=== PATIENT | female | born 1955 | race Caucasian/White ===

== ENCOUNTER → 2022-05-14 | Outpatient (CLI) | payer MEDICAID, SELFPAY ==
--- NOTE | 2022-05-14 15:46 | PFTCOMP_ITS ---
COMPLETE PULMONARY FUNCTION TEST INTERPRETATION Brief HPI: Patient is a 67-year-old female, currently under the care of Dr. Ware, who presents to [facility] for complete pulmonary function tests secondary to diagnosis of COPD. Respiratory therapist reports good effort and reproducible results. Interpretation: Forced expiration spirometry shows a severe large airways obstructive ventilatory defect with an FEV1 of 43% predicted. There is a significant bronchodilator response in FVC by strict ATS criteria. Spirograms are of good quality and plateau slowly, indicating slowly emptying areas of the lungs. The respiratory flow volume loop shows decreased expiratory flow rates at all lung volumes consistent with airway obstruction. Lung volumes by body plethysmography show an elevated total lung capacity at 7.71 L, 191% predicted. FRC and RV are elevated out of proportion. Lung volume measurements are consistent with hyperinflation and air-trapping. Diffusion capacity by carbon monoxide is at the lower limit of normal at 62% predicted. The airway resistance is elevated. No previous pulmonary function tests were available for review. Impression: Partially reversible severe large airways obstructive ventilatory defect, resulting in air trapping with hyperinflation, and a symmetric reduction in diffusion capacity
== END | disposition home or self-care (01) ==
LOC: PSN 08:47
PROVIDERS: Referring Provider Internal Medicine; Visit Provider Internal Medicine
DX: J44.9 Chronic obstructive pulmonary disease, unspecified (principal)
CPT/HCPCS: 94060; 94726; 94729

== ENCOUNTER → 2022-08-23 | Outpatient (CLI) | payer MEDICAID, SELFPAY ==
--- NOTE | 2022-08-24 05:45 | PFTCOMP ---
COMPLETE PULMONARY FUNCTION TEST INTERPRETATION Brief HPI: Patient is a 67-year-old female, currently under the care of Dr. Ware, who presents to [facility] for complete pulmonary function tests secondary to diagnosis of COPD. Respiratory therapist reports good effort and reproducible results. Interpretation: Forced expiration spirometry shows a moderately severe large airways obstructive ventilatory defect with an FEV1 of 58% predicted. There is no significant bronchodilator response by strict ATS criteria. Spirograms are of good quality and plateau slowly, indicating slowly emptying areas of the lungs. The respiratory flow volume loop shows decreased expiratory flow rates at all lung volumes consistent with airway obstruction. Lung volumes by body plethysmography show an elevated total lung capacity at 5.07 L, 125% predicted. FRC and RV are elevated out of proportion. Lung volume measurements are consistent with hyperinflation and air-trapping. Diffusion capacity by carbon monoxide is normal at 71% predicted. The airway resistance is elevated. No previous pulmonary function tests were available for review. Impression: Irreversible moderately severe large airways obstructive ventilatory defect, resulting in air trapping with hyperinflation, and relatively preserved diffusion capacity
== END | disposition home or self-care (01) ==
LOC: PSN 10:25
PROVIDERS: Referring Provider Internal Medicine; Visit Provider Internal Medicine
DX: J44.9 Chronic obstructive pulmonary disease, unspecified (principal)
CPT/HCPCS: 94060; 94726; 94729

== ENCOUNTER → 2022-09-13 | Outpatient (CLI) | payer MEDICAID, SELFPAY ==
--- NOTE | 2022-09-13 16:50 | CT_ITS ---
STUDY: LOW DOSE CT LUNG CANCER SCREENING REASON FOR EXAM: Female, 67 years old. Smoker. Follow-up right upper lobe nodule. RADIATION DOSAGE (If Supplied By Facility): CTDIvol = ( 2.01 ) mGy, DLP = ( 62.43 ) mGycm TECHNIQUE: No contrast was administered. Low dose technique was utilized (average mAS-38 and kVp 120). 1.25 mm axial source images with a slice interval of 1.25-mm were reconstructed in lung windows. 2.5 mm axial source images with a slice interval of 2.5-mm were reconstructed in lung windows. 5.0 mm axial source images with a slice interval of 5.0-mm were reconstructed in soft tissue windows. COMPARISON: None. NODULES: Nodule #: 1 Density: 2 Lung location: Right upper lobe: 3.25 cm from pleura Location in series: Series Number: 2 Image: 54 Size - D1 x D2 mm: 7 x 6 mm: 7 mm average diameter Margin: Irregular Shape: Ovoid Calcification: No Fat: No Temporal comparison: None Nodule #: 2 Density: Solid Lung location: Left lower lobe: Pleural-based Location in series: Series Number: 2 Image: 86 Size - D1 x D2 mm: 3 x 3 mm: 3 mm average diameter Margin: Smooth Shape: Rounded Calcification: Yes Fat: No Temporal comparison: None Nodule #: 3 Density: Ground glass Lung location: Left upper lobe: 1.6 cm from pleura Location in series: Series Number: 2 Image: 133 Size - D1 x D2 mm: 8 x 4 mm: 6 mm average diameter Margin: Irregular Shape: Ovoid Calcification: No Fat: No Temporal comparison: None Total lung nodules (excluding granulomas): 2 Emphysema: Mild emphysematous changes in the lungs. Endobronchial lesion: None Aorta: Minimal atherosclerotic changes without aneurysm. CORONARY ARTERIES: Coronary artery calcification are seen Heart: Normal Pulmonary artery: Normal Mediastinal nodes: There are calcified bilateral hilar lymphadenopathy. Other chest and abdominal findings: Degenerative changes of the thoracic spine. CT/Low Dose CT Lung Screening IMPRESSION: Lung-RADS category 2 - Continue annual screening with LDCT in 12 months. IMPORTANT NOTES FOR USE: ACR Lung-RADS Version 1.1 Assessment Categories Release Date: 2018 Category: Coded 0-4 bases on nodule(s) with highest degree of suspicion. Negative screen is defined as categories 1 and 2; a positive screen is defined as categories 3 and 4. Category 3 and 4A nodules that are unchanged on interval CT should be coded as category 2, and individuals returned to screening in 12 months. Category 4X: Category 3 or 4 nodules with additional imaging findings that increase the suspicion of lung cancer, such as spiculation, GGN that doubles in size in 1 year, enlarged lymph notes, etc. Category Modifiers: S (significant finding unrelated to lung cancer) Electronically Signed: Selvin Ingram DO at 16:45 EDT Reading Location ID and State: [address] [place] [address] Tel [phone], Service support ,
== END | disposition home or self-care (01) ==
LOC: CT 16:50
PROVIDERS: Referring Provider Internal Medicine; Visit Provider Internal Medicine
DX: R91.8 Other nonspecific abnormal finding of lung field (principal); F17.200 Nicotine dependence, unspecified, uncomplicated
CPT/HCPCS: 71271

== ENCOUNTER 2022-12-05 09:54 | Outpatient (CLI) | payer MEDICARE, MEDICAID, SELFPAY ==
--- NOTE | 2022-12-05 09:59 | BD_ITS ---
STUDY: DUAL ENERGY X-RAY ABSORPTIOMETRY / DXA REASON FOR EXAM: Female, 67 years old. V76.12ScreeningBONE DENSITY REASON FOR EXAM TECHNIQUE: Bone Mineral Density (BMD) measurements of lumbar spine and bilateral hips were obtained. COMPARISON: None. FINDINGS: Lumbar Spine (L1-L4): g/cm2 (0.925) / T-score (-1.1) / Z-score (0.8) Findings are suggestive of osteopenia with a low fracture risk. Left Femur Total: g/cm2 (0.728) / T-score (-1.8) / Z-score (-0.4) Left Femoral Neck: g/cm2 (0.658) / T-score (-1.7) / Z-score (-0.1) Right Femur Total: g/cm2 (0.755) / T-score (-1.5) / Z-score (-0.2) Right Femoral Neck: g/cm2 (0.753) / T-score (-0.9) / Z-score (0.7) BD/Dexa Bone Density Study IMPRESSION: The patient is considered osteopenic as outlined below according to World Steve Organization (WHO) criteria with a moderate fracture risk. Reference Information: The T-score is the number of standard deviations above or below the standard which is normal for young adults at their peak bone mineral density. The World Health Organization (WHO) interprets the T-scores as follows: Above -1 Normal bone density Between -1 and -2.5 Osteopenia Equal to / or below -2.5 Osteoporosis As a practical clinical guideline, osteopenia may be graded as follows: Mild -1 through -1.5 Moderate -1.6 through -2.0 Severe -2.1 through -2.4 The Z-score is the number of standard deviations above or below age-matched controls. A Z-score of less than -1.5 would be considered abnormal. References: 1. NIH Osteoporosis and Related Bone Diseases www osteo.org 2. International Society for Clinical Densitometry www iscd.org 3. National Osteoporosis Foundation www nof.org Electronically Signed: Antonio Das MD at 12:54 EDT ,
== END 2022-12-05 23:59 | disposition home or self-care (01) ==
LOC: OPBD 09:55
PROVIDERS: PCP Family Medicine Geriatric Medicine; Referring Provider Family Medicine Geriatric Medicine; Visit Provider Family Medicine Geriatric Medicine
DX: Z13.89 Encounter for screening for other disorder (principal); E78.5 Hyperlipidemia, unspecified; I10 Essential (primary) hypertension; M85.80 Other specified disorders of bone density and structure, unspecified site; N95.9 Unspecified menopausal and perimenopausal disorder; Z13.29 Encounter for screening for other suspected endocrine disorder; E55.9 Vitamin D deficiency, unspecified
CPT/HCPCS: 36415; 77080; 80053; 82306; 84443; 85025; 86803

== ENCOUNTER → 2022-12-05 | Outpatient (CLI) | payer MEDICARE, MEDICAID, SELFPAY ==
[2022-12-05 10:52] LABS: Absolute Lymphocyte Count 3.09 X10^3/uL (0.83-4.51); Absolute Neutrophil Count 3.6 X10^3/uL (2.0-7.7); Basophil# 0.08 X10^3/uL; Eosinophil# 0.35 X10^3/uL; Eosinophils% 4.5 % (0-5); Hematocrit 38.5 % (37-47); Lymphocyte # 3.09 X10^3/ul (0.83-4.51); Lymphocyte % 39.8 % (19-41); Mean Corp Hgb Conc 31.2 g/dL (32-36); Mean Corpuscular Hgb 31.6 pg (27.0-32.0); Mean Corpuscular Volume 101.3 fL (81-99); Mean Platelet Vol. 9.9 fl (6.2-12.0); Monocyte# 0.65 X10^3/uL; Monocyte% 8.4 % (0-10); NRBC Flagged by Analyzer 0 % (0-5); Neutrophil # 3.56 X10^3/uL (2.7-7.7); Neutrophil % 45.9 % (47-70); Platelet Count 323 K/mm3 (150-450); RBC Distribution Width CV 12.6 % (11.6-14.6); RBC Distribution Width SD 47.5 fl (35.1-43.9); White Blood Count 7.8 K/mm3 (4.4-11.0)
[2022-12-05 11:21] LABS: ALB/GLOB Ratio 1.1 RATIO (0.9-2.4); AST(SGOT) 19 U/L (15-37); Alanine Aminotransfer ALT/SGPT 17 U/L (13-56); Albumin, Serum 3.7 g/dL (3.2-5.0); Alkaline Phosphatase 95 U/L (45-117); Anion Gap 6 (5-15); BUN 22 mg/dL (7-18); BUN/Creat Ratio 20.8 RATIO (10-20); Chloride 110 mmol/L (98-107); Creatinine, Serum 1.06 mg/dL (0.55-1.02); EST Glomerular Filtration Rate 55 mL/min (>60); Est Glom Filt Rate - Afr Amer 67 mL/min (>60); Globulin 3.3 g/dL (2.2-4.2); Glucose 99 mg/dL (74-106); Potassium 4.5 mmol/L (3.5-5.1); Sodium Level 142 mmol/L (136-145)
[2022-12-05 11:52] LABS: Hepatitis C Antibody Non-Reactive (Nonreactive); Vitamin D,25 Hydroxy 51.6 ng/mL
== END | disposition home or self-care (01) ==
LOC: LAB.FUTURE 09:11 → POLAB3 09:12
PROVIDERS: Visit Provider Family Medicine Geriatric Medicine
DX: Z13.29 Encounter for screening for other suspected endocrine disorder (principal); I10 Essential (primary) hypertension; E78.5 Hyperlipidemia, unspecified; E55.9 Vitamin D deficiency, unspecified
CPT/HCPCS: 36415; 80053; 82306; 84443; 85025; 86803

== ENCOUNTER 2023-05-03 10:01 | Emergency (ER) | payer MEDICARE, MEDICAID, SELFPAY ==
[2023-05-03 10:02] VITALS: BP 161/76; PULSE 65; RESP 18; TEMP 36.1; O2SAT 95; BMI 29.9
--- NOTE | 2023-05-03 10:03 | EX.ED.DYSGE1 ---
HPI History of Present Illness Chief Complaint: Dizziness [facility] Medical History Abnormality of lung on CXR Chronic airway obstruction COPD (chronic obstructive pulmonary disease) COPD with exacerbation DM type 2 (diabetes mellitus, type 2) Hypertension Iron deficiency anemia Mixed hyperlipidemia Nicotine addiction Oral thrush Stage 3 severe COPD by GOLD classification Home Medications lisinopril 20 mg tablet 20 mg PO DAILY 05/07/22 [History Last Taken Unknown] Nebulizer machine #1 ea 05/08/22 [Rx Last Taken Unknown] Supplies for nebulizer machine #3 ea 06/03/22 [Rx Last Taken Unknown] fluticasone fur. 200 mcg-umeclid 62.5 mcg-vilant 25 mcg inhalat.powder (Trelegy Ellipta) 1 inh inhalation DAILY COPD, severe #90 ea 09/10/22 [Rx Last Taken Unknown] varenicline 0.5 mg (11)-1 mg (42) tablets in a dose pack (Exuru! Starting Month Box) See Rx Instructions PO PER PKG DIR #53 tabs 09/10/22 [Rx Last Taken Unknown] nystatin 100,000 unit/mL oral suspension 5 ml mucous membrane TID #250 mL 11/20/22 [Rx Last Taken Unknown] albuterol sulfate 90 mcg/actuation aerosol inhaler (ProAir HFA) 2 puff inhalation Q6H PRN shortness of breath or wheezing #8.5 grams 01/30/23 [Rx Last Taken Unknown] albuterol sulfate 2.5 mg/3 mL (0.083 %) solution for nebulization 2.5 mg (3 mL) inhalation Q4H PRN shortness of breath or wheezing #180 mL 04/02/23 [Rx Last Taken Unknown] amoxicillin 875 mg-potassium clavulanate 125 mg tablet 1 tab PO BID #10 tabs 04/08/23 [Rx Last Taken Unknown] prednisone 10 mg tablet 10 mg PO QDAY #30 tabs 04/08/23 [Rx Last Taken Unknown] benzonatate 200 mg capsule 200 mg PO TID PRN cough #90 caps 04/10/23 [Rx Last Taken Unknown] azithromycin 500 mg tablet 500 mg PO DAILY 5 days #5 tabs 05/03/23 [Rx Last Taken Unknown] losartan 100 mg tablet 100 mg PO DAILY 05/03/23 [History Last Taken Unknown] metoclopramide HCl 5 mg tablet (Reglan) 5 mg PO Q8H PRN PRN nausea 5 days #15 tabs 05/03/23 [Rx Last Taken Unknown] prednisone 50 mg tablet 50 mg PO DAILY #5 tabs 05/03/23 [Rx Last Taken Unknown] Allergy/AdvReac Type Severity Reaction Status Date / Time codeine Allergy hives Verified 05/03/23 10:04 ondansetron [From Zofran] AdvReac Mild HEADACHE Verified 05/03/23 12:32 Surgical History H/O cervical discectomy Hx of tonsillectomy Social History (Updated 09/10/22 @ 13:39 by Melinda Mann) Smoking Status: Current every day smoker tobacco type: cigarettes alcohol intake: current alcohol intake frequency: holidays/special occasions only EXAM Physical Exam Const Vital Signs: 05/03/23 10:02 05/03/23 10:06 05/03/23 10:28 Temperature 97 F L Temperature Source Temporal Pulse Rate 65 71 Respiratory Rate 18 16 Respiratory Effort Normal Non-Labored Respiratory Pattern Normal Normal Blood Pressure 161/76 H Blood Pressure Mean 104 Pulse Ox 95 Oxygen Delivery Method Room Air 05/03/23 12:07 05/03/23 12:32 Temperature Temperature Source Pulse Rate 82 71 Respiratory Rate 17 15 Respiratory Effort Respiratory Pattern Blood Pressure 117/99 H 134/65 H Blood Pressure Mean 105 88 Pulse Ox 98 97 Oxygen Delivery Method Room Air MDM MDM MDM Narrative Medical decision making narrative: HISTORY OF PRESENT ILLNESS: 68-year-old female presents with concern for dizziness, SOB, productive cough. She symptoms abnormal for 2 days worse this morning she got up to use the bathroom. While she is using bathroom is felt lightheaded. Did not lose consciousness. Denies any chest pain. She denies any bleeding diathesis. She notes that she is vaccinated against RSV this year. She notes she still smoking. The patient denies recent surgery in the last 4 weeks or immobilization in the last 3 days, denies previous diagnosis of DVT or PE, hemoptysis, unilateral leg swelling or malignancy with treatment the last 6 months or palliative. No estrogen use noted. She denies any focal neurologic deficits such as slurred speech, facial drooping, weakness or incoordination. REVIEW OF SYSTEMS: Pertinent positives: Dizziness, shortness of breath, cough, nausea Pertinent negatives: Head trauma, headache, chest pain, focal weakness, abdominal pain, vomiting PHYSICAL EXAM: Nursing triage notes reviewed, Vital signs reviewed Constitutional: please see [facility] HENT: MMM Eyes: Pupils equal round and reactive to light, Extraocular muscles intact Neck: No stridor, no JVD, full neck ROM Lungs: Clear to auscultation, diffuse bilateral wheezing, coarse breath sounds. No increased work of breathing, no conversational dyspnea, no accessory muscle use, no nasal flaring. No respiratory distress noted Heart: Regular rate and rhythm, No murmurs, No rubs and No gallops, 2+ distal pulses (radial, femoral, posterior tibial) in all extremities Abdomen: Soft, there is no tenderness, rigidity, rebound or guarding, no obvious peritoneal signs, no palpable pulsatile abdominal masses, no auscultated abdominal bruit : No CVAT Extremities: No edema Neuro: Alert and oriented x3, neuro exam at baseline, cranial nerves II through XII are intact. No pain with extraocular muscle movement. There is negative test of skew. 5 of 5 strength in upper and lower extremities in flexion extension. Intact sensation to light touch in upper and lower extremity dermatomes. No truncal or extremity ataxia. No dysdiadochokinesia. Normal gait. 2+ reflexes in upper and lower extremities. No meningeal signs. Negative Babinski. NIH of 0. Skin: No rash or lesions noted MEDICAL DECISION MAKING: Chief Complaint: Dizziness External records reviewed: No recent advanced imaging of the brain. Factors affecting care: COPD, diabetes, hypertension, anemia, hyperlipidemia Social determinants of health: Nicotine addiction History obtained from others: Consults: none [facility] Narrative: Patient was hemodynamically stable, afebrile, nontoxic-appearing. Initial neurologic exam without focal deficits. Initial cardiopulmonary exam consistent with likely COPD exacerbation. I considered the following differential diagnosis: COPD exacerbation, dehydration, COVID, flu, RSV, pneumonia, ACS, anemia, arrhythmia, PE I considered PE however patient had a low risk Wells score, focal lung findings are more consistent with COPD which makes PE less likely. He otherwise well score suggests proximal 1% risk of PE. There is no indication for D-dimer or CT at this time. I obtained a broad lab and imaging workup to further elucidate the etiology of the patient complaint. ALL IMAGES (IF OBTAINED) HAVE BEEN PERSONALLY REVIEWED AND INTERPRETED BY MYSELF. EKG with sinus bradycardia, left axis deviation, normal intervals, no ischemic changes or STEMI noted BMP without evidence of volume overload CBC without leukocytosis, severe anemia, no thrombocytopenia. BMP without evidence of significant electrolyte abnormalities, no anion gap, no acute kidney injury. High-sensitivity troponin is negative, no evidence of myocardial ischemia I have personally reviewed the patient's chest x-ray. Chest x-ray is unremarkable for pulmonary edema, pneumothorax, pneumonia or focal cardiopulmonary abnormality. The synthesis of the patient's history, physical exam, labs and images suggest no acute life or limb threatening etiology. I suspect based on her wheezing, history of COPD that she is having a COPD exacerbation causing intermittent dizziness shortness of breath. Her cough is likely result of COPD exacerbation as there is no signs of COVID, flu, bacterial pneumonia. I will prescribe short course of prednisone, azithromycin for anti-inflammatory effect. She is to follow with her primary care physician the next available appointment for outpatient reevaluation. Strict return precautions were discussed. The patient and/or family, caregivers express understanding. The patient and/or family, caregivers agrees with the plan. Shared decision making: I will have a discussion with the patient and or visitors regarding risk/benefits of further testing or admission. They will be made aware of of the risk/benefits inherent in this decision they will be given the opportunity to voice understanding. Total critical care time today provided was at least 0 minutes. This excludes separately billable procedures. Critical care time (if documented) is secondary to the patient having high probability of clinically significant/life threatening deterioration in the patient's condition which required my urgent intervention. Impression: 1. COPD exacerbation 2. Dizziness Dispo: Discharge home This note was generated with elarm dictation software. It may contain incorrect words, spelling, and punctuation that were not noted in review of the chart prior to signing. Lab Data Labs: Laboratory Results - last 24 hr 05/03/23 10:05 WBC 7.7 RBC 4.15 L Hgb 12.8 Hct 40.4 MCV 97.3 MCH 30.8 MCHC 31.7 L RDW Std Deviation 44.2 H RDW Coeff of Adriana 12.3 Plt Count 315 MPV 9.4 Immature Gran % (Auto) 0.400 Neut % (Auto) 43.9 L Lymph % (Auto) 42.2 H [place] % (Auto) 7.5 Eos % (Auto) 5.2 H Baso % (Auto) 0.8 Absolute Neuts (auto) 3.4 Absolute Lymphs (auto) 3.26 Nucleated RBC % 0 Sodium 138 Potassium 3.9 Chloride 108 H Carbon Dioxide 28.0 Anion Gap 2 L BUN 17 Creatinine 1.02 Estim Creat Clear Calc 46.62 Est GFR (MDRD) Af Amer 70 Est GFR (MDRD) Non-Af 57 L BUN/Creatinine Ratio 16.7 Glucose 105 Calcium 9.6 Troponin I High Sens 7 B-Natriuretic Peptide 8.7 Radiography Diagnostic Testing: Clinical Impression(s) from Imaging Studies Chest X-Ray 05/03/23 10:43 IMPRESSION: No acute cardiopulmonary disease. Electronically Signed: Jamal Garcia MD at 11:08 EST , Discharge Plan Triage Chief Complaint: Dizziness ED Provider: Rajendra Lu Dx/Rx/DC Orders Clinical Impression: COPD with exacerbation Instructions: Asthma COPD Trigger Control Prescriptions: New prednisone 50 mg tablet 50 mg PO DAILY Qty: 5 0RF azithromycin 500 mg tablet 500 mg PO DAILY 5 Days Qty: 5 0RF metoclopramide HCl [Reglan] 5 mg tablet 5 mg PO Q8H PRN PRN (Reason: nausea) 5 Days Qty: 15 0RF No Action lisinopril 20 mg tablet 20 mg PO DAILY (DME) Nebulizer machine See Rx Instructions .Route .MEDSUPPLY Qty: 1 0RF Rx Instructions: Use every 4-6 hours as needed (DME) Supplies for nebulizer machine See Rx Instructions .Route .MEDSUPPLY Qty: 3 3RF Rx Instructions: Tubing, plastic nebulizer cups, renewable every 90 days per insurance. Use every 4-6 hours with liquid respiratory medication as directed. Trelegy Ellipta 200-62.5-25 mcg blister with device 1 inh inhalation DAILY MDD 1 daily Qty: 90 11RF varenicline [Chantix Starting Month Box] 0.5 mg (11)- 1 mg (42) tablets,dose pack See Rx Instructions PO PER PKG DIR Qty: 53 2RF Rx Instructions: PO PER PKG DIR losartan 100 mg tablet 100 mg PO DAILY nystatin 100,000 unit/mL suspension 5 ml mucous membrane TID Qty: 250 1RF Rx Instructions: swish and swallow 5 cc three times per day for 10 days albuterol sulfate [ProAir HFA] 90 mcg/actuation HFA aerosol inhaler 2 puff inhalation Q6H PRN (Reason: shortness of breath or wheezing) Qty: 8.5 6RF albuterol sulfate 2.5 mg /3 mL (0.083 %) solution for nebulization 2.5 mg inhalation Q4H MDD 6 PRN (Reason: shortness of breath or wheezing) Qty: 180 11RF amoxicillin-pot clavulanate 875-125 mg tablet 1 tab PO BID Qty: 10 0RF prednisone 10 mg tablet 10 mg PO QDAY Qty: 30 0RF Rx Instructions: take 4 tabs for three days, then 3 tabs for three days, then 2 tabs for three days, then 1 tab for 3 days benzonatate 200 mg capsule 200 mg PO TID PRN (Reason: cough) Qty: 90 0RF Primary Care Provider: Dilip Matute Chi Referrals: Dilip Matute Chi, MD [Primary Care Provider] - Activity Restrictions/Additional Instructions: Thank you for trusting us with your care today! Please take Tylenol (2 pills, 650 mg), ibuprofen (2 pills, 400 mg) every 6 hours as needed for pain and fever control. Please take prednisone as prescribed. Please return to the emergency department if your symptoms change or worsen. Please follow with your primary care physician for further outpatient evaluation and management. Disposition Disposition: Home, Self Care Discharge Date/Time: 05/03/23 12:33
[2023-05-03] MEDS: Ipratropium/Albuterol Sulfate 3 ML AMPUL.NEB INHALATION (10:27)
[2023-05-03 10:28] VITALS: PULSE 71; RESP 16
[2023-05-03 10:34] LABS: Absolute Lymphocyte Count 3.26 X10^3/uL (0.83-4.51); Absolute Neutrophil Count 3.4 X10^3/uL (2.0-7.7); Basophil# 0.06 X10^3/uL; Basophil% 0.8 % (0-1); Eosinophils% 5.2 % (0-5); Hematocrit 40.4 % (37-47); Hemoglobin 12.8 g/dL (12.0-15.0); Lymphocyte # 3.26 X10^3/ul (0.83-4.51); Lymphocyte % 42.2 % (19-41); Mean Corp Hgb Conc 31.7 g/dL (32-36); Mean Corpuscular Hgb 30.8 pg (27.0-32.0); Mean Corpuscular Volume 97.3 fL (81-99); Mean Platelet Vol. 9.4 fl (6.2-12.0); Monocyte# 0.58 X10^3/uL; Monocyte% 7.5 % (0-10); NRBC Flagged by Analyzer 0 % (0-5); Neutrophil % 43.9 % (47-70); Platelet Count 315 K/mm3 (150-450); RBC Distribution Width CV 12.3 % (11.6-14.6); RBC Distribution Width SD 44.2 fl (35.1-43.9); Red Blood Count 4.15 M/mm3 (4.2-5.4); White Blood Count 7.7 K/mm3 (4.4-11.0)
--- NOTE | 2023-05-03 10:43 | RAD_ITS ---
STUDY: X-RAY CHEST REASON FOR EXAM: Female, 68 years old. Shortness of breath, cough rule out pneumonia TECHNIQUE: PA and lateral views of the chest. COMPARISON: None. FINDINGS: The lungs are clear and expanded. There is no demonstrated pleural abnormality. Normal size heart. Normal mediastinum and galindo. Normal visualized pulmonary arteries. Normal visualized aortic arch and descending thoracic aorta. There is scoliotic curvature and degenerative change of the thoracic spine. There is postoperative change in the cervical spine. Normal visualized ribs, clavicles, and shoulders. There is no demonstrated abnormality of the visualized soft tissue structures of the upper abdomen. RAD/Chest PA and Lateral IMPRESSION: No acute cardiopulmonary disease. Electronically Signed: Jamal Garcia MD at 11:08 EST ,
[2023-05-03 10:51] LABS: Anion Gap 2 (5-15); BUN 17 mg/dL (7-18); BUN/Creat Ratio 16.7 RATIO (10-20); Calcium,Total 9.6 mg/dL (8.5-10.1); Chloride 108 mmol/L (98-107); Creatinine, Serum 1.02 mg/dL (0.55-1.02); EST Glomerular Filtration Rate 57 mL/min (>60); Est Glom Filt Rate - Afr Amer 70 mL/min (>60); Estimated Creatinine Clearance 46.62 ml/min; Glucose 105 mg/dL (74-106); Potassium 3.9 mmol/L (3.5-5.1); Sodium Level 138 mmol/L (136-145); Troponin-I HS 7 pg/mL (3.0-54.0)
[2023-05-03] MEDS: Ondansetron 4 MG/2 ML Vial IV (10:55)
[2023-05-03] MEDS: 0.9% Normal Saline (500mL Bag) 500 ML 999 ML IV (10:55)
--- OUTSIDE RECORDS SUMMARY | 2023-05-03 11:00 | XMS RPT_ITS | CCD ---
Author Name Unknown Address [address] [place] [address] Organization [facility] Care Team Providers Care Hull Drafter Name Role Phone Chase Funez Attending Unavailable Dom Groves Primary Care Unavailable Chase Funez Attending Unavailable Dom Groves Primary Care Unavailable Dom Groves Primary Care Unavailable Ivanauskas, Saulius Admitting Unavailable Ivclaudia, Saulius Attending Unavailable Dom Groves Primary Care Unavailable Asbridkike Yue Admitting Unavailable Asbnanette, Yue Attending Unavailable Dom Groves Primary Care Unavailable Rings, Oziel Admitting Unavailable Oral Pearlhakar Attending Unavailable Kody Mast Unavailable Unavailable Collin Sommers Unavailable Unavailable Update Needed Unavailable Unavailable Pending Provider Unavailable Unavailable Collin Sommers CNP Primary Care Provider Kody Mast DO Unavailable Unavailable Collin Sommers Unavailable Unavailable Update Needed Unavailable Unavailable Pending Provider Unavailable Unavailable Collin Sommers Unavailable [phone] Unavailable Unavailable ASHLEY CUEVAS Attending Unavailable COLLIN SOMMERS Primary Care Unavailable COLLIN SOMMERS Primary Care Unavailable ASHLEY CUEVAS Attending Unavailable COLLIN SOMMERS. Primary Care Unavailable COLLIN SOMMERS. Referring Unavailable ASHLEY CUEVAS Attending Unavailable COLLIN SOMMERS. Admitting Unavailable ASHLEY CUEVAS Attending Unavailable COLLIN SOMMERS. Primary Care Unavailable ASHLEY CUEVAS Attending Unavailable COLLIN SOMMERS Primary Care Unavailable Collin Sommers Unavailable King Springer Unavailable Unavailable PiaseckiKody Unavailable Unavailable Renita Huber Unavailable Unavailable EVE MARTEL Attending Unavailable EVE MARTEL Referring Unavailable HELLINGER, COLLIN L. Primary Care Unavailable VIAU, ASHLEY SHINE Attending Unavailable VIAU, ASHLEY SHINE Referring Unavailable HELLINGER, COLLIN L. Primary Care Unavailable Al Salti Matty Cassidy, Nadiya Unavailable Unavailab le Devang, Glen Izquierdo Unavailable Unavailable Devang, Dr. Glen Izquierdo Admitting Unavaila ble Devang, Dr. Glen Izquierdo Attending Unavaila ble Al Salti Al Krad, Hani Referring Unavailab le Hellinger, Ms. Collin Bowman Primary Care Unavail able Dom Holland Unavailable Yocasta Matute Unavailable Jamilah, Dr. Gerson Ashraf Attending Unavailable Amalia, Dr. Dom Hoskins Primary Care Unavailabl e Amalia, Dr. Dom Hoskins Referring Unavailabl e Pro, Kody Attending Unavailable PiaseKody lerner Referring Unavailable Hellinger, Ms. Collin Bowman Primary Care Unavail able Hellinger, Ms. Collin Bowman Primary Care Unavail able Zumbar, Dr. Andrew Pires Admitting Unav ailable Ztrevor, Dr. Andrew Pires Attending Unav ailable Ztrevor, Dr. Andrew Pires Referring Unav ailable Tomchakisha, Dr. Dom Kolb Primary Care Unavaila ble Huber, MsElder Dexter Attending U oscar Sommers, Ms. Collin Bowman Primary Care Unavail able Huber, MsElder Dexter Attending U oscar Sommers, Ms. Collin Bowman Primary Care Unavail able Huber, MsElder Dexter Attending Yuridia Matute, Dr. Rust Primary Care Unavailable Huber, Ms. Renita Dexter Attending Yuridia Matute, Dr. Rust Primary Care Unavailable Huber, Ms. Renita Dexter Attending Yuridia Matute, Dr. Rust Primary Care Unavailable Mayo, Ms. Renita Dexter Attending Yuridia Matute, Dr. Rust Primary Care Unavailable Huber, Ms. Renita Dexter Attending Yuridia Matute, Dr. Rust Primary Care Unavailable Huber, MsElder Dexter Attending Yuridia Matute, Dr. Rust Primary Care Unavailable Huber, MsElder Dexter Attending U oscar Matute, Dr. Rust Primary Care Unavailable Huber, MsElder Dexter Attending U oscar Matute, Dr. Rust Primary Care Unavailable Giovani, Dr. Rust Referring Unavailable Thomae, Dr. Gerson Caballero Admitting Unavailable Thomae, Dr. Gerson Caballero Attending Unavailable Tomchak, Dr. Dom Kolb Primary Care Unavaila ble Tomchak, Dr. Dom Kolb Attending Unavaila ble Tomchak, Dr. Dom Kolb Primary Care Unavaila ble Tomteddy, Dr. Dom Kolb Attending Unavaila ble Tomteddy, Dr. Dom Kolb Primary Care Unavaila ble Huber, MsElder Dexter Attending U navjimenez Sommers, Elder Collin Bowman Primary Care Unavail able Matty Bernal, Dr. Hearn Admitting Unava ilable Matty Bernal, Dr. Hearn Attending Unava ilable Matty Bernal, Dr. Hearn Referring Unava ilable Jeison, Ms. Collin Bowman Primary Care Unavail able Magnolia, Dr. King Valiente Attending Unava ilable Giovani [facility] GIOVANI, DILIP-CHI Primary Care Unavailable Giovani BURNS, [facility] Primary Care Provider RENITA HUBER C Referring Unavailable GIOVANI, DILIP-CHI Primary Care Unavailable MAYO, RENITA C Referring Unavailable GIOVANI, DILIP-CHI Primary Care Unavailable MAYO, RENITA C Referring Unavailable GIOVANI, DILIP-CHI Primary Care Unavailable MAYO, RENITA C Referring Unavailable GIOVANI, DILIP-CHI Primary Care Unavailable HUBER, RENITA C Referring Unavailable GIOVANI, DILIP-CHI Primary Care Unavailable HUBER, RENITA C Referring Unavailable GIOVANI, DILIP-CHI Primary Care Unavailable BLU VELÁZQUEZ Attending Unavailable MAYO, RENITA C Referring Unavailable GIOVANI, DILIP-CHI Primary Care Unavailable BLU VELÁZQUEZ Referring Unavailable GIOVANI, DILIP-CHI Primary Care Unavailable MAYO, RENITA C Referring Unavailable GIOVANI, DILIP-CHI Primary Care Unavailable MAYO, RENITA C Referring Unavailable GIOVANI, DILIP-CHI Primary Care Unavailable TADEO MEDRANO Attending Unavailable GIOVANI, DILIP-CHI Referring Unavailable GIOVANI, DILIP-CHI Primary Care Unavailable GIOVANI, DILIP-CHI Referring Unavailable GIOVANI, DILIP-CHI Primary Care Unavailable RENITA HUBER Attending Unavailable GIOVANI, DILIP-CHI Primary Care Unavailable GIOVANI, DILIP-CHI Referring Unavailable GIOVANI, DILIP-CHI Primary Care Unavailable GIOVANI, DILIP-CHI Referring Unavailable GIOVANI, DILIP-CHI Primary Care Unavailable GIOVANI, DILIP-CHI Referring Unavailable GIOVANI, DILIP-CHI Primary Care Unavailable RENITA HUBER Referring Unavailable GIOVANI, DILIP-CHI Primary Care Unavailable GIOVANI, DILIP-CHI Referring Unavailable GIOVANI, DILIP-CHI Primary Care Unavailable ENID ENRIQUEZ Attending Unavailable GIOVANI, DILIP-CHI Referring Unavailable GIOVANI, DILIP-CHI Primary Care Unavailable GIOVANI, DILIP-CHI Referring Unavailable GIOVANI, DILIP-CHI Primary Care Unavailable RENITA HUBER Attending Unavailable GIOVANI, DILIP-CHI Primary Care Unavailable RENITA HUBER Referring Unavailable GIOVANI, DILIP-CHI Primary Care Unavailable Allergies Allergy Classification Reported Allergen(s) Allergy Type Date of Onset Reaction(s) Facility Opioid Agonists (15 sources) Codeine Drug Allergy 2 Hives, Rash [facility] (20 sources) Codeine; Translations: [codeine] Drug Allergy 2 Rash, Hives, Itching [facility] Repository Medications Current Medications Medication Drug Class(es) Dates Sig (Normalized) Sig (Original) acetaminophen 325 mg / oxyCODONE hydrochloride 5 mg oral tablet (1 source) Opioid Agonist Start: 07-24-2022 End: 07-26-2022 take 1 tablet by mouth three times daily oxycodone-acetamino phen 5 mg-325 mg oral tablet ; 1 tab(s) orally 3 times a day Quantity: 10 Refills: 0 Ordered: 24-Jul-2022 King Springer Start: 24-Jul-2022 End: 26-Jul-2022 Generic Substitution Allowed Comments: Caution federal law prohibits the transfer of this drug to any person other than the person for whom it was prescribed.May cause drowsiness. Alcohol may intensify this effect. Use care when operating dangerous machinery.This prescription cannot be refilled.This product contains acetaminophen. Do not use with any other product containing acetaminophen to prevent possible liver damage.Using more of this medication than prescribed may cause serious breathing problems. Completed/Discontinued Medications Medication Drug Class(es) Dates Sig (Normalized) Sig (Original) Breztri Aerosphere 160-9-4.8 MCG/ACT Inhalation Aerosol (1 source) Start: 1 take 2 puff(s) by inhalation twice daily Yelenatri Aerosphere 160-9-4.8 MCG/ACT Inhalation Aerosol INHALE 2 PUFFS Twice daily Quantity: 1 Refills: 6 Kody Mast DO Start : 08-Jun-2020 Active 5.9 GM Inhaler 1 ml dexamethasone phosphate 10 mg/ml injection (2 sources) Corticosteroid Start: 4 End: 4 dexAMETHasone (PF) (Decadron) injection 10 mg famotidine 40 mg oral tablet (20 sources) Histamine-2 Receptor Antagonist End: 2 take 1 tablet by mouth once daily Famotidine 40 MG Oral Tablet TAKE 1 TABLET DAILY DIRECTED. Quantity: 0 Refills: 0 Ordered: 23-Aug-2021 DO End : 23-Aug-2021 Complete gadoterate meglumine (Dotarem) 0.5 mmol/mL contrast injection 13 mL (2 sources) Start: 3 End: 3 gadoterate meglumine (Dotarem) 0.5 mmol/mL contrast injection 13 mL iohexol (OMNIPaque) 300 mg iodine/mL solution 3 mL (2 sources) Start: 4 End: 4 iohexol (OMNIPaque) 300 mg iodine/mL solution 3 mL 10 ml lidocaine hydrochloride 10 mg/ml injection (2 sources) Antiarrhythmic, Amide Local Anesthetic Start: 4 End: 4 lidocaine PF (Xylocaine) 10 mg/mL (1 %) injection 100 mg methylPREDNISolone 4 MG Oral Tablet Therapy Pack (6 sources) Start: 2 take 1 tablet by mouth once methylPREDNISolone 4 MG Oral Tablet Therapy Pack Medrol dose pack. Take as per package direction Quantity: 1 Refills: 0 Ordered: 31-May-2021 Renita Huber PA-C Start : 31-May-2021 Active Problems Active Problems Problem Classification Problem Date Documented Date Episodic/Chronic Acute bronchitis (20 sources) Acute bronchitis; Translations: [Acute bronchitis] Episodic Cardiac dysrhythmias (1 source) Tachycardia, unspecified; Translations: [Tachycardia, unspecified] Onset: 03-31-2022 Episodic Chronic obstructive pulmonary disease and bronchiectasis (20 sources) Pulmonary emphysema; Translations: [Acute exacerbation of chronic obstructive airways disease] Onset: 03-28-2022 03-28-2022 Chronic Chronic obstructive pulmonary disease and bronchiectasis (5 sources) Chronic obstructive pulmonary disease and bronchiectasis 05-08-2021 Past or Other Problems Problem Classification Problem Date Documented Date Episodic/Chronic Allergic reactions (1 source) Allergy status to narcotic agent status; Translations: [Allergy status to narcotic agent] Onset: 03-28-2022 Episodic Conditions associated with dizziness or vertigo (1 source) Benign paroxysmal vertigo, unspecified ear; Translations: [Benign paroxysmal vertigo, unspecified ear] Onset: 03-28-2022 Episodic Noninfectious gastroenteritis (20 sources) Colitis; Translations: [Other and unspecified noninfectious gastroenteritis and colitis] Onset: 01-02-2023 01-02-2023 Episodic Other acquired deformities (2 sources) Spondylolisthesis, lumbar region; Translations: [Spondylolisthesis, lumbar region] Onset: 08-21-2020 Episodic Other acquired deformities (2 sources) Spondylolisthesis, site unspecified; Translations: [Spondylolisthesis, site unspecified] Onset: 01-21-2023 Episodic Other aftercare (1 source) Other sponge packer (current) drug therapy; Translations: [Other sponge packer (current) drug therapy] Onset: 07-24-2022 Episodic Other connective tissue disease (8 sources) Arthrodesis status; Translations: [Arthrodesis status] Onset: 11-14-2022 Episodic Other lower respiratory disease (20 sources) Dyspnea on exertion; Translations: [Other respiratory abnormalities] Onset: 01-02-2023 01-02-2023 Episodic Other screening for suspected conditions (not mental disorders or infectious disease) (20 sources) Patient encounter status; Translations: [Special screening for malignant neoplasms of colon] Onset: 10-14-2022 Episodic Screening and history of mental health and substance abuse codes (16 sources) H/O: drug dependency; Translations: [Personal history of tobacco use] Resolved: 10-09-2021 Episodic Unclassified (1 source) Cough, unspecified; Translations: [Cough, unspecified] Onset: 12-21-2021 Unclassified (10 sources) Onset: 01-09-2023 Resolved: 02-27-2023 01-09-2023 NEGATED: Highlighted row has not occurred!Residual codes; unclassified (14 sources) Disease Episodic Results Test Name Value Interpretation Reference Range Facil ity Vital Signs Date Time Vital Sign Value Performing Clinician Facility 04-04-2023 15:42-0500 Diastolic blood pressure 70 mm[Hg] [address] 04-04-2023 15:42-0500 Heart rate 92 /min [address] 04-04-2023 15:42-0500 Respiratory rate 16 /min [address] 04-04-2023 15:42-0500 SaO2% (BldA) [Mass fraction] 96 % [address] 04-04-2023 15:42-0500 Systolic blood pressure 121 mm[Hg] [address] 04-04-2023 15:29-0500 Body temperature 98.49 [degF] [address] 04-04-2023 14:43-0500 Body height 152.[address] 04-04-2023 14:43-0500 Body mass index (BMI) [Ratio] 28.32 kg/m2 [address] 04-04-2023 14:43-0500 Body weight 65.[address] 02-06-2023 13:23-0500 Body height 152.4 cm Renita [employer] Work Phone: [facility] 02-06-2023 13:23-0500 Body mass index (BMI) [Ratio] 29.29 kg/m2 Renita [place] PA-C Work Phone: [facility] 02-06-2023 13:23-0500 Body weight 68.04 kg Renita [employer] Work Phone: [facility] 02-06-2023 13:23-0500 Diastolic blood pressure 78 mm[Hg] Renita [place] PA-C Work Phone: [facility] 02-06-2023 13:23-0500 Heart rate 92 /min Renita Huber PA-C Work Phone: [facility] 02-06-2023 13:23-0500 Respiratory rate 20 /min Renita Huber PA-C Work Phone: [facility] 02-06-2023 13:23-0500 Systolic blood pressure 116 mm[Hg] Renita Huber PA-C Work Phone: [facility] 01-21-2023 10:04-0400 Body mass index (BMI) [Ratio] 29.1 kg/m2 Renita Huber PA-C Work Phone: [facility] 01-21-2023 10:04-0400 Body weight 67.59 kg Renita Huber PA-C Work Phone: [facility] 01-21-2023 10:04-0400 Diastolic blood pressure 79 mm[Hg] Renita Huber PA-C Work Phone: [facility] 01-21-2023 10:04-0400 Heart rate 96 /min Renita Huber PA-C Work Phone: [facility] 01-21-2023 10:04-0400 Respiratory rate 16 /min Renita Huber PA-C Work Phone: [facility] 01-21-2023 10:04-0400 Systolic blood pressure 132 mm[Hg] Renita Huber PA-C Work Phone: [facility] 11-26-2022 10:08-0400 Body height 152.4 cm Gerson Askew DO Work Phone: [facility] 11-26-2022 10:08-0400 Body mass index (BMI) [Ratio] 28.24 kg/m2 Gerson Thomae DO Work Phone: [facility] 11-26-2022 10:08-0400 Body weight 65.6 kg Gerson Thomae DO Work Phone: [facility] 11-18-2022 14:56-0400 Body height 152.4 cm Dom Holland Work Phone: -[facility] [address] [address] Work Phone: 11-18-2022 14:56-0400 Body mass index (BMI) [Ratio] 28.98 kg/m2 Dom Collado Ottonielteddy Work Phone: -[facility] [address] Work Phone: 11-18-2022 14:56-0400 Body surface area Derived from formula 1.64 m2 Dom Collado Ottonielteddy Work Phone: [facility] [address] Work Phone: 11-18-2022 14:56-0400 Body weight 67.31 kg Dom Collado Ottonielteddy Work Phone: [facility] [address] Work Phone: 11-14-2022 10:58-0400 Body height 152.4 cm Dom Holland Work Phone: [facility] Work Phone: 11-14-2022 10:58-0400 Body mass index (BMI) [Ratio] 29.1 kg/m2 Dom Holland Work Phone: [facility] Work Phone: 11-14-2022 10:58-0400 Body surface area Derived from formula 1.65 m2 Dom Holland Work Phone: [facility] Work Phone: 11-14-2022 10:58-0400 Body weight 67.59 kg Dom Holland Work Phone: [facility] Work Phone: 11-14-2022 10:58-0400 Diastolic blood pressure 76 mm[Hg] Dom Holland Work Phone: [facility] Work Phone: 11-14-2022 10:58-0400 Heart rate 101 /min Dom Holland Work Phone: [facility] Work Phone: 11-14-2022 10:58-0400 Respiratory rate 16 /min Dom Holland Work Phone: [facility] Work Phone: 11-14-2022 10:58-0400 Systolic blood pressure 121 mm[Hg] Dom Holland Work Phone: [facility] Work Phone: 07-24-2022 13:00-0400 Diastolic blood pressure 59 mm[Hg] Collin Margaritolinger Other Phone: [facility] 07-24-2022 13:00-0400 Heart rate 74 /min Collin Hellinger Other Phone: [facility] 07-24-2022 13:00-0400 Respiratory rate 16 /min Collin Hellinger Other Phone: [facility] 07-24-2022 13:00-0400 SaO2% (BldA) [Mass fraction] 100 % Collin Hellinger Other Phone: [facility] 07-24-2022 13:00-0400 Systolic blood pressure 107 mm[Hg] Collin Hellinger Other Phone: [facility] 07-24-2022 09:33-0400 Body height 152.4 cm Collin Hellinger Other Phone: [facility] 07-24-2022 09:33-0400 Body temperature 96.8 [degF] Collin Hellinger Other Phone: [facility] 07-24-2022 09:33-0400 Body weight 66.4 kg Collin Hellinger Other Phone: [facility] 03-31-2022 19:45-0500 Heart rate 84 /min Collin Hellinger Other Phone: [facility] 03-31-2022 19:45-0500 Respiratory rate 21 /min Collin Hellinger Other Phone: [facility] 03-31-2022 19:45-0500 SaO2% (BldA) [Mass fraction] 96 % Collin Hellinger Other Phone: [facility] 03-31-2022 14:10-0500 Body temperature 98.24 [degF] Collin Hellinger Other Phone: [facility] 03-31-2022 14:10-0500 Diastolic blood pressure 81 mm[Hg] Collin Hellinger Other Phone: [facility] 03-31-2022 14:10-0500 Systolic blood pressure 162 mm[Hg] Collin Hellinger Other Phone: [facility] 03-28-2022 17:14-0500 Heart rate 100 /min Collin Hellinger Other Phone: [facility] 03-28-2022 17:14-0500 Respiratory rate 16 /min Collin Hellinger Other Phone: [facility] 03-28-2022 17:00-0500 Diastolic blood pressure 88 mm[Hg] Collin Hellinger Other Phone: [facility] 03-28-2022 17:00-0500 SaO2% (BldA) [Mass fraction] 96 % Collin Hellinger Other Phone: [facility] 03-28-2022 17:00-0500 Systolic blood pressure 153 mm[Hg] Collin Hellinger Other Phone: [facility] 03-28-2022 09:25-0500 Body temperature 97.34 [degF] Collin Hellinger Other Phone: [facility] 03-28-2022 05:06-0500 Body height 152.4 cm Collin Margaritolinger Other Phone: [facility] 03-28-2022 05:06-0500 Body weight 68.4 kg Collin Pimentellinger Other Phone: [facility] 02-06-2022 14:38-0500 Body height 152.4 cm Collin L Margaritolinger Work Phone: [facility] Work Phone: 02-06-2022 14:38-0500 Body mass index (BMI) [Ratio] 29.18 kg/m2 Collin L Hellinger Work Phone: [facility] Work Phone: 02-06-2022 14:38-0500 Body surface area Derived from formula 1.65 m2 Collin Pimentellinger Work Phone: [facility] Work Phone: 02-06-2022 14:38-0500 Body weight 67.77 kg Collin L Margaritolinger Work Phone: [facility] Work Phone: 02-06-2022 14:38-0500 Diastolic blood pressure 87 mm[Hg] Collin L Hellinger Work Phone: [facility] Work Phone: 02-06-2022 14:38-0500 Heart rate 111 /min Collin L Hellinger Work Phone: [facility] Work Phone: 02-06-2022 14:38-0500 Respiratory rate 18 /min Collin L Hellinger Work Phone: [facility] Work Phone: 02-06-2022 14:38-0500 Systolic blood pressure 154 mm[Hg] Collin L Hellinger Work Phone: [facility] Work Phone: 01-10-2022 14:13-0400 Body height 152.4 cm Collin Pimentellinger Work Phone: [facility] Work Phone: 01-10-2022 14:13-0400 Body mass index (BMI) [Ratio] 29.88 kg/m2 Collin Morin Hellinger Work Phone: [facility] Work Phone: 01-10-2022 14:13-0400 Body surface area Derived from formula 1.67 m2 Collin Pimentellinger Work Phone: [facility] Work Phone: 01-10-2022 14:13-0400 Body weight 69.4 kg Collin Pimentellinger Work Phone: [facility] Work Phone: 01-10-2022 14:13-0400 Diastolic blood pressure 78 mm[Hg] Collin L Margaritolinger Work Phone: [facility] Work Phone: 01-10-2022 14:13-0400 Heart rate 105 /min Collin L Hellinger Work Phone: [facility] Work Phone: 01-10-2022 14:13-0400 Respiratory rate 22 /min Collin L Hellinger Work Phone: [facility] Work Phone: 01-10-2022 14:13-0400 Systolic blood pressure 120 mm[Hg] Collin L Hellinger Work Phone: [facility] Work Phone: 10-24-2021 13:06-0400 Body height 152.4 cm Collin Sommers Work Phone: [facility] Work Phone: 10-24-2021 13:06-0400 Body mass index (BMI) [Ratio] 30.08 kg/m2 Collin Xavierer Work Phone: [facility] Work Phone: 10-24-2021 13:06-0400 Body surface area Derived from formula 1.67 m2 Collin Sommers Work Phone: [facility] Work Phone: 10-24-2021 13:06-0400 Body weight 69.85 kg Collin Sommers Work Phone: [facility] Work Phone: 10-24-2021 13:06-0400 Diastolic blood pressure 84 mm[Hg] Collin Sommers Work Phone: [facility] Work Phone: 10-24-2021 13:06-0400 Heart rate 90 /min Collin Xavierer Work Phone: [facility] Work Phone: 10-24-2021 13:06-0400 Systolic blood pressure 131 mm[Hg] Collin Pimentellinger Work Phone: [facility] Work Phone: 10-09-2021 10:38-0400 Body height 152.4 cm Collin Xavierer Work Phone: [facility] [address] DO Work Phone: 10-09-2021 10:38-0400 Body mass index (BMI) [Ratio] 29.72 kg/m2 Collin Morin Hellinger [facility] [facility] DO Work Phone: 10-09-2021 10:38-0400 Body surface area Derived from formula 1.66 m2 Collin Pimentellinger [facility] Phone[facility] [facility] DO Work Phone: 10-09-2021 10:38-0400 Body temperature 96.9 [degF] Collin Morin Hellinger [facility] [facility] DO Work Phone: 10-09-2021 10:38-0400 Body weight 69.04 kg Collin Pimentellinger [facility] 400 DO Work Phone: 10-09-2021 10:38-0400 Diastolic blood pressure 72 mm[Hg] Collin Pimentellinger Work Phone[facility] 400 DO Work Phone: 10-09-2021 10:38-0400 Heart rate 110 /min Collin Pimentellinger [facility] Phone[facility] [address] DO Work Phone: 10-09-2021 10:38-0400 SaO2% (BldA) [Mass fraction] 98 % Collin Morin Hellinger [facility] Phone[facility] [address] DO Work Phone: 10-09-2021 10:38-0400 Systolic blood pressure 134 mm[Hg] Collin Morin Hellinger [facility] Phone[facility] 400 DO Work Phone: 08-23-2021 14:40-0400 Body height 152.4 cm Collin Morin Hellinger Work Phone: [facility] Work Phone: 08-23-2021 14:40-0400 Body mass index (BMI) [Ratio] 30.66 kg/m2 Collin Pimentellinger Work Phone: [facility] Work Phone: 08-23-2021 14:40-0400 Body surface area Derived from formula 1.68 m2 Collin Pimentellinger Work Phone: [facility] Work Phone: 08-23-2021 14:40-0400 Body weight 71.22 kg Collin Xavierer Work Phone: [facility] Work Phone: 08-23-2021 14:40-0400 Diastolic blood pressure 87 mm[Hg] Collin Pimentellinger Work Phone: [facility] Work Phone: 08-23-2021 14:40-0400 Heart rate 108 /min Collin Pimentellinger Work Phone: [facility] Work Phone: 08-23-2021 14:40-0400 Respiratory rate 16 /min Collin Pimentellinger Work Phone: [facility] Work Phone: 08-23-2021 14:40-0400 Systolic blood pressure 153 mm[Hg] Collin L Hellinger Work Phone: [facility] Work Phone: 07-09-2021 14:04-0400 Body height 152.4 cm Collin Pimentellinger Work Phone: [facility] 400 DO Work Phone: 07-09-2021 14:04-0400 Body mass index (BMI) [Ratio] 31.52 kg/m2 Collin Pimentellinger Work Phone: [facility] 400 DO Work Phone: 07-09-2021 14:04-0400 Body surface area Derived from formula 1.7 m2 Collin Pimentellinger Work Phone: [facility] 400 DO Work Phone: 07-09-2021 14:04-0400 Body temperature 97.7 [degF] Collin Pimentellinger Work Phone: [facility] 400 DO Work Phone: 07-09-2021 14:04-0400 Body weight 73.21 kg Collin Xavierer Work Phone: [facility] 400 DO Work Phone: 07-09-2021 14:04-0400 Diastolic blood pressure 80 mm[Hg] Collin Pimentellinger Work Phone: [facility] 400 DO Work Phone: 07-09-2021 14:04-0400 Heart rate 102 /min Collin Xavierer Work Phone: [facility] 400 DO Work Phone: 07-09-2021 14:04-0400 SaO2% (BldA) [Mass fraction] 94 % Collin Pimentellinger Work Phone: [facility] 400 DO Work Phone: 07-09-2021 14:04-0400 Systolic blood pressure 126 mm[Hg] Collin Morin Hellinger Work Phone: [facility] 400 DO Work Phone: 07-05-2021 13:52-0400 Body height 152.4 cm Collin Morin Hellinger Work Phone: [facility] Work Phone: 07-05-2021 13:52-0400 Body mass index (BMI) [Ratio] 32.03 kg/m2 Collin L Hellinger Work Phone: [facility] Work Phone: 07-05-2021 13:52-0400 Body surface area Derived from formula 1.72 m2 Collin L Hellinger Work Phone: [facility] Work Phone: 07-05-2021 13:52-0400 Body weight 74.39 kg Collin Pimentellinger Work Phone: [facility] Work Phone: 07-05-2021 13:52-0400 Diastolic blood pressure 86 mm[Hg] Collin L Hellinger Work Phone: [facility] Work Phone: 07-05-2021 13:52-0400 Heart rate 112 /min Collin L Hellinger Work Phone: [facility] Work Phone: 07-05-2021 13:52-0400 Respiratory rate 20 /min Collin L Hellinger Work Phone: [facility] Work Phone: 07-05-2021 13:52-0400 Systolic blood pressure 124 mm[Hg] Collin L Hellinger Work Phone: [facility] Work Phone: 05-23-2021 14:00-0500 Diastolic blood pressure 83 mm[Hg] Collin Hellinger Other Phone: [facility] 05-23-2021 14:00-0500 Heart rate 85 /min Collin Hellinger Other Phone: [facility] 05-23-2021 14:00-0500 Respiratory rate 16 /min Collin Margaritolinger Other Phone: [facility] 05-23-2021 14:00-0500 SaO2% (BldA) [Mass fraction] 98 % Collin Margaritolinger Other Phone: [facility] 05-23-2021 14:00-0500 Systolic blood pressure 133 mm[Hg] Collin Hellinger Other Phone: [facility] 05-23-2021 10:11-0500 Body height 152.4 cm Collin Hellinger Other Phone: [facility] 05-23-2021 10:11-0500 Body temperature 97.88 [degF] Collin Margaritolinger Other Phone: [facility] 05-23-2021 10:11-0500 Body weight 73.6 kg Collin Margaritolinger Other Phone: [facility] 05-08-2021 13:09-0500 Body height 152.4 cm Collin L Hellinger Work Phone: [facility] 400 DO Work Phone: 05-08-2021 13:09-0500 Body mass index (BMI) [Ratio] 31.79 kg/m2 Collin L Hellinger Work Phone: [facility] 400 DO Work Phone: 05-08-2021 13:09-0500 Body surface area Derived from formula 1.71 m2 Collin L Hellinger Work Phone: [facility] 400 DO Work Phone: 05-08-2021 13:09-0500 Body temperature 97.7 [degF] Collin L Hellinger Work Phone: [facility] 400 DO Work Phone: 05-08-2021 13:09-0500 Body weight 73.85 kg Collin Pimentellinger [facility] Phone[facility] 400 DO Work Phone: 05-08-2021 13:09-0500 Diastolic blood pressure 72 mm[Hg] Collin Morin Hellinger Work Phone: [facility] 400 DO Work Phone: 05-08-2021 13:09-0500 Heart rate 110 /min Collin Pimentellinger Work Phone: [facility] 400 DO Work Phone: 05-08-2021 13:09-0500 SaO2% (BldA) [Mass fraction] 92 % Collin Pimentellinger Work Phone: [facility] 400 DO Work Phone: 05-08-2021 13:09-0500 Systolic blood pressure 124 mm[Hg] Collin Pimentellinger Work Phone: [facility] 400 DO Work Phone: 04-06-2021 13:43-0500 Body height 152.4 cm Collin Pimentellinger Work Phone: [facility] 400 DO Work Phone: 04-06-2021 13:43-0500 Body mass index (BMI) [Ratio] 30.9 kg/m2 Collin Pimentellinger Work Phone: [facility] 400 DO Work Phone: 04-06-2021 13:43-0500 Body surface area Derived from formula 1.69 m2 Collin Morin Hellinger Work Phone: [facility] 400 DO Work Phone: 04-06-2021 13:43-0500 Body temperature 97.7 [degF] Collin Xavierer Work Phone: [facility] 400 DO Work Phone: 04-06-2021 13:43-0500 Body weight 71.76 kg Collin Xavierer Work Phone: [facility] 400 DO Work Phone: 04-06-2021 13:43-0500 Diastolic blood pressure 78 mm[Hg] Collin Xavierer Work Phone: [facility] 400 DO Work Phone: 04-06-2021 13:43-0500 Heart rate 116 /min Collin Xavierer Work Phone: [facility] 400 DO Work Phone: 04-06-2021 13:43-0500 SaO2% (BldA) [Mass fraction] 93 % Collin Xavierer Work Phone: [facility] 400 DO Work Phone: 04-06-2021 13:43-0500 Systolic blood pressure 126 mm[Hg] Collin Xavierer Work Phone: [facility] 400 DO Work Phone: 01-30-2021 14:55-0400 Body height 152.4 cm Collin Xavierer Work Phone: [facility] 400 DO Work Phone: 01-30-2021 14:55-0400 Body mass index (BMI) [Ratio] 30.76 kg/m2 Collin Xavierer Work Phone: [facility] 400 DO Work Phone: 01-30-2021 14:55-0400 Body surface area Derived from formula 1.69 m2 Collin Pimentellinger Work Phone: [facility] 400 DO Work Phone: 01-30-2021 14:55-0400 Body temperature 98.4 [degF] Collin Pimentellinger Work Phone: [facility] 400 DO Work Phone: 01-30-2021 14:55-0400 Body weight 71.44 kg Collin Pimentellinger Work Phone: [facility] 400 DO Work Phone: 01-30-2021 14:55-0400 Diastolic blood pressure 70 mm[Hg] Collin Pimentellinger Work Phone: [facility] 400 DO Work Phone: 01-30-2021 14:55-0400 Heart rate 104 /min Collin Pimentellinger Work Phone: [facility] 400 DO Work Phone: 01-30-2021 14:55-0400 SaO2% (BldA) [Mass fraction] 91 % Collin Pimentellinger Work Phone: [facility] 400 DO Work Phone: 01-30-2021 14:55-0400 Systolic blood pressure 118 mm[Hg] Collin Pimentellinger Work Phone: [facility] 400 DO Work Phone: 01-24-2021 14:01-0400 Body height 152.4 cm Collin Pimentellinger Work Phone: [facility] Work Phone: 01-24-2021 14:01-0400 Body mass index (BMI) [Ratio] 30.47 kg/m2 Collin L Hellinger Work Phone: [facility] Work Phone: 01-24-2021 14:01-0400 Body surface area Derived from formula 1.68 m2 Collin Sommers Work Phone: [facility] Work Phone: 01-24-2021 14:01-0400 Body temperature 97.6 [degF] Collin Sommers Work Phone: [facility] Work Phone: 01-24-2021 14:01-0400 Body weight 70.76 kg Collin Sommers Work Phone: [facility] Work Phone: 01-24-2021 14:01-0400 Diastolic blood pressure 82 mm[Hg] Collin Sommers Work Phone: [facility] Work Phone: 01-24-2021 14:01-0400 Heart rate 119 /min Collin Sommers Work Phone: [facility] Work Phone: 01-24-2021 14:01-0400 Respiratory rate 20 /min Collin Sommers Work Phone: [facility] Work Phone: 01-24-2021 14:01-0400 Systolic blood pressure 137 mm[Hg] Collin Sommers Work Phone: [facility] Work Phone: 01-09-2021 14:46-0400 Body height 152.4 cm Collin Xavierer Work Phone: [facility] 400 DO Work Phone: 01-09-2021 14:46-0400 Body mass index (BMI) [Ratio] 30.34 kg/m2 Collin Xavierer Work Phone: [facility] 400 DO Work Phone: 01-09-2021 14:46-0400 Body surface area Derived from formula 1.68 m2 Collin Xavierer Work Phone: [facility] 400 DO Work Phone: 01-09-2021 14:46-0400 Body temperature 98.9 [degF] Collin Xavierer Work Phone: [facility] 400 DO Work Phone: 01-09-2021 14:46-0400 Body weight 70.48 kg Collin Xavierer Work Phone: [facility] 400 DO Work Phone: 01-09-2021 14:46-0400 Diastolic blood pressure 70 mm[Hg] Collin Xavierer Work Phone: -[facility] 400 DO Work Phone: 01-09-2021 14:46-0400 Heart rate 112 /min Collin Xavierer Work Phone: [facility] 400 DO Work Phone: 01-09-2021 14:46-0400 SaO2% (BldA) [Mass fraction] 91 % Collin Xavierer Work Phone: [facility] 400 DO Work Phone: 01-09-2021 14:46-0400 Systolic blood pressure 118 mm[Hg] Collin Pimentellinger Work Phone: [facility] 400 DO Work Phone: 10-16-2020 14:21-0400 Body height 152.4 cm Ashley Cuevas MD Work Phone: [facility] 10-16-2020 14:21-0400 Body mass index (BMI) [Ratio] 28.9 kg/m2 Ashley Cuevas MD Work Phone: [facility] 10-16-2020 14:21-0400 Body weight 67.13 kg Ashley Cuevas MD Work Phone: [facility] 10-16-2020 14:21-0400 Diastolic blood pressure 73 mm[Hg] Ashley Cuevas MD Work Phone: [facility] 10-16-2020 14:21-0400 Heart rate 121 /min Ashley Cuevas MD Work Phone: [facility] 10-16-2020 14:21-0400 Respiratory rate 20 /min Ashley Cuevas MD Work Phone: [facility] 10-16-2020 14:21-0400 Systolic blood pressure 107 mm[Hg] Ashley Cuevas MD Work Phone: [facility] 07-25-2020 13:13-0400 Body height 152.4 cm Ashley Cuevas MD Work Phone: [facility] 07-25-2020 13:13-0400 Body mass index (BMI) [Ratio] 29.29 kg/m2 Ashley Cuevas MD Work Phone: [facility] 07-25-2020 13:13-0400 Body weight 68.04 kg Ashley Cuevas MD Work Phone: [facility] 07-25-2020 13:13-0400 Diastolic blood pressure 82 mm[Hg] Ashley Cuevas MD Work Phone: [facility] 07-25-2020 13:13-0400 Heart rate 116 /min Ashley Cuevas MD Work Phone: [facility] 07-25-2020 13:13-0400 Systolic blood pressure 137 mm[Hg] Ashley Cuevas MD Work Phone: [facility] 07-10-2020 17:01-0400 BMI (Body Mass Index) 30.27 kg/m2 [facility] 400 DO Work Phone: 07-10-2020 17:01-0400 Body Temperature 98 [degF] [facility]ast [facility] 400 DO Work Phone: Encounters Encounter Date Encounter Type Care Provider Facility Start: 04-24-2023 End: 04-24-2023 ambulatory RENITA Gonzales [facility] Start: 04-22-2023 End: 04-22-2023 ambulatory RENITA Gonzales HUBER [facility] Start: 04-04-2023 End: 04-05-2023 ambulatory BLU Collado LEONARDO [facility] Start: 04-04-2023 End: 04-04-2023 ambulatory BLU Collado [facility] Start: 04-04-2023 End: 04-04-2023 Subsequent hospital visit by physician Matt [id number] C-Arm 1 [facility] Procedures Date Procedure Procedure Detail Performing Clinician Start: 04-24-2023 FOLLOW UP IN PHYSICA L THERAPY RENITAJAYLIN HUBER Start: 04-22-2023 FOLLOW UP IN PHYSICA L THERAPY RENITAJAYLIN HUBER Start: 04-04-2023 ADULT DISCHARGE DIET AM JAYLIN MAYO Start: 04-04-2023 DISCHARGE ACTIVITY YOLANDA CASTANO Start: 04-04-2023 NOTIFY PROVIDER (DO NOT PROMPT FOR PARAMETERS) RENITA HUBER Start: 04-04-2023 FL GUIDED THX INJECT ION PROCEDURE RENITA HUBER Start: 04-04-2023 DISCHARGE PATIENT BILL Jett MAYO Start: 04-04-2023 ADULT DISCHARGE DIET AM JAYLIN MAYO Start: 04-04-2023 DISCHARGE ACTIVITY YOLADNA CASTANO Start: 04-04-2023 NOTIFY PROVIDER (DO NOT PROMPT FOR PARAMETERS) RENITA HUBER Start: 04-04-2023 Fluor needle/cath spine/paraspinal dx/ther jose juan Velázquez MD Work Phone: Start: 04-04-2023 Epidural steroid injection RENITA HUBER Start: 04-03-2023 FOLLOW UP IN PHYSICA L THERAPY RENITAJAYLIN HUBER Start: 03-27-2023 FOLLOW UP IN PHYSICA L THERAPY RENITAJAYLIN HUBER Start: 03-18-2023 FOLLOW UP IN PHYSICA L THERAPY RENITAJAYLIN HUBER Start: 03-12-2023 FOLLOW UP IN PHYSICA L THERAPY RENITAJAYLIN HUBER Start: 03-11-2023 FOLLOW UP IN PHYSICA L THERAPY RENITA HUBER Start: 03-06-2023 FOLLOW UP IN PHYSICA L THERAPY RENITAJAYLIN HUBER Start: 02-27-2023 AMB REFERRAL TO PHYS ICAL THERAPY RENITA HUBER Start: 02-05-2023 FOLLOW UP IN PHYSICA L THERAPY RENITA HUBER Start: 01-29-2023 FOLLOW UP IN PHYSICA L THERAPY RENITA HUBER Start: 01-28-2023 MR CERVICAL SPINE W AND WO IV CONTRAST RENITA MAYO Start: 01-28-2023 MR LUMBAR SPINE WO I V CONTRAST RENITA HUBER Start: 01-28-2023 End: 01-28-2023 Mri spinal canal lumbar w/o contrast material Renita Huber PA-C Work Phone: Start: 01-27-2023 Creatinine [Mass/vol ume] in Serum or Plasma YOCASTA MATUTE Start: 01-27-2023 [facility] Start: 01-24-2023 FOLLOW UP IN PHYSICA L THERAPY [facility] Start: 01-22-2023 FOLLOW UP IN PHYSICA L THERAPY RENITA HUBER Start: 01-15-2023 FOLLOW UP IN PHYSICA L THERAPY RENITA HUBER Start: 01-09-2023 AMB REFERRAL TO PHYS ICAL THERAPY RENITA HUBER Start: 11-27-2022 SURGICAL PATHOLOGY RESULTS Gerson Askew Work Phone: Start: 11-27-2022 Colonoscopy stoma dx including collj spec spx Yocasta Matute MD Work Phone: Start: 11-27-2022 End: 11-27-2022 Colonoscopy Dom Holland Work Phone: Start: 11-27-2022 Esophagoscopy flexib le transoral diagnostic Yocasta Matute MD Work Phone: Start: 10-14-2022 Mammography Renita mckeon PA-C Work Phone: Start: 03-28-2022 End: 03-28-2022 Gas panel - Arterial blood Hani Al Candido Bernal Start: 03-27-2022 End: 03-27-2022 EKG impression Yodit Calphuong Start: 02-15-2022 Injection of steroid into joint Dom Holland Work Phone: Plan of Treatment Date Care Activity Detail Author Start: 11-27-2032 Screening for malign ant neoplasm of [facility] Start: 01-23-2027 DTaP/Tdap/Td Vaccine s (2 - Td or Tdap) DTaP/Tdap/Td Vaccines (2 - Td or Tdap) [facility] Start: 03-28-2025 Diabetes mellitus screening Diabetes Screening [facility] Start: 10-15-2023 Screening for malign ant neoplasm of breast Mammogram [facility] Start: 05-01-2023 End: 05-01-2023 ambulatory 05/01/2023 10:15 AM EST Treatment [address] [address] Kike Beltran, PT [address] [place] [address] [facility] Start: 04-29-2023 End: 04-29-2023 ambulatory 04/29/2023 11:30 AM EST Treatment [address] [phone] Carol Paris, MANUFACTURING MECHANIC [address] [place] [id number] [facility] Start: 04-24-2023 End: 04-24-2023 ambulatory 04/24/2023 11:15 AM EST Treatment [address] [address] Precious Leone, MANUFACTURING MECHANIC [address] [place] [address] [facility] Start: 04-22-2023 End: 04-22-2023 ambulatory 04/22/2023 10:00 AM EST Treatment [address] [address] Mita Fraire, MANUFACTURING MECHANIC [address] [facility] [place] [id number] [facility] Start: 04-17-2023 End: 04-17-2023 ambulatory 04/17/2023 10:00 AM EST Treatment [address] [address] Precious Leone, MANUFACTURING MECHANIC [address] [place] [address] [facility] Start: 04-15-2023 End: 04-15-2023 ambulatory 04/15/2023 10:00 AM EST Treatment [address] [address] Danielle Durand, MANUFACTURING MECHANIC [address] [place] [address] [facility] Start: 04-10-2023 End: 04-10-2023 ambulatory 04/10/2023 1:15 PM EST Treatment [address] [address] Carol Paris, MANUFACTURING MECHANIC [address] [place] [address] [facility] Start: 04-08-2023 End: 04-08-2023 ambulatory 04/08/2023 9:15 AM EST Treatment [address] [address] Mita Fraire, MANUFACTURING MECHANIC [address] [place] [address] [facility] Start: 02-27-2023 End: 02-27-2023 ambulatory 02/27/2023 10:00 AM EST Evaluation [address] [address] Kike Beltran, PT [address] [facility] [place] [phone] [facility] Start: 02-06-2023 End: 02-06-2023 Patient encounter procedure 02/06/2023 1:15 PM EST Office Visit [facility] Medical [facility] Building [address] [place] [id number] Renita Huber PA-C [address] [place] [address] [facility] Start: 02-05-2023 End: 02-05-2023 ambulatory [facility] Start: 02-03-2023 End: 02-03-2023 ambulatory 02/03/2023 1:15 PM EST Treatment [facility] [address] [facility] [address] [place] [address] Enid Enriquez, PT [address] [facility] [place] [address] [facility] Start: 01-29-2023 End: 01-29-2023 ambulatory 01/29/2023 1:15 PM EDT Treatment [facility] [address] [facility] [address] [place] [address] Brielle Abarca, MANUFACTURING MECHANIC [address] [place] [address] [facility] Start: 01-27-2023 End: 01-27-2023 ambulatory 01/27/2023 1:15 PM EDT Treatment [facility] [address] [facility] [address] [place] [address] Brielle Abarca, MANUFACTURING MECHANIC [address] [facility] [place] [phone] [facility] Start: 01-24-2023 End: 01-24-2023 ambulatory 01/24/2023 1:15 PM EDT Treatment [facility] [address] [facility] [place] [address] [place] [address] Brielle Abarca, MANUFACTURING MECHANIC [address] [facility] [place] [address] [facility] Start: 01-22-2023 End: 01-22-2023 ambulatory 01/22/2023 10:45 AM EDT Treatment [facility] [address] [place] [phone] Precious Leone, MANUFACTURING MECHANIC [address] [facility] [place] [address] [facility] Start: 01-21-2023 End: 01-22-2024 Creatinine [Mass/volume] in Serum or Plasma Creatinine, Serum Lab Routine Cervical neuritis S/P spinal fusion Expected: 01/21/2023 (Approximate), Expires: 01/22/2024 [facility] Work Phone: Immunizations Immunization Date Immunization Notes Care Provider Michael winn 11-20-2022 influenza, injectabl e, quadrivalent, contains preservative Renita Huber PA-C Work Phone: [facility] Work Phone: 01-23-2017 tetanus toxoid, redu ivette diphtheria toxoid, and acellular pertussis vaccine, adsorbed Renita Huber PA-C Work Phone: [facility] Work Phone: Payers Date Payer Category Payer Private Health Insurance [id number] 2022 Private Health Insurance [employer] DUAL COMPLETE [employer] DUAL COMPLETE [id number] 2022-Present [address] [address] [place] [address] [id number] 2022 Medicaid MEDICAID MEDICAI D [id number] 2022-Present [address] [place] [address] [id number] 2022 Medicare [id number] 2020 Unknown [facility] [place] [employer] PLAN [id number] 2020-Present [phone] [address] [place] [address] [id number] 2020 Unknown [id number] 2019 Unknown [employer] S UPERMED PPO [id number] 2019-Present [id number]. [id number] 2019 Unknown [id number] 2017 Unknown 1956 Unknown [id number] 2.16840.1.148027.3.579.2. 1956 Unknown [id number] .16840.1.949428.3.579.2. 1956 Unknown [id number] 2.16840.1.189939.3.579.2. 1956 Unknown [id number] 2.16.840.1.353984.3.579.2. 1956 Unknown [id number] 2.16840.1.696048.3.579.2. 1956 Unknown [id number] 2.16.840.1.195323.3.579.2. 1956 Unknown [id number] 2.16.840.1.171034.3.579.2. 903 1956 Unknown [id number] 2.16.840.1.533533.3.579.2. 1956 Unknown [id number] 2.16.840.1.160798.3.579.2. 1956 Unknown [id number] 2.16.840.1.059472.3.579.2. 1956 Unknown [id number] 2.16.840.1.491735.3.579.2. 1956 Unknown [id number] 2.16.840.1.443745.3.579.2. 1956 Unknown [id number] 2.16.840.1.325558.3.579.2. 1067 1956 Unknown [id number] 2.16.840.1.113407.3.579.2. 1956 Unknown [id number] 2.16.840.1.991072.3.579.2. 1956 Unknown [id number] 2.16.840.1.987244.3.579.2. 1068 1956 Unknown [id number] 2.16.840.1.962762.3.579.2. 1068 1956 Unknown [id number] 2.16.840.1.143194.3.579.2. 1068 1956 Unknown [id number] 2.16.840.1.216282.3.579.2. 1068 1956 Unknown [id number] 2.16.840.1.402333.3.579.2. 1068 1956 Unknown [id number] 2.16.840.1.761169.3.579.2. 1068 1956 Unknown [id number] 2.16.840.1.449686.3.579.2. 1068 1956 Unknown [id number] 2.16.840.1.817674.3.579.2. 1068 1956 Unknown [id number] 2.16.840.1.263109.3.579.2. 1068 1956 Unknown [id number] 2.16.840.1.087994.3.579.2. 1068 1956 Unknown [id number] 2.16.840.1.255805.3.579.2. 1068 1956 Unknown [id number] 2.16.840.1.372831.3.579.2. 1068 1956 Unknown [id number] 2.16.840.1.732723.3.579.2. 1068 1956 Unknown [id number] 2.16.840.1.715503.3.579.2. 1068 1956 Unknown [id number] 2.16.840.1.797293.3.579.2. 1068 1956 Unknown [id number] 2.16.840.1.648701.3.579.2. 1068 1956 Unknown [id number] 2.16.840.1.526618.3.579.2. 1068 1956 Unknown [id number] 2.16.840.1.694506.3.579.2. 1244 1956 Unknown [id number] 2.16.840.1.207408.3.579.2. 1242 1956 Unknown [id number] 2.16.840.1.691019.3.579.2. 1242 1956 Unknown [id number] 2.16.840.1.945520.3.579.2. 1242 1956 Unknown [id number] 2.16.840.1.943279.3.579.2. 12426 Unknown [id number] 2.16.840.1.198184.3.579.2. 1242 1956 Unknown [id number] 2.16.840.1.665012.3.579.2. 1242 1956 Unknown [id number] 2.16.840.1.634093.3.579.2. 1242 1956 Unknown [id number] 2.16.840.1.441200.3.579.2. 1242 1956 Unknown [id number] 2.16.840.1.575604.3.579.2. 1242 1956 Unknown [id number] 2.16.840.1.684855.3.579.2. 1242 1956 Unknown [id number] 2.16.840.1.182991.3.579.2. 1242 1956 Unknown [id number] 2.16.840.1.806662.3.579.2. 1242 1956 Unknown [id number] 2.16.840.1.211577.3.579.2. 1242 1956 Unknown [id number] 2.16.840.1.716116.3.579.2. 3 1956 Unknown [id number] 2.16.840.1.416177.3.579.2. 1242 1956 Unknown [id number] 1955 Unknown [id number] [id number] 1955 Unknown [id number] 1242 1955 Unknown [id number] 1242 1955 Unknown [id number] 1243 1955 Unknown [id number] 1243 1955 Unknown [id number] 1243 1955 Unknown [id number] 1243 Social History Date Type Detail Facility Start: 07-25-2020 End: 10-16-2020 Tobacco smoking status NHIS Never smoker [facility] Start: 07-25-2020 End: 04-04-2023 Tobacco use and exposure Never used [facility] Start: 1955 Sex Assigned At Not on file [facility] Start: 01-11-2023 End: 04-04-2023 Exposure to SARS-CoV-2 (event) Not sure [facility] Start: 01-21-2023 End: 04-04-2023 Current every day smoker Current every day smoker -Pulmonary Medicine-[place] [id number] DO Work Phone: Tobacco smoking consumption unknown [facility] Start: 01-21-2023 End: 04-04-2023 Tobacco smoking status NHIS Smokes tobacco daily [facility] History of tobacco use Cigarette Smoker [facility] Work Phone: Start: 01-21-2023 End: 04-04-2023 Tobacco use panel [facility] Work Phone: Start: 01-21-2023 Tobacco Comment Patient declin ed cessation information [facility] Work Phone: Start: 1955 [facility] Start: 01-11-2023 Gender identity Identifies as female gender (finding) [facility] Work Phone: Start: 01-11-2023 Sexual orientation Heterosexual (fin ding) [facility] Work Phone: Start: 02-06-2023 End: 04-04-2023 Alcohol intake Current drinker of alcohol (finding) [facility] Work Phone: Start: 02-06-2023 Alcohol Comment very occasionaly [facility] Work Phone: NEGATED: Highlighted row - - -[place] [id number] DO Work Phone: Functional Status Date Assessment Result Facility Functional observable [facility] ([place], [place]) NEGATED: Highlighted row Functional performance Functional status health issues are not documented Disease -Pulmonary [place] [id number] DO Work Phone: Mental Status Date Assessment Result Facility 03-31-2022 Cognitive functi ons [id number] [facility] NEGATED: Highlighted row Cognitive function [Interpretation] Cognitive status health issues are not documented [facility] [place] [address] [facility] Work Phone: Clinical Notes 07-25-2020 to 04-04-2023 Perioperative Nursing Note - Suki Quinn RN - 04/04/2023 3:42 PM ESTOp Note - Blu Velázquez MD - 04/04/2023 2:30 PM ESTPerioperative Nursing Note - Suki Quinn RN - 04/04/2023 3:42 PM EST Note Date & Type Note Facility 04-04-2023 Miscellaneous Notes Ambulated to discharge exit; steady gait; driven home by daughterLolita Date: 04/04/23 OR Location: [facility] OR Name: Suly Alanis : 1955 Age: 68 y.o. Sex: female Diagnosis Cervical radiculopathy Procedures C7-T1 interlaminar epidural steroid injection with fluoroscopy Surgeons Blu Velázquez MD Procedure Summary Anesthesia: Local ASA: ASA status not filed in the log. Anesthesia Staff: Dr. Velázquez Estimated Blood Loss: 0 mL Intra-op Medications: * Intraprocedure medication information is unavailable because the case start and end events have not been set * Intraprocedure I/O Totals None Specimen: No specimens collected Indications: Suly Alanis is an 68 y.o. female who is having C7-T1 cervical interlaminar epidural injection f neck pain that radiates into the arms. The patient was seen in the preoperative area. The risks, benefits, complications, treatment options, non-operative alternatives, expected recovery and outcomes were discussed with the patient. The possibilities of reaction to medication, injury to surrounding structures, bleeding and infection were discussed with the patient. The patient concurred with the proposed plan, giving informed consent. The site of surgery was properly noted/marked. Procedure Details: Patient was taken into the OR and placed on the OR table in prone position with pillows placed under the upper thoracic region to allow improved thoracic flexion. The T1-2 level was then identified and marked. The area was prepped with a chlorhexidine prep and draped. The skin and underlying tissue was anesthetized with 1% lidocaine. Then a 3.5 inch number 18-gauge Touhey needle was advanced into the C7-T1 epidural space with fluoroscopic A/P and lateral images and loss of resistance technique without complications. 3 cc of Omnipaque 300 dye was injected without evidence of intravascular uptake and with good epidural spread noted. After negative aspiration for blood was noted a total of 10 mg dexamethasone PF and 5 mL of sterile saline was injected without complication. The catheter was removed and the tip was found to be intact. The patient was then taken to the recovery room in stable condition. Complications: None; patient tolerated the procedure well. Disposition: PACU - hemodynamically stable. Condition: stable Additional Details: Blu Velázquez MD documented in this encounter [facility] Work Phone: 04-04-2023 Note Formatting of this n ote might be different from the original. Ambulated to discharge exit; steady gait; driven home by Lolita lubin [facility] Work Phone: 04-04-2023 Note Formatting of this n ote might be different from the original. Ambulated to discharge exit; steady gait; driven home by Lolita lubin [facility] Work Phone: 04-04-2023 History and physical note History Of Present Illness Kely Alanis is a 68 y.o. female presenting with neck pain that radiates into both arms. 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 Past Medical History Past Medical History: Diagnosis Date COPD (chronic obstructive pulmonary disease) ([facility]) Hypertension Personal history of nicotine dependence 05/08/2021 History of nicotine dependence Surgical History Past Surgical History: Procedure Laterality Date CATARACT EXTRACTION Bilateral OTHER SURGICAL HISTORY 01/20/2020 Tonsillectomy OTHER SURGICAL HISTORY 01/20/2020 Cervical discectomy OTHER SURGICAL HISTORY 11/09/2021 Epidural steroid injection OTHER SURGICAL HISTORY 02/15/2022 Intra-articular corticosteroid injection OTHER SURGICAL HISTORY 08/03/2021 Epidural steroid injection OTHER SURGICAL HISTORY 06/18/2021 Medial branch block TUBAL LIGATION Social History She reports that she has been smoking cigarettes. She has never used smokeless tobacco. She reports current alcohol use. She reports that she does not use drugs. Family History Family History Problem Relation Name Age of Onset Brain cancer Mother Bone cancer Father Allergies Codeine Review of Systems Constitutional: Negative. HENT: Negative. Eyes: Negative. Respiratory: Negative for cough, shortness of breath and wheezing. Cardiovascular: Negative for chest pain, palpitations and leg swelling. Endocrine: Negative. Genitourinary: Negative. Musculoskeletal: Positive for back pain, myalgias and neck pain. Negative for arthralgias. Skin: Negative. Allergic/Immunologic: Negative. Neurological: Negative for facial asymmetry, weakness and light-headedness. Hematological: Negative for adenopathy. Does not bruise/bleed easily. Psychiatric/Behavioral: Positive for sleep disturbance. Negative for dysphoric mood and suicidal ideas. Physical Exam Constitutional: General: She is not in acute distress. Appearance: Normal appearance. HENT: Head: Normocephalic. Mouth/Throat: Mouth: Mucous membranes are moist. Eyes: Extraocular Movements: Extraocular movements intact. Cardiovascular: Rate and Rhythm: Normal rate and regular rhythm. Pulses: Normal pulses. Heart sounds: Normal heart sounds. No murmur heard. No friction rub. No gallop. Pulmonary: Effort: Pulmonary effort is normal. Breath sounds: Normal breath sounds. No wheezing, rhonchi or rales. Abdominal: General: Abdomen is flat. Palpations: Abdomen is soft. Musculoskeletal: Cervical back: Normal range of motion. Right lower leg: No edema. Left lower leg: No edema. Lymphadenopathy: Cervical: No cervical adenopathy. Skin: General: Skin is warm and dry. Neurological: General: No focal deficit present. Mental Status: She is alert and oriented to person, place, and time. Mental status is at baseline. Psychiatric: Mood and Affect: Mood normal. Behavior: Behavior normal. Last Recorded Vitals There were no vitals taken for this visit. Assessment/Plan The risks and benefits of the C7-T1 interlaminar epidural steroid injection with fluoroscopy was discussed at length with the patient. The records and imaging were reviewed by me. The patient understood that there was no guarantee that the procedure will alleviate their pain. All questions were answered prior to leaving for the OR. This document was dictated and electronically signed using [employer] software. A reasonable attempt at proof reading was made to minimize errors. Please call with any questions. Blu Velázquez MD [facility] Work Phone: 04-04-2023 History and physical note History Of Present Illness Kely Alanis is a 68 y.o. female presenting with neck pain that radiates into both arms. 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 Past Medical History Past Medical History: Diagnosis Date COPD (chronic obstructive pulmonary disease) ([facility]) Hypertension Personal history of nicotine dependence 05/08/2021 History of nicotine dependence Surgical History Past Surgical History: Procedure Laterality Date CATARACT EXTRACTION Bilateral OTHER SURGICAL HISTORY 01/20/2020 Tonsillectomy OTHER SURGICAL HISTORY 01/20/2020 Cervical discectomy OTHER SURGICAL HISTORY 11/09/2021 Epidural steroid injection OTHER SURGICAL HISTORY 02/15/2022 Intra-articular corticosteroid injection OTHER SURGICAL HISTORY 08/03/2021 Epidural steroid injection OTHER SURGICAL HISTORY 06/18/2021 Medial branch block TUBAL LIGATION Social History She reports that she has been smoking cigarettes. She has never used smokeless tobacco. She reports current alcohol use. She reports that she does not use drugs. Family History Family History Problem Relation Name Age of Onset Brain cancer Mother Bone cancer Father Allergies Codeine Review of Systems Constitutional: Negative. HENT: Negative. Eyes: Negative. Respiratory: Negative for cough, shortness of breath and wheezing. Cardiovascular: Negative for chest pain, palpitations and leg swelling. Endocrine: Negative. Genitourinary: Negative. Musculoskeletal: Positive for back pain, myalgias and neck pain. Negative for arthralgias. Skin: Negative. Allergic/Immunologic: Negative. Neurological: Negative for facial asymmetry, weakness and light-headedness. Hematological: Negative for adenopathy. Does not bruise/bleed easily. Psychiatric/Behavioral: Positive for sleep disturbance. Negative for dysphoric mood and suicidal ideas. Physical Exam Constitutional: General: She is not in acute distress. Appearance: Normal appearance. HENT: Head: Normocephalic. Mouth/Throat: Mouth: Mucous membranes are moist. Eyes: Extraocular Movements: Extraocular movements intact. Cardiovascular: Rate and Rhythm: Normal rate and regular rhythm. Pulses: Normal pulses. Heart sounds: Normal heart sounds. No murmur heard. No friction rub. No gallop. Pulmonary: Effort: Pulmonary effort is normal. Breath sounds: Normal breath sounds. No wheezing, rhonchi or rales. Abdominal: General: Abdomen is flat. Palpations: Abdomen is soft. Musculoskeletal: Cervical back: Normal range of motion. Right lower leg: No edema. Left lower leg: No edema. Lymphadenopathy: Cervical: No cervical adenopathy. Skin: General: Skin is warm and dry. Neurological: General: No focal deficit present. Mental Status: She is alert and oriented to person, place, and time. Mental status is at baseline. Psychiatric: Mood and Affect: Mood normal. Behavior: Behavior normal. Last Recorded Vitals There were no vitals taken for this visit. Assessment/Plan The risks and benefits of the C7-T1 interlaminar epidural steroid injection with fluoroscopy was discussed at length with the patient. The records and imaging were reviewed by me. The patient understood that there was no guarantee that the procedure will alleviate their pain. All questions were answered prior to leaving for the OR. This document was dictated and electronically signed using [employer] software. A reasonable attempt at proof reading was made to minimize errors. Please call with any questions. Blu Velázquez MD documented in this encounter [facility] Work Phone: 04-04-2023 Note Formatting of this n ote is different from the original. Date: 04/04/23 OR Location: [facility] OR Name: Suly Alanis : 1955 Age: 68 y.o. Sex: female Diagnosis Cervical radiculopathy Procedures C7-T1 interlaminar epidural steroid injection with fluoroscopy Surgeons Blu Velázquez MD Procedure Summary Anesthesia: Local ASA: ASA status not filed in the log. Anesthesia Staff: Dr. Velázquez Estimated Blood Loss: 0 mL Intra-op Medications: * Intraprocedure medication information is unavailable because the case start and end events have not been set * Intraprocedure I/O Totals None Specimen: No specimens collected Indications: Suly Alanis is an 68 y.o. female who is having C7-T1 cervical interlaminar epidural injection f neck pain that radiates into the arms. The patient was seen in the preoperative area. The risks, benefits, complications, treatment options, non-operative alternatives, expected recovery and outcomes were discussed with the patient. The possibilities of reaction to medication, injury to surrounding structures, bleeding and infection were discussed with the patient. The patient concurred with the proposed plan, giving informed consent. The site of surgery was properly noted/marked. Procedure Details: Patient was taken into the OR and placed on the OR table in prone position with pillows placed under the upper thoracic region to allow improved thoracic flexion. The T1-2 level was then identified and marked. The area was prepped with a chlorhexidine prep and draped. The skin and underlying tissue was anesthetized with 1% lidocaine. Then a 3.5 inch number 18-gauge Touhey needle was advanced into the C7-T1 epidural space with fluoroscopic A/P and lateral images and loss of resistance technique without complications. 3 cc of Omnipaque 300 dye was injected without evidence of intravascular uptake and with good epidural spread noted. After negative aspiration for blood was noted a total of 10 mg dexamethasone PF and 5 mL of sterile saline was injected without complication. The catheter was removed and the tip was found to be intact. The patient was then taken to the recovery room in stable condition. Complications: None; patient tolerated the procedure well. Disposition: PACU - hemodynamically stable. Condition: stable Additional Details: Blu Velázquez MD [facility] Work Phone: 04-04-2023 Note Formatting of this n ote is different from the original. Date: 04/04/23 OR Location: [facility] OR Name: Suly Alanis : 1955 Age: 68 y.o. Sex: female Diagnosis Cervical radiculopathy Procedures C7-T1 interlaminar epidural steroid injection with fluoroscopy Surgeons Blu Velázquez MD Procedure Summary Anesthesia: Local ASA: ASA status not filed in the log. Anesthesia Staff: Dr. Velázquez Estimated Blood Loss: 0 mL Intra-op Medications: * Intraprocedure medication information is unavailable because the case start and end events have not been set * Intraprocedure I/O Totals None Specimen: No specimens collected Indications: Suly Alanis is an 68 y.o. female who is having C7-T1 cervical interlaminar epidural injection f neck pain that radiates into the arms. The patient was seen in the preoperative area. The risks, benefits, complications, treatment options, non-operative alternatives, expected recovery and outcomes were discussed with the patient. The possibilities of reaction to medication, injury to surrounding structures, bleeding and infection were discussed with the patient. The patient concurred with the proposed plan, giving informed consent. The site of surgery was properly noted/marked. Procedure Details: Patient was taken into the OR and placed on the OR table in prone position with pillows placed under the upper thoracic region to allow improved thoracic flexion. The T1-2 level was then identified and marked. The area was prepped with a chlorhexidine prep and draped. The skin and underlying tissue was anesthetized with 1% lidocaine. Then a 3.5 inch number 18-gauge Touhey needle was advanced into the C7-T1 epidural space with fluoroscopic A/P and lateral images and loss of resistance technique without complications. 3 cc of Omnipaque 300 dye was injected without evidence of intravascular uptake and with good epidural spread noted. After negative aspiration for blood was noted a total of 10 mg dexamethasone PF and 5 mL of sterile saline was injected without complication. The catheter was removed and the tip was found to be intact. The patient was then taken to the recovery room in stable condition. Complications: None; patient tolerated the procedure well. Disposition: PACU - hemodynamically stable. Condition: stable Additional Details: Blu Velázquez MD [facility] Work Phone: 02-06-2023 History of Present illness Narrative Subjective Patient ID: Suly Edge is a 67 y.o. female who presents for Shoulder Pain (Patient complains of pain in her right shoulder and down her right arm to her hand. She states she gets a tingling pain down her right arm and a burning pain in her right hand. She rates this pain a 10/10.), Back Pain (Patient complains of pain in the middle of her lower back. She states intermittently radiates to her right lower back and into her right buttocks. Patient states this pain is worse when standing. She rates her pain a 2/10 now while sitting but a 10/10 while standing. ), and Generalized Body Aches (Patient also complains of bilateral knee pain, left ankle pain, and bilateral heel pain. She states she is currently seeing a foot doctor for the foot pain.). THOMPSON score 40. Patient able to sit as long as she wants. Patient able to stand no longer than 10 minutes. Patient able to walk 0.5 miles. Alcohol screen completed, negative. Patient is a 67-year-old female. She presents today after undergoing a cervical and lumbar MRI scan. She also continues to undergo physical therapy. Physical therapy does help her. Unfortunately, she continues to have lower back pain with bilateral radiating leg pain as well as neck pain with bilateral radiating arm pain. She also has numbness and tingling and a multitude of complaints in regards to both areas. She rates the discomfort's a 2-10/10 depending on what she is doing The neck pain goes into the right shoulder and down the right arm greater than left arm. The lower back pain goes into the right side greater than the left side. This goes all the way down to her feet. She uses OTC medications without relief. She underwent physical therapy without relief. She continues on gabapentin 600 mg twice daily with some improvement. Unfortunate, not quite enough. Review of Systems Constitutional: Negative. HENT: Negative. Eyes: Negative. Respiratory: Negative. Cardiovascular: Negative. Gastrointestinal: Negative. Endocrine: Negative. Genitourinary: Negative. Musculoskeletal: Positive for arthralgias, back pain, gait problem, neck pain and neck stiffness. Skin: Negative. Allergic/Immunologic: Negative. Neurological: Positive for weakness and numbness. Hematological: Negative. Psychiatric/Behavioral: Negative. Objective Physical Exam Vitals and nursing note reviewed. Constitutional: Appearance: Normal appearance. HENT: Head: Normocephalic and atraumatic. Right Ear: External ear normal. Left Ear: External ear normal. Nose: Nose normal. Mouth/Throat: Pharynx: Oropharynx is clear. Eyes: Conjunctiva/sclera: Conjunctivae normal. Cardiovascular: Rate and Rhythm: Normal rate and regular rhythm. Pulses: Normal pulses. Pulmonary: Effort: Pulmonary effort is normal. Breath sounds: Normal breath sounds. Musculoskeletal: General: Normal range of motion. Cervical back: Normal range of motion. Comments: 5/5 upper and lower extremity strength Skin: General: Skin is warm and dry. Neurological: General: No focal deficit present. Mental Status: She is alert and oriented to person, place, and time. Mental status is at baseline. Psychiatric: Mood and Affect: Mood normal. Behavior: Behavior normal. Thought Content: Thought content normal. Judgment: Judgment normal. MR cervical spine w and wo IV contrast Status: Final result PACS Images Show images for MR cervical spine w and wo IV contrast Signed by Signed Time Phone Pager Berny Guardado MD 01/29/2023 09:35 Exam Information Status Exam Begun Exam Ended Final 01/28/2023 16:06 01/28/2023 17:15 Study Result Narrative & Impression Interpreted By: Berny Guardado, STUDY: MR CERVICAL SPINE W AND WO IV CONTRAST INDICATION: Signs/Symptoms:neck and arm pain and numbness and tingling. previous neck surgery COMPARISON: Cervical spine MRI 04/16/2011. ACCESSION NUMBER(S): [id number] ORDERING CLINICIAN: RENITA HUBER TECHNIQUE: Multiplanar multisequence MR imaging of the cervical spine was performed before and after the administration of 13 cc Dotarem intravenous contrast, according to standard protocol. FINDINGS: ALIGNMENT: Straightening of usual cervical lordosis. Slight retrolisthesis of C4 on C5 and trace anterolisthesis of C7 on T1. VERTEBRAE: Status post ACDF of C5 through C7. Mild endplate degenerative change and Schmorl's node formation within the inferior endplate of C4. Vertebral bodies are otherwise unremarkable. No acute fracture or aggressive osseous lesion. No abnormal enhancement. DISCS: Moderate disc height loss at C4-5. Remaining discs are maintained. Postoperative changes from C5 through C7 as above. CORD: Mild flattening of the ventral aspect of the cord at C4-5 secondary to adjacent segment disease, progressed compared to previous MRI 04/16/2011. No associated cord edema or myelomalacia. Remainder of the visualized cord is unremarkable. PARAVERTEBRAL SOFT TISSUES: The visualized paravertebral soft tissues appear within normal limits. EVALUATION OF INDIVIDUAL LEVELS: C2-3: No disc herniation spinal canal or neuroforaminal stenosis. C3-4: Uncovertebral and facet hypertrophy results in mild left foraminal stenosis. Spinal canal and right neural foramina are patent. C4-5: Slight retrolisthesis with disc osteophyte complex and facet hypertrophy results in moderate narrowing of the spinal canal as well as severe right and moderate to severe left foraminal stenosis. This is slightly progressed compared to previous MRI 04/16/2011. C5-6: No disc herniation spinal canal or neuroforaminal stenosis. C6-7: No disc herniation spinal canal or neuroforaminal stenosis. C7-T1: Mild anterolisthesis with severe facet hypertrophy. Evaluation of neural foramina is limited secondary to motion degradation but may be at least moderately stenosed. IMPRESSION: Status post ACDF of C5 through C7. Adjacent segment disease at C4-5 results in moderate canal as well as severe right and moderate to severe left foraminal stenosis. Findings are progressed compared to previous MRI 04/16/2011. Mild flattening of the cord at this level without associated edema or myelomalacia. No abnormal enhancement. MR lumbar spine wo IV contrast Status: Final result PACS Images Show images for MR lumbar spine wo IV contrast Signed by Signed Time Phone Pager Berny Guardado MD 01/29/2023 09:23 Exam Information Status Exam Begun Exam Ended Final 01/28/2023 16:09 01/28/2023 17:13 Study Result Narrative & Impression Interpreted By: Berny Guardado, STUDY: MR LUMBAR SPINE WO IV CONTRAST INDICATION: Signs/Symptoms:lower back and leg pain COMPARISON: Lumbar spine radiograph 07/25/2019. ACCESSION NUMBER(S): [id number] ORDERING CLINICIAN: RENITA HUBER TECHNIQUE: Multiplanar multisequence MRI of the lumbar spine was performed without the administration of intravenous contrast, according to standard protocol. FINDINGS: ALIGNMENT: Levoconvex scoliosis centered at the thoracolumbar junction, better characterized on radiograph 07/24/2022. 4.5 mm grade 1 anterolisthesis of L4 on L5. Slight retrolisthesis of L1 on L2 and L2 on L3. VERTEBRAE: The vertebral bodies are normal in height. There is no fracture or aggressive osseous lesion. DISCS: The disc spaces are maintained. CONUS MEDULLARIS AND CAUDA EQUINA: The conus medullaris terminates at L1. There is normal appearance of the conus medullaris and cauda equina. PARAVERTEBRAL SOFT TISSUES AND VISUALIZED RETROPERITONEUM: The visualized paravertebral soft tissues appear within normal limits. EVALUATION OF INDIVIDUAL LEVELS: L1-2: Trace retrolisthesis. Disc bulge asymmetric to the right results in minimal right foraminal stenosis. Spinal canal and left neural foramina are patent. L2-3: Trace retrolisthesis. Disc bulge with mild facet hypertrophy and infolding of ligamentum flavum. Mild narrowing of the spinal canal and slight crowding of bilateral subarticular recesses. There is mild hpgr-noxduun-htuc-right foraminal stenosis. L3-4: Disc bulge with facet hypertrophy and infolding of ligamentum flavum. Mild narrowing of the spinal canal and bilateral foramina, xzoc-eswkxwh-ybnh-right. L4-5: 4.5 mm grade 1 anterolisthesis with superimposed disc bulge, facet hypertrophy, and infolding of ligamentum flavum. Moderate narrowing of the spinal canal and crowding of the sakd-irkhgfq-iuie-right subarticular recesses. There is moderate bilateral foraminal stenosis, evfo-vxsgejl-kmqx-right. L5-S1: Facet hypertrophy without canal or foraminal stenosis. LIMITED EVALUATION OF UPPER SACRUM AND SACROILIAC JOINTS: Mild degenerative changes of the sacroiliac joints. IMPRESSION: Multilevel degenerative changes of the lumbar spine most prominent at L4-5 where there is 4.5 mm grade 1 anterolisthesis with superimposed degenerative disease results in moderate narrowing of the spinal canal and moderate narrowing of the uawv-sutuequ-khdq-right foramina. Signed by: Berny Guardado 01/29/2023 9:23 AM Dictation workstation: [id number] Assessment/Plan Diagnoses and all orders for this visit: Cervical neuritis Lumbar foraminal stenosis Disc degeneration, lumbar Neurogenic claudication due to lumbar spinal stenosis Arthrodesis status Cervical spinal stenosis Acquired spondylolisthesis Arthritis of facet joint of lumbar spine Lumbar radiculopathy, chronic S/P spinal fusion Spondylolisthesis, acquired Patient is a 67-year-old female. She has a past medical history significant for previous cervical fusion, adjacent level cervical stenosis, cervical neuritis, lumbar foraminal stenosis and lumbar neuritis. Unfortunately, therapy has given her some relief but not quite enough. Gabapentin also gives some relief but not quite enough. This pain is affecting her ability to do the things she wants to do. Is affecting her quality of life. Is affecting her activities during the day. Based on her MRI findings, her pain pattern and her failure to get the relief she is looking for with the conservative treatments that she has pursued I recommended to patient a C4-5 epidural steroid injection under fluoroscopy for both diagnostic and therapeutic purposes. Procedure was discussed. Risk and benefits were discussed. Patient is agreeable. She will follow-up 2 weeks after the injection for reevaluation. Call the clinic sooner if necessary. In the meantime, she would like to continue physical therapy. An order will be placed for this. We will also have her increase her gabapentin to 900 mg 3 times a day. How to do so was discussed. OARRS reviewed. documented in this encounter [facility] Work Phone: 02-06-2023 Instructions Mita Lagunas RN - 02/06/2023 1:15 PM EST Injection education given to patient in writing and verbally. Patient verbalized understanding and denied questions. documented in this encounter [facility] Work Phone: 01-21-2023 History of Present illness Narrative Subjective Patient ID: Kely Alanis is a 67 y.o. female who presents for Pain (FUV for kulwant knee and ankle pain. L ankle > R ankle. 07/08 today. Patient states walking increases pain. Resting and swimming pool lowers pain. States Tylenol is not effective. Describes pain as achey, burning. Patient states she can walk approx 30 min before pain increases. She can stand 30-60 min before pain increases. THOMPSON = 47/100. BMI N/A d/t age. Depression neg. Smoking positive. Patient declined information. ). MMA done 01-21-23. Refill for gabapentin. Patient is a 67-year-old female. She presents today after undergoing cervical and lumbar x-rays and physical therapy. She states that she did physical therapy but unfortunate, she did not notice much by the way relief. She continues to have lower back pain with bilateral radiating leg pain as well as neck pain with bilateral radiating arm pain. She also has numbness and tingling and a multitude of complaints in regards to both areas. Unfortunate, nothing that she has done thus far has given her any relief. She uses OTC medications without relief. She underwent physical therapy without relief. She continues on gabapentin 600 mg twice daily with some improvement. Unfortunate, not quite enough. She is requesting a refill today as this does slightly help her but she is hopeful to get some better long-term treatment options underway. Review of Systems Constitutional: Negative. HENT: Negative. Eyes: Negative. Respiratory: Negative. Cardiovascular: Negative. Gastrointestinal: Negative. Endocrine: Negative. Genitourinary: Negative. Musculoskeletal: Positive for arthralgias, back pain, gait problem, myalgias and neck pain. Skin: Negative. Allergic/Immunologic: Negative. Neurological: Positive for weakness and numbness. Hematological: Negative. Psychiatric/Behavioral: Negative. Objective Physical Exam Vitals and nursing note reviewed. Constitutional: Appearance: Normal appearance. She is obese. HENT: Head: Normocephalic and atraumatic. Nose: Nose normal. Mouth/Throat: Pharynx: Oropharynx is clear. Eyes: Pupils: Pupils are equal, round, and reactive to light. Cardiovascular: Rate and Rhythm: Normal rate and regular rhythm. Pulses: Normal pulses. Pulmonary: Effort: Pulmonary effort is normal. Musculoskeletal: General: Normal range of motion. Cervical back: Normal range of motion. Skin: General: Skin is warm and dry. Neurological: General: No focal deficit present. Mental Status: She is alert and oriented to person, place, and time. Mental status is at baseline. Psychiatric: Mood and Affect: Mood normal. Behavior: Behavior normal. Thought Content: Thought content normal. Judgment: Judgment normal. Assessment/Plan Diagnoses and all orders for this visit: Neurogenic claudication due to lumbar spinal stenosis - MR lumbar spine wo IV contrast; Future Arthritis of facet joint of lumbar spine - MR lumbar spine wo IV contrast; Future Lumbar foraminal stenosis - MR lumbar spine wo IV contrast; Future Disc degeneration, lumbar - MR lumbar spine wo IV contrast; Future Lumbar radiculopathy, chronic - MR lumbar spine wo IV contrast; Future Cervical neuritis - MR cervical spine w and wo IV contrast; Future - Creatinine, Serum; Future S/P spinal fusion - MR cervical spine w and wo IV contrast; Future - Creatinine, Serum; Future Spondylolisthesis, acquired - MR lumbar spine wo IV contrast; Future Patient is a 67-year-old female with a past medical history significant for known lumbar stenosis, lumbar neuritis, lumbar degenerative disease, lumbar disc bulge, cervical neuritis, previous cervical fusion, and suspected adjacent level issues. We reviewed her x-rays. We reviewed her historical lumbar MRI. We discussed different options. At this time, she does not think that injections is something that she wants to do. She would consider seeing a surgeon to talk about possible surgical options but she is not sure if this is actually what she would want to do either. Since she has now failed a full course of physical therapy and continues to have the pain that affects her quality of life. Affects her activities during the day and affects her ability to do the things she wants to do. We discussed obtaining a lumbar as well as cervical MRI scan for possible injection options should she decide that this is something she wants to pursue versus surgical consultation. She will continue on the gabapentin. OARRS reviewed. Follow-up after the MRIs for reevaluation and discussion of options. documented in this encounter [facility] Work Phone: 11-27-2022 Note Patient Name: Suly Alanis Procedure Date: 11/27/2022 2:45 PM Date of : 1955 Admit Type: Outpatient Site: [facility] Endo Proc RM 1 Ethnicity: Not or Race: White Attending MD: Gerson Askew DO, [id number] Procedure: Colonoscopy Indications: Screening for colorectal malignant neoplasm Providers: Gerson Askew DO (Doctor) Referring: Yocasta Matute MD Medicines: Midazolam 6 mg IV, Meperidine 50 mg IV, Glucagon 1 mg IV Complications: No immediate complications. Procedure: Pre-Anesthesia Assessment: - Prior to the procedure, a History and Physical was performed, and patient medications and allergies were reviewed. The patient is competent. The risks and benefits of the procedure and the sedation options and risks were discussed with the patient. All questions were answered and informed consent was obtained. Patient identification and proposed procedure were verified by the physician in the pre-procedure area. Mental Status Examination: alert and oriented. Airway Examination: normal oropharyngeal airway and neck mobility. Respiratory Examination: clear to auscultation. CV Examination: normal. Prophylactic Antibiotics: The patient does not require prophylactic antibiotics. Prior Anticoagulants: The patient has taken no anticoagulant or antiplatelet agents. ASA Grade Assessment: II - A patient with mild systemic disease. After reviewing the risks and benefits, the patient was deemed in satisfactory condition to undergo the procedure. The anesthesia plan was to use moderate sedation / analgesia (conscious sedation). Immediately prior to administration of medications, the patient was re-assessed for adequacy to receive sedatives. The heart rate, respiratory rate, oxygen saturations, blood pressure, adequacy of pulmonary ventilation, and response to care were monitored throughout the procedure. The physical status of the patient was re-assessed after the procedure. After I obtained informed consent, the scope was passed under direct vision. Throughout the procedure, the patient's blood pressure, pulse, and oxygen saturations were monitored continuously. The pediatric colonoscope was introduced through the anus and advanced to the cecum, identified by appendiceal orifice and ileocecal valve. The colonoscopy was performed without difficulty. The patient tolerated the procedure well. The quality of the bowel preparation was excellent. The ileocecal valve, appendiceal orifice, and rectum were photographed. Findings: The perianal and digital rectal examinations were normal. Pertinent negatives include normal sphincter tone and no palpable rectal lesions. Multiple small and large-mouthed diverticula were found in the sigmoid colon and descending colon. There was evidence of diverticular spasm. No additional abnormalities were found on retroflexion. Moderate Sedation: Moderate (conscious) sedation was administered by the nurse and supervised by the endoscopist. The following parameters were monitored: oxygen saturation, heart rate, blood pressure, and response to care. Total physician intraservice time was 28 minutes. Estimated Blood Loss: Estimated blood loss: none. Impression: - Moderate diverticulosis in the sigmoid colon and in the descending colon. There was evidence of diverticular spasm. - No specimens collected. Recommendation: - Patient has a contact number available for emergencies. The signs and symptoms of potential delayed complications were discussed with the patient. Return to normal activities tomorrow. Written discharge instructions were provided to the patient. - Resume previous diet. - Continue present medications. (more content not included)... PROVATION - 11-27-2022 Note Patient Name: Suly Alanis Procedure Date: 11/27/2022 2:23 PM Date of : 1955 Admit Type: Outpatient Site: [facility] 1 Ethnicity: Not or Race: White Attending MD: Gerson Askew DO, [id number] Procedure: Upper GI endoscopy Indications: Abnormal CT of the GI tract Providers: Gerson Askew DO (Doctor), Jose Phelps RN (Nurse), Daly Vallejo RN (Nurse) Referring: Yocasta Matute MD Medicines: Midazolam 6 mg IV, Meperidine 50 mg IV, Glucagon 1 mg IV Complications: No immediate complications. Procedure: Pre-Anesthesia Assessment: - Prior to the procedure, a History and Physical was performed, and patient medications and allergies were reviewed. The patient is competent. The risks and benefits of the procedure and the sedation options and risks were discussed with the patient. All questions were answered and informed consent was obtained. Patient identification and proposed procedure were verified by the physician in the pre-procedure area. Mental Status Examination: alert and oriented. Airway Examination: normal oropharyngeal airway and neck mobility. Respiratory Examination: clear to auscultation. CV Examination: normal. Prophylactic Antibiotics: The patient does not require prophylactic antibiotics. Prior Anticoagulants: The patient has taken no anticoagulant or antiplatelet agents. ASA Grade Assessment: II - A patient with mild systemic disease. After reviewing the risks and benefits, the patient was deemed in satisfactory condition to undergo the procedure. The anesthesia plan was to use moderate sedation / analgesia (conscious sedation). Immediately prior to administration of medications, the patient was re-assessed for adequacy to receive sedatives. The heart rate, respiratory rate, oxygen saturations, blood pressure, adequacy of pulmonary ventilation, and response to care were monitored throughout the procedure. The physical status of the patient was re-assessed after the procedure. After obtaining informed consent, the endoscope was passed under direct vision. Throughout the procedure, the patient's blood pressure, pulse, and oxygen saturations were monitored continuously. The was introduced through the mouth, and advanced to the third part of duodenum. The upper GI endoscopy was accomplished without difficulty. The patient tolerated the procedure well. Findings: The nasopharynx was normal. A non-bleeding diverticulum with a small opening and no stigmata of recent bleeding was found in the lower third of the esophagus. The Z-line was regular and was found 38 cm from the incisors. Biopsies were taken with a cold forceps for histology. Localized mild inflammation characterized by congestion (edema) and erythema was found in the prepyloric region of the stomach. Biopsies were taken with a cold forceps for histology. The [Site] was normal. Biopsies were taken with a cold forceps for histology. Moderate Sedation: Moderate (conscious) sedation was administered by the nurse and supervised by the endoscopist. The patient's oxygen saturation, heart rate, blood pressure and response to care were monitored. Total physician intraservice time was 29 minutes. Estimated Blood Loss: Estimated blood loss: none. Impression: - Normal nasopharynx. - Diverticulum in the lower third of the esophagus. - Z-line regular, 38 cm from the incisors. Biopsied. - Chronic gastritis. Biopsied. - Normal [Site]. Biopsied. Recommendation: - Patient has a contact number available for emergencies. The signs and symptoms of potential delayed complications were discussed with the patient. Return to normal activities tomorrow. Written discharge instructions were provided (more content not included)... PROVATION - 11-14-2022 History of Present illness Narrative On a scale of 0 to 10, the patient rates the pain at 5.Pain Location: Low Back Pain.Pain Quality: Sharp.Pain Radiation: RIGHT LEG.Sensory/ Motor: Numbness and HANDS.Exacerbating Factors: rest, gripping, motion, repetitive motion, standing, stairs, walking and ADL.Alleviating Factors: Cold Therapy, Exercise, Medications, Moist Heat, Repositioning.24 Hour Behavior:Symptoms are worse in the am.Symptoms are worse as the day progresses.Symptoms are worse in the pm.Symptoms are worse when lying down.Goals for Pain Management:OPIOID RISK SCORE=0.Patient is a 67-year-old female who presents today after a significant hiatus. Patient last underwent bilateral sacroiliac joint injection in January 2022 and did not get the relief she was looking for so she failed to follow back up. She states that she called to get an appointment with Dr. Cuevas after the injection because per patient she was told to call them if she did not get the relief she was looking for and they could further consider surgery. She states that when she called their office to set up an appointment they told her she needed to come back here first.She failed to follow-up but after a few months of no improvement and in fact, things getting worse she decided to call and make an appointment. Today on her visual analog scale she circles her whole body. She admits to shoulder pain, bilateral radiating arm pain, hand pain as well as numbness and tingling, lower back pain, bilateral buttock pain, bilateral radiating leg pain and knee pain. She has a previous cervical fusion. She wonders if there is something going on in her neck in regards to this. Patient underwent previous L5-S1 epidural steroid injection on 11/09/2021 and got significant relief of her radicular symptoms from this. She still feels that her radicular symptoms are controlled. Not quite as good as before but they are controlled.Today, she just has a multitude of complaints of different areas that she rates a 5/10. -Pain Management-[facility] Work Phone: 03-31-2022 Note Send Summary: Discharge Summary Providers: Provider RoleProvider Name Collin Aldrich Note Recipients: Ndaiya Guillen MD Discharge: Summary: Admission Date: .28-Mar-2022 16:40:00 Discharge Date: 31-Mar-2022 Attending Physician at Discharge: Glen Siddiqi Admission Reason: worsening SOB and Cough(1) Final Discharge Diagnoses: Shortness of breath at rest Procedures: none Condition at Discharge: Satisfactory Disposition at Discharge: .Home Vital Signs: T PRBPMAPSpO2 [id number]% Date/Time03/31 12:101 13: 13:301 12: 13:30 Range(36.6C - 37.2C ) (70 - 111 ) (11 - 22 ) (152 - 162 )/ (81 - 98 ) (92% - 100% ) As of 31-Mar-2022 08:30:00, patient is on 1 L/min of oxygen via room air. Highest temp of 37.2 C was recorded at 03/30 8:20 Date: Weight/Scale Type:Height: 28-Mar-2022 17:3167 kg / rirfsziw873.4 cm Physical Exam: Constitutional: Appears stated age. In NAD. HEENT: NC/AT, EOMI, clear sclera, moist mucous membranes CV: RRR, No M/R/G PULM: Mild end-expiratory wheezing. On 1 L O2 NEURO: A&O x 4, nonfocal neurological exam. PSYCH: Normal Mood & Behavior Hospital Course: SULY ALANIS is a 67 year old Female with unremarkable PMhx except for COPD and a hx of smoking (1ppd [id number]) who presented to the ED with complaints of SOB and cough of 3 days duration. 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 She stated that she has had 6 hospital admissions for COPD exacerbation. Index episode started about 3 days prior to presentation when she noticed a worsening SOB and cough which was non productive. She denies associated fever, chest pain and or chills. Cough is intermittent and has no triggering factor. At the same time, patient noticed that she was having SOB which she described as an increased difficulty breathing. She denied associated orthopnea, PND, or calf pain. Patient is an active smoker and averages 1 ppd. Pt was admitted to hospital at home for further clinical monitoring for aeCOPD. Pt completed 5 day steroid course, weaned from 2L to room air at the time of discharge and kept on remote monitoring. Pt completed doxycycline course, but was told not to continue taking leftover pills given Procal low (0.04) and denied cough or sputum production and no fevers or chills. Pt was recommended to f/u with PCP given 9 mm ground glass nodule in RUL may require routine out-pt surveillance monitoring. No changes were made to home medicaitons and continued Symbicort & Spiriva with DuoNebs PRN. Discharge Information: and Continuing Care: Lab Results - Pending: None Radiology Results - Pending: None Discharge Instructions: Additional Orders: Additional Instructions: - You do not need additional antibiotic doses, please do not take any leftover antiboitic pills given you completed a course during hosptial stay and your infectious numbers were low and microdata was negative - You completed 5 day steroid course, do not take any leftover steroid pills - Please follow up with your primary care doctor regarding nodules found on CT Lung scan in your right upper lung which may often require surveillance annual monitoring - continue using your prescribed inhalers, incentive spirometer daily, and take tessalon pearls or Mucinex for cough or congestion - Follow Up Appointments: Follow-Up Appointment 01: Physician/Dept/Service: PCP Reason for Referral: 9 mm ground glass nodule (RUL) & aeCOPD Call to Schedule in: 1 week Discharge Medications: Home Medication Symbicort 160 mcg-4.5 mcg/inh inhalation aerosol - 2 puff(s) inhaled 2 times a day gabapentin 300 mg oral capsule - 2 cap(s) orally 2 times a day lisinopril 20 mg oral tablet - 1 tab(s) orally once a day Spiriva Respimat 28 ACT 2.5 mcg/inh inhalation aerosol - 1 puff(s) inhaled once a day PRN Medication ibuprofen 200 mg oral tablet - 1 tab(s) orally every 6 hours, As Needed guaifenesin-dextromethorphan 100 mg-10 mg/5 mL oral liquid - 10 milliliter(s) orally every 4 hours, As needed, Cough docusate sodium 100 mg oral capsule - 1 cap(s) orally 2 times a day, As needed, Constipation benzonatate 100 mg oral capsule - 1 cap(s) orally 3 times a day, As needed, Cough albuterol 2.5 mg/3 mL (0.083%) inhalation solution - 3 milliliter(s) inhaled every 6 hours, As Needed Albuterol (Eqv-ProAir HFA) 90 mcg/inh inhalation aerosol - 1-2 puff(s) inhaled every 4-6 hours, As Needed DNR Status: Code StatusCode Status order at time of discharge: Full Code Attestation: Note Completion: I am a: Resident/Fellow Attending AttestationI reviewed the resident/fellows documentation and discussed the patient with the resident/fellow. I agree with the resident/fellows medical decision making as documented in the note. (more content not included)... [facility] 03-28-2022 Note History of Present I llness: Admission Reason: worsening SOB and Cough HPI: SULY ALANIS is a 67 year old Female with unremarkable PMhx except for COPD and a hx of smoking (1ppd [id number]) who presented to the ED with complaints of SOB and cough of 3 days duration. 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 She stated that she has had 6 hospital admissions for COPD exacerbation. Index episode started about 3 days prior to presentation when she noticed a worsening SOB and cough which was non productive. She denies associated fever, chest pain and or chills. Cough is intermittent and has no triggering factor. At the same time, patient noticed that she was having SOB which she described as an increased difficulty breathing. She denied associated orthopnea, PND, or calf pain. Patient is an active smoker and averages 1 ppd. 12 point review of systems including (Constitutional, Eyes, ENMT, Respiratory, Cardiac, Gastrointestinal, Neurological, Psychiatric, and Hematologic) was performed and is otherwise negative. ED Course: Vitals: T: 98.4, HR: 111, SpO2: 94 on 2L (88 RA), BP: 156/92 Labs: CBC: unremarkable RFP: unremarkable Radiology: CXR: No evidence of cardiopulmonary process on going CTPE: no evidence of PE PMHx: As outlined above PSHx: previous neck surgery. She had a tubal rupture tonsillectomy. SocialHx: patient lives with her daughter. She has about a 86-tojl-acbd smoking history and is currently smoking nearly a pack per day. 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 Family history-the patient's mother at age 87 from complications of dementia and her father at age 88 f Comorbidities: Comorbidites: Comorbid Conditionshypertension Past Medical/Surgical History: Medical History: BPPV (benign paroxysmal positional vertigo): Family History: Family History: reviewed and not pertinent to presenting problem Social History: Social History: Smoking Statusformer smoker (1) Alcohol Usedenies Drug Usedenies Allergies: codeine: Itching, Hives/Urticaria Medications Prior to Admission: Albuterol (Eqv-ProAir HFA) 90 mcg/inh inhalation aerosol: 1-2 puff(s) inhaled every 4-6 hours, As Needed Symbicort 160 mcg-4.5 mcg/inh inhalation aerosol: 2 puff(s) inhaled 2 times a day gabapentin 300 mg oral capsule: 2 cap(s) orally 2 times a day lisinopril 20 mg oral tablet: 1 tab(s) orally once a day albuterol 2.5 mg/3 mL (0.083%) inhalation solution: 3 milliliter(s) inhaled every 6 hours, As Needed Spiriva Respimat 28 ACT 2.5 mcg/inh inhalation aerosol: 1 puff(s) inhaled once a day ibuprofen 200 mg oral tablet: 1 tab(s) orally every 6 hours, As Needed. Objective: Physical Exam Narrative: Physical Exam: GENERAL: sitting up in bed comfortably, well-appearing and in NAD; answers questions appropriately. EYES: no conjunctival injection. No lesions or scleral icterus. ENMT: no discharge or bleeding; moist mucous membranes; hearing intact to conversational tone EXTREMITIES: no edema; pulses 2+ b/l to Rad Art and DP Art; warm with no cyanosis or clubbing. HEART: RRR; audible S1 and S2; no extra heart sounds, murmurs, gallops, rubs, or knocks. CHEST: Diffuse wheezing in all lung lobes bilaterally ABDOMINAL: abdomen soft and nontender to palpation; no rebound tenderness; no guarding. Bowel sounds audible over all quadrants. INTEGUMENT: warm, dry, elastic, and intact. Normal turgor. PSYCHIATRIC/MSE: conversational; full euthymic affect; logical thought process; cognition intact. Medications: Medications: Continuous Medications No continuous medications are active Scheduled Medications 1. Albuterol 90 micrograms/ Inhalation MDI: 2 inhalation Inhalation Every 4 Hours 2. Budesonide 160 microgram- Formoterol 4.5 microgram/ Inh MDI: 2 inhalation Inhalation Every 12 Hours 3. Doxycycline: 100 mg Oral Every 12 Hours 4. Enoxaparin SubCutaneous: 40 mg SubCutaneous Every 24 Hours 5. Gabapentin: 600 mg Oral 2 Times a Day 6. Lisinopril: 20 mg Oral Daily 7. Non-Formulary Medication: Spiriva Respimat 2.5mcg Aerosol Dose = 1 inhalation(s) Oral Daily PATIENTS OWN MEDS: 8. predniSONE: 40 mg Oral Daily PRN Medications 1. Acetaminophen: 650 mg Oral Every 4 Hours 2. Albuterol 2.5 mg/ 3 mL Nebulizer Soln: 3 mL Inhalation Every 6 Hours 3. Docusate: 100 mg Oral 2 Times a Day 4. EPINEPHrine Injectable: 0.3 mg IntraMuscular Once 5. Heparin Flush 10 unit/ mL PF Injectable PRN: 3 mL IntraVenous Flush Every 24 Hours and as Needed 6. Ibuprofen: 200 mg Oral Every 6 Hours 7. Magnesium Hydroxide -Al Hydrox -Simethicone Oral Liquid: 30 mL Oral Every 6 Hours 8. Melato (more content not included)... [facility] 03-28-2022 Note Send Summary: Discharge Summary Providers: Provider RoleProvider Name AttendingAl Nadiya Archer Note Recipients: Collin Sommers APRN-[employer] - [phone] [] Discharge: Summary: Admission Date: .27-Mar-2022 17:05:00 Discharge Date: 28-Mar-2022 Attending Physician at Discharge: Dr. Anthony Salazar Admission Reason: Shortness of breath Final Discharge Diagnoses: Acute exacerbation of chronic obstructive pulmonary disease, Acute on chronic respiratory failure with hypoxemia Procedures: 1. CTA of the chest 03/27/2022 Condition at Discharge: Good Disposition at Discharge: Hospital at home Vital Signs: T PRBPMAPSpO2 [id number]% Date/Time03/28 7: 7: 7: 7: 7: 7:25 Range(36.3C - 36.8C ) (87 - 111 ) (18 - 22 ) (149 - 170 )/ (84 - 96 ) (103 - 103 ) (88% - 95% ) As of 28-Mar-2022 08:00:00, patient is on 2 L/min of oxygen via nasal cannula. Date: Weight/Scale Type:Height: 28-Mar-2022 03:0668.4 kg / oms269.4 cm Physical Exam: See today's progress note Hospital Course: Please refer to history and physical for details of admission. Patient presented to the emergency room yesterday 27 March due to worsening shortness of breath with cough productive of white phlegm. Is been going on about a week now getting worse. No fevers, chills or sweats and no chest pain or nausea or vomiting. She has a history of COPD and she used to be on oxygen but when she moved out of town she came back her oxygen. She came back to [place] and has not been able to get oxygen since. Work-up in the ER was unremarkable and CT of the chest was negative for PE or consolidations. She received duo nebs and Solu-Medrol in the ED and her saturations dropped to 88% on room air and was placed on nasal cannula. She is placed on the medical service for further evaluation. On the medical service she was admitted for acute on chronic respiratory failure with hypoxia secondary to acute COPD exacerbation. She was maintained on duo nebs along with IV Solu-Medrol and oral doxycycline. She was maintained on her home meds and her hospital course was unremarkable. She will need to be qualified for home O2. She will be discharged to home with the program hospital at home to continue her treatment. Discharge Information: and Continuing Care: Lab Results - Pending: None Radiology Results - Pending: None Discharge Instructions: See above Discharge Medications: See MAR Electronic Signatures: Mango Saalzar (DO) (Signed 28-Mar-2022 13:28) Authored: Send Summary, Summary Content, Ongoing Care, Note Completion Last Updated: 28-Mar-2022 13:28 by Mango Salazar (DO) [facility] 03-28-2022 Note History of Present I llness: HPI: SULY ALANIS is a 67 year old Female with history of COPD who presented to the hospital due to worsening shortness of breath associated with worsening cough and white phlegm that has been going on for almost a week now, the patient denies any fever/chills/chest pain/nausea or vomiting also the patient denies any sick contacts, here in the hospital the patient was tachycardic/tachypneic and D-dimer was elevated, CT angio was done and it was negative for PE or obvious consolidation, the patient had no fever or leukocytosis, the patient received DuoNeb's and Solu-Medrol however her oxygen saturation dropped to 88% for which she was required to be placed on nasal cannula for which the patient will be admitted to the hospital for further evaluation management of her COPD exacerbation, on my counter the patient was in bed seems to be in moderate distress wearing her nasal cannula and she was getting the breathing treatments and she seemed very tachypneic Allergies: codeine: Itching, Hives/Urticaria Medications Prior to Admission: Albuterol (Eqv-ProAir HFA) 90 mcg/inh inhalation aerosol: 2 puff(s) inhaled every 6 hours, As Needed Symbicort 160 mcg-4.5 mcg/inh inhalation aerosol: 2 puff(s) inhaled 2 times a day gabapentin 300 mg oral capsule: 2 cap(s) orally 2 times a day lisinopril 20 mg oral tablet: 1 tab(s) orally once a day albuterol 2.5 mg/3 mL (0.083%) inhalation solution: 3 milliliter(s) inhaled every 6 hours, As Needed Spiriva Respimat 1.25 mcg/inh inhalation aerosol: 2 puff(s) inhaled once a day. Review of Systems: Constitutional: NEGATIVE: Fever, Chills, Anorexia, Weight Loss, Malaise Eyes: NEGATIVE: Blurry Vision, Drainage, Diploplia, Redness, Vision Loss/ Change ENMT: NEGATIVE: Nasal Discharge, Nasal Congestion, Ear Pain, Mouth Pain, Throat Pain Respiratory: POSITIVE: Productive Cough, Wheezing, Shortness of Breath Cardiac: NEGATIVE: Chest Pain, Dyspnea on Exertion, Orthopnea, Palpitations, Syncope Gastrointestinal: NEGATIVE: Nausea, Vomiting, Diarrhea, Constipation, Abdominal Pain Genitourinary: NEGATIVE: Discharge, Dysuria, Flank Pain, Frequency, Hematuria Musculoskeletal: NEGATIVE: Decreased ROM, Pain, Swelling, Stiffness, Weakness Neurological: NEGATIVE: Dizziness, Confusion, Headache, Seizures, Syncope Objective: Objective Information: T PRBPMAPSpO2 [id number]% Date/Time03/27 17: 21: 21: 21: 22:13 Range(36.8C - 36.8C ) (87 - 111 ) (20 - 22 ) (149 - 156 )/ (89 - 92 ) (88% - 94% ) Pain reported at 03/27 17:08: 7 = Severe Physical Exam by System: Constitutional: Patient was in bed seems to be in in distress, wearing her nasal cannula and she was getting the breathing treatment Eyes: PERRL, EOMI, clear sclera ENMT: mucous membranes moist, no apparent injury, no lesions seen Head/Neck: Neck supple, no apparent injury, thyroid without mass or tenderness, No JVD, trachea midline, no bruits Respiratory/Thorax: Diffuse rhonchi with end expiratory wheezing, diminished breath sounds diffusely and tachypneic Cardiovascular: Regular, rate and rhythm, no murmurs, 2+ equal pulses of the extremities, normal S 1and S 2 Gastrointestinal: Nondistended, soft, non-tender, no rebound tenderness or guarding, no masses palpable, no organomegaly, +BS, no bruits Musculoskeletal: ROM intact, no joint swelling, normal strength Extremities: normal extremities, no cyanosis edema, contusions or wounds, no clubbing Neurological: alert and oriented x3, intact senses, motor, response and reflexes, normal strength Skin: Warm and dry, no lesions, no rashes Recent Lab Results: Results: CBC: 03/27/2022 18:20 \ Hgb / \ 13.5 / WBC Plt 7.8 337 / Hct \ / 42.9 \ RBC: 4.28 MCV: 100 Neutrophil %: 50.1 BMP: 03/27/2022 18:20 NA+ Cl- BUN / 140 105 19 / Glucose 95 K+ HCO3- Creat \ 4.4 28 1.07 H \ Calcium : 9.3 Anion Gap : 11 Coagulation: 03/27/2022 18:20 PT / 10.6 / -------< INR < 0.9 PTT\ 29 \ Assessment and Plan: Problem List: Admitting Dx: Acute respiratory failure with hypoxemia: Assessment: Assessment and plan *Acute hypoxemic respiratory failure *Acute COPD exacerbation Admit to the floor on telemetry Patient received Solu-Medrol and DuoNeb still in the ER We will continue with DuoNebs every 4 hours and Solu-Medrol 40 IV every 8 Start patient on doxycycline 100 mg p.o. twice daily COVID/flu were negative We will check respiratory panel PCR/sputum cultures Hold her Symbicort and DuoNebs We will get an ABG stat *Chronic medical issues 1. Hypothyroidism 2. Hypertension 3. Peripheral neuropathy Continue home medications Start DVT prophylaxis with Lovenox Electronic Signat (more content not included)... [facility] 02-28-2022 History of Present illness Narrative 67-year-old female referred by family doctor for abnormal CT chest abdomen chest was performed in February 2022 for possible PE showed circumferential thickening distal esophagus he has no reflux symptoms is on chronic PPI meds denies any dysphagia or melena. Is due for surveillance colonoscopy. [facility] [address] Work Phone: 02-28-2022 History of Present illness Narrative 67-year-old female referred by family doctor for abnormal CT chest abdomen chest was performed in February 2022 for possible PE showed circumferential thickening distal esophagus he has no reflux symptoms is on chronic PPI meds denies any dysphagia or melena. Is due for surveillance colonoscopy. [facility] Work Phone: 02-28-2022 History of Present illness Narrative 67-year-old female referred by family doctor for abnormal CT chest abdomen chest was performed in February 2022 for possible PE showed circumferential thickening distal esophagus he has no reflux symptoms is on chronic PPI meds denies any dysphagia or melena. Is due for surveillance colonoscopy. [facility] Work Phone: 02-15-2022 Note PROCEDURE DETAILS Preoperative Diagnosis: Sacroiliitis, M46.1 Sacrococcygeal disorders, not elsewhere classified, M53.3 Postoperative Diagnosis: Sacroiliitis, M46.1 Sacrococcygeal disorders, not elsewhere classified, M53.3 Surgeon: Andrew Arriaza Resident/Fellow/Other Bonded Structures Repairer: None of these were associated with this case Procedure: 1. BILAT SIJ Anesthesia: No anesthesiologist associated with this case Estimated Blood Loss: 0 Findings: NA Additional Details: The patient has a greater than 3-month history of lower back and hip pain consistent with sacroiliitis. The patient has failed conservative management with exercise therapy and medications. The imaging is notable for sclerosis in the sacroiliac joints. On examination they have a positive Donis sign, Gaenslen test, and thigh thrust test on the left and right Operative Report: Procedure: Intra-articular steroid injection into the left and right sacroiliac joints under fluoroscopic guidance Diagnosis: Sacroiliitis/sacroiliac dysfunction Solution used: 1 mL of Kenalog 40 mg and 4 mL of 0.25% bupivacaine. 5 mL total 2.5 mL per joint Total contrast: 1 mL Omnipaque per joint Local: 2 mL lidocaine 1% per side Anesthesia: Local Complications: None After informed consent was obtained the patient was brought to the OR and placed in prone position. The area in question was prepped and draped in sterile fashion. An AP fluoroscopic view of the sacrum was obtained and after local anesthetic was administered into the skin, a 22-gauge quincke needle was inserted into the skin and advanced into the left sacroiliac joint under intermittent fluoroscopic guidance. Contrast was administered and demonstrated appropriate intra-articular spread. Proper needle position was confirmed via AP and contralateral oblique fluoroscopic views. The local anesthetic steroid solution was injected incrementally. The needle was removed. Bleeding was minimal. The procedure was repeated in the same manner on the opposite side. The patient tolerated the procedure well was transferred to the recovery room in good condition. Attestation: Note Completion: Attending AttestationI performed the procedure without a resident Electronic Signatures: Andrew Arriaza) (Signed 15-Feb-2022 21:10) Authored: Post-Operative Note, Chart Review, Note Completion Last Updated: 15-Feb-2022 21:10 by Andrew Arriaza) [facility] 10-24-2021 History of Present illness Narrative On a scale of 0 to 10, the patient rates the pain at 8.WHILE STANDING; 2/10 SITTING.Pain Location: Low Back Pain.Pain Quality: Unable to describe.Timing/Duration: Constant and > 12 weeks duration.Exacerbating Factors: motion, repetitive motion, squatting, standing, stairs, walking, weightbearing and LEANING; ADLS.Alleviating Factors: Cold Therapy, Deep Breathing, Exercise, Medications, Moist Heat, Repositioning.24 Hour Behavior:Symptoms are the same in the am.Symptoms are worse as the day progresses. DEPENDENT ON ACTIVITY.Symptoms are the same in the pm.Symptoms are better lying down.Patient is a 66-year-old female with a past medical history significant for lumbosacral spondylosis, lumbar degenerative disease, lumbar annular tear, and lumbar foraminal stenosis. She presents today for a 2-month follow-up. She underwent previous L5-S1 epidural steroid injection done on 08/03/2021 and has given her 80% relief for approximately 10 weeks. Unfortunate, over the last week or so her pain has begun to return. It is in the lower back and going into the buttocks. She rates it a 2/10 but states that it can get worse if she is standing and trying to walk. At that time she rates an 8/10.She would like to get the same amount of relief she got after the previous injection and wonders about getting set up for this as this has been what has given her the most relief. Right after the injection she did really well and she was very happy. [facility] Work Phone: 08-23-2021 History of Present illness Narrative On a scale of 0 to 10, the patient rates the pain at 1.Pain Location: Low Back Pain.Pain Quality: Aching.Pain Radiation: None.Sensory/ Motor: None.Timing/Duration: Intermittent.Patient is a 66-year-old female with a past medical history significant for lumbosacral spondylosis, lumbar degenerative disease, lumbar annular tear, and lumbar foraminal stenosis. She presents today for follow-up after undergoing L5-S1 epidural steroid injection. This was done on 08/03/2021 and has given her 80% relief. She has some minimal back discomfort that she rates a 1/10. It is different than before and it is tolerable. She states that she is comfortable and happy. She is able to do things she wants to do and she is overall very pleased with the amount of relief she has gotten from this injection. She feels that she is doing very well. -[facility] Work Phone: 07-05-2021 History of Present illness Narrative On a scale of 0 to 10, the patient rates the pain at 10.Pain Location: Low Back Pain.Pain Quality: Sharp.Timing/Duration: Constant and > 12 weeks duration.Exacerbating Factors: motion, lifting, repetitive motion, standing, stairs, walking and ADL.Alleviating Factors: Cold Therapy, Medications, Moist Heat, Repositioning.24 Hour Behavior:Symptoms are the same in the am.Symptoms are the same as the day progresses.Symptoms are the same in the pm.Symptoms are the same when lying down.Patient Education:Inj. education completed written and verbally.Patient is a 66-year-old female with a past medical history significant for lumbosacral spondylosis, lumbar degenerative disease, lumbar annular tear, and lumbar foraminal stenosis. She presents today for follow-up after undergoing bilateral L4-5 and L5-S1 facet medial branch block. This was done on 06/15/2021 and unfortunate, did not give her any relief. She has mainly lower back pain with some intermittent right buttock pain that she rates a 10/10 with any sort of standing or walking. Sitting down does improve it. Unfortunately, she is somewhat discouraged that the recent injection did not give her the relief she was looking for.Patient has tried physical therapy without improvement. She has taken steroids without improvement. She has tried OTC medications that improvement. She has tried ice and heat without any improvement. Recent injection did not give her any relief. She states that this pain affects her quality of life and activities of day living. Affects her ability to comfortable. [facility] 06[facility] History of Present illness Narrative Patient was seen today in the office on a 2-month follow-up visit for her severe emphysema and chronic bronchitis and also her nicotine addiction. Patient is currently on Breztri 2 inhalations twice daily and short acting beta agonist 2 puffs 4 times daily as needed shortness of breath. Patient cuong rangel explained to me that she smoked her last cigarette on 06/03/2021 and I congratulated her on that. Patient reports she feels better off the cigarettes and was taking some nicotine lozenges to help that. She reports she did develop some GI upset after being on those for a couple months.Patient has mild cough with clear sputum production. She denies any hemoptysis or wheezing and she does not awaken at nighttime with her breathing. She does have dyspnea during the daytime with 1 flight of stairs. -[facility] Work Phone: 06-03-2021 History of Present illness Narrative Patient was seen today in the office on a 2-month follow-up visit for her severe emphysema and chronic bronchitis and also her nicotine addiction. Patient is currently on Breztri 2 inhalations twice daily and short acting beta agonist 2 puffs 4 times daily as needed shortness of breath. Patient cuong rangel explained to me that she smoked her last cigarette on 06/03/2021 and I congratulated her on that. Patient reports she feels better off the cigarettes and was taking some nicotine lozenges to help that. She reports she did develop some GI upset after being on those for a couple months.Patient has mild cough with clear sputum production. She denies any hemoptysis or wheezing and she does not awaken at nighttime with her breathing. She does have dyspnea during the daytime with 1 flight of stairs. -[facility] Work Phone: 05-03-2021 History of Present illness Narrative Patient was seen today in the office for a follow-up on her severe emphysema and chronic bronchitis. Patient is also a chronic smoker but admits to me that she actually stopped smoking about 1 week ago and is using the nicotine lozenges at 2 to 3/day to help. She currently has some mild clear sputum production. She denies any hemoptysis or wheezing. She denies having significant dyspnea in her house. However when I asked her about her use of albuterol solution or inhaler she appears to be using that several times a day and I believe that this is being done because of shortness of breath that she perceives may be improved with the use that medicine but in most cases is probably related more to the severity of her disease and dyspnea with activity. We discussed that simply sitting at rest for a few minutes will in most cases return her breathing back to her baseline.Her current medication is Breztri 2inhalations twice daily. In addition of this she is on the albuterol inhaler at 2 puffs 4 times daily or the nebulized albuterol. -[facility] [place] [id number] [place] Work Phone: 05-02-2021 History of Present illness Narrative Patient was seen today in the office for a follow-up on her severe emphysema and chronic bronchitis. Patient is also a chronic smoker but admits to me that she actually stopped smoking about 1 week ago and is using the nicotine lozenges at 2 to 3/day to help. She currently has some mild clear sputum production. She denies any hemoptysis or wheezing. She denies having significant dyspnea in her house. However when I asked her about her use of albuterol solution or inhaler she appears to be using that several times a day and I believe that this is being done because of shortness of breath that she perceives may be improved with the use that medicine but in most cases is probably related more to the severity of her disease and dyspnea with activity. We discussed that simply sitting at rest for a few minutes will in most cases return her breathing back to her baseline.Her current medication is Breztri 2inhalations twice daily. In addition of this she is on the albuterol inhaler at 2 puffs 4 times daily or the nebulized albuterol. [facility] Work Phone: 05-01-2021 History of Present illness Narrative Patient was seen today in the office for a follow-up on her severe emphysema and chronic bronchitis. Patient is also a chronic smoker but admits to me that she actually stopped smoking about 1 week ago and is using the nicotine lozenges at 2 to 3/day to help. She currently has some mild clear sputum production. She denies any hemoptysis or wheezing. She denies having significant dyspnea in her house. However when I asked her about her use of albuterol solution or inhaler she appears to be using that several times a day and I believe that this is being done because of shortness of breath that she perceives may be improved with the use that medicine but in most cases is probably related more to the severity of her disease and dyspnea with activity. We discussed that simply sitting at rest for a few minutes will in most cases return her breathing back to her baseline.Her current medication is Breztri 2inhalations twice daily. In addition of this she is on the albuterol inhaler at 2 puffs 4 times daily or the nebulized albuterol. -Pulmonary Medicine-[place] [address] DO Work Phone: 01-30-2021 History of Present illness Narrative Patient was seen today in the office on a follow-up visit. Patient reports that she still has some cough with phlegm production which is usually worse at nighttime. I suggested to her trying Mucinex DM 1 to 2 tablets at bedtime and see if that does not help her with expectorating the phlegm. If this continues to be a problem then will arrange for her to get a flutter valve that she can use prior to bedtime.She is currently on Breztri 2 inhalations twice daily, short acting beta agonist at she uses from 0-2 times per day and generally at work. 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 Her oxygen saturation today on room air was 94% at rest. It was 91% on arrival to the office. She also reports having intermittent wheezing. At home she has shortness of breath walking greater than 100 feet. -P[facility]-[place] Purple Binder DO Work Phone: 12-27-2020 History of Present illness Narrative Patient was seen today in the office on a urgent visit. She reports that she has had cough and increased shortness of breath with wheezing over the past 2 weeks. She denies having any fever. Her sputum production has been white but somewhat tenacious. She reports now smoking only 1 to 2 cigarettes/day. These are cigarettes that she gets from people visiting her and she reports that she has not bought any cigarettes since we last saw her in June.Her current bronchodilators are Breztri 2 inhalations twice daily and short acting beta agonist which she reports she is currently using every 2 hours and I advised her to extend that to every 4 hours otherwise it will have a delirious effect upon her breathing.Total time with the patient in the office discussing her medical therapy and lack of compliance with her regimen and how this can seriously affect her health was 40 minutes. [facility] [address] [facility] Work Phone: 12-26-2020 History of Present illness Narrative Patient was seen today in the office on a urgent visit. She reports that she has had cough and increased shortness of breath with wheezing over the past 2 weeks. She denies having any fever. Her sputum production has been white but somewhat tenacious. She reports now smoking only 1 to 2 cigarettes/day. These are cigarettes that she gets from people visiting her and she reports that she has not bought any cigarettes since we last saw her in June.Her current bronchodilators are Breztri 2 inhalations twice daily and short acting beta agonist which she reports she is currently using every 2 hours and I advised her to extend that to every 4 hours otherwise it will have a delirious effect upon her breathing.Total time with the patient in the office discussing her medical therapy and lack of compliance with her regimen and how this can seriously affect her health was 40 minutes. [facility] Purple Binder DO Work Phone: 10-16-2020 History of Present illness Narrative [facility] [address] ([address]) [facility] [address] [facility] [id number] Suly Alanis is a 65 y.o. female being seen today, 10/16/20, Chief Complaint Patient presents with Lower Back - Pain, Follow-up [chief complaint] low back pain HPI Dictation: Patient seen status post MRI which shows multilevel degenerative disc disease with very little some foraminal narrowing mild central stenosis at 2 3 mild to moderate at 4 5 with a grade 1 degenerative spinal listhesis noted conservative treatment at this point is been effective including therapy meds and injection [hpi] Physical Exam Dictation: [PE] increased pain lumbar flexion paraspinal spasm no true radicular component Assessment and Plan Dictation: [AP] normal MRI is noted however I do not feel surgical intervention at this point is warranted I am recommending referral to pain management I will see her back if it fails I have reviewed all relevant histories, medications, allergies, and problem list items with Suly Alanis during this visit. Review of Systems Constitutional: Negative for chills and fever. HENT: Negative for congestion. Respiratory: Negative for shortness of breath. Cardiovascular: Negative for chest pain. Gastrointestinal: Negative for diarrhea, nausea and vomiting. Neurological: Negative for headaches. Psychiatric/Behavioral: Negative for behavioral problems. BP 107/73 Pulse (!) 121 Resp (!) 20 Ht 5' Wt 67.1 kg (148 lb) BMI 28.90 kg/m Imaging: No results found. 1. Spondylolisthesis of lumbar region Return if symptoms worsen or fail to improve. Ashley Cuevas MD documented in this encounter [facility] 09-21-2020 History of Present illness Narrative [facility] DAILY TREATMENT NOTE Today's Date 09/21/2020 Patient Name: Suly Alanis Date of : 1955 Current Visit #: 6 Authorized Visits: 40 Case Name: Low Back Pain History: Pre-Treatment Pain Scale: 8 Symptoms: stabilized Functional Diagnosis: 1. Spondylolisthesis of lumbar region Clinical Information: Subjective: She has not seen any improvements with therapy. She has tried doing the stretches but still has the pain. Objective reviewed goals: FOTO score 31.\ Unable to ascend/descend stairs d/t pain. Unable to complete ADL's d/t pain. Pain 8/10. She can control the pain if she's in a position but pain wakens her up at night. She can sleep about 2 hours at a time. She will call for follow up appointment and possible MRI for further evaluation. Treatments: Physical Therapy Exercise Log - 09/21/20 6821 OTHER Notes visit 6: 13:00-13:20 Therapeutic Exercise ([id number]) Intervention HS, Piriformis stretch - 15 sec x3 bilat Parameters SKTC 5x20 bilat. Intervention PPT w/ glute sets 10x5 Parameters abd marching x20 alt NT Intervention supine sciatic nerve glides x10 bilat. NT Parameters LA roll on RTB 10x3 NT Intervention ball squeeze and RTB abd x15 each Parameters Bridges - x10 NT Intervention SLR - x10 Manual Therapy ([id number]) Intervention STM w/ tennis ball to bilat. lumbar paraspinals and SI joints NT Parameters 8 mins PT Treatment Times Therex Total Time 20 Direct Treatment Time 20 Total Treatment Time 20 Goals: Physical Therapy Ortho Goals: MOBILITY: Patient will be able to ascend/descend stairs without difficulty in 6 weeks. SELF CARE: Patient will be able to complete ADL's including bathing, dressing, and hair care without difficulty in 3 weeks. IMPAIRMENT: Patient will demonstrate improved postural awareness in PT sessions to facilitate mechanical alignment and function in 3 weeks. IMPAIRMENT: Improve pain from 9/10 to <4/10 during prolonged standing in 6 weeks IMPAIRMENT: Improve MMT of Bilateral Hip Flexion to at least 4+/5 in 6 weeks OTHER: Patient will increase FOTO score from 31 to at least 50 to show MDC/MCII and expected functional outcome in 6 weeks. OTHER: Patient will be able to properly demonstrate independence with HEP in 1 week. Patient Education: Quality of movement with patient demonstrated understanding. Post-Treatment Pain Scale: 8 Assessment: Patient had an expected response to treatment. Skilled Intervention demonstrated by modifications of treatment per exercise log including increased intensity and safety interventions per exercise log. Progress towards goals as expected. Plan for Next Visit: Discharge with follow up with And possible MRI. Patti Flores PTA STATE LICENSE, [id number] documented in this encounter [facility] 09-11-2020 History of Present illness Narrative [facility] DAILY TREATMENT NOTE Today's Date 09/11/2020 Patient Name: Suly Alanis Date of : 1955 Current Visit #: 5 Authorized Visits: 40 Case Name: Low Back Pain History: Pre-Treatment Pain Scale: 5 Symptoms: stabilized Functional Diagnosis: 1. Spondylolisthesis of lumbar region Clinical Information: Subjective: She hasn't seen any improvements from therapy yet. Objective Pain and tightness along R SI/piriformis with STM. Pain increase with transfers. Treatments: Physical Therapy Exercise Log - 09/11/20 1404 OTHER Notes Visit 4: 1:00 - 133 Therapeutic Exercise ([id number]) Intervention HS, Piriformis stretch - 15 sec x3 bilat Parameters SKTC 5x20 bilat. Intervention PPT w/ glute sets 10x5 Parameters abd marching x20 alt Intervention supine sciatic nerve glides x10 bilat. Parameters LA roll on RTB 10x3 Intervention ball squeeze and RTB abd x15 each Parameters Bridges - x10 Intervention SLR - x10 Manual Therapy ([id number]) Intervention STM w/ tennis ball to bilat. lumbar paraspinals and SI joints Parameters 8 mins PT Treatment Times Therex Total Time 25 Manual Therapy Total Time 8 Direct Treatment Time 33 Total Treatment Time 33 Goals: Physical Therapy Ortho Goals: MOBILITY: Patient will be able to ascend/descend stairs without difficulty in 6 weeks. SELF CARE: Patient will be able to complete ADL's including bathing, dressing, and hair care without difficulty in 3 weeks. IMPAIRMENT: Patient will demonstrate improved postural awareness in PT sessions to facilitate mechanical alignment and function in 3 weeks. IMPAIRMENT: Improve pain from 9/10 to <4/10 during prolonged standing in 6 weeks IMPAIRMENT: Improve MMT of Bilateral Hip Flexion to at least 4+/5 in 6 weeks OTHER: Patient will increase FOTO score from 31 to at least 50 to show MDC/MCII and expected functional outcome in 6 weeks. OTHER: Patient will be able to properly demonstrate independence with HEP in 1 week. Patient Education: Quality of movement with patient demonstrated understanding. Post-Treatment Pain Scale: 5 Assessment: Patient had an expected response to treatment. Skilled Intervention demonstrated by modifications of treatment per exercise log including increased intensity and safety interventions per exercise log. Progress towards goals as expected. Plan for Next Visit: Treatment Visit with focus on ROM and pain control Patti Flores PTA STATE LICENSE, [id number] documented in this encounter [facility] 09-07-2020 History of Present illness Narrative [facility] DAILY TREATMENT NOTE Today's Date 09/07/2020 Patient Name: Suly Alanis Date of : 1955 Current Visit #: 4 Authorized Visits: 40 Case Name: Low Back Pain History: Pre-Treatment Pain Scale: 7 Symptoms: gradually improved Functional Diagnosis: 1. Spondylolisthesis of lumbar region Clinical Information: Subjective: Pt reports her pain levels are a little higher today because her allergies have been really bad and coughing has made her back hurt more. She states she is usually pretty sore after her treatment sessions. Objective Pt performed exercises per log for increased LE and core strength/stability and improved overall mobility. Held progressions today due to increased fatigue and SOB from allergies. Treatments: Physical Therapy Exercise Log - 09/07/20 1300 OTHER Notes Visit 3: 1:00 - 133 Therapeutic Exercise ([id number]) Intervention HS, Piriformis stretch - 15 sec x3 bilat Parameters SKTC 5x20 bilat. Intervention PPT w/ glute sets 10x5 Parameters abd marching x20 alt Intervention supine sciatic nerve glides x10 bilat. Parameters LA roll on RTB 10x3 Intervention ball squeeze and RTB abd x15 each Parameters Bridges - x10 Intervention SLR - x10 Manual Therapy ([id number]) Intervention STM w/ tennis ball to bilat. lumbar paraspinals and SI joints Parameters 8 mins PT Treatment Times Therex Total Time 25 Manual Therapy Total Time 8 Direct Treatment Time 33 Total Treatment Time 33 Goals: Physical Therapy Ortho Goals: MOBILITY: Patient will be able to ascend/descend stairs without difficulty in 6 weeks. SELF CARE: Patient will be able to complete ADL's including bathing, dressing, and hair care without difficulty in 3 weeks. IMPAIRMENT: Patient will demonstrate improved postural awareness in PT sessions to facilitate mechanical alignment and function in 3 weeks. IMPAIRMENT: Improve pain from 9/10 to <4/10 during prolonged standing in 6 weeks IMPAIRMENT: Improve MMT of Bilateral Hip Flexion to at least 4+/5 in 6 weeks OTHER: Patient will increase FOTO score from 31 to at least 50 to show MDC/MCII and expected functional outcome in 6 weeks. OTHER: Patient will be able to properly demonstrate independence with HEP in 1 week. Patient Education: Quality of movement and HEP Adherence with patient demonstrated understanding and verbalized understanding. Post-Treatment Pain Scale: 7 Assessment: Patient had an expected response to treatment. Limited mobility on R>L with stretches with pt reporting her R side is usually the more weak and painful side. Pt able to perform exercises without c/o increased pain but demos fatigue and SOB throughout and requires rest breaks. Pt sensitive with light pressure for STM today so decreased time performed today. Skilled Intervention demonstrated by modifications of treatment per exercise log including assessment of patient's response and safety interventions per exercise log. Progress towards goals as expected. Plan for Next Visit: Treatment Visit with focus on increased strength and mobility. Bessy Zamarripa PTA STATE LICENSE, [id number] documented in this encounter [facility] 08-31-2020 History of Present illness Narrative [facility] DAILY TREATMENT NOTE Today's Date 08/31/2020 Patient Name: Suly Alanis Date of : 1955 Current Visit #: 3 Authorized Visits: 40 Case Name: Low Back Pain History: Pre-Treatment Pain Scale: 6 Symptoms: stabilized Functional Diagnosis: 1. Spondylolisthesis of lumbar region Clinical Information: Subjective: Pt reports standing in one position makes back hurt more and stated back is stabilized since she is not working. Objective Treatments: Physical Therapy Exercise Log - 08/31/20 1259 OTHER Notes Visit 3: 1:00 - 1:35 Therapeutic Exercise ([id number]) Intervention HS, Piriformis stretch - 15 sec x3 bilat Parameters SKTC 5x20 bilat. Intervention PPT w/ glute sets 10x5 Parameters abd marching x20 alt Intervention supine sciatic nerve glides x10 bilat. Parameters LA roll on RTB 10x3 Intervention ball squeeze and RTB abd x15 each Parameters Bridges - x10 Intervention SLR - x10 Manual Therapy ([id number]) Intervention STM w/ tennis ball to bilat. lumbar paraspinals and SI joints Parameters 15 mins PT Treatment Times Therex Total Time 20 Manual Therapy Total Time 15 Direct Treatment Time 35 Total Treatment Time 35 Goals: Physical Therapy Ortho Goals: MOBILITY: Patient will be able to ascend/descend stairs without difficulty in 6 weeks. SELF CARE: Patient will be able to complete ADL's including bathing, dressing, and hair care without difficulty in 3 weeks. IMPAIRMENT: Patient will demonstrate improved postural awareness in PT sessions to facilitate mechanical alignment and function in 3 weeks. IMPAIRMENT: Improve pain from 9/10 to <4/10 during prolonged standing in 6 weeks IMPAIRMENT: Improve MMT of Bilateral Hip Flexion to at least 4+/5 in 6 weeks OTHER: Patient will increase FOTO score from 31 to at least 50 to show MDC/MCII and expected functional outcome in 6 weeks. OTHER: Patient will be able to properly demonstrate independence with HEP in 1 week. Patient Education: Quality of movement with patient demonstrated understanding. Post-Treatment Pain Scale: 6 Assessment: Patient had an expected response to treatment. Skilled Intervention demonstrated by modifications of treatment per exercise log including increased load and safety interventions per exercise log. Progress towards goals as expected. Plan for Next Visit: Treatment Visit with focus on core strengthening and stability Victor Manuel Pierre PTA STATE LICENSE, [id number] documented in this encounter [facility] 08-24-2020 History of Present illness Narrative [facility] DAILY TREATMENT NOTE Today's Date 08/24/2020 Patient Name: Suly Alanis Date of : 1955 Current Visit #: 2 Authorized Visits: 40 Case Name: Low Back Pain History: Pre-Treatment Pain Scale: 8 Symptoms: unchanged Functional Diagnosis: 1. Spondylolisthesis of lumbar region Clinical Information: Subjective: Pt denies change in med hx. She reports over doing it while shopping prior to her session and has increased pain. She has completed the first page of her HEP but has to modify the DKTC stretch to SKTC. Objective Treatments: Physical Therapy Exercise Log - 08/24/20 1431 OTHER Notes Visit 2: 2:31 - 3:04 Therapeutic Exercise ([id number]) Parameters SKTC 5x15 bilat. Intervention PPT w/ glute sets 10x5 Parameters abd marching x20 alt Intervention supine sciatic nerve glides x10 bilat. Parameters LA roll on RTB 10x3 Intervention add ball squeeze and RTB abd x15 each Manual Therapy ([id number]) Intervention STM w/ tennis ball to bilat. lumbar paraspinals and SI joints Parameters 15 mins PT Treatment Times Therex Total Time 18 Manual Therapy Total Time 15 Direct Treatment Time 33 Total Treatment Time 33 Goals: Physical Therapy Ortho Goals: MOBILITY: Patient will be able to ascend/descend stairs without difficulty in 6 weeks. SELF CARE: Patient will be able to complete ADL's including bathing, dressing, and hair care without difficulty in 3 weeks. IMPAIRMENT: Patient will demonstrate improved postural awareness in PT sessions to facilitate mechanical alignment and function in 3 weeks. IMPAIRMENT: Improve pain from 9/10 to <4/10 during prolonged standing in 6 weeks IMPAIRMENT: Improve MMT of Bilateral Hip Flexion to at least 4+/5 in 6 weeks OTHER: Patient will increase FOTO score from 31 to at least 50 to show MDC/MCII and expected functional outcome in 6 weeks. OTHER: Patient will be able to properly demonstrate independence with HEP in 1 week. Patient Education: Quality of movement and HEP Adherence with patient verbalized understanding. Post-Treatment Pain Scale: 8 Assessment: Patient had an expected response to treatment. Skilled Intervention demonstrated by modifications of treatment per exercise log including increased volume and assessment of patient's response and safety interventions per exercise log. Progress towards goals as expected. Plan for Next Visit: Treatment Visit with focus on pain control and increasing flexibility Rey Zee PT State License, [id number] documented in this encounter [facility] 08-08-2020 History of Present illness Narrative [facility] [address] (11) [facility] [address] [facility] [id number] Suly Alanis is a 65 y.o. female being seen today, 08/08/20, Chief Complaint Patient presents with Lower Back - Pain, Follow-up [chief complaint] low back pain HPI Dictation: He returns with severe lower back pain epidural injection was ineffective with x-rays showing degenerative disc disease with the mild spinal listhesis 4 on 5 her pain is primarily lower back increase electives of daily living [hpi] Physical Exam Dictation: [PE] active lumbar flexion extension both which equally symptomatic no radicular component Assessment and Plan Dictation: [AP] plan physical therapy if not improved MRI to follow I have reviewed all relevant histories, medications, allergies, and problem list items with Suly Alanis during this visit. Review of Systems Constitutional: Negative for chills and fever. HENT: Negative for congestion. Respiratory: Negative for shortness of breath. Cardiovascular: Negative for chest pain. Gastrointestinal: Negative for diarrhea, nausea and vomiting. Neurological: Negative for headaches. Psychiatric/Behavioral: Negative for behavioral problems. There were no vitals taken for this visit. Imaging: No results found. No diagnosis found. Return in about 4 weeks (around 09/05/2020). Ashley Cuevas MD documented in this encounter [facility] 07-25-2020 History of Present illness Narrative [facility] [address] (11) [facility] [address] [facility] [phone] Suly Alanis is a 65 y.o. female being seen today, 07/25/20, Chief Complaint Patient presents with Lower Back - Pain [chief complaint] low back pain HPI Dictation: Reports her back pain for the last month or any precipitant event or injury her main complaint she cannot stand for any period of time up to 5 minutes of having to sit for relief she denies any radicular leg pain with x-rays reported to show mild spinal listhesis 4 on 5 with moderate facet disease lower lumbar spine moderate spondylosis L1-2 she has reported history of previous ACDF 26 years ago she has taken tramadol and has been using [id number] icy hot patches with limited response she grades her pain 8 or 9 out of 10 [hpi] Physical Exam Dictation: [PE] crease pain with lumbar flexion paraspinal spasm no radicular pain worsens reflex asymmetry lower extremity Assessment and Plan Dictation: [AP] plan I did perform a caudal epidural steroid injection for pain control see her back in 2 weeks if not improved consider physical therapy and/or MRI I have reviewed all relevant histories, medications, allergies, and problem list items with Suly Alanis during this visit. Review of Systems Constitutional: Negative for chills and fever. HENT: Negative for congestion. Respiratory: Negative for shortness of breath. Cardiovascular: Negative for chest pain. Gastrointestinal: Negative for diarrhea, nausea and vomiting. Neurological: Negative for headaches. Psychiatric/Behavioral: Negative for behavioral problems. BP 137/82 Pulse (!) 116 Ht 5' Wt 68 kg (150 lb) BMI 29.29 kg/m Imaging: No results found. 1. Spondylolisthesis of lumbar region 2. Back pain, unspecified back location, unspecified back pain laterality, unspecified chronicity Ambulatory referral to Orthopedics Return in about 2 weeks (around 08/08/2020). Ashley Cuevas MD documented in this encounter [facility] Chief complaint Narrative - Reported C/O Productive cough x 2 weeks.Pt states she has not received COVID-19 vaccination.SULY ALANIS is here for a follow-up visit.Reason for Visit: COPD.Appointment requested by: Consuelo Sommers. -Pulmonary Medicine-[place] [address] DO Work Phone: [facility] Diagnosis Spondylolisthesis of lumbar region- Primary [facility] Diagnosis Spondylolisthesis of lumbar region- Primary [facility] Diagnosis Spondylolisthesis of lumbar region- [facility] Diagnosis Spondylolisthesis of lumbar region- Primary [facility] Diagnosis Spondylolisthesis of lumbar region- Primary [facility] Diagnosis Spondylolisthesis of lumbar region- Primary [facility] Diagnosis Spondylolisthesis of lumbar region- Primary documented in this [facility] Spondylolisthesis of lumbar region- Primary [facility] Spondylolisthesis of lumbar region [facility] Spondylolisthesis of lumbar region [facility] Diagnosis Spondylolisthesis of lumbar region- Primary Back pain, unspecified back location, unspecified back pain laterality, unspecified chronicity [facility] Spondylolisthesis of lumbar region- Primary [facility] Psychological: Pleasant affectNeurological: Nonfocal; cranial nerves II through XII appear intactCardiovascular: Regular rate and rhythm; normal S1-S2 with no murmur; 1+ pulses and no pitting edemaGas trointestinal: Soft, nontender, nondistended, positive bowel soundsRespiratory/Thorax: End expiratory wheezes on the left and diminished breath sounds bilaterally; mild respiratory distress with tachypneaHead/Neck: Neck supple with no palpable lymphadenopathy, bruits or masses; trachea midlineConstitutional: Awake and alert; oriented x3 with no apparent distress and mild respiratory distress [facility] Diagnosis Neurogenic claudication due to lumbar spinal stenosis- Primary Spinal stenosis of lumbar region Arthritis of facet joint of lumbar spine Lumbar foraminal stenosis Disc degeneration, lumbar Degeneration of lumbar or lumbosacral intervertebral disc Lumbar radiculopathy, chronic Cervical neuritis Brachial neuritis or radiculitis nos S/P spinal fusion Arthrodesis status Spondylolisthesis, acquired Acquired spondylolisthesis documented in this encounter [facility] Work Phone: Evaluation note* Diagnosis Neurogenic claudication due to lumbar spinal stenosis Spinal stenosis of lumbar region Arthritis of facet joint of lumbar spine Lumbar foraminal stenosis Disc degeneration, lumbar Degeneration of lumbar or lumbosacral intervertebral disc Lumbar radiculopathy, chronic Spondylolisthesis, acquired Acquired spondylolisthesis documented in this encounter [facility] Work Phone: Evaluation note* Diagnosis Cervical neuritis Brachial neuritis or radiculitis nos S/P spinal fusion Arthrodesis status documented in this encounter [facility] Work Phone: Evaluation note* Diagnosis Cervical neuritis- Primary Brachial neuritis or radiculitis nos Lumbar foraminal stenosis Disc degeneration, lumbar Degeneration of lumbar or lumbosacral intervertebral disc Neurogenic claudication due to lumbar spinal stenosis Spinal stenosis of lumbar region Arthrodesis status Cervical spinal stenosis Spinal stenosis in cervical region Acquired spondylolisthesis Arthritis of facet joint of lumbar spine Lumbar radiculopathy, chronic S/P spinal fusion Arthrodesis status Spondylolisthesis, acquired Acquired spondylolisthesis documented in this encounter [facility] Work Phone: Evaluation note* Diagnosis Neurogenic claudication due to lumbar spinal stenosis Spinal stenosis of lumbar region Arthritis of facet joint of lumbar spine Lumbar foraminal stenosis Disc degeneration, lumbar Degeneration of lumbar or lumbosacral intervertebral disc Lumbar radiculopathy, chronic Spondylolisthesis, acquired Acquired spondylolisthesis documented in this encounter [facility] Work Phone: Evaluation note* Diagnosis Encounter for screening for malignant neoplasm of colon Abnormal findings on diagnostic imaging of other parts of digestive tract Unspecified chronic gastritis without bleeding Diverticulosis of large intestine without perforation or abscess without bleeding Congenital diverticulum of esophagus Other specified congenital anomaly of esophagus documented in this encounter [facility] Work Phone: Evaluation note* Diagnosis Cervical neuritis Brachial neuritis or radiculitis nos S/P spinal fusion Arthrodesis status documented in this encounter [facility] Work Phone: Evaluation note* Diagnosis Cervical radiculitis Brachial neuritis or radiculitis nos documented in this encounter [facility] Work Phone: History of Present illness Narrative* Pain Location: Low Back Pain. * Pain Quality: Aching and Sharp. * Timing/Duration: Constant and > 12 weeks duration. * Exacerbating Factors: rest, kneeling, motion, repetitive motion, sitting, squatting, standing, stairs, walking, weightbearing and ADL. * Alleviating Factors: Cold Therapy, Exercise, Medications, Moist Heat, Repositioning. * 24 Hour Behavior: * Symptoms are the same in the am. * Symptoms are the same as the day progresses. * Symptoms are the same in the pm. * Symptoms are the same when lying down. * Effect of Movement on Symptoms: * Bending makes symptoms worse. * Lying makes symptoms better. * Rising from sitting makes symptoms worse. * Sitting makes symptoms worse. * Standing makes symptoms worse. * Rising from supine to sitting makes symptoms worse. * Turning makes symptoms worse. * Walking makes symptoms worse. * Twisting makes symptoms worse. * Weather makes symptoms worse. * Coughing/sneezing makes symptoms worse. * Pushing motion makes symptoms worse. * Pulling motion makes symptoms worse. * Lifting: Worse. * Goals for Pain Management: * OPIOID RISK SCORE=0. * Patient Education: * Inj. education completed written and verbally. * Patient is a 65-year-old female who presents today as a new patient with complaints of lower back pain. She states this is started in May or June 2020 without any incident or trauma. Patient ratesthe discomfort a 5/10 but it can get up to a 10/10 depending on her activities. Walking, standing, b ending, and twisting makes it worse. Lying down is the best but sitting down does somewhat make it better. Unfortunately, it affects her quality of life and activities of day living. She is just eager to get some relief and feel better. Patient has tried physical therapy without improvement. She has tried steroids x2 without improvement. She has tried Tylenol and Aleve without any improvement. Ice and cold give her slight relief but unfortunate, nothing long-term. Nothing significant. She is very eager to get some more long-term relief. [facility] History of Present illness Narrative* Patient was seen today on a follow-up visit. The patient reports that she has had some increased shortness of breath. She unfortunately is also gone back to smoking at least 4 cigarettes/day. I discussed with her using a nicotine lozenge when she feels the urge to smoke. Patient reports to me that she is using nebulized albuterol treatments at least once or twice per day. She states that she has been compliant with the use of the Breztri and in the past when she was not it was because of the cost and it was not covered by her insurance. The last burst of steroids that she received from me wasin December of last year. * Patient admits to some mild constant wheezing now but denies any cough or sputum production. She isshort of breath with ADLs. -[facility]-[place] [facility] DO Work Phone: History of Present illness Narrative* Patient was seen today 1 month earlier than her scheduled appointment because she had to change herinsurance and they no longer cover the Breztri. This had been working very well for her and she hadno significant problems with exacerbations of her breathing on that inhaler. We did obtain a list of the covered inhalers from her insurance which is [employer]. * Patient does have a mild cough with clear sputum production she has constant wheezing now that she has been off the Breztri for the past 2 weeks and chest tightness. She reports dyspnea with ADLs. -[facility] [facility] Work Phone: History of Present illness Narrative* Patient was seen today 1 month earlier than her scheduled appointment because she had to change herinsurance and they no longer cover the Breztri. This had been working very well for her and she hadno significant problems with exacerbations of her breathing on that inhaler. We did obtain a list of the covered inhalers from her insurance which is [employer]. * Patient does have a mild cough with clear sputum production she has constant wheezing now that she has been off the Breztri for the past 2 weeks and chest tightness. She reports dyspnea with ADLs. [facility]-[address] Work Phone: History of Present illness Narrative* On a scale of 0 to 10, the patient rates the pain at 3. * Pain Location: Low Back Pain. * Pain Quality: Aching, Burning, Sharp, Stabbing and Throbbing. * Pain Radiation: Radiates into bilateral hips. * Sensory/ Motor: None. * Timing/Duration: Constant and > 12 weeks duration. * Patient is a 66-year-old female with a past medical history significant for lumbosacral spondylosis, lumbar degenerative disease, lumbar annular tear, and lumbar foraminal stenosis. She presents today for follow-up after starting gabapentin. 300 mg twice daily. She is tolerating this. She has noticed slight improvement but unfortunate, not quite enough during the day. She feels that the nighttimedose helps more than the daytime dose. Patient underwent previous L5-S1 epidural steroid injection on 11/09/2021 and she states has given her 85% relief of her radicular symptoms. Unfortunate, not herback pain. Previous medial branch block did not give her any relief. She rates her discomfort a 3/10 with sitting but an 8/10 with any sort of standing and walking. This affects her ambulatory status. This affects her quality of life and activities of daily living. [facility] Work Phone: History of Present illness Narrative* On a scale of 0 to 10, the patient rates the pain at * WHILE STANDING. * Pain Location: Low Back Pain. * Pain Quality: Aching, Cramping, Pressure, Sharp and Shooting. * Pain Radiation: RIGHT BUTTOCKS. * Timing/Duration: Constant and > 12 weeks duration. * Exacerbating Factors: standing, weightbearing and BENDING/ADL'S. * Alleviating Factors: Medications, Repositioning. * 24 Hour Behavior: * Symptoms are the same in the am. * Symptoms are the same as the day progresses. * Symptoms are worse in the pm. * Symptoms are better lying down. * Patient Education: * Inj. education completed written and verbally. * Patient is a 66-year-old female with a past medical history significant for lumbosacral spondylosis, lumbar degenerative disease, lumbar annular tear, and lumbar foraminal stenosis. She presents mainly with complaints of bilateral buttock pain today. Right greater than left. She rates it a 3/10 with sitting but an 8/10 with any sort of standing. No radiculopathy. Buttock pain only. * Patient has been taking gabapentin 600 mg at bedtime. This has made her dizzy so she stopped takingit. Patient underwent previous L5-S1 epidural steroid injection on 11/09/2021 and she states has given her 85% relief of her radicular symptoms. Her radicular symptoms are still improved. Previous medial branch block did not give her any relief. [facility] Work Phone: History of Present illness Narrative* There is a HX of cerv fusion 25 yrs ago. LB sx have been present for 2yrs. Per the patient she is here due to insurance mandate to get an MRI. Films show advanced cerv degen changes and lumbar scoliosis, spondylolisthesis, and multilevel degen changes. Physical findings include limited cerv motion with RUE sx reproduction and limited and painful lumbar motion. There is also an apparent leg lengthdifference without corresponding pelvic obliquity. PT will include trial heel lift, core stability ex (flexion bias), cerv postural ed/ex; cerv.lumb STW, and cerv/lumbar unloading PRN. * Clinical Presentation: Stable and/or uncomplicated characteristics. * Level of Complexity: low * Problem List: activity limitations, ADLs/IADLs/self care skills, decreased functional level, decreased knowledge of HEP, decreased knowledge of precautions, gait/locomotion, pain, range of motion/joint mobility and strength. [facility] Work Phone: History of Present illness NarrativePatient identified by name & . Patient was oriented to use of emergency walkie talkie. Treatm ent consisted of aquatic therapy for unloading and LE and core strengthening ex's with flexion bias. Patient with fair demo of TrA isometric with difficulty maintaining with ex's. Patient did not have any difficulty performing ex's today. No change in pain at end of treatment. [facility] Work Phone: History of Present illness NarrativePatient tolerated treatment without increased pain. Patient has good TrA and keeps intact with ther-ex. Patient needing one UE support with LE ther-ex and with 100% unloading. Added trunk rotation and abdominal to program with good tolerance. Patient has good form/understanding with ther-ex and keeps body in good alignment. Continue with core stability while performing dyn activity to decrease back pain. [facility] Work Phone: History of Present illness NarrativePatient tolerated treatment without increased pain. Patient needing verbal cues to use slow, controlled movements with ther-ex. Patient given HEP for aquatics and green Tband for ther-ex. Continue with low back ther-ex to reduce pain, improve sleep to decrease fall risk. [facility] Work Phone: History of Present illness NarrativePatient identity confirmed today with name/. suggested that the patient keep the lift in; modified ongoing HEP today; trialed needling to the lumbar and cerv areas-most reactive at the R mid cerv area. [facility] Work Phone: Hospital Discharge instructions* Additional Orders:Additional Instructions: - You do not need additional antibiotic doses, please donot take any leftover antiboitic pills given you completed a course during hosptial stay and your infectious numbers were low and microdata was negative- You completed 5 day steroid course, do not take any leftover steroid pills- Please follow up with your primary care doctor regarding nodules found on CT Lung scan in your right upper lung which may often require surveillance annual monitoring- continue using your prescribed inhalers, incentive spirometer daily, and take tessalon pearls or Mucinex for cough or congestion- * Follow Up Appointment 1:Physician/Dept/Service: PCPJaneen for Referral: 9 mm ground glass nodule (RUL) & aeCOPDCall to Schedule in: [facility] Name Dates Details Instructions not documented [facility]-Pulmonary Medicine-[place] [id number] DO Work Phone: Reason for referral (narrative)* Consultation (Routine) - Authorized Specialty Diagnoses / Procedures Referred By Arabella t Referred To Contact Physical Therapy Diagnoses Cervical neuritis Lumbar foraminal stenosis Neurogenic claudication due to lumbar spinal stenosis Cervical spinal stenosis S/P spinal fusion Renita Huber PA-C [address] [place] [address] Referral ID Status Reason Start Date Expiration Date Visits Requested Visits Authorized [id number] Authorized Specialty Services Required 02/06/2023 02/06/2024 1 1 [facility] Work Phone: Reixhk for referral (narrative)* Procedure (Routine) - Pending Review Specialty Diagnoses / Procedures Referred By Arabella gomez Referred To Contact Pain Medicine / Procedural Diagnoses Cervical radiculitis Procedures Epidural Steroid Injection Renita Huber PA-C [address] [place] [address] [address] Referral ID Status Reason Start Date Expiration Date Visits Requested Visits Authorized [id number] Pending Review Perform Procedure 04/01/2023 03/31/2024 1 1 [facility] Work Phone: reason for visit Narrative* Initial Evaluation . cervical neiritis; lumb radic. * Referred by: [facility] Work Phone: Reason for visit Narrative* Procedure (Routine) - Pending Review Specialty Diagnoses / Procedures [facility]erred By [facility] Referred To Contact Pain Medicine / Procedural Diagnoses Cervical radiculitis Procedures Epidural Steroid Injection Renita Huber PA-C [address] [place] [address] [address] Referral ID Status Reason Start Date Expiration Date Visits Requested Visits Authorized [id number] Pending Review Perform Procedure 04/01/2023 03/31/2024 1 1 [facility] Work Phone: Summary Purpose Family History No Family History Records Found Mother Name Dates Details FHx: brain cancer(V16.8, Z80 .8) Status:Active Father Name Dates Details Family history of malignant neoplasm of bone(V16.8, Z80.8) Status:Active Mother Name Dates Details FHx: brain cancer(V16.8, Z80 .8) Status:Active Father Name Dates Details Family history of malignant neoplasm of bone(V16.8, Z80.8) Status:Active Unknown Family Member Name Dates Details FHx: brain cancer: Mother(V1 6.8, Z80.8) Status:Active Family history of malignant neoplasm of bone: Father(V16.8, Z80.8) Status:Active Unknown Family Member Name Dates Details FHx: brain cancer: Mother(V1 6.8, Z80.8) Status:Active Family history of malignant neoplasm of bone: Father(V16.8, Z80.8) Status:Active Unknown Family Member Name Dates Details FHx: brain cancer: Mother(V1 6.8, Z80.8) Status:Active Family history of malignant neoplasm of bone: Father(V16.8, Z80.8) Status:Active Unknown Family Member Name Dates Details FHx: brain cancer: Mother(V1 6.8, Z80.8) Status:Active Family history of malignant neoplasm of bone: Father(V16.8, Z80.8) Status:Active Unknown Family Member Name Dates Details FHx: brain cancer: Mother(V1 6.8, Z80.8) Status:Active Family history of malignant neoplasm of bone: Father(V16.8, Z80.8) Status:Active Unknown Family Member Name Dates Details FHx: brain cancer: Mother(V1 6.8, Z80.8) Status:Active Family history of malignant neoplasm of bone: Father(V16.8, Z80.8) Status:Active Unknown Family Member Name Dates Details FHx: brain cancer: Mother(V1 6.8, Z80.8) Status:Active Family history of malignant neoplasm of bone: Father(V16.8, Z80.8) Status:Active Unknown Family Member Name Dates Details FHx: brain cancer: Mother(V1 6.8, Z80.8) Status:Active Family history of malignant neoplasm of bone: Father(V16.8, Z80.8) Status:Active Unknown Family Member Name Dates Details FHx: brain cancer: Mother(V1 6.8, Z80.8) Status:Active Family history of malignant neoplasm of bone: Father(V16.8, Z80.8) Status:Active Unknown Family Member Name Dates Details FHx: brain cancer: Mother(V1 6.8, Z80.8) Status:Active Family history of malignant neoplasm of bone: Father(V16.8, Z80.8) Status:Active Unknown Family Member Name Dates Details FHx: brain cancer: Mother(V1 6.8, Z80.8) Status:Active Family history of malignant neoplasm of bone: Father(V16.8, Z80.8) Status:Active Unknown Family Member Name Dates Details FHx: brain cancer: Mother(V1 6.8, Z80.8) Status:Active Family history of malignant neoplasm of bone: Father(V16.8, Z80.8) Status:Active Unknown Family Member Name Dates Details FHx: brain cancer: Mother(V1 6.8, Z80.8) Status:Active Family history of malignant neoplasm of bone: Father(V16.8, Z80.8) Status:Active Unknown Family Member Name Dates Details FHx: brain cancer: Mother(V1 6.8, Z80.8) Status:Active Family history of malignant neoplasm of bone: Father(V16.8, Z80.8) Status:Active Unknown Family Member Name Dates Details FHx: brain cancer: Mother(V1 6.8, Z80.8) Status:Active Family history of malignant neoplasm of bone: Father(V16.8, Z80.8) Status:Active Unknown Family Member Name Dates Details FHx: brain cancer: Mother(V1 6.8, Z80.8) Status:Active Family history of malignant neoplasm of bone: Father(V16.8, Z80.8) Status:Active Unknown Family Member Name Dates Details FHx: brain cancer: Mother(V1 6.8, Z80.8) Status:Active Family history of malignant neoplasm of bone: Father(V16.8, Z80.8) Status:Active Unknown Family Member Name Dates Details FHx: brain cancer: Mother(V1 6.8, Z80.8) Status:Active Family history of malignant neoplasm of bone: Father(V16.8, Z80.8) Status:Active Unknown Family Member Name Dates Details FHx: brain cancer: Mother(V1 6.8, Z80.8) Status:Active Family history of malignant neoplasm of bone: Father(V16.8, Z80.8) Status:Active Unknown Family Member Name Dates Details FHx: brain cancer: Mother(V1 6.8, Z80.8) Status:Active Family history of malignant neoplasm of bone: Father(V16.8, Z80.8) Status:Active Unknown Family Member Name Dates Details FHx: brain cancer: Mother(V1 6.8, Z80.8) Status:Active Family history of malignant neoplasm of bone: Father(V16.8, Z80.8) Status:Active Unknown Family Member Name Dates Details FHx: brain cancer: Mother(V1 6.8, Z80.8) Status:Active Family history of malignant neoplasm of bone: Father(V16.8, Z80.8) Status:Active Unknown Family Member Name Dates Details FHx: brain cancer: Mother(V1 6.8, Z80.8) Status:Active Family history of malignant neoplasm of bone: Father(V16.8, Z80.8) Status:Active Unknown Family Member Name Dates Details FHx: brain cancer: Mother(V1 6.8, Z80.8) Status:Active Family history of malignant neoplasm of bone: Father(V16.8, Z80.8) Status:Active Unknown Family Member Name Dates Details FHx: brain cancer: Mother(V1 6.8, Z80.8) Status:Active Family history of malignant neoplasm of bone: Father(V16.8, Z80.8) Status:Active Unknown Family Member Name Dates Details FHx: brain cancer: Mother(V1 6.8, Z80.8) Status:Active Family history of malignant neoplasm of bone: Father(V16.8, Z80.8) Status:Active Unknown Family Member Name Dates Details FHx: brain cancer: Mother(V1 6.8, Z80.8) Status:Active Family history of malignant neoplasm of bone: Father(V16.8, Z80.8) Status:Active Unknown Family Member Name Dates Details FHx: brain cancer: Mother(V1 6.8, Z80.8) Status:Active Family history of malignant neoplasm of bone: Father(V16.8, Z80.8) Status:Active Unknown Family Member Name Dates Details FHx: brain cancer: Mother(V1 6.8, Z80.8) Status:Active Family history of malignant neoplasm of bone: Father(V16.8, Z80.8) Status:Active Unknown Family Member Name Dates Details FHx: brain cancer: Mother(V1 6.8, Z80.8) Status:Active Family history of malignant neoplasm of bone: Father(V16.8, Z80.8) Status:Active Advance Directives No Advanced Directives Records FoundDocuments on File Type Date Recorded Patient [employer] 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 anation Advance Directives and Living Will Documents on File Type Date Recorded 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 [employer] 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 Advance Directives and Living Will Documents on File Type Date Recorded 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 [employer] 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 anation Advance Directives and Livin g Will 09/25/2020 11:30 AM Documents on File Type Date Recorded 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 [employer] 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 anation Advance Directives and Livin g Will 09/28/2020 4:28 PM Documents on File Type Date Recorded Patient [employer] 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 anation Advance Directives and Livin g Will 09/28/2020 4:28 PM Reason for Referral Status Reason Specialty Diagnoses / Procedures Referred By Contact Referred To Contact Authorized Specialty Services Required/Patien t's Best [facility] Rehabilitation Diagnoses Spondylolisthesi s of lumbar region Ashley Cuevas MD [address] [place] [address] Status Reason Specialty Diagnoses / Procedures Referred By Contact Referred To Contact New Request Radiology Diagnoses Spondylolisthesis of lumbar region Procedures MR Lumbar Spine Without Contrast Ashley Cuevas MD [address] [place] [address] Status Reason Specialty Diagnoses / Procedures Referre d By Contact Referred To Contact Closed Radiology Diagnoses Spondylolisthesis of lumbar region Procedures MR Lumbar Spine Without Contrast Ashley Cuevas MD [address] [place] [id number] Status Reason Specialty Diagnoses / Procedures Referred By Contact Referred To Contact Authorized Specialty Services Required/[facility] Medicine Diagnoses Spondylolisthesis of lumbar region Back pain, unspecified back location, unspecified back pain laterality, unspecified chronicity Ashley Cuevas MD [address] [place] [id number] Andrew Arriaza MD [address] [place] [id number] Specialty Diagnoses / Procedures Referred By Contac t Referred To Contact Radiology Diagnoses Cervical neuritis S/P spinal fusion Procedures MR cervical spine w and wo IV contrast Renita Huber PA-C [address] [place] [address] [address] Referral ID Status Reason Start Date Expiration Date Visits Requested Visits Authorized [id number] Pending Review Perform Procedure 3 01/21/2024 1 1 Specialty Diagnoses / Procedures Referred By Contac t Referred To Contact Radiology Diagnoses Neurogenic claudication due to lumbar spinal stenosis Arthritis of facet joint of lumbar spine Lumbar foraminal stenosis Disc degeneration, lumbar Lumbar radiculopathy, chronic Spondylolisthesis, acquired Procedures MR lumbar spine wo IV contrast Renita Huber PA-C [address] [place] [address] [address] Referral ID Status Reason Start Date Expiration Date Visits Requested Visits Authorized [id number] Pending Review Perform Procedure 3 01/21/2024 1 1 Referral ID Status Reason Start Date Expiration Date Visits Requested Visits Authorized [id number] Authorized Perform Procedure 3 01/21/2024 1 1 Referral ID Status Reason Start Date Expiration Date Visits Requested Visits Authorized [id number] Authorized Perform Procedure 3 01/21/2024 1 1 Chief Complaint * NEW, LOWER BACK PAIN,MIDDLE OF HER LOWER BACK ABOVE HER BUTTOCK,SHE HAS HAD A DEEP ACHE FOR THE PAST 6 MONTHS AND IF SHE STANDING IN ONE SPOT FOR A PERIOD OF TIME SHE HAS SHARP PAINS INTO HER RIGHT BUTTOCK, SHE HAS PAIN WITH ADL,MOTION,SITTING,REP MOTION,STANDING,BENDING,PHYSICAL THERAPY DID NOT GIVE HER ANY RELIEF, PREDNISONE DID NOT TAKE ANY OF THE DISCOMFORT AWAY, SHE ALTERNATES HEAT/COLD, TYLENOL DAILY, MRI DONE IN [place], X-RAY DONE, SCORE- SITTING /10, STANDING 10/10 * BP 137/82, DEPRESSION -, BMI ED GIVEN * SULY ALANIS is here for a follow-up visit. * Reason for Visit: F/U Exacerb of COPD. * Appointment requested by: Consuelo Sommers. * SULY ALANIS is here for a follow-up visit. * Reason for Visit: Emphysema. * Appointment requested by: Consuelo Sommers. * SULY ALANIS is here for a follow-up visit. * Reason for Visit: Emphysema. * Appointment requested by: Consuelo Sommers. * SULY ALANIS is here for a follow-up visit. * Reason for Visit: Exacerbation of COPD, Chronic Bronchitis. * Appointment requested by: Consuelo Sommers. * SULY ALANIS is here for a follow-up visit. * Reason for Visit: Exacerbation of COPD, Chronic Bronchitis. * Appointment requested by: Consuelo Sommers. * SULY ALANIS is here for a follow-up visit. * Reason for Visit: Exacerbation of COPD, Chronic Bronchitis. * Appointment requested by: Consuelo Sommers. * F/U BILATERAL L4-S1 MBB 1% RELIEF, SHE HAD PAIN AFTER THE INJECTION THAT WAS CONSTANT IN HER LOWER,THE LITTLE CONSTANT ACHING PAIN THAT SHE HAS WHEN SHE SITS OR STAND WENT AWAY FOR 3 HRS AFTER THE INJECTION BUT RETURNED, SHE HAS SHARP PAIN TO THE LOWER BACK WITH STANDING,WALKING,STAIRS,LIFTING,ADL, SHE USES ICY HOT PATCHES, ALTERNATING HEAT/COLD, IBUPROFEN PRN, REPOSITIONS OFTEN FOR RELIEF, SCORE 10/10 * SMOKING ED GIVEN, DEPRESSION-, BMI 32.03 * SULY ALANIS is here for a 2 month follow-up. * Reason for Visit: Severe Emphysema, Chronic Bronchitis. * Appointment requested by: Consuelo Sommers. * SULY ALANIS is here for a 2 month follow-up. * Reason for Visit: Severe Emphysema, Chronic Bronchitis. * Appointment requested by: Consuelo Sommers. * SULY ALANIS is here for a 2 month follow-up. * Reason for Visit: Severe Emphysema, Chronic Bronchitis. * Appointment requested by: Consuelo Sommers. * Patient following up from L5-S1 GURU that she had on 08/03/21. Patient states she got 80% relief. Patient rates her pain a 1/10 today. She states I feel like a new person . Patient states if she stands for long periods she still gets pain in the sides of her lower back. She states it's more like a muscle pain. But overall she is much happier. * Alcohol screen completed, negative. Reason for Visit: Discuss alternative to Breztri not covered by insurance.Reason for Visit: Discuss alternative to Breztri not covered by insurance.* FUV LOW BACK PAIN THAT PATIENT IS UNABLE TO DESCRIBE OTHER THAN THAT IT IS ALWAYS PRESENT. PATIENT STATES ADL'S MAKE HER PAIN WORSE ALONG WITH STANDING FOR LONGER PERIODS AND COUGHING/SNEEZING. PATIENT STATES STAIRS AND WALKING MAKE HER PAIN WORSE. PATIENT ATTEMPTS TO ALLEVAITE HER PAIN WITH OVER THE COUNTER TYLENOL AND IBUPROFEN. PATIENT DENIES NUMBNESS OR TINGLING IN HER LOWER EXTREMITIES. SHE DOES NOT USE A TENS UNIT, CANE OR WALKER. PATIENT DENIES PT OR CHIROPRACTIC ADJUSTMENTS. PATIENT STATES SHE DOES DEEP BREATHING AND AT HOME STRETCHES. SHE ALSO APPLIES ICE AND HEAT TO HELP WITH HER PAIN. * PAIN SCORE 2/10 CURRENTLY BUT 8/10 WITH STANDING. Patient complains of pain in her lower back. She states it goes all the way across her lower back and into her bilateral hips. Patient denied radiation down her legs. Patient rates her pain a 3/10 sitting and a 8/10 standing or walking. She states it's worse if she is standing still rather than walking. Patient feels like the GPN has helped somewhat at night but she doesn't feel like it helps during the day. Patient denied side effects to GPN.* FUV LOW BACK PAIN THAT IS SHARP, ACHES, CRAMPS AND IS SHOOTING. SHE STATES THE GPN IS NOT REALLY ALL THAT HELPFUL FOR HER PAIN. SHE SAYS THAT IT MAKES HER DIZZY IF SHE GETS UP BUT OTHERWISE SHE ONLY TAKES IT AT NIGHT; IT DOES HELP HER SLEEP. PATIENT STATES THAT STANDING IN ONE SPOT MAKES HER PAIN WORSE. PATIENT HAS TROUBLE WITH ADL'S BECAUSE OF HER PAIN. SHE STATES THAT LYING DOWN HELPS HER PAIN AND THAT HER PAIN IS WORSE IN THE MORNING. SHE DENIES NUMBNESS/PINS AND NEEDLES. PATIENT STATES THATIF REFILLS NEED TO BE SENT THAT SHE WOULD LIKE THEM SENT TO [facility] IN [facility]. SHE DOES NOT SEE A CHIROPRACTOR OR MASSAGE THERAPIST. SHE STATES THAT SHE USED TO GO TO THERAPY BUT STOPPED GOING BECAUSE IT WAS CREATING MORE PAIN THAN ANYTHING ELSE. * PAIN SCORE 3/10 SITTING AND 9/10 STANDING. * F/U BILATERAL SIJ 0% RELIEF, SHE STATES SHE DID NOT GET ANY RELIEF SHE IS HERE TODAY TO GET BACK TODR. VIAU , SHE IS HAVING MORE PAIN INTO HER BUTTOCK SHARP SHOOTING PAINS DOWN THE RIGHT LEG AND PAIN IN HER HEALS, SHE WENT TO THE ER IN JUNE AND WAS TREATED WITH DILAUDID UNTIL THE PAIN WENT AWAY AND SHE WAS DISCHARGED, SHE RESTED FOR A COUPLE OF DAYS UNTIL SHE WAS BETTER AND ABLE TO BEGIN DAILY ACTIVITIES, SINCE JANUARY SHE HAS BEEN TAKING OTC TYLENOL, IBUPROFEN FOR RELIEF, SHE HAS BILATERAL HAND NUMBNESS WHEN SHE WAKES IN THE MORNING OR BURNING HOT PAIN, BILATERAL KNEE PAIN, LAYING DOWN HER KNEES AND FEET STILL CAUSE DISCOMFORT AND HER LOWER BACK, HOME STRETCHING EXERCISES, ALTERNATING ICE/HEAT, SCORE 5/10, * OSWESETRY DISABILITY INDEX=56% * SMOKING ED GIVEN, DEP-, BMI 29.10 * SHE CAN WALK 1 BLOCK, SHE CAN STAND UP TO 5 MIN, SITTING GIVES RELIEF NPV in office today for abnormal CT scan of esophagus. Pt denies any GERD issues or dysphagia. Due for colonoscopy no prior screening. No family hx of colon or rectal cancer.NPV in office today for abnormal CT scan of esophagus. Pt denies any GERD issues or dysphagia. Due for colonoscopy no prior screening. No family hx of colon or rectal cancer.NPV in office today for abnormal CT scan of esophagus. Pt denies any GERD issues or dysphagia. Due for colonoscopy no prior screening. No family hx of colon or rectal cancer. Additional Source Comments INFORMATION SOURCE (unrecogn ized section and content) DATE CREATED AUTHOR AUTHOR'S ORGANIZ ATION 10/23/2019 [facility] DATE CREATED AUTHOR AUTHOR'S ORGANIZ ATION 01/03/2021 [facility] DATE CREATED AUTHOR AUTHOR'S ORGANIZ ATION 12/31/2021 [facility] DATE CREATED AUTHOR AUTHOR'S ORGANIZ ATION 12/31/2021 [facility] DATE CREATED AUTHOR AUTHOR'S ORGANIZ ATION 04/09/2022 [facility] DATE CREATED AUTHOR AUTHOR'S ORGANIZ ATION 12/06/2022 [facility] DATE CREATED AUTHOR AUTHOR'S ORGANIZ ATION 12/20/2022 [employer] DATE CREATED AUTHOR AUTHOR'S ORGANIZ ATION 01/01/2023 [facility] DATE CREATED AUTHOR AUTHOR'S ORGANIZ ATION 02/01/2023 [facility] DATE CREATED AUTHOR AUTHOR'S ORGANIZ ATION 04/25/2023 [facility] Reason for Visit (unrecogniz ed section and content) Status Reason Specialty Diagnoses / Procedures Referred By Contact Referred To Contact Closed Orthopedic Surgery Diagnoses Back pain, unspecified back location, unspecified back pain laterality, unspecified chronicity Collin Sommers, [employer] [address] [place] [address] Ashley Cuevas MD [address] [place] [address] Reason Comments Pain Follow-up Reason Comments Physical Therapy Status Reason Specialty Diagnoses / Procedures Referred By Contact Referred To Contact Authorized Specialty Services Required/[facility] Rehabilitation Diagnoses Spondylolisthesi s of lumbar region Ashley Cuevas MD [address] [place] [address] [address] [address] [address] [place] [address] Status Reason Specialty Diagnoses / Procedures Referre d By Contact Referred To Contact Closed Radiology Diagnoses Spondylolisthesis of lumbar region Procedures MR Lumbar Spine Without Contrast Ashley Cuevas MD [address] [place] [address] Reason Onset Date Comments Medication Refill 01/02/2021 Reason Comments Pain FUV for kulwant knee and ankle pain. L ankle > R ankle. 10 today. Patient states walking increases pain. Resting and swimming pool lowers pain. States Tylenol is not effective. Describes pain as achey, burning. Patient states she can walk approx 30 min before pain increases. She can stand 30-60 min before pain increases. THOMPSON = 47/100. BMI N/A d/t age. Depression neg. Smoking positive. Patient declined information. Specialty Diagnoses / Procedures Referred By Contac t Referred To Contact Radiology Diagnoses Neurogenic claudication due to lumbar spinal stenosis Arthritis of facet joint of lumbar spine Lumbar foraminal stenosis Disc degeneration, lumbar Lumbar radiculopathy, chronic Spondylolisthesis, acquired Procedures MR lumbar spine wo IV contrast Renita Huber PA-C [address] [place] [id number] [address] [address] Referral ID Status Reason Start Date Expiration Date Visits Requested Visits Authorized [id number] Authorized Perform Procedure 3 01/21/2024 1 1 Specialty Diagnoses / Procedures Referred By Contac t Referred To Contact Radiology Diagnoses Cervical neuritis S/P spinal fusion Procedures MR cervical spine w and wo IV contrast Renita Huber PA-C [address] [place] [address] [address] Referral ID Status Reason Start Date Expiration Date Visits Requested Visits Authorized [id number] Authorized Perform Procedure 3 01/21/2024 1 1 Reason Comments Shoulder Pain Patient complains of pain in her right shoulder and down her right arm to her hand. She states she gets a tingling pain down her right arm and a burning pain in her right hand. She rates this pain a 10/10. Back Pain Patient complains of pain in the middle of her lower back. She states intermittently radiates to her right lower back and into her right buttocks. Patient states this pain is worse when standing. She rates her pain a 2/10 now while sitting but a 10/10 while standing. Generalized Body Aches Patient also comp lains of bilateral knee pain, left ankle pain, and bilateral heel pain. She states she is currently seeing a foot doctor for the foot pain. Reason Comments Other Encounter for screen ing for malignant neoplasm of colon, Abnormal findings on dx imaging of prt digestive tract Care Teams (unrecognized sec tion and content) Hull Drafter Relationship Specialty Start Date End Date Yocasta Matute MD [address] [facility] [address] [address] PCP - General 12/04/22 Hull Drafter Relationship Specialty Start Date End Date Yocasta Matute MD [address] [facility] [address] [address] PCP - General 12/04/22 Hull Drafter Relationship Specialty Start Date End Date Yocasta Matute MD [address] [facility] [address] [place] [address] PCP - General 12/04/22 Hull Drafter Relationship Specialty Start Date End Date Yocasta Matute MD [address] [facility] [address] [address] PCP - General 12/04/22 Hull Drafter Relationship Specialty Start Date End Date Yocasta Matute MD [address] [facility] [address] [address] PCP - General 12/04/22 Hull Drafter Relationship Specialty Start Date End Date Yocasta Matute MD [address] [facility] [address] [address] PCP - General 11/27/22 12/03/22 Hull Drafter Relationship Specialty Start Date End Date Yocasta Matute MD [address] [facility] [address] [address] PCP - General 12/04/22 Hull Drafter Relationship Specialty Start Date End Date Yocasta Matute MD [address] [facility] [address] [address] PCP - General 12/04/22 Hull Drafter Relationship Specialty Start Date End Date Yocasta Matute MD [address] [facility] [address] [address] PCP - General 12/04/22 <item><item><item><item> Privacy Markings (unrecogniz ed section and content) Section Author: Nell Piedra PROHIBITION ON REDISCLOSURE OF CONFIDENTIAL INFORMATION This notice accompanies a disclosure of information concerning a client made to you with the consent of such client. Section Author: Nell Piedra PROHIBITION ON REDISCLOSURE OF CONFIDENTIAL INFORMATION This notice accompanies a disclosure of information concerning a client made to you with the consent of such client. Section Author: Nell Piedra PROHIBITION ON REDISCLOSURE OF CONFIDENTIAL INFORMATION This notice accompanies a disclosure of information concerning a client made to you with the consent of such client. Section Author: Nell Piedra PROHIBITION ON REDISCLOSURE OF CONFIDENTIAL INFORMATION This notice accompanies a disclosure of information concerning a client made to you with the consent of such client. FOR RECORDS PERTAINING TO PATIENTS WHO ARE OR HAVE BEEN ENROLLED IN A CHEMICAL DEPENDENCY/SUBSTANCEABUSE PROGRAM, SOME INFORMATION MAY BE OMITTED. This clinical summary was aggregated from multiple sources. Caution should be exercised in using it in the provision of clinical care. This summary normalizes information from multiple sources, and as a consequence, information in this document may materially change the coding, format and clinical context of patient data. In addition, data may be omitted in some cases. CLINICAL DECISIONS SHOULD BE BASED ON THE PRIMARY CLINICAL RECORDS. [employer] [facility] provides no warranty or guarantee of the accuracy or completeness of information in this document.
[2023-05-03 11:03] LABS: BNP,B-Type NATRIURETIC PEPTIDE 8.7 pg/mL (0-100)
[2023-05-03 12:07] VITALS: BP 117/99; PULSE 82; RESP 17; O2SAT 96; O2SAT 98
[2023-05-03] MEDS: Metoclopramide 5 MG TABLET PO (12:24)
[2023-05-03 12:32] VITALS: BP 134/65; PULSE 71; RESP 15; O2SAT 97
== END 2023-05-03 12:33 | disposition home or self-care (01) ==
PROVIDERS: Emergency Provider Emergency Medicine; PCP Family Medicine Geriatric Medicine; Visit Provider Emergency Medicine
DX: J44.1 Chronic obstructive pulmonary disease with (acute) exacerbation (principal); E11.9 Type 2 diabetes mellitus without complications; R42 Dizziness and giddiness; I10 Essential (primary) hypertension; E78.2 Mixed hyperlipidemia; Z11.52 Encounter for screening for COVID-19; F17.210 Nicotine dependence, cigarettes, uncomplicated; Z79.899 Other long term (current) drug therapy
CPT/HCPCS: 71046; 80048; 83880; 84484; 85025; 87631; 93005; 94640; 96361; 96374; 99284; J7040; A4216; J2405

== ENCOUNTER → 2023-05-07 | Outpatient (CLI) | payer MEDICARE, MEDICAID, SELFPAY ==
[2023-05-07 12:53] LABS: Absolute Lymphocyte Count 1.75 X10^3/uL (0.83-4.51); Absolute Neutrophil Count 10.3 X10^3/uL (2.0-7.7); Basophil# 0.04 X10^3/uL; Basophil% 0.3 % (0-1); Eosinophil# 0.01 X10^3/uL; Eosinophils% 0.1 % (0-5); Hematocrit 39.6 % (37-47); Hemoglobin 12.5 g/dL (12.0-15.0); Lymphocyte # 1.75 X10^3/ul (0.83-4.51); Lymphocyte % 13.9 % (19-41); Mean Corp Hgb Conc 31.6 g/dL (32-36); Mean Corpuscular Hgb 30.5 pg (27.0-32.0); Mean Corpuscular Volume 96.6 fL (81-99); Mean Platelet Vol. 9.3 fl (6.2-12.0); Monocyte# 0.43 X10^3/uL; Monocyte% 3.4 % (0-10); NRBC Flagged by Analyzer 0 % (0-5); Neutrophil # 10.26 X10^3/uL (2.7-7.7); Neutrophil % 81.2 % (47-70); Platelet Count 351 K/mm3 (150-450); RBC Distribution Width CV 12.5 % (11.6-14.6); White Blood Count 12.6 K/mm3 (4.4-11.0)
[2023-05-07 13:26] LABS: Vitamin B12 764 pg/mL (211-911)
[2023-05-07 13:32] LABS: AST(SGOT) 16 U/L (15-37); Alanine Aminotransfer ALT/SGPT 20 U/L (13-56); Albumin, Serum 3.8 g/dL (3.2-5.0); Alkaline Phosphatase 78 U/L (45-117); Anion Gap 3 (5-15); BUN 27 mg/dL (7-18); BUN/Creat Ratio 24.8 RATIO (10-20); Calcium,Total 9.4 mg/dL (8.5-10.1); Chloride 105 mmol/L (98-107); Creatinine, Serum 1.09 mg/dL (0.55-1.02); EST Glomerular Filtration Rate 53 mL/min (>60); Est Glom Filt Rate - Afr Amer 64 mL/min (>60); Globulin 3.8 g/dL (2.2-4.2); Glucose 94 mg/dL (74-106); Potassium 3.9 mmol/L (3.5-5.1); Protein, Total 7.6 g/dL (6.4-8.2); Sodium Level 136 mmol/L (136-145); Thyroid Stim Hormone (TSH) 0.85 uIU/mL (0.358-3.74)
--- OUTSIDE RECORDS SUMMARY | 2023-05-07 16:58 | XMS RPT_ITS | CCD ---
Author Name Unknown Address [address] [place] [address] Organization [facility] Care Team Providers Care Case Loader Operator Name Role Phone Chase Funez Attending Unavailable [...] Pending Provider Unavailable Unavailable Collin Sommers Unavailable Unavailable Unavailable ASHLEY CUEVAS Attending Unavailable COLLIN SOMMERS Primary Care Unavailable COLLIN SOMMERS Primary Care Unavailable ASHLEY CUEVAS Attending Unavailable COLLIN SOMMERS. Primary Care Unavailable COLLIN SOMMERS. Referring Unavailable ASHLEY CUEVAS Attending Unavailable COLLIN SOMMERS. Admitting Unavailable ASHLEY CUEVAS Attending Unavailable COLLIN SOMMERS. Primary Care Unavailable ASHLEY CUEVAS Attending Unavailable COLLIN SOMMERS Primary Care Unavailable Collin Sommers Unavailable [phone] King Springer Unavailable Unavailable PiaseckiKody Unavailable Unavailable [...] Unavaila ble Huber, MsElder Dexter Attending U socar Sommers, Ms. Collin Bowman Primary Care Unavail [...] Ms. Collin Bowman Primary Care Unavail able [place], Dr. King Valiente Attending Unava ilable [facility] [phone] GIOVANI, DILIP-CHI Primary Care Unavailable Gi[facility] RENITA HUBER C Referring Unavailable GIOVANI, DILIP-CHI Primary Care Unavailable MAYO, RENITA C Referring Unavailable GIOVANI, DILIP-CHI Primary Care Unavailable MAYO, RENITA C Referring Unavailable GIOVANI, DILIP-CHI Primary Care Unavailable MAYO, RENITA C Referring Unavailable GIOVANI, DILIP-CHI Primary Care Unavailable HUBER, RENITA C Referring Unavailable GIOVANI, DILIP-CHI Primary Care Unavailable HUBER, RENITA C Referring Unavailable GIOVANI, DILIP-CHI Primary Care Unavailable LBU VELÁZQUEZ Attending Unavailable MAYO, RENITA C Referring [...] Unavailable GIOVANI, DILIP-CHI Primary Care Unavailable GIOVANI, DIILP-CHI Referring Unavailable GIOVANI, DILIP-CHI Primary Care Unavailable RENITA HUBER Attending Unavailable GIOVANI, DILIP-CHI Primary Care Unavailable RENITA HUBER Referring Unavailable GIOVANI, DILIP-CHI Primary Care Unavailable Allergies Allergy Classification Reported Allergen(s) Allergy Type Date of Onset Reaction(s) Facility [facility] (15 sources) Codeine Drug Allergy 2 Hives, Rash [facility] (20 sources) Codeine; Translations: [codeine] Drug Allergy 2 Rash, Hives, Itching [facility] Medications Current Medications Medication Drug Class(es) [...] 01-21-2023 Episodic Other aftercare (1 source) Other intermediate manager (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) drug therapy; Translations: [Other intermediate manager (current) drug therapy] Onset: 07-24-2022 Episodic Other [...] 04-04-2023 15:42-0500 Diastolic blood pressure 70 mm[Hg] [address] 04-04-2023 15:42-0500 Heart rate 92 /min [address] 04-04-2023 15:42-0500 Respiratory rate 16 /min [address] 04-04-2023 15:42-0500 SaO2% (BldA) [Mass fraction] 96 % [address] 04-04-2023 15:42-0500 Systolic blood pressure 121 mm[Hg] [address] 04-04-2023 15:29-0500 Body temperature 98.49 [degF] [address] 04-04-2023 14:43-0500 Body height 152.[address] 04-04-2023 14:43-0500 Body mass index (BMI) [Ratio] 28.32 kg/m2 [address] 04-04-2023 14:43-0500 Body weight 65.[address] 02-06-2023 13:23-0500 Body height 152.4 cm Renita Ensogo Work Phone: [facility] 02-06-2023 13:23-0500 Body mass index (BMI) [Ratio] 29.29 kg/m2 Renita ImmusanT PA-C Work Phone: [facility] 02-06-2023 13:23-0500 Body weight 68.04 kg Renita Recorrido-Guavas Work Phone: [facility] 02-06-2023 13:23-0500 Diastolic blood pressure 78 mm[Hg] Renita ImmusanT PA-C Work Phone: [facility] 02-06-2023 13:23-0500 Heart rate 92 /min Renita Huber PA-C Work Phone: [facility] 02-06-2023 13:23-0500 Respiratory rate 20 /min Renita Huber PA-C Work Phone: [facility] 02-06-2023 13:23-0500 Systolic blood pressure 116 mm[Hg] Renita Huber PA-C Work Phone: [facility] 01-21-2023 10:04-0400 Body mass index (BMI) [Ratio] 29.1 kg/m2 Reniat Huber PA-C Work Phone: [facility] 01-21-2023 10:04-0400 Body weight 67.59 kg Renita Huber PA-C Work Phone: [facility] 01-21-2023 10:04-0400 Diastolic blood pressure 79 mm[Hg] Renita Huber PA-C Work Phone: [facility] 01-21-2023 10:04-0400 Heart rate 96 /min Renita Huber PA-C Work Phone: [facility] 01-21-2023 10:04-0400 Respiratory rate 16 /min Renita Huber PA-C Work Phone: [facility] 01-21-2023 10:04-0400 Systolic blood pressure 132 mm[Hg] Renita Huber PA-C Work Phone: [facility] 11-26-2022 10:08-0400 Body height 152.4 cm Gerson Askew DO Work Phone: [facility] 11-26-2022 10:08-0400 Body mass index (BMI) [Ratio] 28.24 kg/m2 Gerson Thomae DO Work Phone: [facility] 11-26-2022 10:08-0400 Body weight 65.6 kg Gerson Thomae DO Work Phone: [facility] 11-18-2022 14:56-0400 Body height 152.4 cm Dom Holland Work Phone: -[facility] [address] Work Phone: 11-18-2022 14:56-0400 Body mass index (BMI) [Ratio] 28.98 kg/m2 Dom Collado Ottonielteddy Work Phone: -[facility] [address] Work Phone: 11-18-2022 14:56-0400 Body surface area Derived from formula 1.64 m2 Dom Collado Ottonielteddy Work Phone: [facility] [address] Work Phone: 11-18-2022 14:56-0400 Body weight 67.31 kg Dom Collado Ottonielteddy Work Phone: [facility] [address] Work Phone: [...] pressure 59 mm[Hg] Collin Margaritolinger Other Phone: [facility] 07-24-2022 13:00-0400 Heart rate 74 /min Collin Hellinger Other Phone: [facility] 07-24-2022 13:00-0400 Respiratory rate 16 /min Collin Hellinger Other Phone: [facility] 07-24-2022 13:00-0400 SaO2% (BldA) [Mass fraction] 100 % Collin Hellinger Other Phone: [facility] 07-24-2022 13:00-0400 Systolic blood pressure 107 mm[Hg] Collin Hellinger Other Phone: [facility] 07-24-2022 09:33-0400 Body height 152.4 cm Collin Hellinger Other Phone: [facility] 07-24-2022 09:33-0400 Body temperature 96.8 [degF] Collin Hellinger Other Phone: [facility] 07-24-2022 09:33-0400 Body weight 66.4 kg Collin Hellinger Other Phone: [facility] 03-31-2022 19:45-0500 Heart rate 84 /min Collin Hellinger Other Phone: [facility] 03-31-2022 19:45-0500 Respiratory rate 21 /min Collin Hellinger Other Phone: [facility] 03-31-2022 19:45-0500 SaO2% (BldA) [Mass fraction] 96 % Collin Hellinger Other Phone: [facility] 03-31-2022 14:10-0500 Body temperature 98.24 [degF] Collin Hellinger Other Phone: [facility] 03-31-2022 14:10-0500 Diastolic blood pressure 81 mm[Hg] Collin Hellinger Other Phone: [facility] 03-31-2022 14:10-0500 Systolic blood pressure 162 mm[Hg] Collin Hellinger Other Phone: [facility] 03-28-2022 17:14-0500 Heart rate 100 /min Collin Hellinger Other Phone: [facility] 03-28-2022 17:14-0500 Respiratory rate 16 /min Collin Hellinger Other Phone: [facility] 03-28-2022 17:00-0500 Diastolic blood pressure 88 mm[Hg] Collin Hellinger Other Phone: [facility] 03-28-2022 17:00-0500 SaO2% (BldA) [Mass fraction] 96 % Collin Hellinger Other Phone: [facility] 03-28-2022 17:00-0500 Systolic blood pressure 153 mm[Hg] Collin Hellinger Other Phone: [facility] 03-28-2022 09:25-0500 Body temperature 97.34 [degF] Collin Hellinger Other Phone: [facility] 03-28-2022 05:06-0500 Body height 152.4 cm Collin Margaritolinger Other Phone: [facility] 03-28-2022 05:06-0500 Body weight 68.4 kg Collin Pimentellinger Other Phone: [facility] 02-06-2022 14:38-0500 Body height 152.4 cm [...] 152.4 cm Collin Xavierer Work Phone: [facility] [address] DO Work Phone: 10-09-2021 10:38-0400 Body mass index (BMI) [Ratio] 29.72 kg/m2 Collin Morin Hellinger Work Phone: [facility] DO Work Phone: 10-09-2021 10:38-0400 Body surface area Derived from formula 1.66 m2 Collin Pimentellinger Work Phone: [facility] 400 DO Work Phone: 10-09-2021 10:38-0400 Body temperature 96.9 [degF] Collin Morin Hellinger Work Phone: [facility] 400 DO Work Phone: 10-09-2021 10:38-0400 Body weight 69.04 kg Collin Pimentellinger Work Phone: [facility] 400 DO Work Phone: 10-09-2021 10:38-0400 Diastolic blood pressure 72 mm[Hg] Collin Pimentellinger Work Phone: [facility] 400 DO Work Phone: 10-09-2021 10:38-0400 Heart rate 110 /min Collin Pimentellinger Work Phone: [facility] 400 DO Work Phone: 10-09-2021 10:38-0400 SaO2% (BldA) [Mass fraction] 98 % Collin Morin Hellinger Work Phone: [facility] 400 DO Work Phone: 10-09-2021 10:38-0400 Systolic blood pressure 134 mm[Hg] Collin Morin Hellinger Work Phone: [facility] 400 DO Work Phone: 08-23-2021 14:40-0400 Body [...] 152.4 cm Collin Pimentellinger Work Phone: [facility] 400 DO Work Phone: 07-09-2021 14:04-0400 Body mass index (BMI) [Ratio] 31.52 kg/m2 Collin Piemntellinger Work Phone: [facility] 400 DO Work Phone: 07-09-2021 14:04-0400 Body surface area Derived from formula 1.7 m2 Collin Pimentellinger Work Phone: [facility] 400 DO Work Phone: 07-09-2021 14:04-0400 Body temperature 97.7 [degF] Collin Pimentellinger Work Phone: [facility] 400 DO Work Phone: 07-09-2021 14:04-0400 Body weight 73.21 kg Collin Xavierer Work Phone: [facility] 400 DO Work Phone: 07-09-2021 14:04-0400 Diastolic blood pressure 80 mm[Hg] Clolin Pimentellinger Work Phone: [facility] DO Work Phone: 07-09-2021 14:04-0400 Heart rate 102 /min Collin Xavierer Work Phone: [facility] 400 DO Work Phone: 07-09-2021 14:04-0400 SaO2% (BldA) [Mass fraction] 94 % Collin Pimentellinger Work Phone: [facility] 400 DO Work Phone: 07-09-2021 14:04-0400 Systolic blood pressure 126 mm[Hg] Collin Morin Hellinger Work Phone: [facility] 400 DO Work Phone: 07-05-2021 13:52-0400 Body [...] pressure 83 mm[Hg] Collin Hellinger Other Phone: [facility] 05-23-2021 14:00-0500 Heart rate 85 /min Collin Hellinger Other Phone: [facility] 05-23-2021 14:00-0500 Respiratory rate 16 /min Collin Margaritolinger Other Phone: [facility] 05-23-2021 14:00-0500 SaO2% (BldA) [Mass fraction] 98 % Collin Margaritolinger Other Phone: [facility] 05-23-2021 14:00-0500 Systolic blood pressure 133 mm[Hg] Collin Hellinger Other Phone: [facility] 05-23-2021 10:11-0500 Body height 152.4 cm Collin Hellinger Other Phone: [facility] 05-23-2021 10:11-0500 Body temperature 97.88 [degF] Collin Margaritolinger Other Phone: [facility] 05-23-2021 10:11-0500 Body weight 73.6 kg Collin Margaritolinger Other Phone: [facility] 05-08-2021 13:09-0500 Body height 152.4 cm Collin L Hellinger Work Phone: [facility] 400 DO Work Phone: 05-08-2021 13:09-0500 Body mass index (BMI) [Ratio] 31.79 kg/m2 Collin L Hellinger Work Phone: [facility] 400 DO Work Phone: 05-08-2021 13:09-0500 Body surface area Derived from formula 1.71 m2 Collin L Hellinger Work Phone: [facility] 400 DO Work Phone: 05-08-2021 13:09-0500 Body temperature 97.7 [degF] Collin L Hellinger Work Phone: [facility] 400 DO Work Phone: 05-08-2021 13:09-0500 Body weight 73.85 kg Collin Pimentellinger Work Phone: [facility] 400 DO Work Phone: 05-08-2021 13:09-0500 Diastolic blood pressure 72 mm[Hg] Collin Morin Hellinger Work Phone: [facility] 400 DO Work Phone: 05-08-2021 13:09-0500 Heart rate 110 /min Collin Pimentellinger Work Phone: [facility] 400 DO Work Phone: 05-08-2021 13:09-0500 SaO2% (BldA) [Mass fraction] 92 % Collin Pimentellinger Work Phone: [facility] 400 DO Work Phone: 05-08-2021 13:09-0500 Systolic blood pressure 124 mm[Hg] Collin Pimentellinger Work Phone: [facility] 400 DO Work Phone: 04-06-2021 13:43-0500 Body height 152.4 cm Collin Pimentellinger Work Phone: [facility] 400 DO Work Phone: 04-06-2021 13:43-0500 Body mass index (BMI) [Ratio] 30.9 kg/m2 Collin Pimentellinger Work Phone: [facility] 400 DO Work Phone: 04-06-2021 13:43-0500 Body surface area Derived from formula 1.69 m2 Collin Morin Hellinger Work Phone: [facility] 400 DO Work Phone: 04-06-2021 13:43-0500 Body temperature 97.7 [degF] Collin Xavierer Work Phone: [facility] 400 DO Work Phone: 04-06-2021 13:43-0500 Body weight 71.76 kg Collin Xavierer Work Phone: [facility] 400 DO Work Phone: 04-06-2021 13:43-0500 Diastolic blood pressure 78 mm[Hg] Collin Xavierer Work Phone: [facility] 400 DO Work Phone: 04-06-2021 13:43-0500 Heart rate 116 /min Collin Xavierer Work Phone: [facility] 400 DO Work Phone: 04-06-2021 13:43-0500 SaO2% (BldA) [Mass fraction] 93 % Collin Xavierer Work Phone: [facility] 400 DO Work Phone: 04-06-2021 13:43-0500 Systolic blood pressure 126 mm[Hg] Collin Xavierer Work Phone: [facility] 400 DO Work Phone: 01-30-2021 14:55-0400 Body height 152.4 cm Collin Xavierer Work Phone: [facility] 400 DO Work Phone: 01-30-2021 14:55-0400 Body mass index (BMI) [Ratio] 30.76 kg/m2 Collin Xavierer Work Phone: [facility] 400 DO Work Phone: 01-30-2021 14:55-0400 Body surface area Derived from formula 1.69 m2 Collin Pimentellinger Work Phone: [facility] 400 DO Work Phone: 01-30-2021 14:55-0400 Body temperature 98.4 [degF] oCllin Pimentellinger Work Phone: [facility] 400 DO Work Phone: 01-30-2021 14:55-0400 Body weight 71.44 kg Collin Pimentellinger Work Phone: [facility] 400 DO Work Phone: 01-30-2021 14:55-0400 Diastolic blood pressure 70 mm[Hg] Collin Pimentellinger Work Phone: [facility] 400 DO Work Phone: 01-30-2021 14:55-0400 Heart rate 104 /min Collin Pimentellinger Work Phone: [facility] 400 DO Work Phone: 01-30-2021 14:55-0400 SaO2% (BldA) [Mass fraction] 91 % Collin Pimentellinger Work Phone: [facility] 400 DO Work Phone: 01-30-2021 14:55-0400 Systolic blood pressure 118 mm[Hg] Collin Pimentellinger Work Phone: [facility] 400 DO Work Phone: 01-24-2021 14:01-0400 Body [...] 152.4 cm Collin Xavierer Work Phone: [facility] 400 DO Work Phone: 01-09-2021 14:46-0400 Body mass index (BMI) [Ratio] 30.34 kg/m2 Collin Xavierer Work Phone: [facility] 400 DO Work Phone: 01-09-2021 14:46-0400 Body surface area Derived from formula 1.68 m2 Collin Xavierer Work Phone: -[facility] 400 DO Work Phone: 01-09-2021 14:46-0400 Body temperature 98.9 [degF] Collin Xavierer Work Phone: -[facility] 400 DO Work Phone: 01-09-2021 14:46-0400 Body weight 70.48 kg Collin Xavierer Work Phone: [facility] 400 DO Work Phone: 01-09-2021 14:46-0400 Diastolic blood pressure 70 mm[Hg] Collin Xavierer Work Phone: -[facility] 400 DO Work Phone: 01-09-2021 14:46-0400 Heart rate 112 /min Collin Xavierer Work Phone: [facility] 400 DO Work Phone: 01-09-2021 14:46-0400 SaO2% (BldA) [Mass fraction] 91 % Collin Xavierer Work Phone: [facility] 400 DO Work Phone: 01-09-2021 14:46-0400 Systolic blood pressure 118 mm[Hg] Collin Pimentellinger Work Phone: [facility] 400 DO Work Phone: 10-16-2020 14:21-0400 Body height 152.4 cm Ashley Cuevas MD Work Phone: [facility] 10-16-2020 14:21-0400 Body mass index (BMI) [Ratio] 28.9 kg/m2 Ashley Cuevas MD Work Phone: [facility] 10-16-2020 14:21-0400 Body weight 67.13 kg Ashley Cuevas MD Work Phone: [facility] 10-16-2020 14:21-0400 Diastolic blood pressure 73 mm[Hg] Ashley Cuevas MD Work Phone: [facility] 10-16-2020 14:21-0400 Heart rate 121 /min Ashley Cuevas MD Work Phone: [facility] 10-16-2020 14:21-0400 Respiratory rate 20 /min Ashley Cuevas MD Work Phone: [facility] 10-16-2020 14:21-0400 Systolic blood pressure 107 mm[Hg] Ashley Cuevas MD Work Phone: [facility] 07-25-2020 13:13-0400 Body height 152.4 cm Ashley Cuevas MD Work Phone: [facility] 07-25-2020 13:13-0400 Body mass index (BMI) [Ratio] 29.29 kg/m2 Ashley Cuevas MD Work Phone: [facility] 07-25-2020 13:13-0400 Body weight 68.04 kg Ashley Cuevas MD Work Phone: [facility] 07-25-2020 13:13-0400 Diastolic blood pressure 82 mm[Hg] Ashley Cuevas MD Work Phone: [facility] 07-25-2020 13:13-0400 Heart rate 116 /min Ashley Cuevas MD Work Phone: [facility] 07-25-2020 13:13-0400 Systolic blood pressure 137 mm[Hg] Ashley Cuevas MD Work Phone: [facility] 07-10-2020 17:01-0400 BMI (Body Mass Index) 30.27 kg/m2 [facility]ast [facility] 400 DO Work Phone: 07-10-2020 17:01-0400 Body Temperature 98 [degF] Kody [facility]ast [facility] 400 DO Work Phone: Encounters Encounter Date Encounter Type Care Provider Facility Start: 04-24-2023 End: 04-24-2023 ambulatory RENITA Gonzales [facility] Start: 04-22-2023 End: 04-22-2023 ambulatory RENITA Gonzales HUBER [facility] Start: 04-04-2023 End: 04-05-2023 ambulatory BLU Collado LEONARDO [facility] Start: 04-04-2023 End: 04-04-2023 ambulatory BLU Collado [facility] Start: 04-04-2023 End: 04-04-2023 Subsequent hospital visit by physician Matt 980Edita C-Arm 1 [facility] Procedures Date Procedure Procedure Detail Performing [...] 01-27-2023 [facility] Start: 01-24-2023 FOLLOW UP IN PHYSICA L THERAPY [facility] Start: 01-22-2023 FOLLOW UP IN PHYSICA L [...] 11-27-2032 Screening for malign ant neoplasm of [facility] Start: 01-23-2027 DTaP/Tdap/Td Vaccine s (2 - Td or Tdap) DTaP/Tdap/Td Vaccines (2 - Td or Tdap) [facility] Start: 03-28-2025 Diabetes mellitus screening Diabetes Screening [facility] Start: 10-15-2023 Screening for malign ant neoplasm of breast Mammogram [facility] Start: 05-01-2023 End: 05-01-2023 ambulatory 05/01/2023 10:15 AM EST Treatment [address] [phone] Kike Beltran, PT [address] [place] [address] [facility] Start: 04-29-2023 End: 04-29-2023 ambulatory 04/29/2023 11:30 AM EST Treatment [address] [phone] Carol Paris, VENEER JOINTER OFFBEARER [address] [place] [id number] [facility] Start: 04-24-2023 End: 04-24-2023 ambulatory 04/24/2023 11:15 AM EST Treatment [address] [address] Precious Leone, VENEER JOINTER OFFBEARER [address] [facility] [place] [address] [facility] Start: 04-22-2023 End: 04-22-2023 ambulatory 04/22/2023 10:00 AM EST Treatment [address] [phone] Mita Fraire, VENEER JOINTER OFFBEARER [address] [facility] [place] [id number] [facility] Start: 04-17-2023 End: 04-17-2023 ambulatory 04/17/2023 10:00 AM EST Treatment [address] [address] Precious Leone, VENEER JOINTER OFFBEARER [address] [place] [address] [facility] Start: 04-15-2023 End: 04-15-2023 ambulatory 04/15/2023 10:00 AM EST Treatment [address] [address] Danielle Durand, VENEER JOINTER OFFBEARER [address] [place] [address] [facility] Start: 04-10-2023 End: 04-10-2023 ambulatory 04/10/2023 1:15 PM EST Treatment [address] [address] Carol Paris, VENEER JOINTER OFFBEARER [address] [place] [address] [facility] Start: 04-08-2023 End: 04-08-2023 ambulatory 04/08/2023 9:15 AM EST Treatment [address] [address] Mita Fraire, VENEER JOINTER OFFBEARER [address] [place] [address] [facility] Start: 02-27-2023 End: 02-27-2023 ambulatory 02/27/2023 10:00 AM EST Evaluation [address] [phone] Kike Beltran, PT [address] [facility] [place] [id number] [facility] Start: 02-06-2023 End: 02-06-2023 Patient encounter procedure 02/06/2023 1:15 PM EST Office Visit [facility] [address] [place] [id number] Renita Huber PA-C [address] [place] [address] [facility] Start: 02-05-2023 End: 02-05-2023 ambulatory [facility] Start: 02-03-2023 End: 02-03-2023 ambulatory 02/03/2023 1:15 PM EST Treatment [facility] [address] [facility] [address] [place] [address] Enid Enriquez, PT [address] [facility] [place] [address] [facility] Start: 01-29-2023 End: 01-29-2023 ambulatory 01/29/2023 1:15 PM EDT Treatment [facility] [address] [facility] [address] [place] [address] Brielle Abarca, VENEER JOINTER OFFBEARER [address] [place] [address] [facility] Start: 01-27-2023 End: 01-27-2023 ambulatory 01/27/2023 1:15 PM EDT Treatment [facility] [address] [facility] [address] [place] [address] Brielle Abarca, VENEER JOINTER OFFBEARER [address] Re[facility] [place] [id number] [facility] Start: 01-24-2023 End: 01-24-2023 ambulatory 01/24/2023 1:15 PM EDT Treatment [facility] [address] [facility] [place] [address] [place] [phone] Brielle Abarca, VENEER JOINTER OFFBEARER [address] [facility] [place] [address] [facility] Start: 01-22-2023 End: 01-22-2023 ambulatory 01/22/2023 10:45 AM EDT Treatment [facility] [address] [place] [id number] Precious Leone, VENEER JOINTER OFFBEARER [address] [facility] [place] [address] [facility] Start: 01-21-2023 End: 01-22-2024 Creatinine [Mass/volume] in Serum or Plasma Creatinine, Serum Lab Routine Cervical neuritis S/P spinal fusion Expected: 01/21/2023 (Approximate), Expires: 01/22/2024 [facility] Work Phone: Immunizations Immunization Date Immunization Notes Care Provider Michael winn 11-20-2022 influenza, injectabl e, quadrivalent, contains preservative Renita Huber PA-C Work Phone: [facility] Work Phone: 01-23-2017 tetanus toxoid, redu ivette diphtheria toxoid, and acellular pertussis vaccine, adsorbed Renita Huber PA-C Work Phone: [facility] Work Phone: Payers Date Payer Category Payer Private Health Insurance [id number] 2022 Private Health Insurance [employer] DUAL COMPLETE UNITED [employer] DUAL COMPLETE [id number] 2022-Present [address] [address] [place] [address] [id number] 2022 Medicaid MEDICAID MEDICAI D [id number] 2022-Present [address] [place] [address] [id number]. [id number] 2022 Medicare [id number] 2020 Unknown [facility] [place] MEDICAID COMMUNITY HEALTH PLAN [id number] 2020-Present [phone] [address] [place] [address] [id number]. [id number] 2020 Unknown [id number] 2019 Unknown MMO MED MUTUAL S UPERMED PPO [id number] 2019-Present [id number] 1.2.840.133008.1.13.385.2. 7.3.233110.315 2019 Unknown [id number] 2017 Unknown 1956 Unknown [id number] 2.16840.1.371272.3.579.2. 1956 Unknown [id number] .16840.1.738789.3.579.2. 1956 Unknown [id number] 2.16840.1.094290.3.579.2. 1956 Unknown [id number] 2.16.840.1.740320.3.579.2. 1956 Unknown [id number] 2.16840.1.089949.3.579.2. 1956 Unknown [id number] 2.16.840.1.754939.3.579.2. 1956 Unknown [id number] 2.16.840.1.497152.3.579.2. 903 1956 Unknown [id number] 2.16.840.1.939638.3.579.2. 1956 Unknown [id number] 2.16.840.1.783246.3.579.2. 1956 Unknown [id number] 2.16.840.1.747380.3.579.2. 1956 Unknown [id number] 2.16.840.1.670280.3.579.2. 1956 Unknown [id number] 2.16.840.1.972733.3.579.2. 1956 Unknown [id number] 2.16.840.1.325763.3.579.2. 1067 1956 Unknown [id number] 2.16.840.1.721199.3.579.2. 1956 Unknown [id number] 2.16.840.1.979108.3.579.2. 1956 Unknown [id number] 2.16.840.1.560240.3.579.2. 1068 1956 Unknown [id number] 2.16.840.1.697114.3.579.2. 1068 1956 Unknown [id number] 2.16.840.1.034140.3.579.2. 1068 1956 Unknown [id number] 2.16.840.1.740265.3.579.2. 1068 1956 Unknown [id number] 2.16.840.1.555209.3.579.2. 1068 1956 Unknown [id number] 2.16.840.1.316547.3.579.2. 1068 1956 Unknown [id number] 2.16.840.1.853059.3.579.2. 1068 1956 Unknown [id number] 2.16.840.1.925157.3.579.2. 1068 1956 Unknown [id number] 2.16.840.1.529567.3.579.2. 1068 1956 Unknown [id number] 2.16.840.1.997791.3.579.2. 1068 1956 Unknown [id number] 2.16.840.1.436267.3.579.2. 1068 1956 Unknown [id number] 2.16.840.1.795519.3.579.2. 1068 1956 Unknown [id number] 2.16.840.1.116791.3.579.2. 1068 1956 Unknown [id number] 2.16.840.1.898028.3.579.2. 1068 1956 Unknown [id number] 2.16.840.1.520470.3.579.2. 1068 1956 Unknown [id number] 2.16.840.1.591301.3.579.2. 1068 1956 Unknown [id number] 2.16.840.1.502660.3.579.2. 1068 1956 Unknown [id number] 2.16.840.1.262590.3.579.2. 1244 1956 Unknown [id number] 2.16.840.1.258310.3.579.2. 1242 1956 Unknown [id number] 2.16.840.1.011572.3.579.2. 1242 1956 Unknown [id number] 2.16.840.1.119021.3.579.2. 1242 1956 Unknown [id number] 2.16.840.1.706441.3.579.2. 12426 Unknown [id number] 2.16.840.1.725295.3.579.2. 1242 1956 Unknown [id number] 2.16.840.1.886386.3.579.2. 1242 1956 Unknown [id number] 2.16.840.1.042817.3.579.2. 1242 1956 Unknown [id number] 2.16.840.1.133769.3.579.2. 1242 1956 Unknown [id number] 2.16.840.1.256707.3.579.2. 1242 1956 Unknown [id number] 2.16.840.1.016704.3.579.2. 1242 1956 Unknown [id number] 2.16.840.1.656003.3.579.2. 1242 1956 Unknown [id number] 2.16.840.1.391279.3.579.2. 1242 1956 Unknown [id number] 2.16.840.1.296267.3.579.2. 1242 1956 Unknown [id number] 2.16.840.1.507460.3.579.2. 3 1956 Unknown [id number] 2.16.840.1.417715.3.579.2. 1242 1956 Unknown [id number] 2.16.840.1.132520.3.579.2. 1242 1956 Unknown [id number] 2.16.840.1.490600.3.579.2. 1242 1956 Unknown [id number] 2.16.840.1.368437.3.579.2. 1242 1956 Unknown [id number] 2.16.840.1.924398.3.579.2. 1242 1956 Unknown [id number] 2.16.840.1.257280.3.579.2. 1243 1956 Unknown [id number] 2.16.840.1.611010.3.579.2. 1243 1956 Unknown [id number] 2.16.840.1.562716.3.579.2. 1243 1956 Unknown [id number] 2.16.840.1.109735.3.579.2. 1243 Social History Date Type Detail Facility Start: 07-25-2020 End: 10-16-2020 Tobacco smoking status NHIS Never smoker [facility] Start: 07-25-2020 End: 04-04-2023 Tobacco use and exposure Never used [facility] Start: 1955 Sex Assigned At Not on file [facility] Start: 01-11-2023 End: 04-04-2023 Exposure to SARS-CoV-2 (event) Not sure [facility] Start: 01-21-2023 End: 04-04-2023 Current every day smoker Current every day smoker -Pulmonary Medicine-[place] [address] DO Work Phone: Tobacco smoking consumption unknown [facility] Start: 01-21-2023 End: 04-04-2023 Tobacco smoking status NHIS Smokes tobacco daily [facility] History of tobacco use Cigarette Smoker [facility] Work Phone: Start: 01-21-2023 End: 04-04-2023 Tobacco use panel [facility] Work Phone: Start: 01-21-2023 Tobacco Comment Patient declin ed cessation information [facility] Work Phone: Start: 1955 [facility] Start: 01-11-2023 Gender identity Identifies as female gender (finding) [facility] Work Phone: Start: 01-11-2023 Sexual orientation Heterosexual (fin ding) [facility] Work Phone: Start: 02-06-2023 End: 04-04-2023 Alcohol intake Current drinker of alcohol (finding) [facility] Work Phone: Start: 02-06-2023 Alcohol Comment very occasionaly [facility] Work Phone: NEGATED: Highlighted row - - -[place] [address] [place] Work Phone: Functional Status Date Assessment Result Facility Functional observable [facility] NEGATED: Highlighted row Functional performance Functional status health issues are not documented Disease -Pulmonary [place] [address] DO Work Phone: Mental Status Date Assessment Result Facility 03-31-2022 Cognitive functi ons [id number] [facility] NEGATED: Highlighted row Cognitive function [Interpretation] Cognitive status health issues are not documented Disease [facility] [place] [address] DO Work Phone: Clinical Notes 07-25-2020 to [...] home by daughterLolita Date: 04/04/23 OR Location: [facility] OR Name: Suly Alanis : 1955 [...] Blu Velázquez MD documented in this encounter [facility] Work Phone: 04-04-2023 Note Formatting of this n ote might be different from the original. Ambulated to discharge exit; steady gait; driven home by Lolita lubin [facility] Work Phone: 04-04-2023 Note Formatting of this n ote might be different from the original. Ambulated to discharge exit; steady gait; driven home by Lolita lubin [facility] Work Phone: 04-04-2023 History and physical note [...] Diagnosis Date COPD (chronic obstructive pulmonary disease) ([facility]) Hypertension Personal history of nicotine dependence 05/08/2021 [...] document was dictated and electronically signed using Remedify software. A reasonable attempt at proof reading was made to minimize errors. Please call with any questions. Blu Velázquez MD [facility] Work Phone: 04-04-2023 History and physical note [...] Diagnosis Date COPD (chronic obstructive pulmonary disease) ([facility]) Hypertension Personal history of nicotine dependence 05/08/2021 [...] document was dictated and electronically signed using Remedify software. A reasonable attempt at proof reading was made to minimize errors. Please call with any questions. Blu Velázquez MD documented in this encounter [facility] Work Phone: 04-04-2023 Note Formatting of this n ote is different from the original. Date: 04/04/23 OR Location: [facility] OR Name: Suly Alanis : 1955 [...] Condition: stable Additional Details: Blu Velázquez MD [facility] Work Phone: 04-04-2023 Note Formatting of this n ote is different from the original. Date: 04/04/23 OR Location: [facility] OR Name: Suly Alanis : 1955 [...] Condition: stable Additional Details: Blu Velázquez MD [facility] Work Phone: 02-06-2023 History of Present illness [...] COMPARISON: Cervical spine MRI 04/16/2011. ACCESSION NUMBER(S): [id number] ORDERING CLINICIAN: RENITA HUBER TECHNIQUE: Multiplanar multisequence [...] COMPARISON: Lumbar spine radiograph 07/25/2019. ACCESSION NUMBER(S): [id number] ORDERING CLINICIAN: RENITA HUBER TECHNIQUE: Multiplanar multisequence [...] of bilateral subarticular recesses. There is mild ahjl-iexxyvm-fxgi-right foraminal stenosis. L3-4: Disc bulge with facet hypertrophy and infolding of ligamentum flavum. Mild narrowing of the spinal canal and bilateral foramina, quhc-ktrfakh-kyrr-right. L4-5: 4.5 mm grade 1 anterolisthesis with superimposed disc bulge, facet hypertrophy, and infolding of ligamentum flavum. Moderate narrowing of the spinal canal and crowding of the lncb-wnaizak-rxfz-right subarticular recesses. There is moderate bilateral foraminal stenosis, dypk-vjcgmdn-wddx-right. L5-S1: Facet hypertrophy without canal or foraminal stenosis. LIMITED EVALUATION OF UPPER SACRUM AND SACROILIAC JOINTS: Mild degenerative changes of the sacroiliac joints. IMPRESSION: Multilevel degenerative changes of the lumbar spine most prominent at L4-5 where there is 4.5 mm grade 1 anterolisthesis with superimposed degenerative disease results in moderate narrowing of the spinal canal and moderate narrowing of the ozze-mgftksq-ornx-right foramina. Signed by: Berny Guardado 01/29/2023 9:23 AM Dictation workstation: [id number] Assessment/Plan Diagnoses and all orders for this [...] discussed. OARRS reviewed. documented in this encounter [facility] Work Phone: 02-06-2023 Instructions Mita Lagunas RN - 02/06/2023 1:15 PM EST Injection education given to patient in writing and verbally. Patient verbalized understanding and denied questions. documented in this encounter [facility] Work Phone: 01-21-2023 History of Present illness [...] discussion of options. documented in this encounter [facility] Work Phone: 11-27-2022 Note Patient Name: Suly Alanis Procedure Date: 11/27/2022 2:45 PM Date of : 1955 Admit Type: Outpatient Site: [facility] Endo Proc RM 1 Ethnicity: Not or Race: White Attending MD: Gerson Askew DO, [id number] Procedure: Colonoscopy Indications: Screening for colorectal malignant [...] of : 1955 Admit Type: Outpatient Site: [facility] 1 Ethnicity: Not or Race: White Attending MD: Gerson Askew DO, [id number] Procedure: Upper GI endoscopy Indications: Abnormal CT [...] areas that she rates a 5/10. -[facility] Work Phone: 03-31-2022 Note Send Summary: Discharge Summary Providers: Provider RoleProvider Name Collin Aldrich Note Recipients: Nadiya Guillen MD Discharge: Summary: Admission Date: .28-Mar-2022 16:40:00 Discharge Date: 31-Mar-2022 Attending Physician at Discharge: Glen Siddiqi Admission Reason: worsening SOB and Cough(1) Final Discharge Diagnoses: Shortness of breath at rest Procedures: none Condition at Discharge: Satisfactory Disposition at Discharge: .Home Vital Signs: T PRBPMAPSpO2 Value36.59121288/8198% Date/Time03/31 12:101 13: 13:301 12: 13:30 Range(36.6C - 37.2C ) (70 - 111 ) (11 - 22 ) (152 - 162 )/ (81 - 98 ) (92% - 100% ) As of 31-Mar-2022 08:30:00, patient is on 1 L/min of oxygen via room air. Highest temp of 37.2 C was recorded at 03/30 8:20 Date: Weight/Scale Type:Height: 28-Mar-2022 17:3167 kg / .4 cm Physical Exam: Constitutional: Appears stated age. In NAD. HEENT: NC/AT, EOMI, clear sclera, moist mucous membranes CV: RRR, No M/R/G PULM: Mild end-expiratory wheezing. On 1 L O2 NEURO: A&O x 4, nonfocal neurological exam. PSYCH: Normal Mood & Behavior Hospital Course: SULY ALANIS is a 67 year old Female with unremarkable PMhx except for COPD and a hx of smoking (1ppd [id number]) who presented to the ED with complaints of SOB and cough of 3 days duration. 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 [...] in the note. (more content not included)... [facility] 03-28-2022 Note History of Present I llness: Admission Reason: worsening SOB and Cough HPI: SULY ALANIS is a 67 year old Female with unremarkable PMhx except for COPD and a hx of smoking (1ppd [id number]) who presented to the ED with complaints of SOB and cough of 3 days duration. 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 [...] with her daughter. She has about a 01-rfkh-snmu smoking history and is currently smoking nearly a pack per day. 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 Family history-the patient's mother at age 87 [...] Hours 8. Melato (more content not included)... [facility] 03-28-2022 Note Send Summary: Discharge Summary Providers: Provider RoleProvider Name AttendingAl Nadiya Archer Note Recipients: Collin Sommers APRN-TOOL BUILDER - [id number] [] Discharge: Summary: Admission Date: .27-Mar-2022 17:05:00 Discharge Date: 28-Mar-2022 Attending Physician at Discharge: Dr. Anthony Salazar Admission Reason: Shortness of breath Final Discharge Diagnoses: Acute exacerbation of chronic obstructive pulmonary disease, Acute on chronic respiratory failure with hypoxemia Procedures: 1. CTA of the chest 03/27/2022 Condition at Discharge: Good Disposition at Discharge: Hospital at home Vital Signs: T PRBPMAPSpO2 Value36.60612108/7187362% Date/Time03/28 7: 7: 7: 7: 7: 7:25 Range(36.3C - 36.8C ) (87 - 111 ) (18 - 22 ) (149 - 170 )/ (84 - 96 ) (103 - 103 ) (88% - 95% ) As of 28-Mar-2022 08:00:00, patient is on 2 L/min of oxygen via nasal cannula. Date: Weight/Scale Type:Height: 28-Mar-2022 03:0668.4 kg / pga068.4 cm Physical Exam: See today's progress note [...] back her oxygen. She came back to [place] and has not been able to get [...] Discharge Medications: See MAR Electronic Signatures: Mango Salazar (DO) (Signed 28-Mar-2022 13:28) Authored: Send Summary, Summary Content, Ongoing Care, Note Completion Last Updated: 28-Mar-2022 13:28 by Mango Salazar (DO) [facility] 03-28-2022 Note History of Present I llness: [...] Seizures, Syncope Objective: Objective Information: T PRBPMAPSpO2 Value36.31729925/9088% Date/Time03/27 17: 21: 21: 21: 22:13 Range(36.8C [...] Lovenox Electronic Signat (more content not included)... [facility] 02-28-2022 History of Present illness Narrative 67-year-old female referred by family doctor for abnormal CT chest abdomen chest was performed in February 2022 for possible PE showed circumferential thickening distal esophagus he has no reflux symptoms is on chronic PPI meds denies any dysphagia or melena. Is due for surveillance colonoscopy. [facility] [address] Work Phone: 02-28-2022 History of Present illness Narrative 67-year-old female referred by family doctor for abnormal CT chest abdomen chest was performed in February 2022 for possible PE showed circumferential thickening distal esophagus he has no reflux symptoms is on chronic PPI meds denies any dysphagia or melena. Is due for surveillance colonoscopy. [facility] Work Phone: 02-28-2022 History of Present illness Narrative 67-year-old female referred by family doctor for abnormal CT chest abdomen chest was performed in February 2022 for possible PE showed circumferential thickening distal esophagus he has no reflux symptoms is on chronic PPI meds denies any dysphagia or melena. Is due for surveillance colonoscopy. [facility] Work Phone: 02-15-2022 Note PROCEDURE DETAILS Preoperative Diagnosis: Sacroiliitis, M46.1 Sacrococcygeal disorders, not elsewhere classified, M53.3 Postoperative Diagnosis: Sacroiliitis, M46.1 Sacrococcygeal disorders, not elsewhere classified, M53.3 Surgeon: Andrew Arriaza Resident/Fellow/Other Lining Vamper: None of these were associated with this [...] Last Updated: 15-Feb-2022 21:10 by Andrew Arriaza) [facility] 10-24-2021 History of Present illness Narrative On [...] well and she was very happy. MP-[facility] Work Phone: 08-23-2021 History of Present [...] that she is doing very well. -[facility] Work Phone: 07-05-2021 History of Present [...] living. Affects her ability to comfortable. [facility] Work [facility]: 06-03-2021 History of Present [...] daytime with 1 flight of stairs. -Pulmonary Medicine-[place] [employer] Work Phone: 06-03-2021 History of Present illness [...] daytime with 1 flight of stairs. -[facility] [employer] Work Phone: 05-03-2021 History of Present illness [...] times daily or the nebulized albuterol. [place] [address] [place] Work Phone: 05-02-2021 History of Present [...] 4 times daily or the nebulized albuterol. [facility] DO Work Phone: 05-01-2021 History of Present [...] times daily or the nebulized albuterol. -Pulmonary Medicine-[place] [address] DO Work Phone: 01-30-2021 History of Present [...] breath walking greater than 100 feet. -[facility] Medicine-[place] DO Work Phone: 12-27-2020 History of Present [...] seriously affect her health was 40 minutes. [facility] [address] DO Work Phone: 12-26-2020 History of Present [...] seriously affect her health was 40 minutes. [facility] [place] DO Work Phone: 10-16-2020 History of Present illness Narrative [facility] [address] (11) [facility] [address] [facility] [address] Sluy Alanis is a 65 y.o. female being [...] Ashley Cuevas MD documented in this encounter [facility] 09-21-2020 History of Present illness Narrative [facility] OUTPATIENT REHABILITATION DAILY TREATMENT NOTE Today's Date [...] Treatments: Physical Therapy Exercise Log - 09/21/20 4188 OTHER Notes visit 6: 13:00-13:20 Therapeutic Exercise (31861) Intervention HS, Piriformis stretch - 15 sec x3 bilat Parameters SKTC 5x20 bilat. Intervention PPT w/ glute sets 10x5 Parameters abd marching x20 alt NT Intervention supine sciatic nerve glides x10 bilat. NT Parameters LA roll on RTB 10x3 NT Intervention ball squeeze and RTB abd x15 each Parameters Bridges - x10 NT Intervention SLR - x10 Manual Therapy (40683) Intervention STM w/ tennis ball to bilat. [...] possible MRI. Patti Flores PTA STATE LICENSE, [id number] documented in this encounter [facility] 09-11-2020 History of Present illness Narrative [facility] OUTPATIENT REHABILITATION DAILY TREATMENT NOTE Today's Date [...] Visit 4: 1:00 - 133 Therapeutic Exercise (36123) Intervention HS, Piriformis stretch - 15 sec x3 bilat Parameters SKTC 5x20 bilat. Intervention PPT w/ glute sets 10x5 Parameters abd marching x20 alt Intervention supine sciatic nerve glides x10 bilat. Parameters LA roll on RTB 10x3 Intervention ball squeeze and RTB abd x15 each Parameters Bridges - x10 Intervention SLR - x10 Manual Therapy (09839) Intervention STM w/ tennis ball to bilat. [...] pain control Patti Flores PTA STATE LICENSE, [id number] documented in this encounter [facility] 09-07-2020 History of Present illness Narrative [facility] OUTPATIENT REHABILITATION DAILY TREATMENT NOTE Today's Date [...] Visit 3: 1:00 - 133 Therapeutic Exercise (20350) Intervention HS, Piriformis stretch - 15 sec x3 bilat Parameters SKTC 5x20 bilat. Intervention PPT w/ glute sets 10x5 Parameters abd marching x20 alt Intervention supine sciatic nerve glides x10 bilat. Parameters LA roll on RTB 10x3 Intervention ball squeeze and RTB abd x15 each Parameters Bridges - x10 Intervention SLR - x10 Manual Therapy (83488) Intervention STM w/ tennis ball to bilat. [...] and mobility. Bessy Zamarripa PTA STATE LICENSE, [id number] documented in this encounter [facility] 08-31-2020 History of Present illness Narrative [facility] OUTPATIENT REHABILITATION DAILY TREATMENT NOTE Today's Date [...] Visit 3: 1:00 - 1:35 Therapeutic Exercise (58611) Intervention HS, Piriformis stretch - 15 sec x3 bilat Parameters SKTC 5x20 bilat. Intervention PPT w/ glute sets 10x5 Parameters abd marching x20 alt Intervention supine sciatic nerve glides x10 bilat. Parameters LA roll on RTB 10x3 Intervention ball squeeze and RTB abd x15 each Parameters Bridges - x10 Intervention SLR - x10 Manual Therapy (02171) Intervention STM w/ tennis ball to bilat. [...] stability Victor Manuel Pierre PTA STATE LICENSE, [id number] documented in this encounter [facility] 08-24-2020 History of Present illness Narrative [facility] OUTPATIENT REHABILITATION DAILY TREATMENT NOTE Today's Date [...] Visit 2: 2:31 - 3:04 Therapeutic Exercise (02546) Parameters SKTC 5x15 bilat. Intervention PPT w/ glute sets 10x5 Parameters abd marching x20 alt Intervention supine sciatic nerve glides x10 bilat. Parameters LA roll on RTB 10x3 Intervention add ball squeeze and RTB abd x15 each Manual Therapy (28878) Intervention STM w/ tennis ball to bilat. [...] increasing flexibility Rey Zee PT State License, [id number] documented in this encounter [facility] 08-08-2020 History of Present illness Narrative [facility] [address] (11) [facility] [address] [facility] [address] Suly Alanis is a 65 y.o. female [...] Ashley Cuevas MD documented in this encounter [facility] 07-25-2020 History of Present illness Narrative [facility] [address] (11) [facility] [address] [facility] [address] Suly Alanis is a 65 y.o. [...] has taken tramadol and has been using bryo-xmk-ikbaidf icy hot patches with limited response she [...] Ashley Cuevas MD documented in this encounter [facility] Chief complaint Narrative - Reported C/O Productive cough x 2 weeks.Pt states she has not received COVID-19 vaccination.SULY ALANIS is here for a follow-up visit.Reason for Visit: COPD.Appointment requested by: Consuelo Sommers. -Pulmonary Medicine-[place] [address] DO Work Phone: [facility] Diagnosis Spondylolisthesis of lumbar region- Primary [facility] Spondylolisthesis of lumbar region- Primary [facility] Diagnosis Spondylolisthesis of lumbar region- Primary [facility] Diagnosis Spondylolisthesis of lumbar region- Primary [facility] Diagnosis Spondylolisthesis of lumbar region- Primary [facility] Diagnosis Spondylolisthesis of lumbar region- Primary [facility] Diagnosis Spondylolisthesis of lumbar region- Primary [facility] Diagnosis Spondylolisthesis of lumbar region- Primary [facility] Spondylolisthesis of lumbar region [facility] Diagnosis Spondylolisthesis of lumbar region [facility] Diagnosis Spondylolisthesis of lumbar region- Primary Back pain, unspecified back location, unspecified back pain laterality, unspecified chronicity [facility] Spondylolisthesis of lumbar region- Primary [facility] Psychological: Pleasant affectNeurological: Nonfocal; cranial nerves [...] no apparent distress and mild [facility] distress [facility] Diagnosis Neurogenic claudication due to lumbar spinal stenosis- Primary Spinal stenosis of lumbar region Arthritis of facet joint of lumbar spine Lumbar foraminal stenosis Disc degeneration, lumbar Degeneration of lumbar or lumbosacral intervertebral disc Lumbar radiculopathy, chronic Cervical neuritis Brachial neuritis or radiculitis nos S/P spinal fusion Arthrodesis status Spondylolisthesis, acquired Acquired spondylolisthesis documented in this encounter [facility] Work Phone: Evaluation note* Diagnosis Neurogenic claudication due to lumbar spinal stenosis Spinal stenosis of lumbar region Arthritis of facet joint of lumbar spine Lumbar foraminal stenosis Disc degeneration, lumbar Degeneration of lumbar or lumbosacral intervertebral disc Lumbar radiculopathy, chronic Spondylolisthesis, acquired Acquired spondylolisthesis documented in this encounter [facility] Work Phone: Evaluation note* Diagnosis Cervical neuritis Brachial neuritis or radiculitis nos S/P spinal fusion Arthrodesis status documented in this encounter [facility] Work Phone: Evaluation note* Diagnosis Cervical neuritis- [...] acquired Acquired spondylolisthesis documented in this encounter [facility] Work Phone: Evaluation note* Diagnosis Neurogenic claudication due to lumbar spinal stenosis Spinal stenosis of lumbar region Arthritis of facet joint of lumbar spine Lumbar foraminal stenosis Disc degeneration, lumbar Degeneration of lumbar or lumbosacral intervertebral disc Lumbar radiculopathy, chronic Spondylolisthesis, acquired Acquired spondylolisthesis documented in this encounter [facility] Work Phone: Evaluation note* Diagnosis Encounter for screening for malignant neoplasm of colon Abnormal findings on diagnostic imaging of other parts of digestive tract Unspecified chronic gastritis without bleeding Diverticulosis of large intestine without perforation or abscess without bleeding 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 [facility] History of Present illness [...] She isshort of breath with ADLs. -Pulmonary Medicine-[place] [facility] [place] DO Work Phone: History of Present illness [...] covered inhalers from her insurance which is [employer]. * Patient does have a mild cough with clear sputum production she has constant wheezing now that she has been off the Breztri for the past 2 weeks and chest tightness. She reports dyspnea with ADLs. -Pulmonary Medicine-[place] [facility] [place] DO Work Phone: History of Present illness [...] covered inhalers from her insurance which is [employer]. * Patient does have a mild cough with clear sputum production she has constant wheezing now that she has been off the Breztri for the past 2 weeks and chest tightness. She reports dyspnea with ADLs. [facility]-P[facility] Medicine-[address] Work Phone: History of Present illness [...] life and activities of daily living. [facility] Work Phone: History of Present illness [...] did not give her any relief. [facility] Work Phone: History of Present illness [...] range of motion/joint mobility and strength. [facility] Work Phone: History of Present illness NarrativePatient [...] in pain at end of treatment. [facility] Work Phone: History of Present illness NarrativePatient [...] dyn activity to decrease back pain. [facility] Work Phone: History of Present illness NarrativePatient tolerated treatment without increased pain. Patient needing verbal cues to use slow, controlled movements with ther-ex. Patient given HEP for aquatics and green Tband for ther-ex. Continue with low back ther-ex to reduce pain, improve sleep to decrease fall risk. [facility] Work Phone: History of Present illness NarrativePatient identity confirmed today with name/. suggested that the patient keep the lift in; modified ongoing HEP today; trialed needling to the lumbar and cerv areas-most reactive at the R mid cerv area. [facility] Work Phone: Hospital Discharge instructions* Additional Orders:Additional [...] & aeCOPDCall to Schedule in: 1 [facility] Name Dates Details Instructions not documented [facility]-Pulmonary Medicine-[place] [id number] DO Work Phone: Reason for referral (narrative)* Consultation (Routine) - Authorized Specialty Diagnoses / Procedures Referred By Arabella t Referred To Contact Physical Therapy Diagnoses Cervical neuritis Lumbar foraminal stenosis Neurogenic claudication due to lumbar spinal stenosis Cervical spinal stenosis S/P spinal fusion Renita Huber PA-C [address] [place] [address] Referral ID Status Reason Start Date Expiration Date Visits Requested Visits Authorized [id number] Authorized Specialty Services Required 02/06/2023 02/06/2024 1 1 [facility] Work Phone: Rebzow for referral (narrative)* Procedure (Routine) - Pending Review Specialty Diagnoses / Procedures Referred By Arabella gomez Referred To Contact Pain Medicine / Procedural Diagnoses Cervical radiculitis Procedures Epidural Steroid Injection Renita Huber PA-C [address] [place] [address] [address] Referral ID Status Reason Start Date Expiration Date Visits Requested Visits Authorized [id number] Pending Review Perform Procedure 04/01/2023 03/31/2024 1 1 [facility] Work Phone: reason for visit Narrative* Initial Evaluation . cervical neiritis; lumb radic. * Referred by: [facility] Work Phone: Reason for visit Narrative* Procedure (Routine) - Pending Review Specialty Diagnoses / Procedures [facility] Referred To Contact Pain Medicine / Procedural Diagnoses Cervical radiculitis Procedures Epidural Steroid Injection Renita Huber PA-C [address] [place] [address] [address] Referral ID Status Reason Start Date Expiration Date Visits Requested Visits Authorized [id number] Pending Review Perform Procedure 04/01/2023 03/31/2024 1 1 [facility] Work Phone: Summary Purpose Family History No [...] FoundDocuments on File Type Date 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 Advance Directives and Living Will Documents on File Type Date 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 Advance Directives and Living Will Documents on File Type Date 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 Advance Directives and Livin g Will 09/25/2020 11:30 AM Documents on File Type Date 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 Advance Directives and Livin g Will 09/28/2020 4:28 PM Documents on File Type Date 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 Advance Directives and Livin g Will 09/28/2020 4:28 PM Reason for Referral Status Reason Specialty Diagnoses / Procedures Referred By Contact Referred To Contact Authorized Specialty Services Required/[facility] Diagnoses Spondylolisthesi s of lumbar region Ashley Cuevas MD [address] [place] [address] Status Reason Specialty Diagnoses / Procedures Referred By Contact Referred To Contact New Request Radiology Diagnoses Spondylolisthesis of lumbar region Procedures MR Lumbar Spine Without Contrast Ashley Cuevas MD [address] [place] [address] Status Reason Specialty Diagnoses / Procedures Referre d By Contact Referred To Contact Closed Radiology Diagnoses Spondylolisthesis of lumbar region Procedures MR Lumbar Spine Without Contrast Ashley Cuevas MD [address] [place] [id number] Status Reason Specialty Diagnoses / Procedures Referred By Contact Referred To Contact Authorized Specialty Services Required/[facility] Diagnoses Spondylolisthesis of lumbar region Back pain, unspecified back location, unspecified back pain laterality, unspecified chronicity Ashley Cuevas MD [address] [place] [id number] Andrew Arriaza MD [address] [place] [phone] Specialty Diagnoses / Procedures Referred By Contac t Referred To Contact Radiology Diagnoses Cervical neuritis S/P spinal fusion Procedures MR cervical spine w and wo IV contrast Renita Huber PA-C [address] [place] [address] [address] Referral ID Status Reason Start Date Expiration Date Visits Requested Visits Authorized [id number] Pending Review Perform Procedure 3 01/21/2024 1 1 Specialty Diagnoses / Procedures Referred By Contac t Referred To Contact Radiology Diagnoses Neurogenic claudication due to lumbar spinal stenosis Arthritis of facet joint of lumbar spine Lumbar foraminal stenosis Disc degeneration, lumbar Lumbar radiculopathy, chronic Spondylolisthesis, acquired Procedures MR lumbar spine wo IV contrast Renita Huber PA-C [address] [place] [address] [address] Referral ID Status Reason Start Date Expiration Date Visits Requested Visits Authorized [id number] Pending Review Perform Procedure 3 01/21/2024 1 1 Referral ID Status Reason Start Date Expiration Date Visits Requested Visits Authorized [id number] Authorized Perform Procedure 3 01/21/2024 1 1 Referral ID Status Reason Start Date Expiration Date Visits Requested Visits Authorized [id number] Authorized Perform Procedure 3 01/21/2024 1 1 [...] ALTERNATES HEAT/COLD, TYLENOL DAILY, MRI DONE IN LAGRANGE, X-RAY DONE, SCORE- SITTING /10, STANDING 10/10 * BP 137/82, DEPRESSION -, BMI ED GIVEN * SULY ALANIS is here for a follow-up visit. * Reason for Visit: F/U Exacerb of COPD. * Appointment requested by: Consuelo Sommers. * SULY ALANIS is here for a follow-up visit. * Reason for Visit: Emphysema. * Appointment requested by: Consuelo Sommres. * SULY ALANIS is here for a [...] THAT SHE WOULD LIKE THEM SENT TO [facility]. SHE DOES NOT SEE A CHIROPRACTOR OR [...] DATE CREATED AUTHOR AUTHOR'S ORGANIZ ATION 10/23/2019 [facility] DATE CREATED AUTHOR AUTHOR'S ORGANIZ ATION 01/03/2021 [facility] DATE CREATED AUTHOR AUTHOR'S ORGANIZ ATION 12/31/2021 [facility] DATE CREATED AUTHOR AUTHOR'S ORGANIZ ATION [facility] DATE CREATED AUTHOR AUTHOR'S ORGANIZ ATION 04/09/2022 [facility] DATE CREATED AUTHOR AUTHOR'S ORGANIZ ATION 12/06/2022 [facility] DATE CREATED AUTHOR AUTHOR'S ORGANIZ ATION 12/20/2022 [facility] DATE CREATED AUTHOR AUTHOR'S ORGANIZ ATION 01/01/2023 [facility] DATE CREATED AUTHOR AUTHOR'S ORGANIZ ATION 02/01/2023 [facility] DATE CREATED AUTHOR AUTHOR'S ORGANIZ ATION 04/25/2023 [facility] Reason for Visit (unrecogniz ed section and content) Status Reason Specialty Diagnoses / Procedures Referred By Contact Referred To Contact Closed Orthopedic Surgery Diagnoses Back pain, unspecified back location, unspecified back pain laterality, unspecified chronicity Collin Sommers, TOOL BUILDER [address] [place] [address] Ashley Cuevas MD [address] [place] [address] Reason Comments Pain Follow-up Reason Comments Physical Therapy Status Reason Specialty Diagnoses / Procedures Referred By Contact Referred To Contact Authorized Specialty Services Required/[facility] Diagnoses Spondylolisthesi s of lumbar region Ashley Cuevas MD [address] [place] [address] [facility] [place] [address] [address] [place] [address] Status Reason Specialty Diagnoses / Procedures Referre d By Contact Referred To Contact Closed Radiology Diagnoses Spondylolisthesis of lumbar region Procedures MR Lumbar Spine Without Contrast Ashley Cuevas MD [address] [place] [address] Reason Onset Date Comments Medication Refill 01/02/2021 [...] contrast Renita Huber PA-C [address] [place] [id number] [address] [address] Referral ID Status Reason Start Date Expiration Date Visits Requested Visits Authorized [id number] Authorized Perform Procedure 3 01/21/2024 1 1 Specialty Diagnoses / Procedures Referred By Contac t Referred To Contact Radiology Diagnoses Cervical neuritis S/P spinal fusion Procedures MR cervical spine w and wo IV contrast Renita Huber PA-C [address] [place] [address] [address] Referral ID Status Reason Start Date Expiration Date Visits Requested Visits Authorized [id number] Authorized Perform Procedure 3 01/21/2024 1 1 [...] Care Teams (unrecognized sec tion and content) Case Loader Operator Relationship Specialty Start Date End Date Yocasta Matute MD [address] [facility] [address] [address] PCP - General 12/04/22 Case Loader Operator Relationship Specialty Start Date End Date Yocasta Matute MD [address] [facility] [address] [address] PCP - General 12/04/22 Case Loader Operator Relationship Specialty Start Date End Date Yocasta Matute MD [address] [facility] [address] [place] [address] PCP - General 12/04/22 Case Loader Operator Relationship Specialty Start Date End Date Yocasta Matute MD [address] [facility] [address] [address] PCP - General 12/04/22 Case Loader Operator Relationship Specialty Start Date End Date Yocasta Matute MD [address] [facility] [address] [address] PCP - General 12/04/22 Case Loader Operator Relationship Specialty Start Date End Date Yocasta Matute MD [address] [facility] [address] [address] PCP - General 11/27/22 12/03/22 Case Loader Operator Relationship Specialty Start Date End Date Yocasta Matute MD [address] [facility] [address] [address] PCP - General 12/04/22 Case Loader Operator Relationship Specialty Start Date End Date Yocasta Matute MD [address] [facility] [address] [address] PCP - General 12/04/22 Case Loader Operator Relationship Specialty Start Date End Date Yocasta Matute MD [address] [facility] [address] [address] PCP - General 12/04/22 <item><item><item><item> Privacy Markings [...] BE BASED ON THE PRIMARY CLINICAL RECORDS. [facility]. provides no warranty or guarantee of the accuracy or completeness of information in this document.
[2023-05-09 15:08] LABS: PROEL- A/G Ratio 1.3 (0.7-1.7); PROEL- Alpha-1 Globulin 0.3 g/dL (0.0-0.4); PROEL- Beta Globulin 1.2 g/dL (0.7-1.3); PROEL- Gamma Globulin 0.8 g/dL (0.4-1.8); PROEL- Globulin, Total 3.2 g/dL (2.2-3.9); PROEL- TOTAL PROTEIN 7.2 g/dL (6.0-8.5); PROEL-M-Spike Not Observed g/dL (Not Observed)
== END | disposition home or self-care (01) ==
PROVIDERS: PCP Family Medicine Geriatric Medicine; Visit Provider Family Medicine Geriatric Medicine
DX: I10 Essential (primary) hypertension (principal); J44.9 Chronic obstructive pulmonary disease, unspecified; E78.5 Hyperlipidemia, unspecified
CPT/HCPCS: 36415; 80053; 82607; 84165; 84443; 85025

== ENCOUNTER → 2023-05-15 | Outpatient (CLI) | payer MEDICARE, MEDICAID, SELFPAY ==
[2023-05-15 17:09] LABS: Basophil# 0.04 X10^3/uL; Basophil% 0.2 % (0-1); Eosinophil# 0.02 X10^3/uL; Eosinophils% 0.1 % (0-5); Hematocrit 43.7 % (37-47); Hemoglobin 13.9 g/dL (12.0-15.0); Lymphocyte % 11.5 % (19-41); Mean Corp Hgb Conc 31.8 g/dL (32-36); Mean Corpuscular Volume 97.5 fL (81-99); Mean Platelet Vol. 9.3 fl (6.2-12.0); Monocyte# 0.85 X10^3/uL; Monocyte% 4.7 % (0-10); NRBC Flagged by Analyzer 0 % (0-5); Neutrophil # 15.01 X10^3/uL (2.7-7.7); Neutrophil % 82.3 % (47-70); Platelet Count 413 K/mm3 (150-450); RBC Distribution Width CV 13.2 % (11.6-14.6); RBC Distribution Width SD 47.6 fl (35.1-43.9); Red Blood Count 4.48 M/mm3 (4.2-5.4); White Blood Count 18.2 K/mm3 (4.4-11.0)
[2023-05-15 17:19] LABS: Color, Urine Yellow (Yellow); Glucose, Dipstick Normal (Normal); Ketone-Dipstick 5 mg/dl (Negative); Leukocyte Esterase-Dipstick 25 /ul (Negative); Nitrite-Dipstick Negative (Negative); Occult Blood-Urine Negative /ul (Negative); Protein-Dipstick Negative (Negative); Urine Bilirubin Dipstick Negative (Negative); Urine Clarity Clear (Clear); Urine Urobilinogen Normal (Normal)
[2023-05-15 17:27] LABS: Anion Gap 4 (5-15); BUN 32 mg/dL (7-18); BUN/Creat Ratio 21.3 RATIO (10-20); Calcium,Total 9.2 mg/dL (8.5-10.1); Chloride 105 mmol/L (98-107); EST Glomerular Filtration Rate 37 mL/min (>60); Est Glom Filt Rate - Afr Amer 45 mL/min (>60); Glucose 120 mg/dL (74-106); Sodium Level 137 mmol/L (136-145)
== END | disposition home or self-care (01) ==
LOC: POLAB3 16:04
PROVIDERS: PCP Family Medicine Geriatric Medicine; Visit Provider Family Medicine Geriatric Medicine
DX: E78.5 Hyperlipidemia, unspecified (principal); I10 Essential (primary) hypertension; R11.0 Nausea; R51.9 Headache, unspecified
CPT/HCPCS: 36415; 80048; 81002; 85025

== ENCOUNTER → 2023-05-23 | Outpatient (CLI) | payer MEDICARE, MEDICAID, SELFPAY ==
[2023-05-23 12:39] LABS: Absolute Lymphocyte Count 3.01 X10^3/uL (0.83-4.51); Absolute Neutrophil Count 4.6 X10^3/uL (2.0-7.7); Basophil# 0.04 X10^3/uL; Basophil% 0.5 % (0-1); Eosinophil# 0.18 X10^3/uL; Eosinophils% 2.1 % (0-5); Hematocrit 38.1 % (37-47); Hemoglobin 12.1 g/dL (12.0-15.0); Lymphocyte # 3.01 X10^3/ul (0.83-4.51); Lymphocyte % 35.1 % (19-41); Mean Corp Hgb Conc 31.8 g/dL (32-36); Mean Corpuscular Hgb 31.4 pg (27.0-32.0); Mean Platelet Vol. 9.8 fl (6.2-12.0); Monocyte# 0.74 X10^3/uL; Monocyte% 8.6 % (0-10); NRBC Flagged by Analyzer 0 % (0-5); Neutrophil # 4.56 X10^3/uL (2.7-7.7); Neutrophil % 53.2 % (47-70); Platelet Count 290 K/mm3 (150-450); RBC Distribution Width CV 12.8 % (11.6-14.6); RBC Distribution Width SD 46.5 fl (35.1-43.9); Red Blood Count 3.85 M/mm3 (4.2-5.4); White Blood Count 8.6 K/mm3 (4.4-11.0)
[2023-05-23 12:47] LABS: Vitamin D,25 Hydroxy 34.9 ng/mL
[2023-05-23 12:55] LABS: AST(SGOT) 15 U/L (15-37); Alanine Aminotransfer ALT/SGPT 18 U/L (13-56); Albumin, Serum 3.4 g/dL (3.2-5.0); Alkaline Phosphatase 77 U/L (45-117); Anion Gap 7 (5-15); BUN 18 mg/dL (7-18); BUN/Creat Ratio 13.8 RATIO (10-20); Calcium,Total 9.2 mg/dL (8.5-10.1); Chloride 104 mmol/L (98-107); Cholesterol 227 mg/dL (200); EST Glomerular Filtration Rate 43 mL/min (>60); Est Glom Filt Rate - Afr Amer 53 mL/min (>60); Globulin 3.5 g/dL (2.2-4.2); Glucose 114 mg/dL (74-106); High Density Lipoprotein 61 mg/dL; Potassium 4.8 mmol/L (3.5-5.1); Protein, Total 6.9 g/dL (6.4-8.2); Sodium Level 139 mmol/L (136-145); Thyroid Stim Hormone (TSH) 1.45 uIU/mL (0.358-3.74); Triglycerides 287 mg/dL; Very Low Density Lipoprotein 57 mg/dL (5-40)
[2023-05-23 14:07] LABS: Hemoglobin A1c 5.8 % (3.8-5.6)
== END | disposition home or self-care (01) ==
LOC: POLAB3 11:13
PROVIDERS: PCP Family Medicine Geriatric Medicine; Visit Provider Family Medicine Geriatric Medicine
DX: I10 Essential (primary) hypertension (principal); E78.5 Hyperlipidemia, unspecified; R73.9 Hyperglycemia, unspecified; E55.9 Vitamin D deficiency, unspecified
CPT/HCPCS: 36415; 80053; 80061; 82306; 83036; 84443; 85025

== ENCOUNTER → 2023-06-18 | Outpatient (CLI) | payer MEDICARE, MEDICAID, SELFPAY ==
--- NOTE | 2023-06-18 09:21 | NEURO ---
NCS and/or EMG Patient Report Ordering Doctor: Dilip Matute Chi DATE OF SERVICE: 06/18/23 Suly presents for electrodiagnostic testing of the lower limbs. She reports numbness and tingling in both legs. She has a history of plantars fasciitis. Electrodiagnostic findings peroneal motor nerve demonstrates normal distal latency. Normal peroneal motor amplitude with measuring at the tibialis anterior. Tibial motor responses within normal limits. There is an approximately 25% drop in left peroneal motor conduction velocity across the fibular head. Sensory responses are within normal limits. Tibial F?waves are normal HF reflex normal bilaterally. Needle EMG testing was performed in the lower limbs. All muscles tested showed no evidence of denervation with normal motor unit action potentials. Electrodiagnostic impression: This is an abnormal study in the lower limbs 1. 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 2. There is no electrodiagnostic evidence for peripheral polyneuropathy. May consider nerve biopsy for evaluation of small fiber neuropathy, if symptoms persist. 3. No electrodiagnostic evidence for lumbosacral radiculopathy. Multi Select Codes Neurology Neurology Interp Codes: 75548-44 Musc test done w/n test comp (interp) (2) and 20245-86 Nrv cndj test 11-12 studies (interp)
== END | disposition home or self-care (01) ==
LOC: PSN 06:47
PROVIDERS: PCP Family Medicine Geriatric Medicine; Referring Provider Family Medicine Geriatric Medicine; Visit Provider Family Medicine Geriatric Medicine
DX: G57.63 Lesion of plantar nerve, bilateral lower limbs (principal)
CPT/HCPCS: 95886; 95912

== ENCOUNTER → 2023-07-10 | Outpatient (CLI) | payer MEDICARE, MEDICAID, SELFPAY | END | disposition home or self-care (01) | LOC: PSN 12:48 | PROVIDERS: PCP Family Medicine Geriatric Medicine; Referring Provider Family Medicine Geriatric Medicine; Visit Provider Family Medicine Geriatric Medicine | DX: R68.83 Chills (without fever) (principal) | CPT/HCPCS: 87631 ==

== ENCOUNTER → 2023-07-29 | Outpatient (CLI) | payer MEDICARE, MEDICAID, SELFPAY ==
--- NOTE | 2023-07-29 13:50 | ART_ITS ---
Reason For Study: PVD Procedure A bilateral lower extremity continuous wave Doppler with analog waveform analysis,segmental pressures,and ankle brachial indexes without exercise. Left Segmental Pressures Left brachial= 131mmHg. Left posterior tibial artery = 157mmHg. Left dorsalis pedis artery = 147mmHg. Left digit = 130 mmHg. The left posterior tibial artery waveforms are triphasic. The left dorsalis pedis waveforms are triphasic. Right Segmental Pressures Right brachial= 139mmHg. Right posterior tibial artery = 166mmHg. Right dorsalis pedis artery = 140mmHg. Right digit = 133 mmHg. The right posterior tibial artery waveforms are triphasic. The right dorsalis pedis waveforms are triphasic. Indices The right ankle brachial index by the posterior tibial artery is 1.19. The right ankle brachial index by the dorsalis pedis is 1.01. The right digital-brachial index is 0.96. The left ankle brachial index by the posterior tibial artery is 1.13. The left ankle brachial index by the dorsalis pedis is 1.06. The left digital-brachial index is 0.94. VL/Lower Ext Art Exam w/o Exercis Interpretation Summary Triphasic Doppler waveforms are noted at ankle level bilaterally. Pulse-volume recordings appear satisfactory at all levels bilaterally. Resting ankle-brachial indices are norm al bilaterally. Digital-brachial indices are normal bilaterally. There is no evidence of significant arterial occlusive disease in the lower ext remities bilaterally. Ordering Physician: Saji Gee Referring Physician: Dilip Matute Chi Performed By: Raghav Estrada RVT
== END | disposition home or self-care (01) ==
LOC: CVS 13:49
PROVIDERS: PCP Family Medicine Geriatric Medicine; Referring Provider Podiatrist; Visit Provider Podiatrist
DX: I73.89 Other specified peripheral vascular diseases (principal)
CPT/HCPCS: 93923

== ENCOUNTER → 2023-08-26 | Outpatient (CLI) | payer MEDICARE, MEDICAID, SELFPAY ==
[2023-08-26 17:53] LABS: Absolute Lymphocyte Count 3.74 X10^3/uL (0.83-4.51); Absolute Neutrophil Count 5.2 X10^3/uL (2.0-7.7); Basophil# 0.09 X10^3/uL; Basophil% 0.9 % (0-1); Eosinophil# 0.29 X10^3/uL; Eosinophils% 2.8 % (0-5); Hematocrit 36.4 % (37-47); Hemoglobin 11.5 g/dL (12.0-15.0); Lymphocyte # 3.74 X10^3/ul (0.83-4.51); Lymphocyte % 36.5 % (19-41); Mean Corp Hgb Conc 31.6 g/dL (32-36); Mean Corpuscular Hgb 31.7 pg (27.0-32.0); Mean Corpuscular Volume 100.3 fL (81-99); Mean Platelet Vol. 10.4 fl (6.2-12.0); Monocyte# 0.86 X10^3/uL; Monocyte% 8.4 % (0-10); NRBC Flagged by Analyzer 0 % (0-5); Neutrophil # 5.24 X10^3/uL (2.7-7.7); Neutrophil % 51.1 % (47-70); Platelet Count 335 K/mm3 (150-450); RBC Distribution Width CV 12.8 % (11.6-14.6); RBC Distribution Width SD 47.7 fl (35.1-43.9); Red Blood Count 3.63 M/mm3 (4.2-5.4); White Blood Count 10.3 K/mm3 (4.4-11.0)
[2023-08-26 18:27] LABS: Vitamin D,25 Hydroxy 33.2 ng/mL
[2023-08-26 18:48] LABS: ALB/GLOB Ratio 0.9 RATIO (0.9-2.4); AST(SGOT) 20 U/L (15-37); Alanine Aminotransfer ALT/SGPT 19 U/L (13-56); Albumin, Serum 3.6 g/dL (3.2-5.0); Alkaline Phosphatase 82 U/L (45-117); Anion Gap 7 (5-15); BUN 20 mg/dL (7-18); BUN/Creat Ratio 17.9 RATIO (10-20); Chloride 109 mmol/L (98-107); Cholesterol 205 mg/dL (200); Creatinine, Serum 1.12 mg/dL (0.55-1.02); EST Glomerular Filtration Rate 52 mL/min (>60); Est Glom Filt Rate - Afr Amer 62 mL/min (>60); Globulin 3.8 g/dL (2.2-4.2); Glucose 111 mg/dL (74-106); High Density Lipoprotein 50 mg/dL; Potassium 4.6 mmol/L (3.5-5.1); Protein, Total 7.4 g/dL (6.4-8.2); Sodium Level 140 mmol/L (136-145); Thyroid Stim Hormone (TSH) 0.71 uIU/mL (0.358-3.74); Triglycerides 373 mg/dL; Very Low Density Lipoprotein 75 mg/dL (5-40)
== END | disposition home or self-care (01) ==
PROVIDERS: PCP Family Medicine Geriatric Medicine; Referring Provider Family Medicine Geriatric Medicine; Visit Provider Family Medicine Geriatric Medicine
DX: I10 Essential (primary) hypertension (principal); E55.9 Vitamin D deficiency, unspecified; E78.5 Hyperlipidemia, unspecified
CPT/HCPCS: 36415; 80053; 80061; 82306; 84443; 85025

== ENCOUNTER → 2023-09-15 | Outpatient (CLI) | payer MEDICARE, MEDICAID, SELFPAY ==
--- NOTE | 2023-09-15 16:05 | RAD_ITS ---
INDICATION: LOW BACK PAIN EXAMINATION/TECHNIQUE: X-RAY - XR Spine Lumbar Min 4 Views COMPARISON: No relevant prior comparison study available FINDINGS: VERTEBRAE: Preserved vertebral body height. No fracture. No spondylolisthesis. Preservation of the normal lumbar lordosis. S-shaped scoliosis of the thoracolumbar spine with dextroscoliosis of the thoracic spine and mild levoscoliosis of the upper lumbar spine. DISCS: Mild narrowing of L4-L5 disc space. Endplate spondylosis at multiple levels. INCLUDED ABDOMEN: Included bowel gas pattern is non-obstructive. Atherosclerotic calcifications of the abdominal aorta.. RAD/L/S Spine Min 4 Views IMPRESSION: 1. S-shaped scoliosis of the thoracolumbar spine. 2. Mild degenerative changes. Electronically Signed: Canelo Norwood MD at 10:16 EDT ,
== END | disposition home or self-care (01) ==
LOC: RAD 15:56
PROVIDERS: PCP Family Medicine Geriatric Medicine; Referring Provider Family Medicine Geriatric Medicine; Visit Provider Family Medicine Geriatric Medicine
DX: M54.50 Low back pain, unspecified (principal)
CPT/HCPCS: 72110

== ENCOUNTER → 2023-09-16 | Outpatient (CLI) | payer MEDICARE, MEDICAID, SELFPAY ==
--- NOTE | 2023-09-16 14:51 | CT_ITS ---
EXAM: CT CHEST, LUNG CANCER SCREENING WITHOUT INTRAVENOUS CONTRAST CLINICAL INDICATION: smoker TECHNIQUE: Helically acquired images were obtained of the chest without intravenous contrast using low dose (LDCT) lung cancer screening protocol. This CT exam was performed using one or more of the following dose reduction techniques: automated exposure control, adjustment of the mA and/or kV according to patient size, and/or use of iterative reconstruction technique. COMPARISON: 09/13/2022 FINDINGS: LUNGS AND PLEURAL SPACES: Left lower lobe pleural-based calcified granuloma measuring 2 to 3 mm is unchanged. Centrilobular emphysema. 7 mm right upper lobe subsolid groundglass pulmonary nodule (series 2 image 69) is unchanged compared to the prior examination. 6 mm right upper lobe subsolid groundglass nodule is unchanged compared to prior examination. (Series 2, image 149). There are no new pulmonary nodule since prior examination. No pleural effusion, pneumothorax, or focal airspace disease is otherwise identified. HEART: Coronary artery calcifications. Heart size is normal. No pericardial effusion. MEDIASTINUM: No significant abnormality. No mediastinal or hilar adenopathy. Esophagus is unremarkable. No hiatal hernia. THYROID: No significant abnormality. No thyroid lesions. BONES/JOINTS: Postoperative changes in the cervical spine and degenerative changes elsewhere in the spine. No suspicious lytic or blastic abnormality. VASCULATURE: Vascular calcifications. LYMPH NODES: No significant abnormality. No enlarged lymph nodes. CT/Low Dose CT Lung Screening IMPRESSION: Unchanged nodules. ACR Lung CT Screening Reporting And Data System (Lung-RADS) score: 2 - Benign Appearance or Behavior. Recommend continued annual screening with a low-dose CT (LDCT) in 12 months. Electronically Signed: Niall Salgado DO at 22:07 EDT ,
== END | disposition home or self-care (01) ==
LOC: CT 14:50
PROVIDERS: PCP Family Medicine Geriatric Medicine; Referring Provider Nurse Practitioner Acute Care; Visit Provider Nurse Practitioner Acute Care
DX: F17.210 Nicotine dependence, cigarettes, uncomplicated (principal)
CPT/HCPCS: 71271

== ENCOUNTER → 2023-12-19 | Outpatient (CLI) | payer MEDICARE, MEDICAID, SELFPAY ==
[2023-12-19 11:26] LABS: Absolute Lymphocyte Count 4.34 X10^3/uL (0.83-4.51); Absolute Neutrophil Count 6.3 X10^3/uL (2.0-7.7); Basophil# 0.08 X10^3/uL; Basophil% 0.7 % (0-1); Eosinophil# 0.14 X10^3/uL; Eosinophils% 1.2 % (0-5); Hematocrit 36.8 % (37-47); Hemoglobin 11.8 g/dL (12.0-15.0); Lymphocyte # 4.34 X10^3/ul (0.83-4.51); Lymphocyte % 36.7 % (19-41); Mean Corp Hgb Conc 32.1 g/dL (32-36); Mean Corpuscular Hgb 31.8 pg (27.0-32.0); Mean Corpuscular Volume 99.2 fL (81-99); Mean Platelet Vol. 9.4 fl (6.2-12.0); Monocyte# 0.87 X10^3/uL; Monocyte% 7.4 % (0-10); NRBC Flagged by Analyzer 0 % (0-5); Neutrophil # 6.33 X10^3/uL (2.7-7.7); Neutrophil % 53.5 % (47-70); Platelet Count 335 K/mm3 (150-450); RBC Distribution Width CV 13.5 % (11.6-14.6); RBC Distribution Width SD 49.1 fl (35.1-43.9); Red Blood Count 3.71 M/mm3 (4.2-5.4); White Blood Count 11.8 K/mm3 (4.4-11.0)
[2023-12-19 12:02] LABS: Vitamin D,25 Hydroxy 35.4 ng/mL
[2023-12-19 12:09] LABS: AST(SGOT) 19 U/L (15-37); Alanine Aminotransfer ALT/SGPT 19 U/L (13-56); Albumin, Serum 3.7 g/dL (3.2-5.0); Alkaline Phosphatase 70 U/L (45-117); Anion Gap 6 (5-15); BUN 23 mg/dL (7-18); BUN/Creat Ratio 19.5 RATIO (10-20); Calcium,Total 9.8 mg/dL (8.5-10.1); Chloride 109 mmol/L (98-107); Cholesterol 214 mg/dL (200); Creatinine, Serum 1.18 mg/dL (0.55-1.02); EST Glomerular Filtration Rate 48 mL/min (>60); Est Glom Filt Rate - Afr Amer 59 mL/min (>60); Globulin 3.7 g/dL (2.2-4.2); Glucose 99 mg/dL (74-106); High Density Lipoprotein 76 mg/dL; Potassium 4.3 mmol/L (3.5-5.1); Protein, Total 7.4 g/dL (6.4-8.2); Sodium Level 141 mmol/L (136-145); Triglycerides 199 mg/dL; Very Low Density Lipoprotein 40 mg/dL (5-40)
== END | disposition home or self-care (01) ==
LOC: POLAB3 09:30
PROVIDERS: PCP Family Medicine Geriatric Medicine; Visit Provider Family Medicine Geriatric Medicine
DX: I10 Essential (primary) hypertension (principal); E55.9 Vitamin D deficiency, unspecified; E78.5 Hyperlipidemia, unspecified
CPT/HCPCS: 36415; 80053; 80061; 82306; 84443; 85025

== ENCOUNTER → 2024-02-03 | Outpatient (CLI) | payer MEDICARE, MEDICAID, SELFPAY | END | disposition home or self-care (01) | LOC: PSN 09:25 | PROVIDERS: PCP Family Medicine Geriatric Medicine; Referring Provider Nurse Practitioner Acute Care; Visit Provider Nurse Practitioner Acute Care | DX: R50.9 Fever, unspecified (principal) | CPT/HCPCS: 87631 ==

== ENCOUNTER → 2024-03-04 | Outpatient (CLI) | payer MEDICARE, MEDICAID, SELFPAY | END | disposition home or self-care (01) | LOC: PSN 12:49 | PROVIDERS: PCP Family Medicine Geriatric Medicine; Referring Provider Nurse Practitioner Acute Care; Visit Provider Nurse Practitioner Acute Care | DX: J44.9 Chronic obstructive pulmonary disease, unspecified (principal) | CPT/HCPCS: 94060; 94726; 94729 ==

== ENCOUNTER → 2024-03-09 | Outpatient (CLI) | payer MEDICARE, MEDICAID, SELFPAY ==
[2024-03-09 13:00] VITALS: PULSE 100; PULSE 106; PULSE 115; PULSE 118; PULSE 121; PULSE 123; PULSE 124; PULSE 128; O2SAT 92; O2SAT 93; O2SAT 95
--- NOTE | 2024-03-15 12:22 | WT_ITS ---
PSN 6 Minute Walk Test 6 Minute Walk Test 6 Minute Walk Test: 6 Minute Walk Test PSN:6-Minute Walk Test Start: 03/09/24 13:18 Freq: Status: Active Protocol: [id number] Document 03/09/24 13:00 [facility] (Rec: 03/09/24 13:22 [facility] [id number]) 6 Minute Walk Test Date Performed 03/09/24 Time Performed 13:00 Height 5 ft Weight: 140 lb Weight in Pounds 140.[address]: Payton Assistive device used: None Pre-test Oxygen Delivery Method Room Air Pulse Ox (%) 93 Pulse Rate (60-100 beats/min) 100 Dyspnea Aggie Scale (0-10) 0 Exertion Aggie Scale (6-20) 6 1st minute Oxygen Delivery Method Room Air Pulse Ox (%) 92 Pulse Rate (60-100 beats/min) 115 H 2nd minute Oxygen Delivery Method Room Air Pulse Ox (%) 92 Pulse Rate (60-100 beats/min) 118 H 3rd minute Oxygen Delivery Method Room Air Pulse Ox (%) 93 Pulse Rate (60-100 beats/min) 121 H 4th minute Oxygen Delivery Method Room Air Pulse Ox (%) 93 Pulse Rate (60-100 beats/min) 123 H 5th minute Oxygen Delivery Method Room Air Pulse Ox (%) 93 Pulse Rate (60-100 beats/min) 124 H 6th minute Oxygen Delivery Method Room Air Pulse Ox (%) 93 Pulse Rate (60-100 beats/min) 128 H Dyspnea Aggie Scale (0-10) 0 Exertion Aggie Scale (6-20) 13 Post-test Oxygen Delivery Method Room Air Pulse Ox (%) 95 Pulse Rate (60-100 beats/min) 106 H Full Laps Walked 16 Partial Lap, Number of Tiles Walked 8 Total Distance Walked (ft) 952 Interpretation Interpretation: The patient ambulated 952 feet over the course of 6 minutes beginning on room air without assistive devices. Pretesting oxygen saturation was noted to be 93% on room air. With ambulation, the jeannette oxygen saturation was 92%. There was no significant exertional oxygen desaturation. Recommendations Recommendations: There is no indication for the use of supplemental oxygen at this time.
== END | disposition home or self-care (01) ==
PROVIDERS: PCP Family Medicine Geriatric Medicine; Referring Provider Nurse Practitioner Acute Care; Visit Provider Nurse Practitioner Acute Care
DX: J44.9 Chronic obstructive pulmonary disease, unspecified (principal)
CPT/HCPCS: 94618

== ENCOUNTER 2024-03-11 13:59 | Emergency (ER) | payer MEDICARE, MEDICAID, SELFPAY ==
[2024-03-11 13:59] VITALS: BP 169/85; PULSE 99; RESP 18; TEMP 36.1; O2SAT 99; BMI 27.2
--- NOTE | 2024-03-11 14:08 | EDS_ITS ---
HPI HPI - Female History of Present Illness Chief Complaint: Flank Pain [facility] Medical History (Reviewed 10/16/23 @ 10:36 by Nena Freedman CREATIVE SERVICES DIRECTOR, CREATIVE SERVICES DIRECTOR-C) Oral thrush Abnormality of lung on CXR Nicotine addiction Stage 3 severe COPD by GOLD classification COPD with exacerbation Chronic airway obstruction COPD (chronic obstructive pulmonary disease) Hypertension DM type 2 (diabetes mellitus, type 2) Mixed hyperlipidemia Iron deficiency anemia Home Medications ?Medication ?Instructions ?Recorded ?Last Taken ?Type lisinopril 20 mg tablet 20 mg PO DAILY 05/07/22 Unknown History Nebulizer machine #1 ea 05/08/22 Unknown Rx Supplies for nebulizer machine #3 ea 06/03/22 Unknown Rx albuterol sulfate 2.5 mg/3 mL 2.5 mg (3 mL) inhalation Q4H PRN 07/30/23 Unknown Rx (0.083 %) solution for nebulization shortness of breath or wheezing #360 mL albuterol sulfate 90 mcg/actuation 2 puff inhalation Q6H PRN 08/29/23 Unknown Rx aerosol inhaler (ProAir HFA) shortness of breath or wheezing #8.5 grams fluticasone fur. 200 mcg-umeclid 1 inh inhalation DAILY COPD, 10/01/23 Unknown Rx 62.5 mcg-vilant 25 mcg severe #90 ea inhalat.powder (Trelegy Ellipta) alpha lipoic acid 200 mg capsule 200 mg PO DAILY 10/16/23 Unknown History baclofen 10 mg tablet 10 mg PO QDAY 10/16/23 Unknown History cholecalciferol (vitamin D3) 25 25 mcg PO DAILY 10/16/23 Unknown History mcg (1,000 unit) capsule levocarnitine HCl (bulk) ea miscellaneous 10/16/23 Unknown History (Vzjxic-U-Zugaewdjs powder) mecobalamin (vitamin B12) 1,000 1,000 mcg sublingual DAILY 10/16/23 Unknown History mcg disintegrating tablet,sublingual omega 6-uug-wah-fish oil 300 1 cap PO DAILY 10/16/23 Unknown History mg-1,000 mg capsule (Fish Oil) vitamin B complex 1 tab PO DAILY 10/16/23 Unknown History clotrimazole 10 mg skyler 10 mg mucous membrane TID #90 tabs 11/03/23 Unknown Rx fluconazole 100 mg tablet 100 mg PO QDAY #7 tabs 02/17/24 Unknown Rx oxycodone 5 mg tablet 5 mg PO Q6H PRN pain 3 days #12 03/11/24 Unknown Rx tabs Allergy/AdvReac Type Severity Reaction Status Date / Time codeine Allergy hives Verified 03/11/24 13:59 ondansetron (From Zofran) AdvReac Mild HEADACHE Verified 03/11/24 13:59 Family History (Reviewed 10/16/23 @ 10:36 by Nena Freedman CREATIVE SERVICES DIRECTOR, CREATIVE SERVICES DIRECTOR-C) Mother Arthritis Skin cancer Father Brain cancer Surgical History (Reviewed 10/16/23 @ 10:36 by Nena Freedman CREATIVE SERVICES DIRECTOR, CREATIVE SERVICES DIRECTOR-C) Hx of tonsillectomy H/O cervical discectomy Social History Smoking Status: Current every day smoker tobacco type: cigarettes alcohol intake: current alcohol intake frequency: holidays/special occasions only EXAM Physical Exam Const Vital Signs: 03/11/24 13:59 03/11/24 15:59 Temperature 96.9 F L Temperature Source Temporal Pulse Rate 99 76 Respiratory Rate 18 15 Blood Pressure 169/85 H 135/65 H Blood Pressure Mean 113 88 Pulse Ox 99 98 Oxygen Delivery Method Room Air Room Air MDM MDM MDM Narrative Medical decision making narrative: HISTORY OF PRESENT ILLNESS: 69-year-old female presents with left-sided flank pain started last night. She notes is worse today. No back pain. No trouble urinating. REVIEW OF SYSTEMS: Pertinent positives: flank pain Pertinent negatives: Syncope, vomiting PHYSICAL EXAM: Nursing triage notes reviewed, Vital signs reviewed Constitutional: please see mdm HENT: MMM Eyes: Pupils equal round and reactive to light, Extraocular muscles intact Neck: No stridor, no JVD, full neck ROM Lungs: Clear to auscultation, No wheezing or rales. No increased work of breathing, no conversational dyspnea, no accessory muscle use, no nasal flaring. No respiratory distress noted Heart: Regular rate and rhythm, No murmurs, No rubs and No gallops, 2+ distal pulses (radial, femoral, posterior tibial) in all extremities Abdomen: Soft, there is no tenderness, rigidity, rebound or guarding, no obvious peritoneal signs, no palpable pulsatile abdominal masses, no auscultated abdominal bruit : No CVAT Extremities: No edema Neuro: No new focal neurological deficits, cranial nerves II through XII intact, 5/5 strength in all present extremities. Intact sensation to light touch in all present extremities, 2+ reflexes bilateral patella tendons. Skin: No rash or lesions noted MEDICAL DECISION MAKING: Chief Complaint: Flank pain External records reviewed: Factors affecting care: COPD, hypertension, type 2 diabetes Social determinants of health: none History obtained from others: none Consults: none MDM Narrative: Patient was initially hypertensive with blood pressure 169/85. Abdomen soft. I considered the following differential diagnosis: Nephrolithiasis, hydronephrosis, AAA ALL IMAGES (IF OBTAINED) HAVE BEEN PERSONALLY REVIEWED AND INTERPRETED BY MYSELF. CT scan on pelvis showed no acute abnormalities, no signs of AAA, kidney stone CBC without leukocytosis, severe anemia, no thrombocytopenia. BMP without evidence of significant electrolyte abnormalities, no anion gap, no acute kidney injury. Urinalysis shows no evidence of urinary inflammation suggestive of UTI The etiology of patient's complaint remains unclear potentially musculoskeletal etiology. Evalose patient for lesion of spine as patient had no bowel bladder incontinence, saddle anesthesia, fever, IV drug use history BP improved 135/65. The etiology of the patient's pain tommy unclear I suspect a musculoskeletal is laura given lack of CT or lab findings. Will send home on Tylenol, ibuprofen and a short course of narcotics for further pain control. The patient and/or family, caregivers express understanding. The patient and/or family, caregivers agrees with the plan. Shared decision making: I will have a discussion with the patient and or visitors regarding risk/benefits of further testing or admission. They will be made aware of of the risk/benefits inherent in this decision they will be given the opportunity to voice understanding. Total critical care time today provided was at least 0 minutes. This excludes separately billable procedures. Critical care time (if documented) is secondary to the patient having high probability of clinically significant/life threatening deterioration in the patient's condition which required my urgent intervention. Impression: 1. Acute Flank pain 2. History of hypertension Dispo: Discharge home This note was generated with Gen[employer]per[employer] dictation software. It may contain incorrect words, spelling, and punctuation that were not noted in review of the chart prior to signing. Lab Data Labs: Laboratory Results - last 24 hr 03/11/24 03/11/24 14:10 14:55 WBC 11.0 RBC 3.84 L Hgb 12.4 Hct 38.3 MCV 99.7 H MCH 32.3 H MCHC 32.4 RDW Std Deviation 43.6 RDW Coeff of Adriana 11.9 Plt Count 321 MPV 10.4 Immature Gran % (Auto) 0.500 Neut % (Auto) 59.6 Lymph % (Auto) 30.4 [place] % (Auto) 7.5 Eos % (Auto) 1.3 Baso % (Auto) 0.7 Absolute Neuts (auto) 6.6 Absolute Lymphs (auto) 3.34 Nucleated RBC % 0 Sodium 138 Potassium 3.8 Chloride 107 Carbon Dioxide 25.0 Anion Gap 7 BUN 17 Creatinine 0.91 Estim Creat Clear Calc 49.15 Est GFR (MDRD) Af Amer 79 Est GFR (MDRD) Non-Af 66 BUN/Creatinine Ratio 18.7 Glucose 94 Calcium 9.5 Urine Color Yellow Urine Clarity Clear Urine pH 6.0 Ur Specific [place] 1.005 Urine Protein Negative Urine Glucose (UA) Normal Urine Ketones Negative Urine Occult Blood Negative Urine Nitrite Negative Urine Bilirubin Negative Urine Urobilinogen Normal Ur Leukocyte Esterase Negative Urine RBC 0 SEEN Urine WBC 0 SEEN Ur Squamous Epith Cells 0 SEEN Urine Bacteria 0 SEEN Urine Mucus 0 SEEN Radiography Diagnostic Testing: Clinical Impression(s) from Imaging Studies Abdomen/Pelvis CT 03/11/24 14:35 IMPRESSION: No acute findings in the abdomen or pelvis. Electronically Signed: Ron Santiago MD at 16:05 EST Reading Location ID and State: [address] [place] [address] Tel , Service support , Discharge Plan Triage Chief Complaint: Flank Pain ED Provider: Rajendra Lu Dx/Rx/DC Orders Clinical Impression: Acute flank pain Instructions: ED Flank Pain, Uncertain Cause Prescriptions: New oxycodone 5 mg tablet 5 mg PO Q6H PRN (Reason: pain) 3 Days Qty: 12 0RF No Action lisinopril 20 mg tablet 20 mg PO DAILY (DME) Nebulizer machine See Rx Instructions .Route .MEDSUPPLY Qty: 1 0RF Rx Instructions: Use every 4-6 hours as needed (DME) Supplies for nebulizer machine See Rx Instructions .Route .MEDSUPPLY Qty: 3 3RF Rx Instructions: Tubing, plastic nebulizer cups, renewable every 90 days per insurance. Use every 4-6 hours with liquid respiratory medication as directed. vitamin B complex Tablet 1 tab PO DAILY mecobalamin (vitamin B12) 1,000 mcg tablet,disintegrating 1,000 mcg sublingual DAILY Rx Instructions: place tablet under tongue and allow to dissolve for at least30 secs before swallowing Acyhog-C-Fdrnvwkip Powder miscellaneous alpha lipoic acid 200 mg capsule 200 mg PO DAILY cholecalciferol (vitamin D3) 25 mcg (1,000 unit) capsule 25 mcg PO DAILY omega 0-kqo-srq-fish oil [Fish Oil] 300-1,000 mg capsule 1 cap PO DAILY baclofen 10 mg tablet 10 mg PO QDAY albuterol sulfate 2.5 mg /3 mL (0.083 %) solution for nebulization 2.5 mg inhalation Q4H MDD 6 PRN (Reason: shortness of breath or wheezing) Qty: 360 11RF albuterol sulfate [ProAir HFA] 90 mcg/actuation HFA aerosol inhaler 2 puff inhalation Q6H PRN (Reason: shortness of breath or wheezing) Qty: 8.5 6RF Trelegy Ellipta 200-62.5-25 mcg blister with device 1 inh inhalation DAILY MDD 1 daily Qty: 90 11RF clotrimazole 10 mg skyler 10 mg mucous membrane TID Qty: 90 6RF fluconazole 100 mg tablet 100 mg PO QDAY Qty: 7 0RF Primary Care Provider: Dilip Matute Chi Referrals: Dilip Matute Chi, MD [Primary Care Provider] - Activity Restrictions/Additional Instructions: Thank you for trusting us with your care today! Your CT scan was negative. Urine showed no infection. Kidney function was normal. Please take Tylenol (2 pills, 650 mg), ibuprofen (2 pills, 400 mg) every 6 hours as needed for pain and fever control. Please take oxycodone as needed for additional pain control. Please return to the emergency department if your symptoms change or worsen. Please follow with your primary care physician for further outpatient evaluation and management. Print Language: Luxembourgish Disposition Disposition: Home, Self Care Discharge Date/Time: 03/11/24 16:32
--- NOTE | 2024-03-11 14:35 | CT_ITS ---
INDICATION: Left flank pain EXAMINATION: CT ABDOMEN AND PELVIS WITHOUT CONTRAST - CT Abdomen And Pelvis W/O Contrast Injection TECHNIQUE: Helically acquired images were obtained of the abdomen and pelvis without oral or IV contrast. A radiation dose optimization technique was used for this scan. IV Contrast dosage and agent: None. Oral contrast: None. COMPARISON: None. FINDINGS: LOWER CHEST: Lung bases are clear. No cardiomegaly or pericardial effusion. LIVER: Homogeneous. No focal mass. GALLBLADDER AND BILIARY TREE: No calcified gallstones. No gallbladder distension or wall edema. No intra- or extrahepatic biliary ductal dilation. PANCREAS: No focal cystic or solid mass. SPLEEN: Normal size without focal cystic or solid mass. ADRENAL GLANDS: No nodules. KIDNEYS AND URETERS: Nonobstructing right renal calcification. Left lower pole cortical cyst. No hydronephrosis. PERITONEUM: No ascites or free air. BOWEL: Noninflamed appendix with retained GI contrast. No stomach or bowel distension. No focal inflammatory change. LYMPH NODES: No enlarged mesenteric or retroperitoneal lymph nodes. VESSELS: Aorta is non-dilated. URINARY BLADDER: Unremarkable. REPRODUCTIVE ORGANS: No pelvic masses. ABDOMINAL WALL: No discrete abdominal or pelvic wall hernia. BONES: No acute or aggressive abnormality. CT/Abdomen/Pelvis without Cont IMPRESSION: No acute findings in the abdomen or pelvis. Electronically Signed: Ron Santiago MD at 16:05 [facility] ,
[2024-03-11] MEDS: Ondansetron 4 MG/2 ML Vial IV (14:48)
[2024-03-11] MEDS: Morphine 4 MG/ML Syringe IV ×2 (14:49→15:54)
[2024-03-11] MEDS: Ketorolac 15 MG/ML Vial IV (14:49)
[2024-03-11 15:05] LABS: Bacteria 0 SEEN /hpf (None Seen); Mucous, Urine 0 SEEN /hpf (<or=2+); Red Blood Cells-Urine 0 SEEN /hpf (0-5); Squamous Epithelial Cells - UA 0 SEEN /hpf (5-10); White Blood Cells 0 SEEN /hpf (0-5)
[2024-03-11 15:18] LABS: Color, Urine Yellow (Yellow); Glucose, Dipstick Normal (Normal); Ketone-Dipstick Negative (Negative); Leukocyte Esterase-Dipstick Negative /ul (Negative); Nitrite-Dipstick Negative (Negative); Occult Blood-Urine Negative /ul (Negative); Protein-Dipstick Negative (Negative); Specific Gravity, Urine 1.005 (1.002-1.030); Urine Bilirubin Dipstick Negative (Negative); Urine Clarity Clear (Clear); Urine Urobilinogen Normal (Normal)
[2024-03-11 15:22] LABS: Absolute Lymphocyte Count 3.34 X10^3/uL (0.83-4.51); Absolute Neutrophil Count 6.6 X10^3/uL (2.0-7.7); Basophil# 0.08 X10^3/uL; Basophil% 0.7 % (0-1); Eosinophil# 0.14 X10^3/uL; Eosinophils% 1.3 % (0-5); Hematocrit 38.3 % (37-47); Hemoglobin 12.4 g/dL (12.0-15.0); Lymphocyte # 3.34 X10^3/ul (0.83-4.51); Lymphocyte % 30.4 % (19-41); Mean Corp Hgb Conc 32.4 g/dL (32-36); Mean Corpuscular Hgb 32.3 pg (27.0-32.0); Mean Corpuscular Volume 99.7 fL (81-99); Mean Platelet Vol. 10.4 fl (6.2-12.0); Monocyte# 0.82 X10^3/uL; Monocyte% 7.5 % (0-10); NRBC Flagged by Analyzer 0 % (0-5); Neutrophil # 6.57 X10^3/uL (2.7-7.7); Neutrophil % 59.6 % (47-70); Platelet Count 321 K/mm3 (150-450); RBC Distribution Width CV 11.9 % (11.6-14.6); RBC Distribution Width SD 43.6 fl (35.1-43.9); Red Blood Count 3.84 M/mm3 (4.2-5.4)
[2024-03-11 15:37] LABS: Anion Gap 7 (5-15); BUN 17 mg/dL (7-18); BUN/Creat Ratio 18.7 RATIO (10-20); Calcium,Total 9.5 mg/dL (8.5-10.1); Chloride 107 mmol/L (98-107); Creatinine, Serum 0.91 mg/dL (0.55-1.02); EST Glomerular Filtration Rate 66 mL/min (>60); Est Glom Filt Rate - Afr Amer 79 mL/min (>60); Estimated Creatinine Clearance 49.15 ml/min; Glucose 94 mg/dL (74-106); Potassium 3.8 mmol/L (3.5-5.1); Sodium Level 138 mmol/L (136-145)
[2024-03-11 15:59] VITALS: BP 135/65; PULSE 76; RESP 15; O2SAT 98
[2024-03-11 16:25] VITALS: BP 135/65; PULSE 80; RESP 15; TEMP 36.4; O2SAT 95
== END 2024-03-11 16:32 | disposition home or self-care (01) ==
PROVIDERS: Emergency Provider Emergency Medicine; PCP Family Medicine Geriatric Medicine; Visit Provider Emergency Medicine
DX: R10.9 Unspecified abdominal pain (principal); J44.9 Chronic obstructive pulmonary disease, unspecified; E11.9 Type 2 diabetes mellitus without complications; I10 Essential (primary) hypertension; D50.9 Iron deficiency anemia, unspecified; E78.2 Mixed hyperlipidemia; F17.210 Nicotine dependence, cigarettes, uncomplicated; Z79.899 Other long term (current) drug therapy
CPT/HCPCS: 74176; 80048; 81001; 85025; 96374; 96375; 96376; 99284; J2405

== ENCOUNTER 2024-03-25 17:08 | Emergency (ER) | payer MEDICARE, MEDICAID, SELFPAY ==
[2024-03-25 17:09] VITALS: BP 164/78
[2024-03-25 17:12] VITALS: PULSE 80; RESP 16; TEMP 36.8; O2SAT 94
--- NOTE | 2024-03-25 17:39 | EDS_ITS ---
HPI History of Present Illness Chief Complaint: Back Informant: patient and EMS Narrative Narrative: Patient woke up with more pain than usual in her left low back this morning and has been going down into her left thigh all day. Worse with movement and better with lying down and resting. No bowel or bladder dysfunction or numbness/tingling/weakness. No fevers or chills. No recent falls or injuries. She cannot think of any repetitive activities that she was doing within the last 2 days that could explain this. No history of back surgery. No abdominal pain. Prior similar symptoms: Yes and With Prior Back Pain [facility] Medical History Oral thrush Abnormality of lung on CXR Nicotine addiction Stage 3 severe COPD by GOLD classification COPD with exacerbation Chronic airway obstruction COPD (chronic obstructive pulmonary disease) Hypertension DM type 2 (diabetes mellitus, type 2) Mixed hyperlipidemia Iron deficiency anemia Home Medications ?Medication ?Instructions ?Recorded ?Last Taken ?Type lisinopril 20 mg tablet 20 mg PO DAILY 05/07/22 Unknown History Nebulizer machine #1 ea 05/08/22 Unknown Rx Supplies for nebulizer machine #3 ea 06/03/22 Unknown Rx albuterol sulfate 2.5 mg/3 mL 2.5 mg (3 mL) inhalation Q4H PRN 07/30/23 Unknown Rx (0.083 %) solution for nebulization shortness of breath or wheezing #360 mL albuterol sulfate 90 mcg/actuation 2 puff inhalation Q6H PRN 08/29/23 Unknown Rx aerosol inhaler (ProAir HFA) shortness of breath or wheezing #8.5 grams fluticasone fur. 200 mcg-umeclid 1 inh inhalation DAILY COPD, 10/01/23 Unknown Rx 62.5 mcg-vilant 25 mcg severe #90 ea inhalat.powder (Trelegy Ellipta) alpha lipoic acid 200 mg capsule 200 mg PO DAILY 10/16/23 Unknown History baclofen 10 mg tablet 10 mg PO QDAY 10/16/23 Unknown History cholecalciferol (vitamin D3) 25 25 mcg PO DAILY 10/16/23 Unknown History mcg (1,000 unit) capsule levocarnitine HCl (bulk) ea miscellaneous 10/16/23 Unknown History (Jxvdsr-J-Ieziqwyul powder) mecobalamin (vitamin B12) 1,000 1,000 mcg sublingual DAILY 10/16/23 Unknown History mcg disintegrating tablet,sublingual omega 2-svf-jpp-fish oil 300 1 cap PO DAILY 10/16/23 Unknown History mg-1,000 mg capsule (Fish Oil) vitamin B complex 1 tab PO DAILY 10/16/23 Unknown History clotrimazole 10 mg skyler 10 mg mucous membrane TID #90 tabs 11/03/23 Unknown Rx fluconazole 100 mg tablet 100 mg PO QDAY #7 tabs 02/17/24 Unknown Rx oxycodone 5 mg tablet 5 mg PO Q6H PRN pain 3 days #10 03/25/24 Unknown Rx tabs Allergy/AdvReac Type Severity Reaction Status Date / Time codeine Allergy hives Verified 03/25/24 17:11 Family History (Reviewed 10/16/23 @ 10:36 by Nena Freedman OUTSIDE MEDICAL SALES REPRESENTATIVE, OUTSIDE MEDICAL SALES REPRESENTATIVE-C) Mother Arthritis Skin cancer Father Brain cancer Surgical History (Reviewed 10/16/23 @ 10:36 by Nena Freedman OUTSIDE MEDICAL SALES REPRESENTATIVE, OUTSIDE MEDICAL SALES REPRESENTATIVE-C) Hx of tonsillectomy H/O cervical discectomy Social History Smoking Status: Current every day smoker tobacco type: cigarettes alcohol intake: current alcohol intake frequency: holidays/special occasions only ROS ROS ED Constitutional Constitutional ED: Denies chills or fever(s) Gastrointestinal Gastrointestinal: Denies abdominal pain, constipation, fecal incontinence, nausea or vomiting Genitourinary Genitourinary ED: Reports other Details: no urinary retention ; Denies abdominal discomfort or urinary incontinence Musculoskeletal Musculoskeletal: Reports as per HPI and back pain; Denies neck pain Integumentary Denies rash or wounds Neurologic Neurologic: Denies headache(s), paresthesias or weakness EXAM Physical Exam Const Vital Signs: 03/25/24 17:09 03/25/24 17:12 03/25/24 19:32 Temperature 98.2 F 98.2 F Temperature Source Temporal Pulse Rate 80 68 Respiratory Rate 16 16 Blood Pressure 164/78 H 137/59 H Blood Pressure Mean 106 85 Pulse Ox 94 97 Oxygen Delivery Method Room Air Positive well nourished and well developed General Appearance ED: well developed and NAD HEENT Negative for trauma or tenderness Eyes PERRL and EOMs intact bilaterally Neck full ROM and supple Resp normal respiratory effort GI normal to inspection, nondistended, normoactive bowel sounds, soft to palpation and non-tender Back/Spine normal to inspection Lumbar Spine / Lower Back: ROM limited, paraspinal muscle tenderness left (But not into sciatic notch) and straight leg raise negative bilaterally; Negative for lumbar spinal tenderness Extremity normal to inspection, full ROM and no pedal edema Neuro oriented x3 and no sensory deficits noted Sensorium / Orientation: alert Motor Exam: strength 5/5 throughout and clonus absent Deep Tendon Reflexes: Rt Patellar (L4): 2+, Lt Patellar (L4): 2+, Rt Ankle (S1): 2+ and Lt Ankle (S1): 2+ Deep Tendon Reflexes Back: Rt Patellar (L4): 2+, Lt Patellar (L4): 2+, Rt Ankle (S1): 2+ and Lt Ankle (S1): 2+ Plantar Reflex: Downgoing: bilateral Psych mental status grossly normal and thought process normal Skin no rashes or lesions noted and no wounds MDM MDM MDM Narrative Medical decision making narrative: Patient has no symptoms of cauda equina syndrome and she is not examining like a radiculopathy. She is tender to paraspinal musculature. This is suggestive of a strain. Given her age over 66 obtaining lumbar x-ray. 3 films on my interpretation of the lumbar spine negative for acute fracture, scoliosis noted, pt states that has been already known. She is feeling better after some injection and given a prescription for analgesics to use as needed at home, follow-up advised. Radiography Diagnostic Testing: Clinical Impression(s) from Imaging Studies Lumbar Spine X-Ray 03/25/24 18:15 IMPRESSION: Increased subluxation L4-5. Moderate scoliosis unchanged. Spondylosis and degenerative disc disease L1-2. Electronically Signed: Wilfredo Miramontes MD at 19:51 EST Reading Location ID and State: [facility] / [place] Tel , Service support , Discharge Plan Triage Chief Complaint: Back ED Provider: Jamal Corea Dx/Rx/DC Orders Clinical Impression: Acute exacerbation of chronic low back pain Instructions: ED Back Pain (Acute or Chronic) Prescriptions: Continued lisinopril 20 mg tablet 20 mg PO DAILY (DME) Nebulizer machine See Rx Instructions .Route .MEDSUPPLY Qty: 1 0RF Rx Instructions: Use every 4-6 hours as needed (DME) Supplies for nebulizer machine See Rx Instructions .Route .MEDSUPPLY Qty: 3 3RF Rx Instructions: Tubing, plastic nebulizer cups, renewable every 90 days per insurance. Use every 4-6 hours with liquid respiratory medication as directed. vitamin B complex Tablet 1 tab PO DAILY mecobalamin (vitamin B12) 1,000 mcg tablet,disintegrating 1,000 mcg sublingual DAILY Rx Instructions: place tablet under tongue and allow to dissolve for at least30 secs before swallowing Uwvjcd-E-Ncmmdsetz Powder miscellaneous alpha lipoic acid 200 mg capsule 200 mg PO DAILY cholecalciferol (vitamin D3) 25 mcg (1,000 unit) capsule 25 mcg PO DAILY omega 1-cdv-zkd-fish oil [Fish Oil] 300-1,000 mg capsule 1 cap PO DAILY baclofen 10 mg tablet 10 mg PO QDAY oxycodone 5 mg tablet 5 mg PO Q6H PRN (Reason: pain) 3 Days Qty: 10 0RF albuterol sulfate 2.5 mg /3 mL (0.083 %) solution for nebulization 2.5 mg inhalation Q4H MDD 6 PRN (Reason: shortness of breath or wheezing) Qty: 360 11RF albuterol sulfate [ProAir HFA] 90 mcg/actuation HFA aerosol inhaler 2 puff inhalation Q6H PRN (Reason: shortness of breath or wheezing) Qty: 8.5 6RF Trelegy Ellipta 200-62.5-25 mcg blister with device 1 inh inhalation DAILY MDD 1 daily Qty: 90 11RF No Action clotrimazole 10 mg skyler 10 mg mucous membrane TID Qty: 90 6RF fluconazole 100 mg tablet 100 mg PO QDAY Qty: 7 0RF Primary Care Provider: Dilip Matute Chi Referrals: Dilip Matute Chi, MD [Primary Care Provider] - 3-5 Days if not improving Print Language: Amharic Disposition Disposition: Home, Self Care Discharge Date/Time: 03/25/24 19:39
[2024-03-25] MEDS: Morphine 4 MG/ML Syringe IV (18:03)
[2024-03-25] MEDS: Ondansetron 4 MG/2 ML Vial IV (18:03)
[2024-03-25] MEDS: Ketorolac 15 MG/ML Vial 10 MG IV (18:03)
[2024-03-25] MEDS: Orphenadrine 60 MG/2 ML Ampul IV (18:08)
--- NOTE | 2024-03-25 18:15 | RAD_ITS ---
STUDY: X-RAY - LUMBAR SPINE REASON FOR EXAM: Female, 69 years old. pain TECHNIQUE: 3 view(s) of the lumbar spine were obtained. COMPARISON: September 15, 2023 FINDINGS: Normal lumbar lordosis. Moderate levoconvex scoliosis unchanged. Slight into subluxation L4-5 increased. Spondylosis L1-2. Disc space narrowing L1-2. The soft tissue structures are unremarkable. RAD/Lumbar Spine 2 or 3 Views IMPRESSION: Increased subluxation L4-5. Moderate scoliosis unchanged. Spondylosis and degenerative disc disease L1-2. Electronically Signed: Wilfredo Miramontes MD at 19:51 EST ,
[2024-03-25 19:32] VITALS: BP 137/59; PULSE 68; RESP 16; TEMP 36.8; O2SAT 97
== END 2024-03-25 19:39 | disposition home or self-care (01) ==
LOC: ED 17:50
PROVIDERS: Emergency Provider Emergency Medicine; PCP Family Medicine Geriatric Medicine; Visit Provider Emergency Medicine
DX: M54.50 Low back pain, unspecified (principal); J44.9 Chronic obstructive pulmonary disease, unspecified; E11.9 Type 2 diabetes mellitus without complications; Z79.4 Long term (current) use of insulin; G89.29 Other chronic pain; I10 Essential (primary) hypertension; E78.2 Mixed hyperlipidemia; Z79.899 Other long term (current) drug therapy; F17.210 Nicotine dependence, cigarettes, uncomplicated
CPT/HCPCS: 72100; 96374; 96375; 99285; A4216; J2405

== ENCOUNTER 2024-03-27 15:46 | Observation (INO) | payer MEDICARE, MEDICAID, SELFPAY ==
[2024-03-27] VITALS (8 sets, daily range): BP systolic 147–171; BP diastolic 65–86; PULSE 66–93; RESP 15–18; TEMP 36.6–37.1; O2SAT 95–99; BMI 27.6; BMI 26.5
--- NOTE | 2024-03-27 16:13 | ED.VIS.BACK ---
HPI <TONYA Luque - Last Filed: 03/27/24 21:57> History of Present Illness Chief Complaint: Back Narrative Narrative: Patient presenting today due to an exacerbation of her chronic low back pain. She reports that the pain is located to the left side of her lower back and radiates down the back of her left leg. Her symptoms started 2 days ago, she was seen here in the emergency department at that time and was sent home with oxycodone which she has been unable to tolerate because it makes her nauseous. She does follow with pain management for her chronic low back pain, she takes baclofen and gabapentin which have provided minimal relief. She denies bowel/bladder incontinence, saddle paresthesia, urinary retention, history of IV drug use, fevers, chills, and urinary symptoms. [facility] <TONYA Luque - Last Filed: 03/27/24 21:57> [facility] Medical History Oral thrush Abnormality of lung on CXR Nicotine addiction Stage 3 severe COPD by GOLD classification COPD with exacerbation Chronic airway obstruction COPD (chronic obstructive pulmonary disease) Hypertension DM type 2 (diabetes mellitus, type 2) Mixed hyperlipidemia Iron deficiency anemia Home Medications ?Medication ?Instructions ?Recorded ?Last Taken ?Type lisinopril 20 mg tablet 20 mg PO DAILY 05/07/22 Unknown History Nebulizer machine #1 ea 05/08/22 Unknown Rx Supplies for nebulizer machine #3 ea 06/03/22 Unknown Rx albuterol sulfate 2.5 mg/3 mL 2.5 mg (3 mL) inhalation Q4H PRN 07/30/23 Unknown Rx (0.083 %) solution for nebulization shortness of breath or wheezing #360 mL albuterol sulfate 90 mcg/actuation 2 puff inhalation Q6H PRN 08/29/23 Unknown Rx aerosol inhaler (ProAir HFA) shortness of breath or wheezing #8.5 grams fluticasone fur. 200 mcg-umeclid 1 inh inhalation DAILY COPD, 10/01/23 Unknown Rx 62.5 mcg-vilant 25 mcg severe #90 ea inhalat.powder (Trelegy Ellipta) alpha lipoic acid 200 mg capsule 200 mg PO DAILY 10/16/23 Unknown History baclofen 10 mg tablet 10 mg PO QDAY 10/16/23 Unknown History cholecalciferol (vitamin D3) 25 25 mcg PO DAILY 10/16/23 Unknown History mcg (1,000 unit) capsule levocarnitine HCl (bulk) ea miscellaneous 10/16/23 Unknown History (Fmlysq-O-Jsyqodngu powder) mecobalamin (vitamin B12) 1,000 1,000 mcg sublingual DAILY 10/16/23 Unknown History mcg disintegrating tablet,sublingual omega 6-asd-qee-fish oil 300 1 cap PO DAILY 10/16/23 Unknown History mg-1,000 mg capsule (Fish Oil) vitamin B complex 1 tab PO DAILY 10/16/23 Unknown History clotrimazole 10 mg skyler 10 mg mucous membrane TID #90 tabs 11/03/23 Unknown Rx fluconazole 100 mg tablet 100 mg PO QDAY #7 tabs 02/17/24 Unknown Rx oxycodone 5 mg tablet 5 mg PO Q6H PRN pain 3 days #10 03/25/24 Unknown Rx tabs Lactobacillus acidophilus PO 03/27/24 Unknown History Allergy/AdvReac Type Severity Reaction Status Date / Time codeine Allergy hives Verified 03/27/24 15:47 Family History Mother Arthritis Skin cancer Father Brain cancer Surgical History Hx of tonsillectomy H/O cervical discectomy Social History Smoking Status: Current every day smoker tobacco type: cigarettes alcohol intake: current alcohol intake frequency: holidays/special occasions only ROS <TONYA Luque - Last Filed: 03/27/24 21:57> ROS ED Constitutional Constitutional ED: Denies chills or fever(s) Cardiovascular Cardiovascular: Denies chest pain Respiratory/Chest Respiratory/Chest: Denies dyspnea Gastrointestinal Gastrointestinal: Denies abdominal pain, nausea or vomiting Genitourinary Genitourinary ED: Denies dysuria, hematuria or urinary urgency Musculoskeletal Musculoskeletal: Reports back pain Integumentary Denies rash Neurologic Neurologic: Denies paresthesias or weakness EXAM <TONYA Luque - Last Filed: 03/27/24 21:57> Physical Exam Const Vital Signs: 03/27/24 15:47 03/27/24 17:46 03/27/24 18:55 Temperature 98.1 F Temperature Source Oral Pulse Rate 79 81 78 Respiratory Rate 16 18 18 Respiratory Pattern Blood Pressure 158/65 H 171/80 H 165/82 H Blood Pressure Mean 96 110 109 Pulse Ox 97 95 95 Oxygen Delivery Method Room Air Room Air Room Air 03/27/24 20:31 03/27/24 21:00 03/27/24 21:37 Temperature 97.9 F Temperature Source Pulse Rate 93 66 92 Respiratory Rate 18 18 16 Respiratory Pattern Normal Blood Pressure 170/86 H 171/81 H Blood Pressure Mean 114 111 Pulse Ox 95 99 Oxygen Delivery Method Room Air Positive well nourished, well developed and no apparent distress General Appearance ED: well developed HEENT Reports normocephalic and head/scalp atraumatic Mouth ED: Yes moist mucous membranes normal Eyes PERRL and EOMs intact bilaterally Neck full ROM and supple Chest Wall inspection of chest normal Resp normal respiratory effort and clear to auscultation bilaterally Cardio regular rate and regular rhythm GI soft to palpation, non-tender, non-distended and no masses Back/Spine normal ROM and normal to inspection Back/Spine Narrative: Pain to palpation to the left lumbar paraspinal muscles. No significant midline tenderness to the thoracic or lumbar spine Extremity normal to inspection and full ROM Neuro oriented x3, CN's II-XII intact bilaterally, moves all extremities, no focal motor deficits and no sensory deficits noted Neuro Narrative: 5/5 sensation bilateral upper and lower extremities. Sensorium / Orientation: awake and alert Motor Exam: strength 5/5 throughout Deep Tendon Reflexes: Rt Patellar (L4): 2+ and Lt Patellar (L4): 2+ Deep Tendon Reflexes Back: Rt Patellar (L4): 2+ and Lt Patellar (L4): 2+ Psych mental status grossly normal and thought process normal Skin no rashes or lesions noted and no wounds <Dr. Holly Geiger, DO - Last Filed: 03/28/24 13:06> Physical Exam Const Vital Signs: 03/27/24 15:47 03/27/24 17:46 03/27/24 18:55 Temperature 98.1 F Temperature Source Oral Pulse Rate 79 81 78 Respiratory Rate 16 18 18 Respiratory Pattern Blood Pressure 158/65 H 171/80 H 165/82 H Blood Pressure Mean 96 110 109 Pulse Ox 97 95 95 Oxygen Delivery Method Room Air Room Air Room Air 03/27/24 20:31 03/27/24 21:00 03/27/24 21:37 Temperature 97.9 F Temperature Source Pulse Rate 93 66 92 Respiratory Rate 18 18 16 Respiratory Pattern Normal Blood Pressure 170/86 H 171/81 H Blood Pressure Mean 114 111 Pulse Ox 95 99 Oxygen Delivery Method Room Air [facility] <TONYA Luque - Last Filed: 03/27/24 21:57> [facility] Narrative Medical decision making narrative: Patient presenting today due to left-sided lower back pain that radiates down the posterior aspect of her left leg that she has had over the last 2 days. She does have a history of chronic low back pain and follows with pain management. She has had no relief from her baclofen and gabapentin. She was seen here 2 days ago and was prescribed Oxycodone which she has been unable to take because it makes her nauseous. She has had increased difficulty ambulating around her house due to the pain. On exam she does not have any red flag symptoms or symptoms of cauda equina syndrome, low suspicion for spinal abscess. She did have a x-ray 2 days ago for lumbar/sacral spine that was negative for any acute fractures. She was initially given IM Toradol and morphine here, this did not provide any relief, she was then given a dose of IV Dilaudid and still did not have relief of her pain and is still unable to ambulate out of the bed due to pain. Given we are not able to manage her pain and she is having difficulty ambulating I will contact the hospitalist for admission and PT/OT evaluation. She is agreeable to possible placement if needed for physical therapy. Hospitalist requested that a lumbar CT be obtained, this shows anterolisthesis L4 on L5 and degenerative disc disease. Patient admitted in stable condition. Lab Data Attestation: I reviewed the patient's lab results. Lab results narrative: WBC 11.5 BMP unremarkable Labs: Laboratory Results - last 24 hr 03/27/24 18:52 WBC 11.5 H RBC 3.74 L Hgb 12.1 Hct 37.4 MCV 100.0 H MCH 32.4 H MCHC 32.4 RDW Std Deviation 43.5 RDW Coeff of Adriana 11.9 Plt Count 357 MPV 9.5 Immature Gran % (Auto) 0.300 Neut % (Auto) 54.2 Lymph % (Auto) 36.2 [place] % (Auto) 6.9 Eos % (Auto) 1.6 Baso % (Auto) 0.8 Absolute Neuts (auto) 6.2 Absolute Lymphs (auto) 4.14 Nucleated RBC % 0 Atypical Lymphocytes 1+ Platelet Estimate ADEQUATE RBC Morphology N CHROM Anisocytosis 1+ Macrocytosis 1+ Ovalocytes RARE ESR 16 Sodium 141 Potassium 4.2 Chloride 108 H Carbon Dioxide 25.0 Anion Gap 8 BUN 18 Creatinine 0.96 Estim Creat Clear Calc 46.94 Est GFR (MDRD) Af Amer 74 Est GFR (MDRD) Non-Af 61 BUN/Creatinine Ratio 18.7 Glucose 99 Calcium 9.6 Radiography Diagnostic Testing: Clinical Impression(s) from Imaging Studies Lumbar Spine CT 03/27/24 19:53 IMPRESSION: No evidence of acute lumbar spinal fracture. Grade 1 anterolisthesis L4 on L5. Mild multilevel degenerative disc disease and spondylosis Electronically Signed: Mitch Bailey MD at 21:43 EST , <Dr. Holly Geiger, DO - Last Filed: 03/28/24 13:06> [facility] Narrative Medical decision making narrative: Patient presenting today due to left-sided lower back pain that radiates down the posterior aspect of her left leg that she has had over the last 2 days. She does have a history of chronic low back pain and follows with pain management. She has had no relief from her baclofen and gabapentin. She was seen here 2 days ago and was prescribed Oxycodone which she has been unable to take because it makes her nauseous. She has had increased difficulty ambulating around her house due to the pain. On exam she does not have any red flag symptoms or symptoms of cauda equina syndrome, low suspicion for spinal abscess. She did have a x-ray 2 days ago for lumbar/sacral spine that was negative for any acute fractures. She was initially given IM Toradol and morphine here, this did not provide any relief, she was then given a dose of IV Dilaudid and still did not have relief of her pain and is still unable to ambulate out of the bed due to pain. Given we are not able to manage her pain and she is having difficulty ambulating I will contact the hospitalist for admission and PT/OT evaluation. She is agreeable to possible placement if needed for physical therapy. Hospitalist requested that a lumbar CT be obtained, this shows anterolisthesis L4 on L5 and degenerative disc disease. Patient admitted in stable condition. I have personally performed a face to face assessment of the patient and have reviewed the MERVAT Note. I performed a substantive portion of the visit including all aspects of the following. My warren findings include: History is patient is 69-year-old female with history of chronic pain, follows with pain management and is normally on baclofen and gabapentin presenting for continued/worsening back pain as well as difficulty ambulating, activities of daily living and not tolerating oxycodone previously prescribed because of nausea and vomiting. She was seen in our ER 2 days ago for same pain. No significant change in pain/characteristics. Patient that time had not had any trauma and had no cauda equina syndrome symptoms. She had an x-ray of the lumbar spine which showed increased subluxation of L4/5 but no acute fracture. In the ER today patient is having significant pain and has to lay on her left side curled up in the position. She does not have any focal neurologic deficits. No obvious deformity or midline tenderness. Negative straight leg test bilaterally. Patient is initially given IM Toradol and morphine with no pain relief. She is then given dose of IV Dilaudid with no relief of pain did have associated nausea and vomiting. Patient is given IV Zofran for this. She is given dose of IV Decadron. Discussed with patient that we would like to attempt ambulation and get her pain control and could add a nausea medicine for home regiment. Patient tries but we are not able to keep pain control or if you like the patient. Then discussed with patient that she will require admission for PT OT evaluation and she might ultimately require placement for physical therapy. She is in agreement with this. Daughter at the bedside is also in agreement. Case discussed with hospitalist, Dr. Liu who accepts the patient would like further spinal imaging. While patient is on any red flag symptoms for cauda equina syndrome I do not think she requires an emergent MRI. She is not having midline tenderness. CT of the lumbar spine is obtained which shows no acute lumbar spinal fracture and grade 1 anterolisthesis L4 and L5. There is also multilevel degenerative disc disease and spondylosis. Anticipation of admission screening labs are obtained including CBC and BMP. These are largely normal. Patient has had a very mild leukocytosis 11.5 which is nonreactive and could be associate with her vomiting. No obvious source of infection. Other additions or changes: [None] Lab Data Labs: Laboratory Results - last 24 hr 03/27/24 18:52 WBC 11.5 H RBC 3.74 L Hgb 12.1 Hct 37.4 MCV 100.0 H MCH 32.4 H MCHC 32.4 RDW Std Deviation 43.5 RDW Coeff of Adriana 11.9 Plt Count 357 MPV 9.5 Immature Gran % (Auto) 0.300 Neut % (Auto) 54.2 Lymph % (Auto) 36.2 [place] % (Auto) 6.9 Eos % (Auto) 1.6 Baso % (Auto) 0.8 Absolute Neuts (auto) 6.2 Absolute Lymphs (auto) 4.14 Nucleated RBC % 0 Atypical Lymphocytes 1+ Platelet Estimate ADEQUATE RBC Morphology N CHROM Anisocytosis 1+ Macrocytosis 1+ Ovalocytes RARE ESR 16 Sodium 141 Potassium 4.2 Chloride 108 H Carbon Dioxide 25.0 Anion Gap 8 BUN 18 Creatinine 0.96 Estim Creat Clear Calc 46.94 Est GFR (MDRD) Af Amer 74 Est GFR (MDRD) Non-Af 61 BUN/Creatinine Ratio 18.7 Glucose 99 Calcium 9.6 Radiography Diagnostic Testing: Clinical Impression(s) from Imaging Studies Lumbar Spine CT 03/27/24 19:53 IMPRESSION: No evidence of acute lumbar spinal fracture. Grade 1 anterolisthesis L4 on L5. Mild multilevel degenerative disc disease and spondylosis Electronically Signed: Mitch Bailey MD at 21:43 EST , Discharge Plan Dx/Rx/DC Orders Clinical Impression: Intractable back pain, Inability to walk, Degenerative disc disease Disposition Disposition: Acute Care Hospital [facility] Discharge Date/Time: 03/27/24 22:49
[2024-03-27] MEDS: morphine 10 MG/ML Syringe 6 MG SC (16:21)
[2024-03-27] MEDS: Ketorolac 15 MG/ML Vial IM (16:24)
[2024-03-27] MEDS: Ondansetron ODT 4 MG Tablet PO (16:25)
[2024-03-27] MEDS: HYDROmorphone 0.5 MG/0.5 ML SYRINGE IV ×2 (17:47→18:50)
[2024-03-27] MEDS: dexAMETHasone 10 MG/ML Vial IV (18:55)
[2024-03-27] MEDS: Ondansetron 4 MG/2 ML Vial IV (19:01)
[2024-03-27 19:02] LABS: Absolute Lymphocyte Count 4.14 X10^3/uL (0.83-4.51); Absolute Neutrophil Count 6.2 X10^3/uL (2.0-7.7); Basophil# 0.09 X10^3/uL; Basophil% 0.8 % (0-1); Eosinophil# 0.18 X10^3/uL; Eosinophils% 1.6 % (0-5); Hematocrit 37.4 % (37-47); Hemoglobin 12.1 g/dL (12.0-15.0); Lymphocyte # 4.14 X10^3/ul (0.83-4.51); Lymphocyte % 36.2 % (19-41); Mean Corp Hgb Conc 32.4 g/dL (32-36); Mean Corpuscular Hgb 32.4 pg (27.0-32.0); Mean Platelet Vol. 9.5 fl (6.2-12.0); Monocyte# 0.79 X10^3/uL; Monocyte% 6.9 % (0-10); NRBC Flagged by Analyzer 0 % (0-5); Neutrophil # 6.21 X10^3/uL (2.7-7.7); Neutrophil % 54.2 % (47-70); POSITIVE MORPHOLOGY YES; Platelet Count 357 K/mm3 (150-450); RBC Distribution Width CV 11.9 % (11.6-14.6); RBC Distribution Width SD 43.5 fl (35.1-43.9); Red Blood Count 3.74 M/mm3 (4.2-5.4); White Blood Count 11.5 K/mm3 (4.4-11.0)
[2024-03-27 19:06] LABS: Differential Indicated SCAN CRITERIA MET
[2024-03-27 19:18] LABS: Anion Gap 8 (5-15); BUN 18 mg/dL (7-18); BUN/Creat Ratio 18.7 RATIO (10-20); Calcium,Total 9.6 mg/dL (8.5-10.1); Chloride 108 mmol/L (98-107); Creatinine, Serum 0.96 mg/dL (0.55-1.02); EST Glomerular Filtration Rate 61 mL/min (>60); Est Glom Filt Rate - Afr Amer 74 mL/min (>60); Estimated Creatinine Clearance 46.94 ml/min; Glucose 99 mg/dL (74-106); Potassium 4.2 mmol/L (3.5-5.1); Sodium Level 141 mmol/L (136-145)
[2024-03-27 19:33] LABS: Atypical Lymphocyte 1+ %; Platelet Estimate ADEQUATE (ADEQ); Red Cell Morphology N CHROM NORMAL (NORM C&C)
[2024-03-27 19:34] LABS: Anisocytosis 1+; Macrocytosis 1+; Ovalocyte RARE
--- NOTE | 2024-03-27 19:49 | PCM.HP.STD ---
[facility] - General General Date of Admission: 03/27/24 Date of Service: 03/27/24 Chief Complaint: Intractable Back Pain. HPI Narrative MULUGETA ALANIS, is a 69 F with a past medical history of essential hypertension; on lisinopril, hyperlipidemia; on no medical treatment, overweight; with BMI of 27.7 this admission, history of DM-2; with patient currently on no medical treatment, history of tobacco abuse; with subsequent COPD, iron deficiency anemia and OA; with history of cervical discectomy and chronic back pain on as needed oxycodone every 6 hours, baclofen and gabapentin followed by pain management with recent admission to this ER on March 25, 2024 for an acute exacerbation of her chronic low back pain with the ER physician noting patient had tenderness to palpation of the paraspinal musculature suggestive of strain with no evidence of cauda equina syndrome or radiculopathy and lumbar spine x-rays revealing increased left subluxation of L4-L5 with moderate scoliosis unchanged and spondylosis with degenerative disc disease of L1-L2 who now re-presents to [facility] ER complaining of continued uncontrolled back pain and spite of her current medical regimen. Ms. Alanis reports once again that her pain is located in the Left side of her lower back and radiates down the back of her Left leg and she further stated that she could not take her oxycodone because it makes her nauseous. She informed the PA in the ER that she is having increased difficulty ambulating around her house due to the pain and she denies recent traumatic injury. The patient's able to move all her extremities and has intact sensation with no signs of vascular compromise, saddle anesthesia or bowel/bladder incontinence. Though her complaints of pain are severe her vital signs are normal except for mildly elevated blood pressure of 158/65 mmHg present on admission with a respiratory rate of 16 and heart rate of 79 bpm with the degree of her complaints not corresponding to her physical findings. Patient was treated in the ER with: IV Morphine, 2 doses of IV Dilaudid, IV Toradol and IV Decadron plus two doses of Zofran (one oral and one IV) with persistent claimed that her back pain was still uncontrolled. I informed the PA in the ER that this patient needed to have a Lumbar CT this admission due to her persistent and worsening pain with CT revealing no evidence of acute lumbar spinal fracture with grade 1 anterolisthesis L4 on L5 and mild multilevel degenerative disc disease and spondylosis. I then discussed the unremarkable CT results with the ER provider with patient now saying her pain control has still only mildly improved with patient stating she has to lay on her side and stay in a position to avoid pain with no signs of sedation speaking to suspected high opioid tolerance. She was then admitted to the general medical floor under observation status for ongoing care for a stay that is expected to be less than 2 midnights. [facility] Medical History Oral thrush Abnormality of lung on CXR Nicotine addiction Stage 3 severe COPD by GOLD classification COPD with exacerbation Chronic airway obstruction COPD (chronic obstructive pulmonary disease) Hypertension DM type 2 (diabetes mellitus, type 2) Mixed hyperlipidemia Iron deficiency anemia Home Medications ?Medication ?Instructions ?Recorded ?Last Taken ?Type lisinopril 20 mg tablet 20 mg PO DAILY 05/07/22 Unknown History Nebulizer machine #1 ea 05/08/22 Unknown Rx Supplies for nebulizer machine #3 ea 06/03/22 Unknown Rx albuterol sulfate 2.5 mg/3 mL 2.5 mg (3 mL) inhalation Q4H PRN 07/30/23 Unknown Rx (0.083 %) solution for nebulization shortness of breath or wheezing #360 mL albuterol sulfate 90 mcg/actuation 2 puff inhalation Q6H PRN 08/29/23 Unknown Rx aerosol inhaler (ProAir HFA) shortness of breath or wheezing #8.5 grams fluticasone fur. 200 mcg-umeclid 1 inh inhalation DAILY COPD, 10/01/23 Unknown Rx 62.5 mcg-vilant 25 mcg severe #90 ea inhalat.powder (Trelegy Ellipta) alpha lipoic acid 200 mg capsule 200 mg PO DAILY 10/16/23 Unknown History baclofen 10 mg tablet 10 mg PO QDAY 10/16/23 Unknown History cholecalciferol (vitamin D3) 25 25 mcg PO DAILY 10/16/23 Unknown History mcg (1,000 unit) capsule levocarnitine HCl (bulk) ea miscellaneous 10/16/23 Unknown History (Jqmcec-U-Mmphsgqvv powder) mecobalamin (vitamin B12) 1,000 1,000 mcg sublingual DAILY 10/16/23 Unknown History mcg disintegrating tablet,sublingual omega 8-gql-ylu-fish oil 300 1 cap PO DAILY 10/16/23 Unknown History mg-1,000 mg capsule (Fish Oil) vitamin B complex 1 tab PO DAILY 10/16/23 Unknown History clotrimazole 10 mg skyler 10 mg mucous membrane TID #90 tabs 11/03/23 Unknown Rx fluconazole 100 mg tablet 100 mg PO QDAY #7 tabs 02/17/24 Unknown Rx oxycodone 5 mg tablet 5 mg PO Q6H PRN pain 3 days #10 03/25/24 Unknown Rx tabs Lactobacillus acidophilus PO 03/27/24 Unknown History Allergy/AdvReac Type Severity Reaction Status Date / Time codeine Allergy hives Verified 03/27/24 15:47 Family History Mother Arthritis Skin cancer Father Brain cancer Surgical History Hx of tonsillectomy H/O cervical discectomy Social History Smoking Status: Current every day smoker tobacco type: cigarettes alcohol intake: current alcohol intake frequency: holidays/special occasions only ROS ROS Narrative Review of Systems: Constitutional: Patient denies fever or chills. Eyes: Patient denies changes in vision or discharge from eyes. ENT: Patient denies runny nose, sore throat or ear pain. Resp: Patient denies shortness of breath or cough. CV: Patient denies chest pain, palpitations or heart racing. GI: Patient denies abdominal pain, nausea, vomiting, diarrhea or constipation. : Patient denies dysuria or hematuria. MSK: Patient admits to back pain radiating down her Left leg that is refractory to all previous treatment as noted in HPI. Skin: Patient denies rash, abscess or jaundice. Psych: Patient denies symptoms of uncontrolled depression or anxiety. Neuro: Patient admits to pain radiating down her Left leg that is made worse with activity but she denies denies headache or focal neurologic deficits. Allergy: Patient denies lip swelling, tongue swelling or urticaria. Hematology: Patient denies easy bleeding or easy bruisability. Endocrinology: Patient denies polyuria, polydipsia or polyphagia. 14 point review of systems otherwise negative save for positives noted above in HPI. Vital Signs Vital Signs Vital Signs: 03/27/24 15:47 03/27/24 17:46 03/27/24 18:55 Temperature 98.1 F Temperature Source Oral Pulse Rate 79 81 78 Respiratory Rate 16 18 18 Blood Pressure 158/65 H 171/80 H 165/82 H Blood Pressure Mean 96 110 109 Pulse Ox 97 95 95 Oxygen Delivery Method Room Air Room Air Room Air Weight Weight: 141 lb 12.116 oz Body Mass Index (BMI) 27.6 Physical Exam Const alert, oriented x3 and average body habitus Constitutional Narrative: Patient's complaints of refractory severe back pain are out of proportion to her physical findings. General Appearance: cooperative HEENT normocephalic, head/scalp atraumatic, hearing grossly normal bilaterally and moist oral mucous membranes Eyes PERRL and EOMs intact bilaterally Neck no lymphadenopathy and supple Resp normal respiratory effort, no retractions, no use of accessory muscles and clear to auscultation bilaterally Cardio regular rate and regular rhythm GI normal to inspection, nondistended, normoactive bowel sounds, soft to palpation, non-tender and non-distended Extremity normal to inspection, full ROM and no clubbing, cyanosis or edema Skin Skin Narrative: Patient has no evidence of rash, abscess or jaundice. Neuro oriented x3, CN's II-XII intact bilaterally, moves all extremities and no focal motor deficits Sensorium / Orientation: awake, alert, oriented to person, oriented to place and oriented to time Speech: speech normal Psych Mood & Affect: anxious Results Medical Records Data Attestation: I reviewed the patient's medical records Lab / Micro Data Attestation: I reviewed the patient's lab results. 03/28/24 04:35 03/27/24 18:52 Labs: Laboratory Results - last 24 hr 03/27/24 18:52: WBC 11.5 H, RBC 3.74 L, Hgb 12.1, Hct 37.4, MCV 100.0 H, MCH 32.4 H, MCHC 32.4, RDW Std Deviation 43.5, RDW Coeff of Adriana 11.9, Plt Count 357, MPV 9.5, Immature Gran % (Auto) 0.300, Neut % (Auto) 54.2, Lymph % (Auto) 36.2, [place] % (Auto) 6.9, Eos % (Auto) 1.6, Baso % (Auto) 0.8, Absolute Neuts (auto) 6.2, Absolute Lymphs (auto) 4.14, Nucleated RBC % 0, Atypical Lymphocytes 1+, Platelet Estimate ADEQUATE, RBC Morphology N CHROM, Anisocytosis 1+, Macrocytosis 1+, Ovalocytes RARE, Sodium 141, Potassium 4.2, Chloride 108 H, Carbon Dioxide 25.0, Anion Gap 8, BUN 18, Creatinine 0.96, Estim Creat Clear Calc 46.94, Est GFR (MDRD) Af Amer 74, Est GFR (MDRD) Non-Af 61, BUN/Creatinine Ratio 18.7, Glucose 99, Calcium 9.6 Imaging [facility] Imaging Services [address], [place] [id number] Spine Lumbar without Contrast MR#: [id number] Acct: [id number] Name: MULUGETA ALANIS Rep #: [id number] : [id number] F [id number] From: Mitch Bailey MD PCP: Dr. Dilip Matute MD Status: REG ER Study: Spine Lumbar without Contrast Date of Exam: 03/27/24 Exam# [id number] Ordering Dr: Sandra Lee INDICATION: back pain EXAMINATION: CT LUMBAR SPINE - CT Spine Lumbar W/O Contrast Injection TECHNIQUE: Helically acquired images were obtained of the lumbar spine. 2D reformats were reviewed. A radiation dose optimization technique was used for this scan. IV Contrast dosage and agent: None. COMPARISON: None. FINDINGS: VERTEBRAE: No fracture or traumatic subluxation. No discrete lytic or blastic abnormality observed. 4 mm anterolisthesis L4 on L5. Levoscoliosis. DISCS and SPINAL CANAL: Mild multilevel degenerative disc disease and spondylosis. No critical stenosis. VISUALIZED ABDOMEN: Visualized abdominal aorta is not dilated. There is no retroperitoneal adenopathy. CT/Spine Lumbar without Contrast IMPRESSION: No evidence of acute lumbar spinal fracture. Grade 1 anterolisthesis L4 on L5. Mild multilevel degenerative disc disease and spondylosis Electronically Signed: Mitch Bailey MD at 21:43 EST , CC: Dr. Dilip Matute MD; TONYA Luque ~ [employer] Manager: Signed Assessment & Plan Assessment/Plan (1) Acute exacerbation of chronic low back pain: (2) Degenerative disc disease: QUALIFIERS: Disc-related pain type: discogenic back pain and lower extremity pain Spinal region: lumbosacral Qualified Code(s): M51.372 - Other intervertebral disc degeneration, lumbosacral region with discogenic back pain and lower extremity pain (3) Osteoarthritis: QUALIFIERS: Osteoarthritis location: unspecified site Osteoarthritis type: unspecified Qualified Code(s): M19.90 - Unspecified osteoarthritis, unspecified site (4) Inability to walk: (5) Smoking greater than 20 pack years: (6) Stage 3 severe COPD by GOLD classification: (7) Hypertension: QUALIFIERS: Hypertension type: unspecified Qualified Code(s): I10 - Essential (primary) hypertension (8) DM type 2 (diabetes mellitus, type 2): QUALIFIERS: Diabetes mellitus complication status: without complication Diabetes mellitus residential insulin use: without lobsterman use Qualified Code(s): E11.9 - Type 2 diabetes mellitus without complications (9) Mixed hyperlipidemia: PLAN: Plan 1. Acute Exacerbation of Chronic Low Back Pain refractory to oral and IV opiates, baclofen and gabapentin with inability to walk and the degree of her complaints not corresponding to her physical findings with Lumbar CT this admission revealing no evidence of acute lumbar spinal fracture with grade 1 anterolisthesis L4 on L5 and mild multilevel degenerative disc disease and spondylosis - Admit to general medical floor under observation status. Check MRI of the lumbar spine in the a.m. to confirm that no acute pathologic findings that would explain her symptoms. Give Tylenol as needed for cuzb-nm-lcaqnygs (level 1-5/10) pain or fever. Give morphine IV as needed for severe (level 6-10/10) pain. Place Lidoderm patch and give Decadron 6 mg IV twice daily. Patient was informed that her CT findings do not correlate with the severity of her complaint but with patient insisting she is still having significant pain at this time. Finally, we will consult PT/OT and case management see this patient on rounds in the a.m. for further recommendations regarding rehabilitation options versus ECF placement with help appreciated in advance. 2. Recent admission to this ER on March 25, 2024 for an acute exacerbation of her chronic low back pain with the ER physician noting patient had tenderness to palpation of the paraspinal musculature suggestive of strain with no evidence of cauda equina syndrome or radiculopathy and lumbar spine x-rays revealing increased left subluxation of L4-L5 with moderate scoliosis unchanged and spondylosis with degenerative disc disease of L1-L2 complicating #1 - Noted. 3. OA; with history of cervical discectomy and chronic back pain on as needed oxycodone every 6 hours, baclofen and gabapentin followed by pain management compounding #1 & #2 - Noted. 4. Chronic and ongoing tobacco abuse; with subsequent COPD - Stable with no evidence of flare. Tobacco cessation will be strongly encouraged with nicotine patch offered to control cravings. Otherwise, continue previous regimen. 5. Essential hypertension; on lisinopril - Continue lisinopril as before plus give Hydralazine IV prn for systolic blood pressure > 160 mmHg. 6. Hyperlipidemia; on no medical treatment - Check Lipid Profile this admission. 7. Overweight; with BMI of 27.7 this admission - Weight loss will be recommended. Check TSH. 8. History of DM-2; with patient currently on no medical treatment - Check HgbA1c to confirm status. 9. History of Iron Deficiency Anemia - Stable with hemoglobin of 12.1 g/dL and MCV of 100 fL present on this admission. 10. DVT prophylaxis - Lovenox 40 mg sq daily plus SCD's. Total time: Approximately (but not less than) 70 minutes. Charges/Coding Visit Charges OBSV E&M: 81156 Observ/hosp same date L2
--- NOTE | 2024-03-27 19:53 | CT_ITS ---
INDICATION: back pain EXAMINATION: CT LUMBAR SPINE - CT Spine Lumbar W/O Contrast Injection TECHNIQUE: Helically acquired images were obtained of the lumbar spine. 2D reformats were reviewed. A radiation dose optimization technique was used for this scan. IV Contrast dosage and agent: None. COMPARISON: None. FINDINGS: VERTEBRAE: No fracture or traumatic subluxation. No discrete lytic or blastic abnormality observed. 4 mm anterolisthesis L4 on L5. Levoscoliosis. DISCS and SPINAL CANAL: Mild multilevel degenerative disc disease and spondylosis. No critical stenosis. VISUALIZED ABDOMEN: Visualized abdominal aorta is not dilated. There is no retroperitoneal adenopathy. CT/Spine Lumbar without Contrast IMPRESSION: No evidence of acute lumbar spinal fracture. Grade 1 anterolisthesis L4 on L5. Mild multilevel degenerative disc disease and spondylosis Electronically Signed: Mitch Bailey MD at 21:43 EST ,
[2024-03-27] MEDS: Metoclopramide 10 MG/2 ML Vial IV (20:45)
[2024-03-27] MEDS: Ipratropium/Albuterol Sulfate 3 ML AMPUL.NEB INHALATION (21:37)
[2024-03-27] MEDS: Albuterol 2.5 MG/3 ML VIAL.NEB. INHALATION (21:37)
--- NOTE | 2024-03-27 21:59 | CPS ---
[2137] x1 Albuterol given to pt. in ER
[2024-03-27 22:25] LABS: Erythrocyte Sedimentation Rate 16 mm/hr (0-30)
[2024-03-27 22:51] LABS: Hemoglobin A1c 5.4 % (3.8-5.6)
[2024-03-27 23:50] LABS: Cholesterol 231 mg/dL (200); High Density Lipoprotein 64 mg/dL; Triglycerides 171 mg/dL; Very Low Density Lipoprotein 34 mg/dL (5-40); Vitamin B12 1631 pg/mL (211-911)
[2024-03-27] MEDS: 0.9% Normal Saline (1000mL) 1,000 ML 50 ML IV (23:50)
[2024-03-28] VITALS (8 sets, daily range): BP systolic 140–172; BP diastolic 59–88; PULSE 82–106; RESP 15–20; TEMP 36.5–36.8; O2SAT 92–98; BMI 26.6
[2024-03-28] MEDS: Clotrimazole 10 MG Troche MUCOUS MEM ×4 (00:05→21:01)
[2024-03-28] MEDS: Ondansetron 4 MG/2 ML Vial IV ×2 (00:11→09:13)
[2024-03-28 00:58] LABS: Amphetamine Urine VISTA NEGATIVE (<1000 ng/mL); Barbiturate Urine VISTA NEGATIVE (< 200 ng/mL); Benzodiazepine Urine VISTA NEGATIVE (< 200 ng/mL); Cocaine Urine VISTA NEGATIVE (< 300 ng/mL); Ecstacy Urine VISTA NEGATIVE (< 500 ng/mL); Methadone Urine VISTA NEGATIVE (< 300 ng/mL); PCP Urine VISTA NEGATIVE (< 25 ng/mL); THC Urine VISTA POSITIVE (< 50 ng/mL); Vista UDS pH Range 5
[2024-03-28] MEDS: MELATONIN 3 MG TABLET PO ×2 (02:13→22:02)
[2024-03-28 05:21] LABS: Absolute Lymphocyte Count 1.05 X10^3/uL (0.83-4.51); Absolute Neutrophil Count 5.5 X10^3/uL (2.0-7.7); Basophil# 0.02 X10^3/uL; Basophil% 0.3 % (0-1); Hematocrit 35.6 % (37-47); Hemoglobin 11.4 g/dL (12.0-15.0); Lymphocyte # 1.05 X10^3/ul (0.83-4.51); Lymphocyte % 15.8 % (19-41); Mean Corpuscular Hgb 31.6 pg (27.0-32.0); Mean Corpuscular Volume 98.6 fL (81-99); Mean Platelet Vol. 9.6 fl (6.2-12.0); Monocyte# 0.05 X10^3/uL; Monocyte% 0.8 % (0-10); NRBC Flagged by Analyzer 0 % (0-5); Neutrophil # 5.45 X10^3/uL (2.7-7.7); Neutrophil % 82.2 % (47-70); Platelet Count 336 K/mm3 (150-450); RBC Distribution Width CV 11.7 % (11.6-14.6); RBC Distribution Width SD 42.4 fl (35.1-43.9); Red Blood Count 3.61 M/mm3 (4.2-5.4); White Blood Count 6.6 K/mm3 (4.4-11.0)
[2024-03-28] MEDS: Morphine 2 MG/ML Syringe IV ×2 (06:07→14:42)
[2024-03-28 06:55] LABS: AST(SGOT) 17 U/L (15-37); Alanine Aminotransfer ALT/SGPT 14 U/L (13-56); Albumin, Serum 3.4 g/dL (3.2-5.0); Alkaline Phosphatase 68 U/L (45-117); Anion Gap 6 (5-15); BUN 21 mg/dL (7-18); BUN/Creat Ratio 24.8 RATIO (10-20); Calcium,Total 9.5 mg/dL (8.5-10.1); Chloride 104 mmol/L (98-107); Creatinine, Serum 0.85 mg/dL (0.55-1.02); EST Glomerular Filtration Rate 71 mL/min (>60); Est Glom Filt Rate - Afr Amer 86 mL/min (>60); Estimated Creatinine Clearance 51.97 ml/min; Globulin 3.4 g/dL (2.2-4.2); Glucose 132 mg/dL (74-106); Phosphorus 3.4 mg/dL (2.5-4.9); Potassium 4.4 mmol/L (3.5-5.1); Protein, Total 6.8 g/dL (6.4-8.2); Sodium Level 137 mmol/L (136-145)
[2024-03-28] MEDS: dexAMETHasone 10 MG/ML Vial 6 MG IV ×3 (09:12→20:59)
[2024-03-28] MEDS: Cyanocobalamin 500 MCG Tablet 1000 MCG PO (09:13)
[2024-03-28] MEDS: Enoxaparin 40 MG/0.4 ML Syringe SC (09:13)
[2024-03-28] MEDS: 0.9% Saline Lock 10 ML Syringe IV ×2 (09:13→21:00)
[2024-03-28] MEDS: Lidocaine 5% Patch 1 PATCH TOPICAL (09:14)
[2024-03-28] MEDS: Cholecalciferol (VIT D3) 25 MCG TABLET (1,000 UNITS) PO (09:14)
[2024-03-28] MEDS: Lisinopril 20 MG Tablet PO (09:14)
[2024-03-28] MEDS: Ipratropium/Albuterol Sulfate 3 ML AMPUL.NEB INHALATION ×3 (09:44→19:42)
[2024-03-28] MEDS: Budesonide Respules 0.5 MG/2 ML AMPUL.NEB. INHALATION ×2 (09:44→19:42)
--- NOTE | 2024-03-28 14:12 | PN.HOSP_ITS ---
Reason for Visit Reason for Visit: Diagnoses Type 2 diabetes mellitus without complications (03/27/24) Mixed hyperlipidemia (03/27/24) Nicotine dependence, cigarettes, uncomplicated (03/27/24) Other chronic pain (03/27/24) Essential (primary) hypertension (03/27/24) Chronic obstructive pulmonary disease, unspecified (03/27/24) Unspecified osteoarthritis, unspecified site (03/27/24) Other intervertebral disc degeneration, lumbosacral region with discogenic back pain and lower extremity pain (03/27/24) Low back pain, unspecified (03/27/24) Difficulty in walking, not elsewhere classified (03/27/24) Subjective Subjective Patient was seen and examined today, she was unable to undergo an MRI today due to lower back pain, MRI requested that she be medicated and brought back tomorrow. I talked to the patient today and she states that she sees pain management here-Dr. France-and she is not sure but she thinks she had an MRI in the past, she thought it was at Loc[facility] but I called there and there is no record of her having an MRI there. Patient will be medicated and undergo an MRI tomorrow morning at 10 AM, until then she will remain on her present medications. Objective Data Objective Data Vital Signs: Vital Signs Temp Pulse Resp BP Pulse Ox O2 Del Method O2 Flow Rate 97.9 F 82 20 H 172/88 H 93 Room Air 2 03/28/24 13:47 03/28/24 14:04 03/28/24 14:04 03/28/24 13:47 03/28/24 13:47 03/28/24 13:47 03/28/24 05:03 Oxygen Flow Rate (L/min) 2 Oxygen Delivery Method Room Air Weight: 61.68 kg Body Mass Index (BMI) 26.6 Intake & Output: Intake and Output for Last 24 Hours 03/26/24 03/27/24 03/28/24 23:59 23:59 23:59 Intake Total 200 / 200 Output Total 200 / 400 300 / 300 Balance -200 / -400 -100 / -100 Lab / Micro Data 03/28/24 04:35 03/28/24 04:35 Labs: Laboratory Results - last 24 hr 03/27/24 18:52: WBC 11.5 H, RBC 3.74 L, Hgb 12.1, Hct 37.4, MCV 100.0 H, MCH 32.4 H, MCHC 32.4, RDW Std Deviation 43.5, RDW Coeff of Ard[place] 11.9, Plt Count 357, MPV 9.5, Immature Gran % (Auto) 0.300, Neut % (Auto) 54.2, Lymph % (Auto) 36.2, [place] % (Auto) 6.9, Eos % (Auto) 1.6, Baso % (Auto) 0.8, Absolute Neuts (auto) 6.2, Absolute Lymphs (auto) 4.14, Nucleated RBC % 0, Atypical Lymphocytes 1+, Platelet Estimate ADEQUATE, RBC Morphology N CHROM, Anisocytosis 1+, Macrocytosis 1+, Ovalocytes RARE, ESR 16, Sodium 141, Potassium 4.2, Chloride 108 H, Carbon Dioxide 25.0, Anion Gap 8, BUN 18, Creatinine 0.96, Estim Creat Clear Calc 46.94, Est GFR (MDRD) Af Amer 74, Est GFR (MDRD) Non-Af 61, BUN/Creatinine Ratio 18.7, Glucose 99, Calcium 9.6 03/27/24 22:26: Hemoglobin A1c 5.4, Triglycerides 171, Cholesterol 231 H, LDL Cholesterol 133 H, VLDL Cholesterol 34, HDL Cholesterol 64, Vitamin B12 1631 H, Folate 17.80, TSH 1.770 03/27/24 23:45: Urine Opiates Screen POSITIVE H, Urine Methadone Screen NEGATIVE, Ur Barbiturates Screen NEGATIVE, Ur Phencyclidine Scrn NEGATIVE, Ur Amphetamines Screen NEGATIVE, MDMA (Ecstasy) Screen NEGATIVE, U Benzodiazepines Scrn NEGATIVE, Urine Cocaine Screen NEGATIVE, U Cannabinoids Screen POSITIVE H, Ur Drug Screen Comment 03/28/24 04:35: WBC 6.6, RBC 3.61 L, Hgb 11.4 L, Hct 35.6 L, MCV 98.6, MCH 31.6, MCHC 32.0, RDW Std Deviation 42.4, RDW Coeff of Adriana 11.7, Plt Count 336, MPV 9.6, Immature Gran % (Auto) 0.900, Neut % (Auto) 82.2 H, Lymph % (Auto) 15.8 L, [place] % (Auto) 0.8, Eos % (Auto) 0.0, Baso % (Auto) 0.3, Absolute Neuts (auto) 5.5, Absolute Lymphs (auto) 1.05, Nucleated RBC % 0, Sodium 137, Potassium 4.4, Chloride 104, Carbon Dioxide 27.0, Anion Gap 6, BUN 21 H, Creatinine 0.85, Estim Creat Clear Calc 51.97, Est GFR (MDRD) Af Amer 86, Est GFR (MDRD) Non-Af 71, B UN/Creatinine Ratio 24.8 H, Glucose 132 H, Calcium 9.5, Phosphorus 3.4, Magnesium 2.0, Total Bilirubin 0.30, AST 17, ALT 14, Alkaline Phosphatase 68, Total Protein 6.8, Albumin 3.4, Globulin 3.4, Albumin/Globulin Ratio 1.0 Radiography Diagnostic Testing: Radiology Impression Lumbar Spine CT 03/27/24 19:53 IMPRESSION: No evidence of acute lumbar spinal fracture. Grade 1 anterolisthesis L4 on L5. Mild multilevel degenerative disc disease and spondylosis Electronically Signed: Mitch Bailey MD at 21:43 EST , Physical Exam Const alert, oriented x3, no apparent distress and average body habitus General Appearance: cooperative, well kempt and well developed Orientation / Consciousness: awake, oriented to person, oriented to place and oriented to time HEENT normocephalic, head/scalp atraumatic and moist oral mucous membranes Eyes PERRL, EOMs intact bilaterally and conjunctivae normal Neck supple, no JVD, thyroid normal and no carotid bruits General: trachea midline Resp normal respiratory effort, no retractions, no use of accessory muscles and clear to auscultation bilaterally Auscultation: Negative for rales, rhonchi or wheezes Cardio regular rate, regular rhythm, S1 normal heart sound, S2 normal heart sound, no murmurs, no rub and no gallops GI normal to inspection, nondistended, normoactive bowel sounds, soft to palpation, non-tender and non-distended Extremity no clubbing, cyanosis or edema Skin no rashes or lesions noted General Skin Exam: no breakdown Neuro oriented x3, CN's II-XII intact bilaterally, moves all extremities, no focal motor deficits and no sensory deficits noted Sensorium / Orientation: awake and alert Speech: speech normal Psych affect normal Assessment & Plan Assessment/Plan (1) Degenerative disc disease: QUALIFIERS: Spinal region: lumbosacral Disc-related pain type: d iscogenic back pain and lower extremity pain Qualified Code(s): M51.372 - Other intervertebral disc degeneration, lumbosacral region with discogenic back pain and lower extremity pain PLAN: Plan 1. Intractable back pain secondary to degenerative joint disease of the lumbar spine-patient will have an MRI performed tomorrow, continue IV corticosteroids and analgesics, I have elected to stop her baclofen and place her on Robaxin 1000 mg 3 times a day #2 left leg radicular pain-patient complains of pain traveling down her left leg, this may indicate an L5-S1 disc problem, patient is to remain on IV Decadron, I have increased it to every 8 hours #3 essential hypertension-continue outpatient medication #4 osteoarthritis-complicates care, management, recovery, and prognosis #5 type 2 diabetes-patient's hemoglobin A1c is 5.4, I do not feel the patient's sugars need monitoring at this time Patient's B12 level is very elevated, I have decided to hold her B12 while she is hospitalized Total clinical time spent by myself addressing the patient's medical issues, reviewing her data, and collaborating with patient's care team: 35 minutes Charges/Coding Visit Charges Inpatient E&M: 20589 Subs Hosp L2
[2024-03-28] MEDS: Methocarbamol 500 MG Tablet 1000 MG PO ×2 (14:58→21:01)
[2024-03-29 03:30] VITALS: BMI 26.6
--- NOTE | 2024-03-29 06:00 | MRI_ITS ---
STUDY: MRI LUMBAR SPINE WITH AND WITHOUT CONTRAST REASON FOR EXAM: Female, 69 years old. Acute exacerbation of chronic back pain., difficulty ambulating, pain in L leg TECHNIQUE: Standardized fat and water weighted pulse sequences were obtained in the sagittal and axial planes. IV 13 ml clariscan was administered for the contrast portion of the examination. COMPARISON: CT of the lumbar spine dated March 27, 2024 FINDINGS: Normal lumbar lordosis. There is a levoscoliosis of the lumbar spine. Normal conus medullaris that terminates at the L1 level. No marrow edema or fracture or compression deformity is present. No aggressive process is seen. There are no suspicious enhancing lesions. No evidence of vertebral osteomyelitis or discitis. No epidural abscess is present. Disc desiccation is at all levels. T12-L1: Normal endplates. Normal disc height, hydration and morphology. Normal bilateral facet joints. Normal central canal and bilateral lateral recesses. Normal bilateral intervertebral neural foramina. L1-2: Moderate disc space narrowing with mild annular bulging and endplate spurring. Normal bilateral facet joints. Normal central canal and bilateral lateral recesses. Normal bilateral intervertebral neural foramina. L2-3: Mild to moderate disc space narrowing with a diffuse disc bulge and spurring. Mild facet joint hypertrophy and bilateral foraminal stenosis. Normal central canal and bilateral lateral recesses. L3-4: Normal endplates. Normal disc height and morphology. Facet joint hypertrophy. Normal central canal and bilateral lateral recesses. Mild bilateral foraminal stenosis with nerve root impingement. L4-5: Normal endplates. Mild to moderate disc space narrowing with slight annular bulging anterolisthesis of L4 and L5 of 3 mm with uncovering of the posterior aspect of the disc. Mild to moderate central canal stenosis and bilateral lateral recess stenosis with compression of the left descending nerve root due to asymmetry of the hypertrophied facet joint. Moderate facet joint hypertrophy. Mild bilateral foraminal stenosis with nerve root impingement demonstrated on the left. L5-S1: Normal endplates. Mild disc space narrowing and slight posterior annular bulging with small annular tear of the disc. Mild facet joint hypertrophy. Normal central canal and bilateral lateral recesses. Normal bilateral intervertebral neural foramina. Normal visualized sacral ala. There is mild paraspinal muscular atrophy. MRI/Spine Lumbar W/WO Contrast IMPRESSION: 1. Multilevel degenerative changes, as described above. 2. No marrow edema or fracture or compression deformity is present. No aggressive process is seen. There are no suspicious enhancing lesions. No evidence of vertebral osteomyelitis or discitis. No epidural abscess is present. Electronically Signed: Ryley Cobian MD at 12:35 EST ,
[2024-03-29] MEDS: 0.9% Saline Lock 10 ML Syringe IV (06:29)
[2024-03-29] MEDS: dexAMETHasone 10 MG/ML Vial 6 MG IV ×2 (06:29→14:11)
[2024-03-29] MEDS: Methocarbamol 500 MG Tablet 1000 MG PO ×2 (06:30→14:11)
[2024-03-29] MEDS: Clotrimazole 10 MG Troche MUCOUS MEM ×2 (06:30→14:12)
[2024-03-29 06:53] LABS: Magnesium 2.3 mg/dL (1.6-2.6); Phosphorus 3.3 mg/dL (2.5-4.9)
[2024-03-29] MEDS: Budesonide Respules 0.5 MG/2 ML AMPUL.NEB. INHALATION (07:10)
[2024-03-29] MEDS: Ipratropium/Albuterol Sulfate 3 ML AMPUL.NEB INHALATION ×2 (07:10→13:16)
[2024-03-29 07:11] VITALS: PULSE 90; RESP 18
[2024-03-29 08:00] VITALS: BP 143/82; PULSE 93; RESP 19; TEMP 36.7; O2SAT 100
[2024-03-29] MEDS: Lidocaine 5% Patch 1 PATCH TOPICAL (08:56)
[2024-03-29] MEDS: LORazepam 1 MG Tablet 2 MG PO (08:56)
[2024-03-29] MEDS: Enoxaparin 40 MG/0.4 ML Syringe SC (08:56)
[2024-03-29] MEDS: Lisinopril 20 MG Tablet PO (08:57)
--- NOTE | 2024-03-29 10:06 | CASEMGMT ---
RN CM to room to complete CHOWDARY and to discuss discharge planning. Pt in bathroom and staff in room w/ W/C, waiting to take pt to MRI. RN KEL to complete above when pt available. Carrie NICEN RN CM
--- NOTE | 2024-03-29 12:50 | CASEMGMT ---
RN KEL note: Intro role of CM to patient and CHOWDARY form explained re: Observation status for treatment of acute exacerbation of chronic back pain.? Explained hospitalization will be paid per?her insurance policy for Outpatient billing?and condition will continue to be evaluated for Inpt necessity. Also let pt know that [facility] sends paper in the billing packet with their phone number if questions arise. Pt verbalizes understanding and does not have further questions. ?Form signed, copy made and placed in chart, and original given to pt. Pt lives w/her dtr, Claire, in ground-floor apt w/one threshold step to enter. PCP is Dr Matute, sees Dr France for pain mgnt. Pt is indep w/ADL's, Claire does most home mgnt tasks. Pt and dtr both drive. Pt was not using AD to ambulate, but does have a walker she can use when she returns home. She plans to get a optometry assistant. She has a nebulizer, pulse ox, and wears O2 @ 2 L/m @ HS. Has only a concentrator. Discussed discharge planning. She wishes to discharge home w/her daughter, declines [facility]. She has done OP therapy @ [facility] in the past in [place] and would like script for this again, stating she is not certain she will end up going, but is considering it. She is aware she will need to go to [facility] for initial eval, stating that is what she did previously. She denies having other discharge needs/concerns. Her daughter will take her home @ discharge. She would like to get any new meds from [facility] retail pharmacy and would like [id number]. Jeannine MS3 RN KEL, made aware. Carrie GARCIA RN, CM
[2024-03-29 13:16] VITALS: PULSE 82; RESP 18
[2024-03-29 14:00] VITALS: BP 148/90; PULSE 88; RESP 18; TEMP 36.6; O2SAT 97
--- NOTE | 2024-03-29 14:07 | PCM.DC ---
Discharge Instructions Diet Discharge Diet: Low fat / Low cholesterol DC O2, CPAP, BIPAP needs Home O2 Discharge instructions: No Dressing / Incision Discharge Activity: Return to Normal Activity Dressing / Incision Call your doctor if you observe: Fever of 101 or Higher, Shortness of breath, Dizziness, Fainting spells, Swelling in the ankles, Chest pain and Increased palpitations (irregular heartbeat) Follow Up Care Test Results: Test results from this visit will be discussed in further detail at your follow-up appointment, if applicable. Discharge Plan Admission Admit Date/Time: 03/27/24 21:59 Attending Provider: Mark Gutierrez Primary Care Provider: Dilip Matute Chi Consulting Providers: Dom Liu; Jorge Camarillo; William Khan Discharge Orders/Prescriptions Prescriptions: New methylprednisolone [Medrol (Gregory)] 4 mg tablets,dose pack See Rx Instructions .ROUTE .COMPLEX Qty: 21 0RF Rx Instructions: for 6 days Continued lisinopril 20 mg tablet 20 mg PO DAILY (DME) Nebulizer machine See Rx Instructions .Route .MEDSUPPLY Qty: 1 0RF Rx Instructions: Use every 4-6 hours as needed (DME) Supplies for nebulizer machine See Rx Instructions .Route .MEDSUPPLY Qty: 3 3RF Rx Instructions: Tubing, plastic nebulizer cups, renewable every 90 days per insurance. Use every 4-6 hours with liquid respiratory medication as directed. vitamin B complex Tablet 1 tab PO DAILY mecobalamin (vitamin B12) 1,000 mcg tablet,disintegrating 1,000 mcg sublingual DAILY Rx Instructions: place tablet under tongue and allow to dissolve for at least30 secs before swallowing Zseelj-M-Jpgngzsox Powder miscellaneous alpha lipoic acid 200 mg capsule 200 mg PO DAILY cholecalciferol (vitamin D3) 25 mcg (1,000 unit) capsule 25 mcg PO DAILY omega 1-qsw-dwn-fish oil [Fish Oil] 300-1,000 mg capsule 1 cap PO DAILY baclofen 10 mg tablet 10 mg PO QDAY oxycodone 5 mg tablet 5 mg PO Q6H PRN (Reason: pain) 3 Days Qty: 10 0RF Lactobacillus acidophilus [Acidophilus] PO albuterol sulfate 2.5 mg /3 mL (0.083 %) solution for nebulization 2.5 mg inhalation Q4H MDD 6 PRN (Reason: shortness of breath or wheezing) Qty: 360 11RF albuterol sulfate [ProAir HFA] 90 mcg/actuation HFA aerosol inhaler 2 puff inhalation Q6H PRN (Reason: shortness of breath or wheezing) Qty: 8.5 6RF Trelegy Ellipta 200-62.5-25 mcg blister with device 1 inh inhalation DAILY MDD 1 daily Qty: 90 11RF clotrimazole 10 mg skyler 10 mg mucous membrane TID Qty: 90 6RF fluconazole 100 mg tablet 100 mg PO QDAY Qty: 7 0RF Referrals / Follow Up: Jorge Camarillo MD [Med Staff - Active Staff] - Within 2 Weeks Dilip Matute Chi, MD [Primary Care Provider] - Within 1 Week Disposition Disposition (needs filled in before D/C Order can be placed): Home, Self Care
--- NOTE | 2024-03-29 14:38 | CASEMGMT ---
MAYCOL BEGUM to pt room, pt was provided an outpt therapy rx per handoff from MAYCOL BEGUM. Pt is aware that she will need to have her initial evaluations at [facility] prior to doing her treatments in [place]. Pt states she has done this in the past. Pt denies any other needs at this time.
--- NOTE | 2024-03-29 16:10 | PCM.DC.SUM ---
Providers Date of Admission: 03/27/24 Primary Care Physician: Dr. Dilip Matute MD Consultations 03/28/24 16:28 Consult: Orthopedics Routine Consulting Provider: Jorge Camarillo Reason for Consult: low back pain EMERGENT Consult: No MD Notified: Yes Date Notified: 03/28/24 Time Notified: 18:09 Method of Notification: Text Reason For Visit: ACUTE EXACERBATION OF CHRONIC BACK PAIN Diagnosis Discharge Diagnosis (1) Degenerative disc disease: Status: Acute Qualifiers: Spinal region: lumbosacral Disc-related pain type: discogenic back pain and lower extremity pain Qualified Code(s): M51.372 - Other intervertebral disc degeneration, lumbosacral region with discogenic back pain and lower extremity pain Medications at Discharge Home Medications lisinopril 20 mg tablet 20 mg PO DAILY 05/07/22 Nebulizer machine #1 ea 05/08/22 Supplies for nebulizer machine #3 ea 06/03/22 albuterol sulfate 2.5 mg/3 mL (0.083 %) solution for nebulization 2.5 mg (3 mL) inhalation Q4H PRN shortness of breath or wheezing #360 mL 07/30/23 albuterol sulfate 90 mcg/actuation aerosol inhaler (ProAir HFA) 2 puff inhalation Q6H PRN shortness of breath or wheezing #8.5 grams 08/29/23 fluticasone fur. 200 mcg-umeclid 62.5 mcg-vilant 25 mcg inhalat.powder (Trelegy Ellipta) 1 inh inhalation DAILY COPD, severe #90 ea 10/01/23 alpha lipoic acid 200 mg capsule 200 mg PO DAILY 10/16/23 baclofen 10 mg tablet 10 mg PO QDAY 10/16/23 cholecalciferol (vitamin D3) 25 mcg (1,000 unit) capsule 25 mcg PO DAILY 10/16/23 levocarnitine HCl (bulk) (Nhqebi-P-Wwljdiggz powder) ea miscellaneous 10/16/23 mecobalamin (vitamin B12) 1,000 mcg disintegrating tablet,sublingual 1,000 mcg sublingual DAILY 10/16/23 omega 2-oxc-qzx-fish oil 300 mg-1,000 mg capsule (Fish Oil) 1 cap PO DAILY 10/16/23 vitamin B complex 1 tab PO DAILY 10/16/23 clotrimazole 10 mg skyler 10 mg mucous membrane TID #90 tabs 11/03/23 fluconazole 100 mg tablet 100 mg PO QDAY #7 tabs 02/17/24 oxycodone 5 mg tablet 5 mg PO Q6H PRN pain 3 days #10 tabs 03/25/24 Lactobacillus acidophilus PO 03/27/24 methylprednisolone 4 mg tablets in a dose pack (Medrol (Gregory)) See Rx Instructions PO .COMPLEX #21 tabs 03/29/24 Hospital Course Operations None Procedures None Summary of Care Provided Minutes Spent on Discharge: 37 Hospital Course: Per HPI: MULUGETA ALANIS, is a 69 F with a past medical history of essential hypertension; on lisinopril, hyperlipidemia; on no medical treatment, overweight; with BMI of 27.7 this admission, history of DM-2; with patient currently on no medical treatment, history of tobacco abuse; with subsequent COPD, iron deficiency anemia and OA; with history of cervical discectomy and chronic back pain on as needed oxycodone every 6 hours, baclofen and gabapentin followed by pain management with recent admission to this ER on March 25, 2024 for an acute exacerbation of her chronic low back pain with the ER physician noting patient had tenderness to palpation of the paraspinal musculature suggestive of strain with no evidence of cauda equina syndrome or radiculopathy and lumbar spine x-rays revealing increased left subluxation of L4-L5 with moderate scoliosis unchanged and spondylosis with degenerative disc disease of L1-L2 who now re-presents to [facility] ER complaining of continued uncontrolled back pain and spite of her current medical regimen. Ms. Alanis reports once again that her pain is located in the Left side of her lower back and radiates down the back of her Left leg and she further stated that she could not take her oxycodone because it makes her nauseous. She informed the PA in the ER that she is having increased difficulty ambulating around her house due to the pain and she denies recent traumatic injury. The patient's able to move all her extremities and has intact sensation with no signs of vascular compromise, saddle anesthesia or bowel/bladder incontinence. Though her complaints of pain are severe her vital signs are normal except for mildly elevated blood pressure of 158/65 mmHg present on admission with a respiratory rate of 16 and heart rate of 79 bpm with the degree of her complaints not corresponding to her physical findings. Patient was treated in the ER with: IV Morphine, 2 doses of IV Dilaudid, IV Toradol and IV Decadron plus two doses of Zofran (one oral and one IV) with persistent claimed that her back pain was still uncontrolled. I informed the PA in the ER that this patient needed to have a Lumbar CT this admission due to her persistent and worsening pain with CT revealing no evidence of acute lumbar spinal fracture with grade 1 anterolisthesis L4 on L5 and mild multilevel degenerative disc disease and spondylosis. I then discussed the unremarkable CT results with the ER provider with patient now saying her pain control has still only mildly improved with patient stating she has to lay on her side and stay in a position to avoid pain with no signs of sedation speaking to suspected high opioid tolerance. She was then admitted to the general medical floor under observation status for ongoing care for a stay that is expected to be less than 2 midnights. Hospital Course: 1. Intractable low back pain in the setting of chronic low back pain?69-year-old female with a history of chronic back pain presented to the hospital with increasing pain. She states that she is feeling much better today than she did yesterday and the MRI that she had today demonstrated L4-5 mild to moderate canal stenosis with bilateral recess stenosis with compression of the left descending nerve root as well as some mild disease on L3-4. She was able to ambulate without major assistance but 150 feet. Will recommend following up with spine surgery as an outpatient, will continue with the Medrol Dosepak on discharge and would recommend outpatient physical therapy as well. I recommended she follow-up with her PCP in 3 to 5 days and establish a referral with spine surgery for the next 2 weeks. 2. Essential hypertension, COPD are chronic medical conditions which complicate her care, her home medications were continued where appropriate. Physical Exam Narrative General: Alert, Oriented x3, Cooperative, No apparent distress HEENT: Atraumatic, PERRLA, EOMI, Normocephalic Oral: Moist Mucosa Neck: Supple, No JVD Lungs: Diminished, Normal air movement, No rhonchi, scattered wheeze, No rales Cardiovascular: Regular rate, Regular Rhythm, Normal S1, Normal S2, No murmurs Abdomen: Soft, Non Tender, Non-Distended, No Hepato-splenomegaly Extremities: No edema, Capillary Refill Less than 3 Seconds Skin: No rashes, No breakdown Musculoskeletal: No Tenderness to Palpation of Joints or Extremities Neurological: No focal neurological deficits, Motor Exam 5/5 strength throughout, Sensory exam intact to light touch and pain Psych/Mental Status: Normal Affect, Appropriate Weight / BMI Weight Weight: 135 lb 15.698 oz Body Mass Index (BMI) 26.6 ABG / Lab / Microbiology Data 03/28/24 04:35 03/28/24 04:35 Laboratory: Laboratory Results - last 24 hr 03/29/24 05:51: Phosphorus 3.3, Magnesium 2.3 Radiography Diagnostic Testing: Radiology Impression Lumbar Spine MRI 03/29/24 06:00 IMPRESSION: 1. Multilevel degenerative changes, as described above. 2. No marrow edema or fracture or compression deformity is present. No aggressive process is seen. There are no suspicious enhancing lesions. No evidence of vertebral osteomyelitis or discitis. No epidural abscess is present. Electronically Signed: Ryley Cobian MD at 12:35 EST Reading Location ID and State: [address] [place] [address] , Service support , D/C Instructions Discharge Diet: Low fat / Low cholesterol Call your doctor if you observe: Fever of 101 or Higher, Shortness of breath, Dizziness, Fainting spells, Swelling in the ankles, Chest pain and Increased palpitations (irregular heartbeat) DC O2, CPAP, BIPAP Needs Home O2 Discharge instructions: No Meaningful Use Info Meaningful Use Meaningful Use Diagnoses (Choose all that apply): None applicable Ischemic Stroke Statin Dosing Therapy Reference: STATIN DOSE THERAPY REFERENCE: * Patients > 75 years receive moderate or high dose statin therapy. * Patients 75 years or YOUNGER should receive HIGH intensity statin dose unless contraindicated. You will be required to document reason for non-treatment if statin daily dose does not meet guidelines. HIGH DOSE STATIN THERAPY DAILY Atorvastatin > than or = to 40 mg Rosuvastatin > than or = to 20 mg Amlodipine + Atorvastatin > than or = to 2.5/40 mg Ezetimibe + Simvastatin 10/80 mg Simvastatin 80mg Discharge Plan Admission Admit Date/Time: 03/27/24 21:59 Attending Provider: Mark Gutierrez Primary Care Provider: Dilip Matute Chi Consulting Providers: Dom Liu; Jorge Camarillo; William Khan Discharge Orders/Prescriptions Prescriptions: New methylprednisolone [Medrol (Gregory)] 4 mg tablets,dose pack See Rx Instructions .ROUTE .COMPLEX Qty: 21 0RF Rx Instructions: for 6 days Continued lisinopril 20 mg tablet 20 mg PO DAILY (DME) Nebulizer machine See Rx Instructions .Route .MEDSUPPLY Qty: 1 0RF Rx Instructions: Use every 4-6 hours as needed (DME) Supplies for nebulizer machine See Rx Instructions .Route .MEDSUPPLY Qty: 3 3RF Rx Instructions: Tubing, plastic nebulizer cups, renewable every 90 days per insurance. Use every 4-6 hours with liquid respiratory medication as directed. vitamin B complex Tablet 1 tab PO DAILY mecobalamin (vitamin B12) 1,000 mcg tablet,disintegrating 1,000 mcg sublingual DAILY Rx Instructions: place tablet under tongue and allow to dissolve for at least30 secs before swallowing Buejai-W-Qeiwcqmsp Powder miscellaneous alpha lipoic acid 200 mg capsule 200 mg PO DAILY cholecalciferol (vitamin D3) 25 mcg (1,000 unit) capsule 25 mcg PO DAILY omega 0-ulx-sck-fish oil [Fish Oil] 300-1,000 mg capsule 1 cap PO DAILY baclofen 10 mg tablet 10 mg PO QDAY oxycodone 5 mg tablet 5 mg PO Q6H PRN (Reason: pain) 3 Days Qty: 10 0RF Lactobacillus acidophilus [Acidophilus] PO albuterol sulfate 2.5 mg /3 mL (0.083 %) solution for nebulization 2.5 mg inhalation Q4H MDD 6 PRN (Reason: shortness of breath or wheezing) Qty: 360 11RF albuterol sulfate [ProAir HFA] 90 mcg/actuation HFA aerosol inhaler 2 puff inhalation Q6H PRN (Reason: shortness of breath or wheezing) Qty: 8.5 6RF Trelegy Ellipta 200-62.5-25 mcg blister with device 1 inh inhalation DAILY MDD 1 daily Qty: 90 11RF clotrimazole 10 mg skyler 10 mg mucous membrane TID Qty: 90 6RF fluconazole 100 mg tablet 100 mg PO QDAY Qty: 7 0RF Referrals / Follow Up: Jorge Camarillo MD [Med Staff - Active Staff] - 04/15/24 12:30 pm Dilip Matute Chi, MD [Primary Care Provider] - Within 1 Week Disposition Disposition (needs filled in before D/C Order can be placed): Home, Self Care Charges/Coding Visit Charges Inpatient E&M: 73396 Disch Hosp >30min
[2024-03-30 04:06] LABS: CRP, High Sensitivity 3.36 mg/L (0.00-3.00)
== END 2024-03-29 15:10 | disposition home or self-care (01) ==
LOC: ED 21:57 → MS3 22:15
PROVIDERS: Physician Assistant; Admitting Provider Internal Medicine; Emergency Provider Emergency Medicine; PCP Family Medicine Geriatric Medicine; Visit Provider Family Medicine
DX: M51.372 Other intervertebral disc degeneration, lumbosacral region with discogenic back pain and lower extremity pain (principal); J44.89 Other specified chronic obstructive pulmonary disease; Z79.51 Long term (current) use of inhaled steroids; E78.2 Mixed hyperlipidemia; M43.16 Spondylolisthesis, lumbar region; M47.819 Spondylosis without myelopathy or radiculopathy, site unspecified; I10 Essential (primary) hypertension; Z79.899 Other long term (current) drug therapy; F17.210 Nicotine dependence, cigarettes, uncomplicated; D50.9 Iron deficiency anemia, unspecified; G89.29 Other chronic pain
CPT/HCPCS: 36415; 72131; 72158; 80048; 80053; 80061; 80307; 82607; 82746; 83036; 83735; 84100; 84443; 85025; 85652; 86141; 94640; 94668; 96372; 96374; 96375; 96376; 97116; 97162; 97166; 97535; 99221; 99285; 99406; A9575; A4216; G0378; J2405

== ENCOUNTER 2024-04-05 13:12 | Inpatient (IN) | payer MEDICARE, MEDICAID, SELFPAY ==
[2024-04-05 13:14] VITALS: PULSE 84; RESP 16; TEMP 36.9; O2SAT 94; BMI 26.7
[2024-04-05] MEDS: Morphine 4 MG/ML Syringe IV (13:52)
[2024-04-05] MEDS: Ondansetron 4 MG/2 ML Vial IV (13:52)
[2024-04-05 14:07] LABS: Absolute Lymphocyte Count 4.09 X10^3/uL (0.83-4.51); Absolute Neutrophil Count 7.2 X10^3/uL (2.0-7.7); Basophil# 0.04 X10^3/uL; Basophil% 0.3 % (0-1); Eosinophil# 0.34 X10^3/uL; Eosinophils% 2.6 % (0-5); Hematocrit 39.8 % (37-47); Hemoglobin 12.5 g/dL (12.0-15.0); Lymphocyte # 4.09 X10^3/ul (0.83-4.51); Lymphocyte % 31.8 % (19-41); Mean Corp Hgb Conc 31.4 g/dL (32-36); Mean Corpuscular Hgb 31.6 pg (27.0-32.0); Mean Corpuscular Volume 100.8 fL (81-99); Mean Platelet Vol. 8.9 fl (6.2-12.0); Monocyte# 1.08 X10^3/uL; Monocyte% 8.4 % (0-10); NRBC Flagged by Analyzer 0 % (0-5); Neutrophil # 7.17 X10^3/uL (2.7-7.7); Neutrophil % 55.9 % (47-70); Platelet Count 358 K/mm3 (150-450); RBC Distribution Width CV 12.2 % (11.6-14.6); RBC Distribution Width SD 45.7 fl (35.1-43.9); Red Blood Count 3.95 M/mm3 (4.2-5.4); White Blood Count 12.9 K/mm3 (4.4-11.0)
[2024-04-05 14:30] LABS: Erythrocyte Sedimentation Rate 15 mm/hr (0-30)
[2024-04-05 15:13] VITALS: BP 131/77; PULSE 83; RESP 16; O2SAT 97
[2024-04-05 15:15] VITALS: BP 131/77; PULSE 77; RESP 18; O2SAT 97
--- NOTE | 2024-04-05 15:50 | ED.VIS.BACK ---
HPI History of Present Illness Chief Complaint: Back Detail of Chief Complaint: Debilitating left lower back pain Informant: patient Onset/Context/Timing Onset: Days Context: Sudden Onset Chronic pain exacerbated by: Certain movements Injury: other (No history of injury) Timing: Continuous and Waxes and wanes Quality: Dull and Aching Location: - (Patient points to the left SI joint region.) Current Severity: Mild Maximum Severity: Severe Worsened by: improves with Movement and Bending Relieved by: Nothing Associated Symptoms Associated Symptoms: - (Patient denies saddle paresthesia or anesthesia. Patient denies dragging her left foot. Patient denies buckling of her knees.); Negative for Numbness, Tingling, Radiation to Right Leg, Radiation to Left Leg, Fever, Abdominal Pain, Dysuria, Unable to Ambulate, Unable to Transfer, Urinary Retention, Urinary Incontinence, Constipation or Fecal Incontinence Narrative Narrative: Patient is a 69-year-old woman. She was admitted to the hospital March 27 for exacerbation of chronic low back pain. She is in pain management. She has been injected in the past. She denies bowel bladder dysfunction. Denies saddle paresthesia or anesthesia. Denies foot drop. She denies radicular pain. She localizes the pain to the left SI joint. She denies fever, chills night sweats. She denies recent dental procedure. She denies history medic fever, heart murmur or mitral valve prolapse. Patient is in so much pain that family tells me that they have difficulty getting her from a sitting position to the commode. The discharge summary was reviewed and patient was diagnosed with degenerative disc disease. She had a CT of the abdomen and pelvis, MRI of the LS spine as well as CT of the lumbar spine. The images were reviewed by me and the reports were read. There was no significant abnormality noted. The images were consistent with degenerative disc disease of the lumbar spine. Prior similar symptoms: Yes Recent Illness/Hospitalization: Yes [facility] Medical History Oral thrush Abnormality of lung on CXR Nicotine addiction Stage 3 severe COPD by GOLD classification COPD with exacerbation Chronic airway obstruction COPD (chronic obstructive pulmonary disease) Hypertension DM type 2 (diabetes mellitus, type 2) Mixed hyperlipidemia Iron deficiency anemia Home Medications ?Medication ?Instructions ?Recorded ?Last Taken ?Type lisinopril 20 mg tablet 20 mg PO DAILY 05/07/22 Unknown History Nebulizer machine #1 ea 05/08/22 Unknown Rx Supplies for nebulizer machine #3 ea 06/03/22 Unknown Rx albuterol sulfate 2.5 mg/3 mL 2.5 mg (3 mL) inhalation Q4H PRN 07/30/23 Unknown Rx (0.083 %) solution for nebulization shortness of breath or wheezing #360 mL albuterol sulfate 90 mcg/actuation 2 puff inhalation Q6H PRN 08/29/23 Unknown Rx aerosol inhaler (ProAir HFA) shortness of breath or wheezing #8.5 grams fluticasone fur. 200 mcg-umeclid 1 inh inhalation DAILY COPD, 10/01/23 Unknown Rx 62.5 mcg-vilant 25 mcg severe #90 ea inhalat.powder (Trelegy Ellipta) alpha lipoic acid 200 mg capsule 200 mg PO DAILY 10/16/23 Unknown History baclofen 10 mg tablet 10 mg PO QDAY 10/16/23 Unknown History cholecalciferol (vitamin D3) 25 25 mcg PO DAILY 10/16/23 Unknown History mcg (1,000 unit) capsule levocarnitine HCl (bulk) ea miscellaneous 10/16/23 Unknown History (Dlgvkv-V-Jklgekujs powder) mecobalamin (vitamin B12) 1,000 1,000 mcg sublingual DAILY 10/16/23 Unknown History mcg disintegrating tablet,sublingual omega 2-qlc-erb-fish oil 300 1 cap PO DAILY 10/16/23 Unknown History mg-1,000 mg capsule (Fish Oil) vitamin B complex 1 tab PO DAILY 10/16/23 Unknown History clotrimazole 10 mg skyler 10 mg mucous membrane TID #90 tabs 11/03/23 Unknown Rx fluconazole 100 mg tablet 100 mg PO QDAY #7 tabs 02/17/24 Unknown Rx oxycodone 5 mg tablet 5 mg PO Q6H PRN pain 3 days #10 03/25/24 Unknown Rx tabs Lactobacillus acidophilus PO 03/27/24 Unknown History methylprednisolone 4 mg tablets in See Rx Instructions PO .COMPLEX 03/29/24 Unknown Rx a dose pack (Medrol (Gregory)) #21 tabs Allergy/AdvReac Type Severity Reaction Status Date / Time codeine Allergy hives Verified 04/05/24 13:13 Family History Mother Arthritis Skin cancer Father Brain cancer Surgical History Hx of tonsillectomy H/O cervical discectomy Social History Smoking Status: Current every day smoker tobacco type: cigarettes alcohol intake: current alcohol intake frequency: holidays/special occasions only ROS ROS ED Constitutional Constitutional ED: Denies chills, fever(s), subjective or sweats Eyes Eyes: Denies blurry vision or change in vision Cardiovascular Cardiovascular: Denies chest pain, orthopnea or palpitations Respiratory/Chest Respiratory/Chest: Denies dyspnea, dyspnea on exertion or orthopnea Gastrointestinal Gastrointestinal: Denies abdominal pain, constipation, diarrhea, nausea or vomiting Genitourinary Genitourinary ED: Denies dysuria, hematuria or urinary frequency Musculoskeletal Musculoskeletal: Reports back pain; Denies arthralgias or myalgias Integumentary Denies rash Neurologic Neurologic: Denies headache(s), paresthesias or weakness Psychiatric Psychiatric: Reports depression Hematologic/Lymphatic Hematologic/Lymphatic: Denies easy bleeding or easy bruising EXAM Physical Exam Const Vital Signs: 04/05/24 13:14 04/05/24 15:13 04/05/24 15:15 Temperature 98.4 F Temperature Source Oral Pulse Rate 84 83 77 Respiratory Rate 16 16 18 Blood Pressure 131/77 H 131/77 H Blood Pressure Mean 95 95 Pulse Ox 94 97 97 Oxygen Delivery Method Room Air Room Air Positive well nourished and well developed Constitutional Narrative: As I entered the room patient was on her smart phone. When she moved her left lower extremity she complained of pain and localized the pain to the area of the left SI joint region. General Appearance ED: well developed and NAD; Negative for pallor HEENT Reports moist mucous membranes HEENT Narrative: Head is atraumatic normocephalic. Ears normal. Nares patent. Eyes PERRL and EOMs intact bilaterally General Eye ED: Negative for pale conjunctiva or scleral icterus Neck no lymphadenopathy, supple and no JVD Resp normal respiratory effort and clear to auscultation bilaterally Cardio regular rate, regular rhythm, S1 normal heart sound, S2 normal heart sound and no murmurs GI normal to inspection, nondistended, normoactive bowel sounds, soft to palpation, non-tender, non-distended and no masses GI Narrative: There is no palpable pulsatile mass. There is no abdominal bruit. Back/Spine normal to inspection and no thoracic nor lumbar tenderness Back/Spine Narrative: There is tenderness over the sacrum/left SI joint. There is no bruising noted. There is no soft tissue swelling noted. There is no erythema, warmth or fluctuance in the area. Straight leg test is negative right and left. Patella and ankle reflex are symmetric. EHL is intact. Sensation L3-S1 is intact. Patient has reproducible pain with palpation over the left SI joint region/sacrum. Extremity normal to inspection and no clubbing, cyanosis or edema Neuro oriented x3 and no sensory deficits noted Sensorium / Orientation: alert Deep Tendon Reflexes: Rt Patellar (L4): 1+, Lt Patellar (L4): 1+, Rt Ankle (S1): 1+ and Lt Ankle (S1): 1+ Deep Tendon Reflexes Back: Rt Patellar (L4): 1+, Lt Patellar (L4): 1+, Rt Ankle (S1): 1+ and Lt Ankle (S1): 1+ Plantar Reflex: Downgoing: bilateral Psych Mood & Affect: depressed and sad Skin no rashes or lesions noted and no wounds General Skin Exam: Negative for jaundice or pallor MDM MDM MDM Narrative Medical decision making narrative: Admission for back pain was reviewed. Discharge summary was read in entirety. Images obtained were reviewed and reports read. Because patient has pain SI joint Donis Lion 4 test was done. She complained of no pain. The cause of her pain is unknown in my opinion. Obtain CBC to determine if there is significantly elevated white count or shift and inflammatory markers were obtained as well. Case management was consulted. Lab Data Labs: Laboratory Results - last 24 hr 04/05/24 13:50 WBC 12.9 H RBC 3.95 L Hgb 12.5 Hct 39.8 MCV 100.8 H MCH 31.6 MCHC 31.4 L RDW Std Deviation 45.7 H RDW Coeff of Adriana 12.2 Plt Count 358 MPV 8.9 Immature Gran % (Auto) 1.000 H Neut % (Auto) 55.9 Lymph % (Auto) 31.8 [place] % (Auto) 8.4 Eos % (Auto) 2.6 Baso % (Auto) 0.3 Absolute Neuts (auto) 7.2 Absolute Lymphs (auto) 4.09 Nucleated RBC % 0 ESR 15 Sodium Cancelled Potassium Cancelled Chloride Cancelled Carbon Dioxide Cancelled Anion Gap Cancelled BUN Cancelled Creatinine Cancelled Estim Creat Clear Calc Cancelled Est GFR (MDRD) Af Amer Cancelled Est GFR (MDRD) Non-Af Cancelled BUN/Creatinine Ratio Cancelled Glucose Cancelled Calcium Cancelled Total Bilirubin Cancelled AST Cancelled ALT Cancelled Alkaline Phosphatase Cancelled C-React Prot Ext Range Cancelled Total Protein Cancelled Albumin Cancelled Globulin Cancelled Albumin/Globulin Ratio Cancelled Management Discussion w/another healthcare provider: Hospitalist (Spoke with Dr. Paulina Paz. Patient be a full admit MedSurg for intractable back pain, failure to thrive inability to ambulate) and speeder worker/Case management (Case management spoke with patient and family. They do not feel that they are able to care for her at home. She will require pre-CERT.) Treatment and Re-Evaluation Narrative: The morphine that was ordered did not help. Patient does not want pain medicine. Since I am uncertain what the cause of this pain is I am reluctant to treat her with steroids. And in light of her being diabetic with hypertension and 69 years of age reluctant to treat with NSAIDs and specifically Toradol. When the sister was talking with case management she began to cry. Sister does not want her to get pain medicine either. Discharge Plan Dx/Rx/DC Orders Clinical Impression: Acute exacerbation of chronic low back pain, Mixed hyperlipidemia, Unable to walk, Degenerative disc disease, DM type 2 (diabetes mellitus, type 2), Hypertension, Intractable low back pain, Adult failure to thrive Disposition Disposition: Acute Care Hospital [facility]
--- NOTE | 2024-04-05 16:04 | PCM.HP.STD ---
[facility] - General General Date of Admission: 04/05/24 Date of Service: 04/05/24 Chief Complaint: Intractable back pain, radiculopathy, unable to walk HPI Narrative The patient is a 69 y/o F w/ PMHx: COPD, Tobacco use, HTN, HLD, Chronic anemia/Fe deficiency anemia, Diabetes mellitus type II, Chronic lumbar back pain with radiculopathy following w/ pain management, recent discharge 03/29/2024 following evaluation and treatment for lumbar back pain with consultation with orthospine at that time in addition to MRI of the lumbar spine with no acute findings with increased ability and worsening left lower lumbar back pain with radiculopathy at that time treated with a course of Medrol and discharged to home with outpatient therapies and follow-up with primary care physician as well as orthopedic surgery who now Eula presents to the [facility] ED on 04/05/2024 with persistent 9 out of 10 persistent back discomfort with radiculopathy with inability to function at home safely prompting ED return. Following ED pain medication patient noted pain decreased to 4 out of 10 in severity. She denies any perineal numbness and continues to be able to use the restroom both urination and defecation without any incontinence. Workup in the ED included T98.4, heart rate 84, BP 131/77, respiratory rate 16, 94 to 97% on room air, CBC with WBC 12.9, hemoglobin 12.5, MCV 100.8, platelet 358 with increased immature granulocytes, ESR 15. Recent outpatient MRI lumbar spine 03/29/2024 with and without contrast with multilevel degenerative changes, no marrow edema or fracture compression deformity present, no aggressive process seen, no suspicious enhancing lesions, no evidence of any vertebral osteomyelitis or discitis, no epidural abscess present. In the ED patient ministered morphine 4 mg IV x 1 as well as Zofran 4 mg IV x 1. In the ED patient is very tearful but reports ongoing pain with any movement although at rest she currently notes it is abated and is 4 out of 10 following ED interventions. [facility] Medical History Tobacco use Chronic pain syndrome HTN (hypertension) Stage 3 severe COPD by GOLD classification Hypertension DM type 2 (diabetes mellitus, type 2) Mixed hyperlipidemia Iron deficiency anemia Home Medications ?Medication ?Instructions ?Recorded ?Last Taken ?Type lisinopril 20 mg tablet 20 mg PO DAILY 05/07/22 Unknown History Nebulizer machine #1 ea 05/08/22 Unknown Rx Supplies for nebulizer machine #3 ea 06/03/22 Unknown Rx albuterol sulfate 2.5 mg/3 mL 2.5 mg (3 mL) inhalation Q4H PRN 07/30/23 04/05/24 Rx (0.083 %) solution for nebulization shortness of breath or wheezing #360 mL fluticasone fur. 200 mcg-umeclid 1 inh inhalation DAILY COPD, 10/01/23 04/05/24 Rx 62.5 mcg-vilant 25 mcg severe #90 ea inhalat.powder (Trelegy Ellipta) baclofen 10 mg tablet 10 mg PO QDAY 10/16/23 Unknown History cholecalciferol (vitamin D3) 25 25 mcg PO DAILY 10/16/23 04/04/24 History mcg (1,000 unit) capsule vitamin B complex 1 tab PO DAILY 10/16/23 04/04/24 History Lactobacillus acidophilus 20 20,000 mmu cells PO DAILY 04/05/24 04/04/24 History billion cell capsule (Florajen Acidophilus) albuterol sulfate 90 mcg/actuation 2 inh inhalation Q6H PRN shortness 04/05/24 Unknown History aerosol inhaler (Ventolin HFA) of breath or wheezing Allergy/AdvReac Type Severity Reaction Status Date / Time codeine Allergy hives Verified 04/05/24 13:13 Family History Mother Arthritis Skin cancer Father Brain cancer Surgical History Hx of tonsillectomy H/O cervical discectomy Social History household members: none Smoking Status: Current every day smoker tobacco type: cigarettes Smoking packs per day: 1 Smoking cigarettes per day: 20.0 alcohol intake: current alcohol intake frequency: holidays/special occasions only substance use type: does not use ROS ROS Narrative Admission Review of Systems: CONSTITUTIONAL: No weight loss, fever, chills, + weakness or fatigue. HEENT: Eyes: No visual loss, blurred vision, double vision or yellow sclerae. Ears, Nose, Throat: No hearing loss, sneezing, congestion, runny nose or sore throat. SKIN: No rash or itching, lesions, wounds. CARDIOVASCULAR: No chest pain, chest pressure or chest discomfort, palpitations, edema, orthopnea, syncopal events. RESPIRATORY: No shortness of breath, cough or sputum, wheezing, hemoptysis. GASTROINTESTINAL: + Decreased appetite. No nausea, vomiting or diarrhea, abdominal pain, melena, BRBPR. GENITOURINARY: No dysuria, frequency, urgency or retention. NEUROLOGICAL: + Severe back pain with debility, difficulty walking with radiculopathy but no focal specific weakness. No headache, dizziness, syncope, paralysis, ataxia, change in bowel or bladder control, seizure. MUSCULOSKELETAL: + muscle, back pain, joint pain or stiffness. HEMATOLOGIC: + Chronic anemia, easy bleeding/bruising. LYMPHATICS: No enlarged nodes. No history of splenectomy. PSYCHIATRIC: No history of depression or anxiety. ENDOCRINOLOGIC: No reports of sweating, cold or heat intolerance. No polyuria or polydipsia. ALLERGIES: + History of hives. Vital Signs Vital Signs Vital Signs: 04/05/24 13:14 04/05/24 15:13 04/05/24 15:15 Temperature 98.4 F Temperature Source Oral Pulse Rate 84 83 77 Respiratory Rate 16 16 18 Blood Pressure 131/77 H 131/77 H Blood Pressure Mean 95 95 Pulse Ox 94 97 97 Oxygen Delivery Method Room Air Room Air Weight Weight: 136 lb 12.8 oz Body Mass Index (BMI) 26.7 Physical Exam Narrative Physical Examination: General: Awake, alert, oriented x 3 and cooperative, seated upright in the ED bed, notes pain controlled if she is not moving, 4-10 following recent ED interventions, does appear tearful. Skin: Normal color, normal turgor, no icterus, no cyanosis except occasional stage ecchymoses, abrasion. HEENT: AT/NC, EOMI, PERRLA, mildly dry MM, no carotid bruits or JVD noted. Lungs: Mildly diminished, greater bases, appropriate effort, no rales, ronchi or wheezing. Heart: Regular rate and rhythm; no gallop, rub audible. Abdomen: Soft, NTTP, ND, mildly hyperactive BS, no HSM. Extremities: No cyanosis, no clubbing, mild ankle not markedly pitting edema present. Neurological: Patient awake, alert, oriented as noted cognitive function intact; pupils equally reactive to light and accommodation, cranial nerves grossly normal, moving all 4 extremities and able to do straight leg raise bilaterally without any specific pain elicited to the lumbar spine, notes pain primarily to the lumbar back on the left with radiculopathy of the left lower extremity with ambulatory attempts, notable discomfort with palpation of the left sacroiliac region and some paraspinous muscles, sensation intact, no obvious focal deficits, strength globally decreased given severity of pain with activity attempts. Psychiatric: Affect appears tearful, some concern for possible depression contributing to her current situation however unclear if because of pain and ongoing situation with pain. Results Lab / Micro Data 04/05/24 13:50 04/05/24 16:14 Labs: Laboratory Results - last 24 hr 04/05/24 13:50: WBC 12.9 H, RBC 3.95 L, Hgb 12.5, Hct 39.8, MCV 100.8 H, MCH 31.6, MCHC 31.4 L, RDW Std Deviation 45.7 H, RDW Coeff of Adriana 12.2, Plt Count 358, MPV 8.9, Immature Gran % (Auto) 1.000 H, Neut % (Auto) 55.9, Lymph % (Auto) 31.8, [place] % (Auto) 8.4, Eos % (Auto) 2.6, Baso % (Auto) 0.3, Absolute Neuts (auto) 7.2, Absolute Lymphs (auto) 4.09, Nucleated RBC % 0, ESR 15, Sodium Cancelled, Potassium Cancelled, Chloride Cancelled, Carbon Dioxide Cancelled, Anion Gap Cancelled, BUN Cancelled, Creatinine Cancelled, Estim Creat Clear Calc Cancelled, Est GFR (MDRD) Af Amer Cancelled, Est GFR (MDRD) Non-Af Cancelled, BUN/Creatinine Ratio Cancelled, Glucose Cancelled, Calcium Cancelled, Total Bilirubin Cancelled, AST Cancelled, ALT Cancelled, Alkaline Phosphatase Cancelled, C-React Prot Ext Range Cancelled, Total Protein Cancelled, Albumin Cancelled, Globulin Cancelled, Albumin/Globulin Ratio Cancelled Assessment & Plan Assessment/Plan (1) Intractable low back pain: (2) Adult failure to thrive: PLAN: Plan The patient is a 69 y/o F w/ PMHx: COPD, Tobacco use, HTN, HLD, Chronic anemia/Fe deficiency anemia, Diabetes mellitus type II, Chronic lumbar back pain with radiculopathy following w/ pain management, recent discharge 03/29/2024 following evaluation and treatment for lumbar back pain with consultation with orthospine at that time in addition to MRI of the lumbar spine with no acute findings with increased ability and worsening left lower lumbar back pain with radiculopathy at that time treated with a course of Medrol and discharged to home with outpatient therapies and follow-up with primary care physician as well as orthopedic surgery who now Eula presents to the [facility] ED on 04/05/2024 with persistent 9 out of 10 persistent back discomfort with radiculopathy with inability to function at home safely prompting ED return. #1. Acute on Chronic Intractable Lumbar Back Pain with radiculopathy, adult failure to thrive: Will admit to [facility], maintain on fall precautions, frequent positioning, initiate IV toradol, low dose gabapentin, lidocaine patches, increase baclofen regimen, reinitiate medrol dose pack, po/IV narcotic pain regimen, anti-emetics, bowel regimen. Will consult PT and OT for evaluation as well as Case management for discharge planning. Given recurrent severe pain some thought to possibility of depression as component of her ongoing pain but will treat as noted first and may need to explore this further. #2. Diabetes mellitus type II: Noted history, per current list does not appear to be on regimen, will obtain hemoglobin A1c to be cautious especially given steroid usage, in the interim will maintain on ADA diet, accu checks w/ ISS. #3. Chronic anemia, per review of previous labs MCV ranges between normocytic and lower threshold of macrocytic/iron deficiency anemia: Admission hemoglobin 12.5, MCV 100.8, baseline primarily 11-12 range, stable compared to previous, per current list does not appear to be on chronic iron supplementation, continue to trend. #4. Hypertension: Continue home regimen including lisinopril, PRN hydralazine. #5. Hyperlipidemia: Per current list does not appear to be on any regimen. #6. Chronic COPD: Will temporarily hold home inhalers in the interim placed on ATC budesonide therapy, PRN albuterol, HOB, IS parameters, continue aggressive oral care as patient predisposed to oral thrush. #7. Tobacco Abuse: Encouraged cessation, inpatient consultation per RT, NR if desired. #8. DVT prophylaxis: Lovenox. #9. CODE status: Patient healthcare power of profile grinder technician and living will are not in place but her children would be her medical decision makers if necessary. Discussed CODE status at length including difference between FULL code, DNR-CCA and DNR-CC status. Following discussions about the differences in these status, requested Full Code status. Advanced Care Planning Face to Face Time: 16 minutes. Charges/Coding Visit Charges Inpatient E&M: 45713 Init Hosp L3 Procedures Hospitalists Procedures: 70588 Advncd Care Plan 30 Min
[2024-04-05 16:15] VITALS: BP 141/77; PULSE 88; RESP 19; TEMP 37; O2SAT 97
[2024-04-05 16:59] LABS: ALB/GLOB Ratio 0.9 RATIO (0.9-2.4); AST(SGOT) 12 U/L (15-37); Alanine Aminotransfer ALT/SGPT 15 U/L (13-56); Albumin, Serum 3.5 g/dL (3.2-5.0); Alkaline Phosphatase 70 U/L (45-117); Anion Gap 6 (5-15); BUN 26 mg/dL (7-18); BUN/Creat Ratio 27.9 RATIO (10-20); CRP 3.56 mg/L (0.0-3.0); Calcium,Total 9.5 mg/dL (8.5-10.1); Chloride 104 mmol/L (98-107); Creatinine, Serum 0.93 mg/dL (0.55-1.02); EST Glomerular Filtration Rate 64 mL/min (>60); Est Glom Filt Rate - Afr Amer 77 mL/min (>60); Estimated Creatinine Clearance 47.64 ml/min; Globulin 3.7 g/dL (2.2-4.2); Glucose 92 mg/dL (74-106); Potassium 4.2 mmol/L (3.5-5.1); Protein, Total 7.2 g/dL (6.4-8.2); Sodium Level 137 mmol/L (136-145)
--- NOTE | 2024-04-05 17:01 | ED.RN ---
This RN attempted to ambulate patient earlier and patient walked 4 steps and her leg gave out resulting in this RN having to hold her up so she doesnt fall.
[2024-04-05 17:56] VITALS: BMI 26.0
[2024-04-05 18:08] VITALS: BP 141/76; PULSE 78; RESP 16; TEMP 36.8; O2SAT 96
[2024-04-05] MEDS: 0.9% Normal Saline (1000mL) 1,000 ML 100 ML IV (18:15)
[2024-04-05] MEDS: 0.9% Saline Lock 10 ML Syringe IV ×2 (18:15→22:24)
[2024-04-05] MEDS: Gabapentin 100 MG Capsule PO (19:06)
--- NOTE | 2024-04-05 19:24 | CM.ED ---
Social work Reason for referral: HHC Referral source: Dr. Kirill Roy discussed patient?s current situation with this PAULY and PAULY Navarro. Dr. Ryo stated patient?s daughter reported difficulty with patient care and patient could benefit from HHC being started. Chart reviewed and noted patient had a recent observation stay at [facility]. At that time, patient declined HHC but accepted a prescription for outpatient PT. This PAULY and PAULY Navarro entered patient?s room, introducing selves and roles at [facility]. Patient was sitting in bed, alert and oriented. Patient?s daughter, Cony, and Cony?s boyfriend, Michael, were bedside. Patient stated being in pain and being unable to get out of the house. Patient stated an inability to follow up on outpatient care due to this. Cony stated needing HHC set up because patient was unable to walk without pain. Patient reported receiving pain medication makes patient ill and patient states the injections patient receives from Dr. France only last about 2 months. Explored what patient has been doing for pain management at home, to which patient reports has not been taking the pain medication due getting sick when taking narcotics. PAULY Navarro educated patient and patient?s family on options and levels of care with patient?s current situation. PAULY Navarro stated that a HHC referral could be made, but patient?s PCP, Dr. Matute, would need to sign off on the order for it to occur. Patient and daughter both stated the inability to go in person to see Dr. Matute due to patient?s pain. PAULY Navarro broached the topic of SNF for pain management and rehabilitation and Cony stated being unsure of this. Patient stated needing to use the restroom; nursing entered room and social work observed patient struggled greatly to get out of bed and walk at all, crying out in pain as tried to walk. Cony followed this PAULY and PAULY Navarro out to the hallway in tears, stating how difficult it was to see patient in pain. Cony stated she and patient?s 3 other children are not able to provide for patient?s needs in current condition. Daughter reports patient would likely be open to SNF in order to feel better. Dr. Roy updated and patient to be admitted for further evaluation and pain management. Patient and patient?s family updated. PAULY broached whether patient would be willing to go to short term SNF if recommended, to which patient expressed agreement. SW to follow as needed. Belkys Corcoran, FIRE PATROL, SURGICAL CODER
--- NOTE | 2024-04-05 19:24 | CASEMGMT ---
Care Management Face to Face with patient for initial transition planning/care coordination assessment in the ED. 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 Patient lying in bed, alert and oriented. Patient willing to participate in assessment and is able to answer all questions appropriately. Admitting Diagnosis: intractable low back pain, adult failure to thrive Other diagnosis history: COPD, HTN, HLD, anemia, diabetes mellitus type II PCP: Dr. Matute Specialists: Dr. France, pain management. Dr. Mortensen, breakfast bar attendant. Preferred Pharmacy: [facility] in [place] Insurance: [facility] Medicare Dual Complete (primary). Medicaid (secondary). Prescription Benefit: yes Living Will/HPOA: does not have, but would be open to completing while admitted. LNOK: 4 daughters, all living locally to her (farthest is in [place]) Living Arrangements: lives with daughterClaire. 1 story apartment with 1 step to enter. Usually independent with all ADLs. Transportation: patient drives. DME: walker, raised toilet seat, windows desktop support, O2 at night (Dasco 2L), nebulizer, pulse ox, blood pressure cuff, lift chair, grab bars in bathroom (to help in and out of tub) HHC: none SNF/Rehab: none Community Resources: none Behavioral Health History: states no history of counseling or depression diagnoses. Patient states the amount of pain recently has caused depression symptoms to ?creep in.? Patient goals: Patient wishes to discharge home, though patient desires to get better ?even if? that means SNF. Patient states being unable to go home in as much pain as patient is currently in. Disposition Plan: admission to acute; RN CM/SW to follow for discharge planning needs that may arise. Belkys Corcoran, CLOTHING ROOM SUPERVISOR, HORSE GROOMER
[2024-04-05 19:38] LABS: Bedside Glucose 91 mg/dL (74-106)
[2024-04-05] MEDS: Baclofen 10 MG Tablet PO (19:39)
[2024-04-05] MEDS: Lidocaine 5% Patch 2 PATCH TOPICAL (19:45)
[2024-04-05 22:15] VITALS: BP 131/66; PULSE 74; RESP 18; TEMP 36.8; O2SAT 97
[2024-04-05] MEDS: Lactobacillis Acidophilus 1 CAP PO (22:18)
[2024-04-05] MEDS: MethylPREDNISolone DosePak 4 MG BOX PO (22:20)
[2024-04-05] MEDS: Ketorolac 15 MG/ML Vial IV (22:24)
[2024-04-05 22:49] LABS: Bedside Glucose 108 mg/dL (74-106)
[2024-04-05] MEDS: MELATONIN 3 MG TABLET PO (23:44)
[2024-04-05] MEDS: oxyCODONE 5 MG Tablet PO (23:49)
[2024-04-06] VITALS (10 sets, daily range): BP systolic 118–151; BP diastolic 58–80; PULSE 64–98; RESP 16–22; TEMP 36.6–36.8; O2SAT 94–99; BMI 26.3
[2024-04-06] MEDS: Morphine 2 MG/ML Syringe IV (03:39)
[2024-04-06] MEDS: 0.9% Saline Lock 10 ML Syringe IV ×4 (03:41→21:49)
[2024-04-06] MEDS: Ketorolac 15 MG/ML Vial IV ×3 (05:48→21:45)
[2024-04-06 06:12] LABS: Absolute Neutrophil Count 8.2 X10^3/uL (2.0-7.7); Basophil# 0.04 X10^3/uL; Basophil% 0.4 % (0-1); Eosinophil# 0.01 X10^3/uL; Eosinophils% 0.1 % (0-5); Hemoglobin 12.1 g/dL (12.0-15.0); Lymphocyte % 17.4 % (19-41); Mean Corp Hgb Conc 31.8 g/dL (32-36); Mean Corpuscular Hgb 31.9 pg (27.0-32.0); Mean Corpuscular Volume 100.3 fL (81-99); Mean Platelet Vol. 9.3 fl (6.2-12.0); Monocyte# 0.16 X10^3/uL; Monocyte% 1.5 % (0-10); NRBC Flagged by Analyzer 0 % (0-5); Neutrophil # 8.21 X10^3/uL (2.7-7.7); Neutrophil % 79.2 % (47-70); Platelet Count 334 K/mm3 (150-450); RBC Distribution Width SD 44.2 fl (35.1-43.9); Red Blood Count 3.79 M/mm3 (4.2-5.4); White Blood Count 10.4 K/mm3 (4.4-11.0)
[2024-04-06 06:30] LABS: AST(SGOT) 14 U/L (15-37); Alanine Aminotransfer ALT/SGPT 15 U/L (13-56); Albumin, Serum 3.1 g/dL (3.2-5.0); Alkaline Phosphatase 63 U/L (45-117); Anion Gap 2 (5-15); BUN 25 mg/dL (7-18); BUN/Creat Ratio 26.2 RATIO (10-20); Calcium,Total 8.5 mg/dL (8.5-10.1); Chloride 107 mmol/L (98-107); Creatinine, Serum 0.96 mg/dL (0.55-1.02); EST Glomerular Filtration Rate 62 mL/min (>60); Est Glom Filt Rate - Afr Amer 75 mL/min (>60); Estimated Creatinine Clearance 45.85 ml/min; Glucose 126 mg/dL (74-106); Potassium 5.7 mmol/L (3.5-5.1); Protein, Total 6.1 g/dL (6.4-8.2); Sodium Level 135 mmol/L (136-145)
[2024-04-06 06:56] LABS: Bedside Glucose 126 mg/dL (74-106)
[2024-04-06] MEDS: Budesonide Respules 0.5 MG/2 ML AMPUL.NEB. INHALATION ×2 (07:03→19:35)
[2024-04-06] MEDS: MethylPREDNISolone DosePak 4 MG BOX PO ×4 (07:51→21:44)
[2024-04-06] MEDS: Lidocaine 5% Patch 2 PATCH TOPICAL (07:51)
[2024-04-06] MEDS: Baclofen 10 MG Tablet PO ×2 (07:51→21:43)
[2024-04-06] MEDS: Gabapentin 100 MG Capsule PO ×3 (07:51→16:32)
[2024-04-06] MEDS: Lactobacillis Acidophilus 1 CAP PO ×2 (07:52→21:43)
[2024-04-06] MEDS: Enoxaparin 40 MG/0.4 ML Syringe SC (07:52)
[2024-04-06] MEDS: Lisinopril 20 MG Tablet PO (07:52)
[2024-04-06] MEDS: Acetaminophen 325 MG Tablet 650 MG PO ×2 (07:52→16:38)
[2024-04-06 07:54] LABS: Hemoglobin A1c 5.6 % (3.8-5.6)
--- NOTE | 2024-04-06 09:28 | PN.HOSP_ITS ---
Reason for Visit Reason for Visit: Diagnoses Other low back pain (04/05/24) Adult failure to thrive (04/05/24) Subjective Subjective Patient is a 69-year-old lady admitted with intractable back pain Objective Data Objective Data Vital Signs: Vital Signs Temp Pulse Resp BP Pulse Ox O2 Del Method O2 Flow Rate 98.2 F 75 20 H 143/80 H 94 Room Air 2 04/06/24 07:50 04/06/24 07:50 04/06/24 07:50 04/06/24 07:50 04/06/24 07:50 04/06/24 07:50 04/06/24 04:05 Oxygen Flow Rate (L/min) 2 Oxygen Delivery Method Room Air Weight: 61.2 kg Body Mass Index (BMI) 26.3 Intake & Output: Intake and Output for Last 24 Hours 04/04/24 04/05/24 04/06/24 23:59 23:59 23:59 Intake Total 1000 / 1000 Output Total 500 / 500 400 / 400 Balance -500 / -500 600 / 600 Lab / Micro Data 04/06/24 05:38 04/06/24 05:38 Labs: Laboratory Results - last 24 hr 04/05/24 13:50: WBC 12.9 H, RBC 3.95 L, Hgb 12.5, Hct 39.8, MCV 100.8 H, MCH 31.6, MCHC 31.4 L, RDW Std Deviation 45.7 H, RDW Coeff of Adriana 12.2, Plt Count 358, MPV 8.9, Immature Gran % (Auto) 1.000 H, Neut % (Auto) 55.9, Lymph % (Auto) 31.8, [place] % (Auto) 8.4, Eos % (Auto) 2.6, Baso % (Auto) 0.3, Absolute Neuts (auto) 7.2, Absolute Lymphs (auto) 4.09, Nucleated RBC % 0, ESR 15, Sodium Cancelled, Potassium Cancelled, Chloride Cancelled, Carbon Dioxide Cancelled, Anion Gap Cancelled, BUN Cancelled, Creatinine Cancelled, Estim Creat Clear Calc Cancelled, Est GFR (MDRD) Af Amer Cancelled, Est GFR (MDRD) Non-Af Cancelled, BUN/Creatinine Ratio Cancelled, Glucose Cancelled, Calcium Cancelled, Total Bilirubin Cancelled, AST Cancelled, ALT Cancelled, Alkaline Phosphatase Cancelled, C-React Prot Ext Range Cancelled, Total Protein Cancelled, Albumin Cancelled, Globulin Cancelled, Albumin/Globulin Ratio Cancelled 04/05/24 16:14: Sodium 137, Potassium 4.2, Chloride 104, Carbon Dioxide 27.0, Anion Gap 6, BUN 26 H, Creatinine 0.93, Estim Creat Clear Calc 47.64, Est GFR (MDRD) Af Amer 77, Est GFR (MDRD) Non-Af 64, BUN/Creatinine Ratio 27.9 H, Glucose 92, Calcium 9.5, Total Bilirubin 0.40, AST 12 L, ALT 15, Alkaline Phosphatase 70, C-React Prot Ext Range 3.56 H, Total Protein 7.2, Albumin 3.5, Globulin 3.7, Albumin/Globulin Ratio 0.9 04/05/24 18:17: POC Glucose 91 04/05/24 22:15: POC Glucose 108 H 04/06/24 05:38: WBC 10.4, RBC 3.79 L, Hgb 12.1, Hct 38.0, MCV 100.3 H, MCH 31.9, MCHC 31.8 L, RDW Std Deviation 44.2 H, RDW Coeff of Adriana 12.0, Plt Count 334, MPV 9.3, Immature Gran % (Auto) 1.400 H, Neut % (Auto) 79.2 H, Lymph % (Auto) 17.4 L , [place] % (Auto) 1.5, Eos % (Auto) 0.1, Baso % (Auto) 0.4, Absolute Neuts (auto) 8.2 H, Absolute Lymphs (auto) 1.80, Nucleated RBC % 0, Sodium 135 L, Potassium 5.7 H, Chloride 107, Carbon Dioxide 26.0, Anion Gap 2 L, BUN 25 H, Creatinine 0.96, Estim Creat Clear Calc 45.85, Est GFR (MDRD) Af Amer 75, Est GFR (MDRD) Non-Af 62, BUN/Creatinine Ratio 26.2 H, Glucose 126 H, Hemoglobin A1c 5.6, Calcium 8.5, Total Bilirubin 0.40, AST 14 L, ALT 15, Alkaline Phosphatase 63, T otal Protein 6.1 L, Albumin 3.1 L, Globulin 3.0, Albumin/Globulin Ratio 1.0 04/06/24 06:38: POC Glucose 126 H Physical Exam Narrative GENERAL: cooperative HEENT: Atraumatic; normocephalic EYES; Anicteric, Normal Conjunctiva NECK; supple, normal thyroid, RESPIRATORY: Diminished to auscultation CARDIOVASCULAR: Regular S1 S2, GI: soft, normoactive bowel sounds, : No Renal angle tenderness; EXTREMITIES: No edema, no clubbing, MUSCULOSKELETAL: no muscle wasting NEURO: Awake; no lateralizing signs. SKIN: No Rash PSYCH; Flat affect Assessment & Plan Assessment/Plan (1) Intractable low back pain: (2) Adult failure to thrive: PLAN: Plan Patient is a 69-year-old lady admitted with intractable back pain 1. Acute on chronic low back pain with radiculopathy ? Patient has been admitted to regular nursing floor for symptom management. 2. Physical deconditioning ? Requested for PT OT eval and social media marketing specialist to assist with discharge planning 3. Anemia ? Secondary to chronic disorder monitoring H&H and transfuse if patient becomes symptomatic or hemoglobin falls below 7 4. Diabetes mellitus type 2 ? Per history Currently managed with diet 5. Hypertension ? Blood pressure controlled, home medications continued with dose adjustment as needed 6. COPD ? Currently not in exacerbation aerosol treatment as needed 7. Tobacco dependence ? Counseled on cessation, offered nicotine patch for tobacco cravings 8. DVT prophylaxis ? On enoxaparin Time spent in the patient's overall evaluation,decision-making process, review of diagnostic data, adjustment of management, discussion with other providers, nursing nursing and ancillary staff involved in patient's care documentation, 39 Minutes Charges/Coding Visit Charges Inpatient E&M: 67414 Subs Hosp L2
[2024-04-06] MEDS: oxyCODONE 5 MG Tablet PO ×2 (11:18→21:44)
[2024-04-06 11:38] LABS: Bedside Glucose 138 mg/dL (74-106)
--- NOTE | 2024-04-06 12:19 | CASEMGMT ---
SW was informed patient feels she needs to go to a long-term facility. SW met with patient. Introduced self and role at [facility]. Patient said she is willing to go somewhere if that is recommended. SW provided patient with a list of long-term facility providers including quality and resource use data and consistent with patient?s preferred geographic region, medical needs, and insurance network were provided from the [employer] Guide. SW explained to patient that SW just needs her top 3-4 preferences. SW will take care of contacting facilities regarding availability. SW also showed patient that SW's name and phone number are at the top should she or her family have questions. Alaina Lee CERAMIC PAINTER TERRY
[2024-04-06] MEDS: Albuterol 2.5 MG/3 ML VIAL.NEB. INHALATION ×2 (16:18→19:34)
[2024-04-06 16:24] LABS: Bedside Glucose 134 mg/dL (74-106)
[2024-04-06] MEDS: MELATONIN 3 MG TABLET PO (21:43)
[2024-04-06 22:45] LABS: Bedside Glucose 105 mg/dL (74-106)
[2024-04-07 04:43] VITALS: BMI 26.4
[2024-04-07] MEDS: oxyCODONE 5 MG Tablet PO ×2 (04:43→12:36)
[2024-04-07] MEDS: 0.9% Saline Lock 10 ML Syringe IV (04:44)
[2024-04-07] MEDS: Ketorolac 15 MG/ML Vial IV (04:44)
[2024-04-07] MEDS: Acetaminophen 325 MG Tablet 650 MG PO ×2 (04:52→12:36)
[2024-04-07] MEDS: Gabapentin 100 MG Capsule PO ×3 (04:53→16:07)
[2024-04-07 04:57] VITALS: BP 141/67; PULSE 72; RESP 20; TEMP 35.9; O2SAT 97
[2024-04-07 06:19] LABS: Bedside Glucose 118 mg/dL (74-106)
[2024-04-07] MEDS: Budesonide Respules 0.5 MG/2 ML AMPUL.NEB. INHALATION (07:01)
[2024-04-07 07:02] VITALS: PULSE 73; RESP 18; O2SAT 93
[2024-04-07 08:00] LABS: Absolute Lymphocyte Count 2.26 X10^3/uL (0.83-4.51); Absolute Neutrophil Count 8.6 X10^3/uL (2.0-7.7); Basophil# 0.02 X10^3/uL; Basophil% 0.2 % (0-1); Hematocrit 35.3 % (37-47); Hemoglobin 11.2 g/dL (12.0-15.0); Lymphocyte # 2.26 X10^3/ul (0.83-4.51); Lymphocyte % 19.5 % (19-41); Mean Corp Hgb Conc 31.7 g/dL (32-36); Mean Corpuscular Hgb 31.4 pg (27.0-32.0); Mean Corpuscular Volume 98.9 fL (81-99); Mean Platelet Vol. 9.6 fl (6.2-12.0); Monocyte# 0.65 X10^3/uL; Monocyte% 5.6 % (0-10); NRBC Flagged by Analyzer 0 % (0-5); Neutrophil # 8.55 X10^3/uL (2.7-7.7); Neutrophil % 73.8 % (47-70); Platelet Count 351 K/mm3 (150-450); RBC Distribution Width CV 11.9 % (11.6-14.6); RBC Distribution Width SD 43.3 fl (35.1-43.9); Red Blood Count 3.57 M/mm3 (4.2-5.4); White Blood Count 11.6 K/mm3 (4.4-11.0)
--- NOTE | 2024-04-07 08:02 | PCM.PN.HOSP ---
Reason for Visit Reason for Visit: Diagnoses Other low back pain (04/05/24) Adult failure to thrive (04/05/24) Subjective Subjective Patient seen still complains of back pain. Awaiting insurance precertification prior to transfer to a longterm facility Objective Data Objective Data Vital Signs: Vital Signs Temp Pulse Resp BP Pulse Ox O2 Del Method O2 Flow Rate 96.7 F L 73 18 141/67 H 93 Room Air 2 04/07/24 04:57 04/07/24 07:02 04/07/24 07:02 04/07/24 04:57 04/07/24 07:02 04/07/24 07:02 04/06/24 23:57 Oxygen Flow Rate (L/min) 2 Oxygen Delivery Method Room Air Weight: 61.5 kg Body Mass Index (BMI) 26.4 Intake & Output: Intake and Output for Last 24 Hours 04/05/24 04/06/24 04/07/24 23:59 23:59 23:59 Intake Total 1500 / 1500 Output Total 500 / 500 1525 / 1525 600 / 600 Balance -500 / -500 -25 / -25 -600 / -600 Lab / Micro Data 04/07/24 06:42 04/07/24 06:42 Labs: Laboratory Results - last 24 hr 04/06/24 11:17: POC Glucose 138 H 04/06/24 16:07: POC Glucose 134 H 04/06/24 21:58: POC Glucose 105 04/07/24 06:00: POC Glucose 118 H 04/07/24 06:42: WBC 11.6 H, RBC 3.57 L, Hgb 11.2 L, Hct 35.3 L, MCV 98.9, MCH 31.4, MCHC 31.7 L, RDW Std Deviation 43.3, RDW Coeff of Adriana 11.9, Plt Count 351, MPV 9.6, Immature Gran % (Auto) 0.900, Neut % (Auto) 73.8 H, Lymph % (Auto) 19.5, [place] % (Auto) 5.6, Eos % (Auto) 0.0, Baso % (Auto) 0.2, Absolute Neuts (auto) 8.6 H, Absolute Lymphs (auto) 2.26, Nucleated RBC % 0 Physical Exam Narrative GENERAL: cooperative HEENT: Atraumatic; normocephalic EYES; Anicteric, Normal Conjunctiva NECK; supple, normal thyroid, RESPIRATORY: Diminished to auscultation CARDIOVASCULAR: Regular S1 S2, GI: soft, normoactive bowel sounds, : No Renal angle tenderness; EXTREMITIES: No edema, no clubbing, MUSCULOSKELETAL: no muscle wasting NEURO: Awake; no lateralizing signs. SKIN: No Rash PSYCH; Flat affect Assessment & Plan Assessment/Plan (1) Intractable low back pain: (2) Adult failure to thrive: PLAN: Plan Patient is a 69-year-old lady admitted with intractable back pain 1. Acute on chronic low back pain with radiculopathy ? Patient has been admitted to regular nursing floor for symptom management. ? 04/07/2024. Patient pain still persist. Will continue with current pain management patient is followed by Dr. France with pain management plan is for patient to resume care following discharge 2. Physical deconditioning ? Requested for PT OT eval and social media content manager to assist with discharge planning ? 04/07/2024; awaiting insurance precertification prior to transfer to longterm facility 3. Anemia ? Secondary to chronic disorder monitoring H&H and transfuse if patient becomes symptomatic or hemoglobin falls below 7 4. Diabetes mellitus type 2 ? Per history Currently managed with diet 5. Hypertension ? Blood pressure controlled, home medications continued with dose adjustment as needed 6. COPD ? Currently not in exacerbation aerosol treatment as needed 7. Tobacco dependence ? Counseled on cessation, offered nicotine patch for tobacco cravings 8. DVT prophylaxis ? On enoxaparin Time spent in the patient's overall evaluation,decision-making process, review of diagnostic data, adjustment of management, discussion with other providers, nursing nursing and ancillary staff involved in patient's care documentation, 36 Minutes Charges/Coding Visit Charges Inpatient E&M: 98086 Subs Hosp L2
[2024-04-07 08:40] LABS: Anion Gap 7 (5-15); BUN 34 mg/dL (7-18); BUN/Creat Ratio 37.7 RATIO (10-20); Calcium,Total 8.9 mg/dL (8.5-10.1); Chloride 105 mmol/L (98-107); EST Glomerular Filtration Rate 66 mL/min (>60); Est Glom Filt Rate - Afr Amer 80 mL/min (>60); Estimated Creatinine Clearance 49.02 ml/min; Glucose 115 mg/dL (74-106); Magnesium 2.3 mg/dL (1.6-2.6); Phosphorus 3.2 mg/dL (2.5-4.9); Potassium 4.9 mmol/L (3.5-5.1); Sodium Level 136 mmol/L (136-145)
[2024-04-07] MEDS: Lactobacillis Acidophilus 1 CAP PO (08:52)
[2024-04-07] MEDS: MethylPREDNISolone DosePak 4 MG BOX PO ×3 (08:52→16:07)
[2024-04-07] MEDS: Lidocaine 5% Patch 2 PATCH TOPICAL (08:53)
[2024-04-07] MEDS: Enoxaparin 40 MG/0.4 ML Syringe SC (08:54)
[2024-04-07] MEDS: Baclofen 10 MG Tablet PO (08:54)
[2024-04-07] MEDS: Lisinopril 20 MG Tablet PO (08:55)
[2024-04-07 09:41] VITALS: BP 147/70; PULSE 81; RESP 18; TEMP 36.9; O2SAT 97
--- NOTE | 2024-04-07 09:56 | CASEMGMT ---
SW met with patient and asked if she has chosen 3 preferences. Patient said she has and they are: 1. [facility] 2. [facility] 3. [facility]. PAULY let patient know SW will work on referrals. Plan: SNF pending acceptance and insurance approval. Alaina Lee NUTRITION PARTNERMariza STEWART
--- NOTE | 2024-04-07 10:05 | CASEMGMT ---
Addendum entered by Pebbles Cortez 04/07/24 12:43: [facility] accepted and will submit for precert. SW updated. Pebbles Cortez DC Planning Asst. Original Note: Discharge Planning Referral sent to [facility] via [facility]. Pebbles Cortez DC Planning Asst.
[2024-04-07 12:32] LABS: Bedside Glucose 112 mg/dL (74-106)
--- NOTE | 2024-04-07 14:03 | CASEMGMT ---
[facility] has obtained auth to admit. SW updated. Pebbles Cortez DC Planning Asst.
--- NOTE | 2024-04-07 14:18 | TREXTCAR_ITS ---
Diet Diet Order/Speech Therapy: 04/05/24 17:56 Diet: Consistent Carb - Calorie Controlled Food consistency:: Regular Liquid Consistency:: Regular/Thin How many daily calories?: 1800 calorie DC O2, CPAP, BIPAP needs Home O2 Discharge instructions: No Therapies Physical Therapy: Eval and Treat Occupational Therapy: Eval and Treat Problem/Diagnosis (1) Intractable low back pain: Status: Acute Code(s): M54.59 - Other low back pain (2) Adult failure to thrive: Status: Acute Code(s): R62.7 - Adult failure to thrive Plan Patient is a 69-year-old lady admitted with intractable back pain 1. Acute on chronic low back pain with radiculopathy ? Patient has been admitted to regular nursing floor for symptom management. ? 04/07/2024. Patient pain still persist. Will continue with current pain management patient is followed by Dr. France with pain management plan is for patient to resume care following discharge 2. Physical deconditioning ? Requested for PT OT eval and clinical social work aide to assist with discharge planning ? 04/07/2024; awaiting insurance precertification prior to transfer to group home facility 3. Anemia ? Secondary to chronic disorder monitoring H&H and transfuse if patient becomes symptomatic or hemoglobin falls below 7 4. Diabetes mellitus type 2 ? Per history Currently managed with diet 5. Hypertension ? Blood pressure controlled, home medications continued with dose adjustment as needed 6. COPD ? Currently not in exacerbation aerosol treatment as needed 7. Tobacco dependence ? Counseled on cessation, offered nicotine patch for tobacco cravings 8. DVT prophylaxis ? On enoxaparin Time spent in the patient's overall evaluation,decision-making process, review of diagnostic data, adjustment of management, discussion with other providers, nursing nursing and ancillary staff involved in patient's care documentation, 36 Minutes Allergies/Procedures Done in Hospital Allergies codeine Allergy (Verified 04/05/24 13:13) hives Type of Care/Length of Stay Estimated LOS: Convalescent Care Less Than 30 days Type of Care Needed: Skilled Rehab Potential: Good Prognosis: Good Additional Orders/Day of Discharge Day of Discharge: 04/07/24 Discharge Plan Admission Admit Date/Time: 04/05/24 16:07 Attending Provider: Dom Oshea Primary Care Provider: Dilip Matute Chi Consulting Providers: Paulina Paz Discharge Orders/Prescriptions Prescriptions: New acetaminophen 325 mg Tablet 650 mg PO Q4H PRN PRN (Reason: Fever, pain 1-01/07) Qty: 0 0RF melatonin 3 mg Tablet 3 mg PO QHS PRN PRN (Reason: Insomnia) Qty: 0 0RF lidocaine 5 % Adhesive Patch,Medicated 2 patch topical DAILY Qty: 0 0RF Protocol: *Topical Application Instructions APPLICATION INSTRUCTIONS: Lumbar spine nicotine 21 mg/24 hr Patch 24 Hour 21 mg transdermal DAILY Qty: 0 0RF gabapentin 100 mg Capsule 100 mg PO TIDCM Qty: 9 0RF alum-mag hydroxide-simeth [Mag-Al Plus Extra Strength] 400-400-40 mg/5 mL Suspension 30 ml PO Q6H PRN PRN (Reason: Gastric Burning) Qty: 0 0RF oxycodone 5 mg Tablet 5 mg PO Q4H PRN PRN (Reason: Pain Score 4-10) 3 Days Qty: 10 0RF insulin lispro [Humalog KwikPen Insulin] 100 unit/mL Insulin Pen See Protocol subcut ACHS Qty: 0 0RF Protocol: 3. Sliding Scale Insulin Med Dosing Condition: 150-189 mg/dl = 1 unit Condition: 190-229 mg/dl = 2 units Condition: 230-269 mg/dl = 3 units Condition: 270-309 mg/dl = 4 units Condition: 310-349 mg/dl = 5 units Condition: 350-399 mg/dl = 6 units Condition: 400-449 mg/dl = 7 units Condition: Greater than 449 call physician Protocol Text: - Use for Total Daily Dose of Insulin 37-55 units - Obsese, infected, or steroid patients MEDIUM DOSING ALGORITHIM sennosides-docusate sodium [Stimulant Laxative Plus] 8.6-50 mg Tablet 2 tab PO BID PRN PRN (Reason: Constipation) Qty: 0 0RF Continued lisinopril 20 mg tablet 20 mg PO DAILY (DME) Nebulizer machine See Rx Instructions .Route .MEDSUPPLY Qty: 1 0RF Rx Instructions: Use every 4-6 hours as needed (DME) Supplies for nebulizer machine See Rx Instructions .Route .MEDSUPPLY Qty: 3 3RF Rx Instructions: Tubing, plastic nebulizer cups, renewable every 90 days per insurance. Use every 4-6 hours with liquid respiratory medication as directed. vitamin B complex Tablet 1 tab PO DAILY cholecalciferol (vitamin D3) 25 mcg (1,000 unit) capsule 25 mcg PO DAILY baclofen 10 mg tablet 10 mg PO QDAY albuterol sulfate [Ventolin HFA] 90 mcg/actuation HFA aerosol inhaler 2 inh inhalation Q6H PRN (Reason: shortness of breath or wheezing) Florajen Acidophilus 20 billion cell capsule 20,000 mmu cells PO DAILY albuterol sulfate 2.5 mg /3 mL (0.083 %) solution for nebulization 2.5 mg inhalation Q4H MDD 6 PRN (Reason: shortness of breath or wheezing) Qty: 360 11RF Trelegy Ellipta 200-62.5-25 mcg blister with device 1 inh inhalation DAILY MDD 1 daily Qty: 90 11RF Referrals / Follow Up: Dilip Matute Chi, MD [Primary Care Provider] - Disposition Disposition (needs filled in before D/C Order can be placed): Snf Facility
--- NOTE | 2024-04-07 14:20 | PCM.DC.SUM ---
Providers Date of Admission: 04/05/24 Date of Discharge: 04/07/24 Primary Care Physician: Dr. Dilip Matute MD Reason For Visit: INTRACATBLE BACK PAIN, ADULT FTT Diagnosis Discharge Diagnosis (1) Intractable low back pain: Status: Acute Code(s): M54.59 - Other low back pain (2) Adult failure to thrive: Status: Acute Code(s): R62.7 - Adult failure to thrive Plan Patient is a 69-year-old lady admitted with intractable back pain 1. Acute on chronic low back pain with radiculopathy ? Patient has been admitted to regular nursing floor for symptom management. ? 04/07/2024. Patient pain still persist. Will continue with current pain management patient is followed by Dr. France with pain management plan is for patient to resume care following discharge 2. Physical deconditioning ? Requested for PT OT eval and social human services assistants to assist with discharge planning ? 04/07/2024; awaiting insurance precertification prior to transfer to assisted facility 3. Anemia ? Secondary to chronic disorder monitoring H&H and transfuse if patient becomes symptomatic or hemoglobin falls below 7 4. Diabetes mellitus type 2 ? Per history Currently managed with diet 5. Hypertension ? Blood pressure controlled, home medications continued with dose adjustment as needed 6. COPD ? Currently not in exacerbation aerosol treatment as needed 7. Tobacco dependence ? Counseled on cessation, offered nicotine patch for tobacco cravings 8. DVT prophylaxis ? On enoxaparin Time spent in the patient's overall evaluation,decision-making process, review of diagnostic data, adjustment of management, discussion with other providers, nursing nursing and ancillary staff involved in patient's care documentation, 36 Minutes Medications at Discharge Home Medications lisinopril 20 mg tablet 20 mg PO DAILY 05/07/22 Nebulizer machine #1 ea 05/08/22 Supplies for nebulizer machine #3 ea 06/03/22 albuterol sulfate 2.5 mg/3 mL (0.083 %) solution for nebulization 2.5 mg (3 mL) inhalation Q4H PRN shortness of breath or wheezing #360 mL 07/30/23 fluticasone fur. 200 mcg-umeclid 62.5 mcg-vilant 25 mcg inhalat.powder (Trelegy Ellipta) 1 inh inhalation DAILY COPD, severe #90 ea 10/01/23 baclofen 10 mg tablet 10 mg PO QDAY 10/16/23 cholecalciferol (vitamin D3) 25 mcg (1,000 unit) capsule 25 mcg PO DAILY 10/16/23 vitamin B complex 1 tab PO DAILY 10/16/23 Lactobacillus acidophilus 20 billion cell capsule (Florajen Acidophilus) 20,000 mmu cells PO DAILY 04/05/24 albuterol sulfate 90 mcg/actuation aerosol inhaler (Ventolin HFA) 2 inh inhalation Q6H PRN shortness of breath or wheezing 04/05/24 acetaminophen 325 mg tablet 650 mg (2 x 325 mg) PO Q4H PRN PRN Fever, pain 1-01/07 #0 tabs 04/07/24 aluminum-mag hydroxide-simethicone 400 mg-400 mg-40 mg/5 mL oral susp (Mag-Al Plus Extra Strength) 30 ml PO Q6H PRN PRN Gastric Burning #0 mL 04/07/24 gabapentin 100 mg capsule 100 mg PO TIDCM #9 caps 04/07/24 insulin lispro 100 unit/mL subcutaneous pen (Humalog KwikPen (U-100) Insulin) See Protocol subcut ACHS #0 mL 04/07/24 lidocaine 5 % topical patch 2 patch topical DAILY #0 ea 04/07/24 melatonin 3 mg tablet 3 mg PO QHS PRN PRN Insomnia #0 tabs 04/07/24 nicotine 21 mg/24 hr daily transdermal patch 21 mg transdermal DAILY #0 ea 04/07/24 oxycodone 5 mg tablet 5 mg PO Q4H PRN PRN Pain Score 4-10 3 days #10 tabs 04/07/24 sennosides 8.6 mg-docusate sodium 50 mg tablet (Stimulant Laxative Plus) 2 tab PO BID PRN PRN Constipation #0 tabs 04/07/24 Physical Exam Narrative GENERAL: cooperative HEENT: Atraumatic; normocephalic EYES; Anicteric, Normal Conjunctiva NECK; supple, normal thyroid, RESPIRATORY: Diminished to auscultation CARDIOVASCULAR: Regular S1 S2, GI: soft, normoactive bowel sounds, : No Renal angle tenderness; EXTREMITIES: No edema, no clubbing, MUSCULOSKELETAL: no muscle wasting NEURO: Awake; no lateralizing signs. SKIN: No Rash PSYCH; Flat affect Weight / BMI Weight Weight: 61.5 kg Body Mass Index (BMI) 26.4 ABG / Lab / Microbiology Data 04/07/24 06:42 04/07/24 06:42 Laboratory: Laboratory Results - last 24 hr 04/06/24 16:07: POC Glucose 134 H 04/06/24 21:58: POC Glucose 105 04/07/24 06:00: POC Glucose 118 H 04/07/24 06:42: WBC 11.6 H, RBC 3.57 L, Hgb 11.2 L, Hct 35.3 L, MCV 98.9, MCH 31.4, MCHC 31.7 L, RDW Std Deviation 43.3, RDW Coeff of Adriana 11.9, Plt Count 351, MPV 9.6, Immature Gran % (Auto) 0.900, Neut % (Auto) 73.8 H, Lymph % (Auto) 19.5, Wharton % (Auto) 5.6, Eos % (Auto) 0.0, Baso % (Auto) 0.2, Absolute Neuts (auto) 8.6 H, Absolute Lymphs (auto) 2.26, Nucleated RBC % 0, Sodium 136, Potassium 4.9, Chloride 105, Carbon Dioxide 24.0, Anion Gap 7, BUN 34 H, Creatinine 0.90, Estim Creat Clear Calc 49.02, Est GFR (MDRD) Af Amer 80, Est GFR (MDRD) Non-Af 66, BUN/Creatinine Ratio 37.7 H, Glucose 115 H, Calcium 8.9, Phosphorus 3.2, Magnesium 2.3 04/07/24 11:37: POC Glucose 112 H D/C Instructions Discharge Diet: 1800 Calorie Control Diet Discharge Activity: Return to Normal Activity Call your doctor if you observe: Fever of 101 or Higher, Shortness of breath, Fainting spells and Chest pain DC O2, CPAP, BIPAP Needs Home O2 Discharge instructions: No Meaningful Use Info Meaningful Use Meaningful Use Diagnoses (Choose all that apply): None applicable Ischemic Stroke Statin Dosing Therapy Reference: STATIN DOSE THERAPY REFERENCE: * Patients > 75 years receive moderate or high dose statin therapy. * Patients 75 years or YOUNGER should receive HIGH intensity statin dose unless contraindicated. You will be required to document reason for non-treatment if statin daily dose does not meet guidelines. HIGH DOSE STATIN THERAPY DAILY Atorvastatin > than or = to 40 mg Rosuvastatin > than or = to 20 mg Amlodipine + Atorvastatin > than or = to 2.5/40 mg Ezetimibe + Simvastatin 10/80 mg Simvastatin 80mg Discharge Plan Admission Admit Date/Time: 04/05/24 16:07 Attending Provider: Dom Oshea Primary Care Provider: Dilip Matute [employer] Providers: Paulina Paz Discharge Orders/Prescriptions Prescriptions: New acetaminophen 325 mg Tablet 650 mg PO Q4H PRN PRN (Reason: Fever, pain 1-1010) Qty: 0 0RF melatonin 3 mg Tablet 3 mg PO QHS PRN PRN (Reason: Insomnia) Qty: 0 0RF lidocaine 5 % Adhesive Patch,Medicated 2 patch topical DAILY Qty: 0 0RF Protocol: *Topical Application Instructions APPLICATION INSTRUCTIONS: Lumbar spine nicotine 21 mg/24 hr Patch 24 Hour 21 mg transdermal DAILY Qty: 0 0RF gabapentin 100 mg Capsule 100 mg PO TIDCM Qty: 9 0RF alum-mag hydroxide-simeth [Mag-Al Plus Extra Strength] 400-400-40 mg/5 mL Suspension 30 ml PO Q6H PRN PRN (Reason: Gastric Burning) Qty: 0 0RF oxycodone 5 mg Tablet 5 mg PO Q4H PRN PRN (Reason: Pain Score 4-10) 3 Days Qty: 10 0RF insulin lispro [Humalog KwikPen Insulin] 100 unit/mL Insulin Pen See Protocol subcut ACHS Qty: 0 0RF Protocol: 3. Sliding Scale Insulin Med Dosing Condition: 150-189 mg/dl = 1 unit Condition: 190-229 mg/dl = 2 units Condition: 230-269 mg/dl = 3 units Condition: 270-309 mg/dl = 4 units Condition: 310-349 mg/dl = 5 units Condition: 350-399 mg/dl = 6 units Condition: 400-449 mg/dl = 7 units Condition: Greater than 449 call physician Protocol Text: - Use for Total Daily Dose of Insulin 37-55 units - Obsese, infected, or steroid patients MEDIUM DOSING ALGORITHIM sennosides-docusate sodium [Stimulant Laxative Plus] 8.6-50 mg Tablet 2 tab PO BID PRN PRN (Reason: Constipation) Qty: 0 0RF Continued lisinopril 20 mg tablet 20 mg PO DAILY (DME) Nebulizer machine See Rx Instructions .Route .MEDSUPPLY Qty: 1 0RF Rx Instructions: Use every 4-6 hours as needed (DME) Supplies for nebulizer machine See Rx Instructions .Route .MEDSUPPLY Qty: 3 3RF Rx Instructions: Tubing, plastic nebulizer cups, renewable every 90 days per insurance. Use every 4-6 hours with liquid respiratory medication as directed. vitamin B complex Tablet 1 tab PO DAILY cholecalciferol (vitamin D3) 25 mcg (1,000 unit) capsule 25 mcg PO DAILY baclofen 10 mg tablet 10 mg PO QDAY albuterol sulfate [Ventolin HFA] 90 mcg/actuation HFA aerosol inhaler 2 inh inhalation Q6H PRN (Reason: shortness of breath or wheezing) Florajen Acidophilus 20 billion cell capsule 20,000 mmu cells PO DAILY albuterol sulfate 2.5 mg /3 mL (0.083 %) solution for nebulization 2.5 mg inhalation Q4H MDD 6 PRN (Reason: shortness of breath or wheezing) Qty: 360 11RF Trelegy Ellipta 200-62.5-25 mcg blister with device 1 inh inhalation DAILY MDD 1 daily Qty: 90 11RF Referrals / Follow Up: Dilip Matute Chi, MD [Primary Care Provider] - Within 2 Weeks Disposition Disposition (needs filled in before D/C Order can be placed): Custodial Facility Charges/Coding Visit Charges Inpatient E&M: 61164 Disch Hosp >30min
--- NOTE | 2024-04-07 14:37 | CASEMGMT ---
Discharge Planning Dicharge orders, signed med list, and transport time sent to [facility]. Physicians will transport patient by wheelchair at 4:30p. Nursing, SW, and pt updated. Pt stated that both of her daughters are working and she would updated them in a group chat. Pebbles Cortez DC Planning Asst
--- NOTE | 2024-04-07 14:39 | CASEMGMT ---
PAULY notified patient that [facility] can take her and her insurance approved already. PAULY let patient know she will go today. Patient is ready for discharge to [facility]. PAULY completed a 7000 in [facility] system. Physicians will transport patient. Alaina STEWART
--- NOTE | 2024-04-07 15:34 | CASEMGMT ---
Patient had expressed interest in completing a Healthcare [employer] to ED SW. Patient confirmed she would like to complete document. SW assisted patient in completing Healthcare Power of [employer]. Copies were made and given to patient along with original. A copy was also placed in patient's chart. Plan: d/c to [facility] under skilled level of care on a convalescent stay. Physicians will transport patient via wheelchair van. Alaina Lee PREFLIGHT INSPECTOR TERRY
[2024-04-08 00:09] LABS: Bedside Glucose 115 mg/dL (74-106)
== END 2024-04-07 19:09 | disposition skilled nursing facility (03) | DRG 552 ==
LOC: ED 16:15 → PCU 17:39
PROVIDERS: Admitting Provider Family Medicine; Emergency Provider Emergency Medicine; PCP Family Medicine Geriatric Medicine; Visit Provider Internal Medicine
DX: M54.50 Low back pain, unspecified (principal); D63.8 Anemia in other chronic diseases classified elsewhere; R62.7 Adult failure to thrive; E11.9 Type 2 diabetes mellitus without complications; J44.9 Chronic obstructive pulmonary disease, unspecified; I10 Essential (primary) hypertension; M54.16 Radiculopathy, lumbar region; E78.2 Mixed hyperlipidemia; F17.210 Nicotine dependence, cigarettes, uncomplicated; G89.29 Other chronic pain; Z79.51 Long term (current) use of inhaled steroids; Z79.899 Other long term (current) drug therapy; Z68.26 Body mass index [BMI] 26.0-26.9, adult
CPT/HCPCS: 36415; 80048; 80053; 82962; 83036; 83735; 84100; 85025; 85652; 86140; 94640; 94668; 97162; 97166; 97535; 99285; 99406; A4216; J2405

== ENCOUNTER 2024-04-27 11:57 | Observation (INO) | payer MEDICARE, MEDICAID, SELFPAY ==
[2024-04-27] VITALS (7 sets, daily range): BP systolic 110–132; BP diastolic 62–68; PULSE 102–122; RESP 16–22; TEMP 36.6–37.6; O2SAT 92–99; BMI 26.8; BMI 25.4
--- NOTE | 2024-04-27 13:22 | EX.ED.DYSGE1 ---
HPI History of Present Illness Chief Complaint: Lower Extremity Injury Narrative Narrative: Chief complaint and HPI: Back pain. 69-year-old female with past medical history of COPD, DM 2, HTN, chronic low back pain presents for evaluation of lumbar back pain. History taken by patient, daughter, medical chart. Patient states that she used to follow with pain management but has not seen them in a month for her back pain. She states that she used to get injections but that these were not helping. Patient states she is unable to take care of herself at home secondary to the pain. She states at baseline her pain is in her lumbar back and radiates down both of her legs. She states no new changes in this feels like her typical back pain. There has been no trauma. Denies numbness, weakness, urinary retention, stool or urinary incontinence, saddle anesthesia, recent invasive manipulation of the spine, intravenous drug use, or fever. Denies any chest pain, shortness of breath, vomiting. On chart review patient was admitted and discharged from the hospital earlier this month for pain management secondary to her chronic back pain. She had an MRI in February that showed degenerative changes. Patient follows with Dr. Cadena. He saw her in the office. He states that her symptoms do not correlate with the MRI of her lumbar spine and is concerned that there may be cervical spine pathology and therefore ordered a cervical spine MRI outpatient this is yet to be completed. Review of systems: See HPI Medications: As listed on the chart Allergies: As listed on the chart PFSH: Per chart Vital signs: As listed on the chart. Reviewed. Physical exam: Gen: A&O x3, NAD Head: Normocephalic, atraumatic Eyes: No sclera icterus, conjunctiva clear, PERRL, EOMI ENT: Moist mucous membranes Neck: Trachea midline, No JVD, Nontender, full range of motion CV: RRR, no murmurs Resp: Lungs CTA BL, no w/r/c GI: Abd soft, non-distended, non-tender, no r/r/g Musc: Moves all extremities but has significant back pain with radiculopathy with movement of the bilateral legs-states this is her baseline, no deformity, no midline spinal TTP, no renard step-offs, tender to palpation in the paraspinal musculature of the lumbar spine bilaterally, no saddle paresthesia, no signs of cellulitis or trauma, strength equal bilaterally Skin: Warm, dry, intact Neuro: Alert, oriented, grossly intact, sensation intact Psych: Cooperative, appropriate mood and affect [facility] Medical History Tobacco use Chronic pain syndrome HTN (hypertension) Stage 3 severe COPD by GOLD classification Hypertension DM type 2 (diabetes mellitus, type 2) Mixed hyperlipidemia Iron deficiency anemia Home Medications ?Medication ?Instructions ?Recorded ?Last Taken ?Type lisinopril 20 mg tablet 20 mg PO DAILY 05/07/22 Unknown History Nebulizer machine #1 ea 05/08/22 Unknown Rx Supplies for nebulizer machine #3 ea 06/03/22 Unknown Rx albuterol sulfate 2.5 mg/3 mL 2.5 mg (3 mL) inhalation Q4H PRN 07/30/23 04/05/24 Rx (0.083 %) solution for nebulization shortness of breath or wheezing #360 mL fluticasone fur. 200 mcg-umeclid 1 inh inhalation DAILY COPD, 10/01/23 04/05/24 Rx 62.5 mcg-vilant 25 mcg severe #90 ea inhalat.powder (Trelegy Ellipta) baclofen 10 mg tablet 10 mg PO QDAY 10/16/23 Unknown History cholecalciferol (vitamin D3) 25 25 mcg PO DAILY 10/16/23 04/04/24 History mcg (1,000 unit) capsule vitamin B complex 1 tab PO DAILY 10/16/23 04/04/24 History Lactobacillus acidophilus 20 20,000 mmu cells PO DAILY 04/05/24 04/04/24 History billion cell capsule (Florajen Acidophilus) albuterol sulfate 90 mcg/actuation 2 inh inhalation Q6H PRN shortness 04/05/24 Unknown History aerosol inhaler (Ventolin HFA) of breath or wheezing acetaminophen 325 mg tablet 650 mg (2 x 325 mg) PO Q4H PRN PRN 04/07/24 Unknown Rx Fever, pain 1-1010 #0 tabs aluminum-mag hydroxide-simethicone 30 ml PO Q6H PRN PRN Gastric 04/07/24 Unknown Rx 400 mg-400 mg-40 mg/5 mL oral susp Burning #0 mL (Mag-Al Plus Extra Strength) gabapentin 100 mg capsule 100 mg PO TIDCM #9 caps 04/07/24 Unknown Rx insulin lispro 100 unit/mL See Protocol subcut ACHS #0 mL 04/07/24 Unknown Rx subcutaneous pen (Humalog KwikPen (U-100) Insulin) lidocaine 5 % topical patch 2 patch topical DAILY #0 ea 04/07/24 Unknown Rx melatonin 3 mg tablet 3 mg PO QHS PRN PRN Insomnia #0 04/07/24 Unknown Rx tabs nicotine 21 mg/24 hr daily 21 mg transdermal DAILY #0 ea 04/07/24 Unknown Rx transdermal patch oxycodone 5 mg tablet 5 mg PO Q4H PRN PRN Pain Score 04/07/24 Unknown Rx 4-10 3 days #10 tabs sennosides 8.6 mg-docusate sodium 2 tab PO BID PRN PRN Constipation 04/07/24 Unknown Rx 50 mg tablet (Stimulant Laxative #0 tabs Plus) Allergy/AdvReac Type Severity Reaction Status Date / Time codeine Allergy hives Verified 04/27/24 12:02 Family History Mother Arthritis Skin cancer Father Brain cancer Surgical History Hx of tonsillectomy H/O cervical discectomy Social History household members: none Smoking Status: Current every day smoker tobacco type: cigarettes alcohol intake: current alcohol intake frequency: holidays/special occasions only substance use type: does not use EXAM Physical Exam Const Vital Signs: 04/27/24 11:57 04/27/24 13:57 Temperature 99.5 F H Temperature Source Temporal Pulse Rate 102 H 104 H Respiratory Rate 22 H 16 Blood Pressure 116/68 Blood Pressure Mean 84 Pulse Ox 97 99 Oxygen Delivery Method Room Air MDM MDM MDM Narrative Medical decision making narrative: 69-year-old female with past medical history of COPD, DM 2, HTN, chronic low back pain presents for evaluation of lumbar back pain. Patient states that she is unable to care for self at home given her chronic back pain. Differential diagnosis includes but is not limited to acute on chronic back pain, failure to thrive. Patient follows with Dr. Cadena therefore I contacted him. He agrees no emergent imaging or MRI needed at this time. He states that if patient does get admitted for pain control he does recommend getting MRI of the cervical spine. Morphine and Zofran ordered for symptoms. Will get basic labs as patient will likely need admitted for pain control. Patient has mild temperature of 99.5. She denies any systemic or viral type symptoms. Will get UA to assess for UTI. CBC with leukocytosis of 14.8. No clear etiology for this. May be chronic for evaluation. Patient has baseline anemia. BMP relatively unremarkable. UA negative for UTI. On reevaluation, patient is still endorsing pain. Given her uncontrolled pain as well as failure to thrive at home patient will warrant admission for pain management and likely rehab placement. Patient and daughter went over the results and confirmed understanding of plan. Patient was discussed with the hospitalist and patient accepted. Impression: 1. Intractable chronic back pain with radiculopathy 2. Failure to thrive Lab Data Labs: Laboratory Results - last 24 hr 04/27/24 04/27/24 13:30 14:25 WBC 14.8 H RBC 3.58 L Hgb 11.3 L Hct 34.6 L MCV 96.6 MCH 31.6 MCHC 32.7 RDW Std Deviation 42.8 RDW Coeff of Adriana 12.0 Plt Count 401 MPV 8.8 Sodium 134 L Potassium 4.2 Chloride 100 Carbon Dioxide 26.0 Anion Gap 8 BUN 20 H Creatinine 1.01 Estim Creat Clear Calc 43.96 Est GFR (MDRD) Af Amer 70 Est GFR (MDRD) Non-Af 58 L BUN/Creatinine Ratio 19.8 Glucose 87 Calcium 9.6 Urine Color Yellow Urine Clarity Clear Urine pH 6.0 Ur Specific [place] 1.015 Urine Protein 15 H Urine Glucose (UA) Normal Urine Ketones Negative Urine Occult Blood Negative Urine Nitrite Negative Urine Bilirubin Negative Urine Urobilinogen Normal Ur Leukocyte Esterase 500 H Urine RBC 0 SEEN Urine WBC 0-5 SEEN Ur Squamous Epith Cells 0-5 SEEN Ur Transition Epith Cell 0-5 SEEN Urine Bacteria 2+ Urine Mucus 0 SEEN Discharge Plan Triage Chief Complaint: Lower Extremity Injury Other Complaint: Weakness ED Provider: Velasquez Medrano Dx/Rx/DC Orders Prescriptions: No Action lisinopril 20 mg tablet 20 mg PO DAILY (DME) Nebulizer machine See Rx Instructions .Route .MEDSUPPLY Qty: 1 0RF Rx Instructions: Use every 4-6 hours as needed (DME) Supplies for nebulizer machine See Rx Instructions .Route .MEDSUPPLY Qty: 3 3RF Rx Instructions: Tubing, plastic nebulizer cups, renewable every 90 days per insurance. Use every 4-6 hours with liquid respiratory medication as directed. vitamin B complex Tablet 1 tab PO DAILY cholecalciferol (vitamin D3) 25 mcg (1,000 unit) capsule 25 mcg PO DAILY baclofen 10 mg tablet 10 mg PO QDAY albuterol sulfate [Ventolin HFA] 90 mcg/actuation HFA aerosol inhaler 2 inh inhalation Q6H PRN (Reason: shortness of breath or wheezing) Florajen Acidophilus 20 billion cell capsule 20,000 mmu cells PO DAILY acetaminophen 325 mg Tablet 650 mg PO Q4H PRN PRN (Reason: Fever, pain 1-01/07) Qty: 0 0RF melatonin 3 mg Tablet 3 mg PO QHS PRN PRN (Reason: Insomnia) Qty: 0 0RF lidocaine 5 % Adhesive Patch,Medicated 2 patch topical DAILY Qty: 0 0RF Protocol: *Topical Application Instructions APPLICATION INSTRUCTIONS: Lumbar spine nicotine 21 mg/24 hr Patch 24 Hour 21 mg transdermal DAILY Qty: 0 0RF gabapentin 100 mg Capsule 100 mg PO TIDCM Qty: 9 0RF alum-mag hydroxide-simeth [Mag-Al Plus Extra Strength] 400-400-40 mg/5 mL Suspension 30 ml PO Q6H PRN PRN (Reason: Gastric Burning) Qty: 0 0RF oxycodone 5 mg Tablet 5 mg PO Q4H PRN PRN (Reason: Pain Score 4-10) 3 Days Qty: 10 0RF insulin lispro [Humalog KwikPen Insulin] 100 unit/mL Insulin Pen See Protocol subcut ACHS Qty: 0 0RF Protocol: 3. Sliding Scale Insulin Med Dosing Condition: 150-189 mg/dl = 1 unit Condition: 190-229 mg/dl = 2 units Condition: 230-269 mg/dl = 3 units Condition: 270-309 mg/dl = 4 units Condition: 310-349 mg/dl = 5 units Condition: 350-399 mg/dl = 6 units Condition: 400-449 mg/dl = 7 units Condition: Greater than 449 call physician Protocol Text: - Use for Total Daily Dose of Insulin 37-55 units - Obsese, infected, or steroid patients MEDIUM DOSING ALGORITHIM sennosides-docusate sodium [Stimulant Laxative Plus] 8.6-50 mg Tablet 2 tab PO BID PRN PRN (Reason: Constipation) Qty: 0 0RF albuterol sulfate 2.5 mg /3 mL (0.083 %) solution for nebulization 2.5 mg inhalation Q4H MDD 6 PRN (Reason: shortness of breath or wheezing) Qty: 360 11RF Trelegy Ellipta 200-62.5-25 mcg blister with device 1 inh inhalation DAILY MDD 1 daily Qty: 90 11RF Primary Care Provider: Dilip Matute Chi Referrals: Dilip Matute Chi, MD [Primary Care Provider] - Print Language: Upper Sorbian
[2024-04-27] MEDS: Morphine 4 MG/ML Syringe IV ×2 (13:34→15:34)
[2024-04-27] MEDS: Ondansetron 4 MG/2 ML Vial IV (13:34)
[2024-04-27 13:42] LABS: Hematocrit 34.6 % (37-47); Hemoglobin 11.3 g/dL (12.0-15.0); Mean Corp Hgb Conc 32.7 g/dL (32-36); Mean Corpuscular Hgb 31.6 pg (27.0-32.0); Mean Corpuscular Volume 96.6 fL (81-99); Mean Platelet Vol. 8.8 fl (6.2-12.0); Platelet Count 401 K/mm3 (150-450); RBC Distribution Width SD 42.8 fl (35.1-43.9); Red Blood Count 3.58 M/mm3 (4.2-5.4); White Blood Count 14.8 K/mm3 (4.4-11.0)
[2024-04-27 14:07] LABS: Anion Gap 8 (5-15); BUN 20 mg/dL (7-18); BUN/Creat Ratio 19.8 RATIO (10-20); Calcium,Total 9.6 mg/dL (8.5-10.1); Chloride 100 mmol/L (98-107); Creatinine, Serum 1.01 mg/dL (0.55-1.02); EST Glomerular Filtration Rate 58 mL/min (>60); Est Glom Filt Rate - Afr Amer 70 mL/min (>60); Estimated Creatinine Clearance 43.96 ml/min; Glucose 87 mg/dL (74-106); Potassium 4.2 mmol/L (3.5-5.1); Sodium Level 134 mmol/L (136-145)
[2024-04-27 14:31] LABS: Mucous, Urine 0 SEEN /hpf (<or=2+); Red Blood Cells-Urine 0 SEEN /hpf (0-5)
[2024-04-27 14:32] LABS: Color, Urine Yellow (Yellow); Glucose, Dipstick Normal (Normal); Ketone-Dipstick Negative (Negative); Leukocyte Esterase-Dipstick 500 /ul (Negative); Nitrite-Dipstick Negative (Negative); Occult Blood-Urine Negative /ul (Negative); Protein-Dipstick 15 mg/dl (Negative); Specific Gravity, Urine 1.015 (1.002-1.030); Urine Bilirubin Dipstick Negative (Negative); Urine Clarity Clear (Clear); Urine Urobilinogen Normal (Normal)
[2024-04-27 14:39] LABS: Bacteria 2+ /hpf (None Seen); Squamous Epithelial Cells - UA 0-5 SEEN /hpf (5-10); Transitional Epithelial - Ur 0-5 SEEN /hpf (0-5); White Blood Cells 0-5 SEEN /hpf (0-5)
--- NOTE | 2024-04-27 14:47 | PCM.HP.STD ---
HPI - General General Date of Admission: 04/27/24 Date of Service: 04/27/24 Chief Complaint: Worsening low back pain and difficulty with ambulation HPI Narrative MULUGETA ALANIS, is a 69 F who presented to [facility] ED on 04/27/2024 with worsening low back pain and difficulty with ambulation. Patient was hospitalized here in late February and again in early March for similar concerns. MRI lumbar spine in February showed L4-5 grade 1 spondylolisthesis with dynamic instability with severe left lateral recess and foraminal stenosis. However Dr. Camarillo also noted concern for cervical spine disease given reported hand cramping and hand dexterity issues. Was noted the patient was using a wheelchair at that visit and was having significant difficulty with ambulating at all. Dr. Camarillo noted that patient needed to have an MRI of the cervical spine done prior to any surgery of the lumbar spine. MRI was ordered but has not been completed yet. Patient has had worsening low back pain with bilateral radiculopathy and came in today for intractable pain. In the ED she was mildly tachycardic but otherwise hemodynamically stable on room air. Had mildly elevated WBC count of 14 but labs were otherwise benign. UA did show 500 leukocyte esterase and 2+ bacteria, worse than prior UA earlier this month. Patient denies any UTI symptoms. Given her intractable pain and difficulty with ambulation, hospitalist was contacted for admission. I saw the patient at bedside in the ED, daughter was present. Patient was laying back in bed and appeared mildly uncomfortable due to ongoing low back pain. She stated that the pain medication given to her in the ED was somewhat helpful. She did state that she was shaking earlier today and attributed this to significant pain. She had a coughing episode during my encounter with her but states this is normal as she is a current smoker. Denies any new upper respiratory symptoms. Denies any flank pain. On exam patient was not able to lift either leg off the bed and on passive raise she had significant pain bilaterally and could not keep legs off the bed. She had good upper extremity strength bilaterally. No other acute concerns at this time. [facility] Medical History Tobacco use Chronic pain syndrome HTN (hypertension) Stage 3 severe COPD by GOLD classification Hypertension DM type 2 (diabetes mellitus, type 2) Mixed hyperlipidemia Iron deficiency anemia Home Medications ?Medication ?Instructions ?Recorded ?Last Taken ?Type lisinopril 20 mg tablet 20 mg PO DAILY 05/07/22 Unknown History Nebulizer machine #1 ea 05/08/22 Unknown Rx Supplies for nebulizer machine #3 ea 06/03/22 Unknown Rx albuterol sulfate 2.5 mg/3 mL 2.5 mg (3 mL) inhalation Q4H PRN 07/30/23 04/05/24 Rx (0.083 %) solution for nebulization shortness of breath or wheezing #360 mL fluticasone fur. 200 mcg-umeclid 1 inh inhalation DAILY COPD, 10/01/23 04/05/24 Rx 62.5 mcg-vilant 25 mcg severe #90 ea inhalat.powder (Trelegy Ellipta) baclofen 10 mg tablet 10 mg PO QDAY 10/16/23 Unknown History cholecalciferol (vitamin D3) 25 25 mcg PO DAILY 10/16/23 04/04/24 History mcg (1,000 unit) capsule vitamin B complex 1 tab PO DAILY 10/16/23 04/04/24 History Lactobacillus acidophilus 20 20,000 mmu cells PO DAILY 04/05/24 04/04/24 History billion cell capsule (Florajen Acidophilus) albuterol sulfate 90 mcg/actuation 2 inh inhalation Q6H PRN shortness 04/05/24 Unknown History aerosol inhaler (Ventolin HFA) of breath or wheezing acetaminophen 325 mg tablet 650 mg (2 x 325 mg) PO Q4H PRN PRN 04/07/24 Unknown Rx Fever, pain 1-01/07 #0 tabs aluminum-mag hydroxide-simethicone 30 ml PO Q6H PRN PRN Gastric 04/07/24 Unknown Rx 400 mg-400 mg-40 mg/5 mL oral susp Burning #0 mL (Mag-Al Plus Extra Strength) gabapentin 100 mg capsule 100 mg PO TIDCM #9 caps 04/07/24 Unknown Rx insulin lispro 100 unit/mL See Protocol subcut ACHS #0 mL 04/07/24 Unknown Rx subcutaneous pen (Humalog KwikPen (U-100) Insulin) lidocaine 5 % topical patch 2 patch topical DAILY #0 ea 04/07/24 Unknown Rx melatonin 3 mg tablet 3 mg PO QHS PRN PRN Insomnia #0 04/07/24 Unknown Rx tabs nicotine 21 mg/24 hr daily 21 mg transdermal DAILY #0 ea 04/07/24 Unknown Rx transdermal patch oxycodone 5 mg tablet 5 mg PO Q4H PRN PRN Pain Score 04/07/24 Unknown Rx 4-10 3 days #10 tabs sennosides 8.6 mg-docusate sodium 2 tab PO BID PRN PRN Constipation 04/07/24 Unknown Rx 50 mg tablet (Stimulant Laxative #0 tabs Plus) Allergy/AdvReac Type Severity Reaction Status Date / Time codeine Allergy hives Verified 04/27/24 12:02 Family History Mother Arthritis Skin cancer Father Brain cancer Surgical History Hx of tonsillectomy H/O cervical discectomy Social History household members: none Smoking Status: Current every day smoker tobacco type: cigarettes alcohol intake: current alcohol intake frequency: holidays/special occasions only substance use type: does not use ROS Constitutional Constitutional: Reports weakness; Denies chills, fatigue or fever(s) Eyes Eyes: Denies change in vision Cardiovascular Cardiovascular: Denies chest pain Respiratory/Chest Respiratory/Chest: Reports cough; Denies productive cough or shortness of breath at rest Gastrointestinal Gastrointestinal: Denies abdominal pain Genitourinary Genitourinary: Denies dysuria Musculoskeletal Musculoskeletal: Reports back pain; Denies arthralgias, myalgias or neck pain Neurologic Neurologic: Reports abnormal gait; Denies dizziness, headache(s), numbness or paresthesias Vital Signs Vital Signs Vital Signs: 04/27/24 11:57 04/27/24 13:57 Temperature 99.5 F H Temperature Source Temporal Pulse Rate 102 H 104 H Respiratory Rate 22 H 16 Blood Pressure 116/68 Blood Pressure Mean 84 Pulse Ox 97 99 Oxygen Delivery Method Room Air Weight Weight: 62.324 kg Body Mass Index (BMI) 26.8 Physical Exam Const alert, oriented x3, no apparent distress and average body habitus Constitutional Narrative: Upper middle-aged female, appears older than stated age, fatigued, mildly uncomfortable due to ongoing low back pain, otherwise answering questions appropriately. General Appearance: cooperative and comfortable HEENT normocephalic, head/scalp atraumatic, hearing grossly normal bilaterally, nasal mucous membranes and turbinates normal and moist oral mucous membranes Eyes PERRL, EOMs intact bilaterally and conjunctivae normal Neck full ROM Neck Narrative: Good range of motion and no pain with palpation. Chest inspection of chest normal Resp normal respiratory effort, normal air movement, no use of accessory muscles and clear to auscultation bilaterally Cardio no murmurs and peripheral pulses 2+ throughout Cardio Narrative: Tachycardic, regular rhythm. GI normal to inspection, nondistended, normoactive bowel sounds, soft to palpation, non-tender and non-distended Back/Spine Back/Spine Narrative: Mild tenderness to palpation in low back diffusely. Decreased range of motion in low back and with bilateral legs. Extremity normal to inspection and no pedal edema Skin no rashes or lesions noted Neuro oriented x3 and CN's II-XII intact bilaterally Neuro Narrative: Strength 2/5 in bilateral lower extremities at the hips. Strength 5/5 in feet with dorsiflexion and plantarflexion. Speech: speech normal Psych mental status grossly normal Results Lab / Micro Data 04/27/24 13:30 04/27/24 13:30 Labs: Laboratory Results - last 24 hr 04/27/24 13:30: WBC 14.8 H, RBC 3.58 L, Hgb 11.3 L, Hct 34.6 L, MCV 96.6, MCH 31.6, MCHC 32.7, RDW Std Deviation 42.8, RDW Coeff of Adriana 12.0, Plt Count 401, MPV 8.8, Sodium 134 L, Potassium 4.2, Chloride 100, Carbon Dioxide 26.0, Anion Gap 8, BUN 20 H, Creatinine 1.01, Estim Creat Clear Calc 43.96, Est GFR (MDRD) Af Amer 70, Est GFR (MDRD) Non-Af 58 L, BUN/Creatinine Ratio 19.8, Glucose 87, Calcium 9.6 04/27/24 14:25: Urine Color Yellow, Urine Clarity Clear, Urine pH 6.0, Ur Specific [place] 1.015, Urine Protein 15 H, Urine Glucose (UA) Normal, Urine Ketones Negative, Urine Occult Blood Negative, Urine Nitrite Negative, Urine Bilirubin Negative, Urine Urobilinogen Normal, Ur Leukocyte Esterase 500 H, Urine RBC 0 SEEN, Urine WBC 0-5 SEEN, Ur Squamous Epith Cells 0-5 SEEN, Ur Transition Epith Cell 0-5 SEEN, Urine Bacteria 2+, Urine Mucus 0 SEEN Assessment & Plan Assessment/Plan (1) Intractable low back pain: (2) Unable to walk: (3) Cervical myelopathy: (4) Spondylolisthesis, lumbar region: PLAN: Plan Patient is a 69-year-old female who presented [facility] ED on 04/27/2024 with worsening low back pain and difficulty with ambulation. 1. Intractable low back pain and difficulty with ambulation in setting of L4-5 spondylolisthesis ? Admit under observation status to [facility]. PT/OT/case management consulted. No need for repeat imaging at this time given patient had MRI lumbar spine done at the end of February. Pain control with scheduled Tylenol, oxycodone as needed and IV morphine as needed. Continue home gabapentin and baclofen. Pending MRI cervical spine, can consider orthopedic surgery and/or pain management consults as needed. Notably has had spinal injections done in the past and reported minimal improvement with them. Had short stay at [facility] after recent hospitalization earlier this month and had a good experience there, would be amenable to returning there on discharge if needed. 2. Concern for cervical spine disease ? Saw Dr. Camarillo in the office on 04/15 and history concerning for cervical spine disease. He ordered an MRI cervical spine outpatient but this had not been done yet, and he will not proceed with any lumbar procedure until MRI C-spine is done. MRI C-spine ordered here. 3. Concern for acute cystitis ? UA on admit showed 500 leukocyte esterase and 2+ bacteria and is considerably worse than prior UA earlier this month. Urine culture pending. Also has leukocytosis with WBC count 14. Has been afebrile and hemodynamically stable here. Patient denies significant UTI symptoms. However, given her worsening low back pain we will empirically treat with ceftriaxone for now. 4. Tobacco use disorder ? Current smoker, smokes about 1/2 pack per day. Nicotine patch ordered per patient request. Chronic medical conditions: ? COPD: Stable on room air, not in acute exacerbation. Continue home inhalers. ? Hypertension: Continue home lisinopril. ? Hyperlipidemia: Continue home statin. DVT prophylaxis: Lovenox CODE STATUS: Full code, verified Expected disposition: Likely SNF, 1 to 2 days Total clinical time spent by myself addressing the patient's medical issues, reviewing all the data, and collaborating with patient's care team: 55 minutes. Charges/Coding Visit Charges Inpatient E&M: 54963 Init Hosp L2
[2024-04-27] MEDS: Ceftriaxone 1 GM/50 ML BAG IV (15:12)
--- NOTE | 2024-04-27 16:52 | MRI_ITS ---
PROCEDURE: SPINE CERVICAL (ROUTINE) REASON FOR EXAM: Worsening neck pain TECHNIQUE: Cervical spine MRI without intravenous gadolinium-based contrast. COMPARISON: None. FINDINGS: Straightening of the cervical spine, which could be positional versus muscle spasm. Susceptibility a rtifact seen at the C5 through C7 levels, consistent with anterior fusion. Remaining cervical vertebral bodies demonstrate normal bone marrow signal intensity. 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 There is dehydration of the discs noted at the C2-3, C3-4, C4-5 and C7-T1 levels. Cervical cord morphology and signal intensity is within normal limits. Suspect partially em pty sella. Disc levels as follows: C2-3: No disc herniation, central spinal or neural foraminal stenosis bilaterally. C3-4: Central disc bulge mildly effaces the ventral subarachnoid space. Spinal canal measures 9.5 mm AP. No neural foraminal stenosis on the right. Moderate neural foraminal stenosis on the left secondary to uncovertebral winnie nt hypertrophy C4-5: Central disc osteophyte complex mildly contacts the ventral cord. Spinal canal measures 9 mm A P. Mild neural foraminal stenosis bilaterally secondary to uncovertebral joint hypertrophy C5-6: Interbody fusion. Mild central right disc osteophyte complex mildly effaces the ventral cord. No central spinal stenosis. Severe neural foraminal stenosis on the right secondary to uncovertebral joint hypertrophy. No signi ficant neural foraminal stenosis on the left C6-7: Interbody fusion. Mild central disc osteophyte complex. Spinal canal measures 8.5 mm AP. Mil b-kh-jzzzzutt osseous neural foraminal stenosis bilaterally secondary to uncovertebral joint hypertrophy. C7-T1: No disc herniation or central spinal or right neural foraminal stenosis. Mild neural foramina l stenosis on the left secondary to uncovertebral joint hypertrophy. T1-2: No disc herniation, central spinal or neural foraminal stenosis bilaterally. MRI/Spine Cervical (Routine) IMPRESSION: 1. Evidence of anterior and interbody fusion involving the C5 through C7 levels . No acute cervical spine fractures or dislocations are identified. 2. At the C4-5 level, central disc osteophyte complex mildly narrows the spinal canal to 9 mm AP. Mild neural foraminal stenosis bilaterally. 3. At the C5-6 level, anterior and interbody fusion, with a central right disc osteophyte complex. Severe neuroforaminal stenosis on the right. 4. At the C6-7 level, anterior and interbody fusion. Mild central disc osteoph yte complex narrows the spinal canal to 8.5 mm AP. Ezmi-[id number] neural foraminal stenosis bilaterally. 5. Additional less prominent spondylotic change, as detailed above. Reading [facility]
[2024-04-27] MEDS: Morphine 2 MG/ML Syringe IV (17:16)
[2024-04-27] MEDS: Gabapentin 300 MG Capsule PO (17:31)
[2024-04-27] MEDS: Budesonide Respules 0.5 MG/2 ML AMPUL.NEB. INHALATION (19:37)
[2024-04-27] MEDS: Ipratropium/Albuterol Sulfate 3 ML AMPUL.NEB INHALATION (19:37)
--- NOTE | 2024-04-27 20:06 | CPS ---
[1948] Pt. placed on 2L NC at this time. Pt. wears 2L NC at night-time per home use.
[2024-04-27] MEDS: Acetaminophen 500 MG Tablet 1000 MG PO (22:47)
[2024-04-27] MEDS: oxyCODONE 5 MG Tablet PO (22:52)
[2024-04-28] VITALS (13 sets, daily range): BP systolic 76–139; BP diastolic 44–73; PULSE 78–110; RESP 16–20; TEMP 36.1–37.4; O2SAT 92–99
[2024-04-28] MEDS: 0.9% Normal Saline (1000mL) 1,000 ML 999 ML IV (05:12)
[2024-04-28] MEDS: Acetaminophen 500 MG Tablet 1000 MG PO ×3 (06:14→21:51)
[2024-04-28] MEDS: Ipratropium/Albuterol Sulfate 3 ML AMPUL.NEB INHALATION ×3 (07:11→19:32)
[2024-04-28] MEDS: Budesonide Respules 0.5 MG/2 ML AMPUL.NEB. INHALATION ×2 (07:11→19:33)
[2024-04-28 07:13] LABS: Hematocrit 30.2 % (37-47); Hemoglobin 9.2 g/dL (12.0-15.0); Mean Corp Hgb Conc 30.5 g/dL (32-36); Mean Corpuscular Hgb 30.4 pg (27.0-32.0); Mean Corpuscular Volume 99.7 fL (81-99); Mean Platelet Vol. 8.9 fl (6.2-12.0); Platelet Count 259 K/mm3 (150-450); RBC Distribution Width SD 44.2 fl (35.1-43.9); Red Blood Count 3.03 M/mm3 (4.2-5.4); White Blood Count 12.9 K/mm3 (4.4-11.0)
[2024-04-28 07:39] LABS: Anion Gap 9 (5-15); BUN 25 mg/dL (7-18); BUN/Creat Ratio 14.6 RATIO (10-20); Calcium,Total 8.9 mg/dL (8.5-10.1); Chloride 100 mmol/L (98-107); Creatinine, Serum 1.71 mg/dL (0.55-1.02); EST Glomerular Filtration Rate 32 mL/min (>60); Est Glom Filt Rate - Afr Amer 38 mL/min (>60); Estimated Creatinine Clearance 25.32 ml/min; Glucose 105 mg/dL (74-106); Potassium 4.8 mmol/L (3.5-5.1); Sodium Level 132 mmol/L (136-145)
[2024-04-28] MEDS: Lactobacillis Acidophilus 1 CAP PO (08:46)
[2024-04-28] MEDS: Gabapentin 300 MG Capsule PO ×3 (08:46→17:15)
[2024-04-28] MEDS: Baclofen 10 MG Tablet PO ×3 (08:46→21:51)
[2024-04-28] MEDS: Cholecalciferol (VIT D3) 25 MCG TABLET (1,000 UNITS) PO (08:47)
[2024-04-28] MEDS: Enoxaparin 40 MG/0.4 ML Syringe SC (08:47)
[2024-04-28] MEDS: Ceftriaxone 1 GM/50 ML BAG IV (09:51)
--- NOTE | 2024-04-28 13:21 | CASEMGMT ---
Social Work- SW met with pt to conduct SDOH. Pt reports that she lives with dtr. Pt reports that there are times that transportation is a challenge due to daughter's work schedules. Pt reports that she and daughter use food pantries as needed. Pt reports that she and daughter find it hard to pay utilities at times, but have not received a shut-off notice. SW provided an [facility] community resource guide with food, transportation, and utilities resources highlighted. Pt reports no other needs at this time. SW remains available to follow for any other needs. SCOTTY Fraire
[2024-04-28] MEDS: oxyCODONE 5 MG Tablet PO ×2 (13:24→21:52)
--- NOTE | 2024-04-28 14:11 | PCM.CONS.GEN ---
Assessment & Plan Assessment/Plan (1) Radiculopathy of lumbar region: PLAN: Obtain new lumbar and thoracic MRI as her new severe pain emerged only the last few days. She would like to avoid GURU as she has surgery to be planned with Dr. Camarillo and doesnt want to push the time table with steroid on board. Order lumbar MRI as she has severe pain with movement of her legs. I want to evaluate for possible acute compression fracture vs disc herniation/compression. Increase baclofen to TID PRN. helps with spasms Continue medical management for now. No red flag symptoms: saddle parasthesias, incontinence. Lovenox 40mg subcutaneous. HPI Consult Data Date of Consult: 04/28/24 HPI Narrative Reason for Consultation: Back pain HPI Narrative: MULUGETA ALANIS, is a 69 F who presents with lower back pain with left sided lower extremity radiation. She has sevferely worsened pain without clear inciting event a few days ago that has caused her to be very debilitated. She has difficulty standing. Moving her legs cause her tremendous back pain. 10/[address] Camarillo recently whom was considering lumbar or cervical surgery depending upon updated imaging. MRI from before her current severe exacerbation showed L4-5 grade 1 spondylolisthesis with dynamic instability with severe left lateral recess and foraminal stenosis. He would consider possible decompression surgery depending upon cervical mri. She says she has not had any updated imaging since the pain worsened severely the last few days. Denies red flag symptoms: incontinence or saddle parasthesias. [facility] Medical History (Updated 04/28/24 @ 14:[address] Mark France MD) Osteoporosis Chronic pain Kidney disease Smoker Sleep apnea On home oxygen therapy Irregular heart beat Tobacco use Chronic pain syndrome HTN (hypertension) Stage 3 severe COPD by GOLD classification Hypertension Mixed hyperlipidemia Iron deficiency anemia Home Medications ?Medication ?Instructions ?Recorded ?Last Taken ?Type lisinopril 20 mg tablet 20 mg PO DAILY 05/07/22 04/27/24 History Nebulizer machine #1 ea 05/08/22 Unknown Rx Supplies for nebulizer machine #3 ea 06/03/22 Unknown Rx albuterol sulfate 2.5 mg/3 mL 2.5 mg (3 mL) inhalation Q4H PRN 07/30/23 04/27/24 Rx (0.083 %) solution for nebulization shortness of breath or wheezing #360 mL fluticasone fur. 200 mcg-umeclid 1 inh inhalation DAILY COPD, 10/01/23 04/27/24 Rx 62.5 mcg-vilant 25 mcg severe #90 ea inhalat.powder (Trelegy Ellipta) baclofen 10 mg tablet 10 mg PO QDAY 10/16/23 04/26/24 17:05 History cholecalciferol (vitamin D3) 25 25 mcg PO DAILY 10/16/23 04/27/24 History mcg (1,000 unit) capsule vitamin B complex 1 tab PO DAILY 10/16/23 04/04/24 History albuterol sulfate 90 mcg/actuation 2 inh inhalation Q6H PRN shortness 04/05/24 04/27/24 History aerosol inhaler (Ventolin HFA) of breath or wheezing acetaminophen 325 mg tablet 650 mg (2 x 325 mg) PO Q4H PRN PRN 04/07/24 Unknown Rx Fever, pain 1-1010 #0 tabs aluminum-mag hydroxide-simethicone 30 ml PO Q6H PRN PRN Gastric 04/07/24 Unknown Rx 400 mg-400 mg-40 mg/5 mL oral susp Burning #0 mL (Mag-Al Plus Extra Strength) lidocaine 5 % topical patch 2 patch topical DAILY #0 ea 04/07/24 Unknown Rx melatonin 3 mg tablet 3 mg PO QHS PRN PRN Insomnia #0 04/07/24 Unknown Rx tabs nicotine 21 mg/24 hr daily 21 mg transdermal DAILY #0 ea 04/07/24 04/27/24 Rx transdermal patch oxycodone 5 mg tablet 5 mg PO Q4H PRN PRN Pain Score 04/07/24 Unknown Rx 4-10 3 days #10 tabs sennosides 8.6 mg-docusate sodium 2 tab PO BID PRN PRN Constipation 04/07/24 Unknown Rx 50 mg tablet (Stimulant Laxative #0 tabs Plus) gabapentin 100 mg capsule 300 mg PO TIDCM 04/27/24 04/27/24 08:00 History Allergy/AdvReac Type Severity Reaction Status Date / Time codeine Allergy hives Verified 04/27/24 12:02 Family History Mother Arthritis Skin cancer Father Brain cancer Surgical History Hx of tonsillectomy H/O cervical discectomy Social History household members: none Smoking Status: Current every day smoker tobacco type: cigarettes alcohol intake: current alcohol intake frequency: holidays/special occasions only substance use type: does not use Physical Exam Const alert and oriented x3 Constitutional Narrative: Lumbar paraspinal tenderness + bilaterally Percussion + for pain in lumbar area. Difficulty lifting bilateral hips 2/2 severe back pain. 5/5 strength in dorsiflexion. Normal lower extremity sensation. Lab / Micro Data 04/28/24 06:50 04/28/24 06:50 Labs: Laboratory Results - last 24 hr 04/27/24 14:25: Urine Color Yellow, Urine Clarity Clear, Urine pH 6.0, Ur Specific [place] 1.015, Urine Protein 15 H, Urine Glucose (UA) Normal, Urine Ketones Negative, Urine Occult Blood Negative, Urine Nitrite Negative, Urine Bilirubin Negative, Urine Urobilinogen Normal, Ur Leukocyte Esterase 500 H, Urine RBC 0 SEEN, Urine WBC 0-5 SEEN, Ur Squamous Epith Cells 0-5 SEEN, Ur Transition Epith Cell 0-5 SEEN, Urine Bacteria 2+, Urine Mucus 0 SEEN 04/28/24 06:50: WBC 12.9 H, RBC 3.03 L, Hgb 9.2 L, Hct 30.2 L, MCV 99.7 H, MCH 30.4, MCHC 30.5 L D, RDW Std Deviation 44.2 H, RDW Coeff of Adriana 12.0, Plt Count 259, MPV 8.9, Sodium 132 L, Potassium 4.8, Chloride 100, Carbon Dioxide 22.0, Anion Gap 9, BUN 25 H, Creatinine 1.71 H, Estim Creat Clear Calc 25.32, Est GFR (MDRD) Af Amer 38 L, Est GFR (MDRD) Non-Af 32 L, BUN/Creatinine Ratio 14.6, Glucose 105, Calcium 8.9 Micro: Microbiology 04/27/24 14:25 Urine, Clean Catch Urine Culture - Preliminary Mixed Gram Pos & Gram Neg Org 04/27/24 15:10 Mucosa - Nose SARS-CoV-2, Influenza & RSV (PCR) - Final Imaging Radiology Impression Cervical Spine MRI 04/27/24 16:52 IMPRESSION: 1. Evidence of anterior and interbody fusion involving the C5 through C7 levels. No acute cervical spine fractures or dislocations are identified. 2. At the C4-5 level, central disc osteophyte complex mildly narrows the spinal canal to 9 mm AP. Mild neural foraminal stenosis bilaterally. 3. At the C5-6 level, anterior and interbody fusion, with a central right disc osteophyte complex. Severe neuroforaminal stenosis on the right. 4. At the C6-7 level, anterior and interbody fusion. Mild central disc osteophyte complex narrows the spinal canal to 8.5 mm AP. Rjlw-av-obeprbjj neural foraminal stenosis bilaterally. 5. Additional less prominent spondylotic change, as detailed above. Reading Location[facility]
--- NOTE | 2024-04-28 16:43 | CASEMGMT ---
Met with patient to complete CHOWDARY form. CHOWDARY form explained to patient who voiced understanding and signed form. Original form placed in pt?s chart and copy provided to patient. Pebbles Cortez, Discharge Planning Asst
--- NOTE | 2024-04-28 16:43 | NURSING ---
All documentation by student nurse Florinda Bourne reviewed by chief nursing executive Marsha Figueroa BSN, RN.
--- NOTE | 2024-04-28 16:54 | MRI_ITS ---
PROCEDURE: SPINE LUMBAR (ROUTINE) REASON FOR EXAM: Pain. TECHNIQUE: Lumbar spine MRI without intravenous gadolinium-based contrast. COMPARISON: 03/29/2024 MRI. FINDINGS: Vertebrae: Lumbar vertebral body heights are preserved. Bone marrow signal is unremarkable. Conus Medullaris: Normally positioned. L1-2: Disc bulge and facet arthropathy resulting in mild central stenosis and mild bilateral neural f oraminal stenosis. L2-3: Disc bulging and facet arthropathy resulting in mild central stenosis and mild to moderate bila teral neural foraminal stenosis. L3-4: Disc bulging and facet arthropathy resulting in mild to moderate bilateral neural foraminal eugene nosis L4-5: Grade 1 anterolisthesis, disc bulging, facet arthropathy. Moderate central stenosis. Moderate bilateral neural foraminal stenosis. L5-S1: Mild disc bulging and facet arthropathy. Minimal central stenosis. Moderate bilateral forami nal stenosis. Sacrum: Visualized upper sacrum and SI joints are unremarkable. MRI/Spine Lumbar (Routine) IMPRESSION: Multilevel spondylosis. No significant interval change. Grade 1 anterolisthesis of L4 on L5. Reading Location: [id number]
[2024-04-28 16:55] LABS: Bedside Glucose 112 mg/dL (74-106)
[2024-04-28] MEDS: dexAMETHasone 4 MG/ML Vial IV (17:15)
[2024-04-28] MEDS: 0.9% Saline Lock 10 ML Syringe IV ×2 (17:15→21:53)
--- NOTE | 2024-04-28 17:35 | RAD_ITS ---
PROCEDURE: LUMBAR SPINE 2 OR 3 VIEWS; THORACIC SPINE 3 VIEWS REASON FOR EXAM: Pain. TECHNIQUE: Four view lumbar spine series, including bilateral oblique views, and three-view AP and lateral thora cic spine series (combined dictation). COMPARISON: None. RAD/Lumbar Spine 2 or 3 Views IMPRESSION: A mild degree of gentle thoracolumbar levoscoliosis is seen, with compensatory lower lumbar dextroscoliosis also noted. A lesser degree of compensatory mid thoracic dextroscoliosis is also seen. Lumbar spines: Ampn-aw-gmekkxsb degenerative changes are seen throughout the lumbar spine, wit h moderate disc narrowing at L1-L2 and L2-L3 levels. At least mild disc narrowing is seen at L5-S1. Mid to lower lumbar posterior facet hypertrophy is particularly noted. No evidence of spondylolysis or spondylolisthesis. Thoracic spine: Limited imaging of the cervical spine shows prior cervical spine surgery, as we ll as gqbg-[id number] degenerative changes. No subluxation is seen. The thoracic spine demonstrates [id number]-[id number] degenerative changes throughou t. No fracture or subluxation is evident. Reading Location: [id number]
--- NOTE | 2024-04-28 17:35 | RAD_ITS ---
PROCEDURE: LUMBAR SPINE 2 OR 3 VIEWS; THORACIC SPINE 3 VIEWS REASON FOR EXAM: Pain. TECHNIQUE: Four view lumbar spine series, including bilateral oblique views, and three-view AP and lateral thora cic spine series (combined dictation). COMPARISON: None. RAD/Thoracic Spine 3 Views IMPRESSION: A mild degree of gentle thoracolumbar levoscoliosis is seen, with compensatory lower lumbar dextroscoliosis also noted. A lesser degree of compensatory mid thoracic dextroscoliosis is also seen. Lumbar spines: Wdgl-hr-srzwaets degenerative changes are seen throughout the lumbar spine, wit h moderate disc narrowing at L1-L2 and L2-L3 levels. At least mild disc narrowing is seen at L5-S1. Mid to lower lumbar posterior facet hypertrophy is particularly noted. No evidence of spondylolysis or spondylolisthesis. Thoracic spine: Limited imaging of the cervical spine shows prior cervical spine surgery, as we ll as kvak-ir-tmouckfk degenerative changes. No subluxation is seen. The thoracic spine demonstrates idnk-cd-uzxkeaqj degenerative changes throughou t. No fracture or subluxation is evident. Reading Location: [id number]
--- NOTE | 2024-04-28 18:52 | PN.HOSP_ITS ---
Reason for Visit Reason for Visit: Diagnoses Disease of spinal cord, unspecified (04/27/24) Spondylolisthesis, lumbar region (04/27/24) Radiculopathy, lumbar region (04/27/24) Other low back pain (04/27/24) Difficulty in walking, not elsewhere classified (04/27/24) Subjective Subjective Patient was seen and examined today, I discussed her care with spinal surgery (Dr. Cadena) he does not feel that there is anything in the cervical spine causing the patient's symptomology. I did have pain management see the patient today and they have ordered a repeat MRI of the lumbar spine because they are concerned that the patient may have an undiagnosed compression fracture. I have elected to place the patient on IV Decadron to see if this will help her pain. Patient needs maximal assistance to get up to a standing position from a chair. Objective Data Objective Data Vital Signs: Vital Signs Temp Pulse Resp BP Pulse Ox O2 Del Method O2 Flow Rate 97.8 F 85 18 108/59 L 96 Room Air 2 04/28/24 14:00 04/28/24 14:00 04/28/24 14:00 04/28/24 14:00 04/28/24 14:00 04/28/24 14:18 04/28/24 08:02 Oxygen Flow Rate (L/min) 2 Oxygen Delivery Method Room Air Weight: 59.08 kg Body Mass Index (BMI) 25.4 Intake & Output: Intake and Output for Last 24 Hours 04/26/24 04/27/24 04/28/24 23:59 23:59 23:59 Intake Total 50 / 250 1500 / 1500 Output Total 900 / 900 Balance 50 / 0 600 / 600 Lab / Micro Data 04/28/24 06:50 04/28/24 06:50 Labs: Laboratory Results - last 24 hr 04/28/24 06:50: WBC 12.9 H, RBC 3.03 L, Hgb 9.2 L, Hct 30.2 L, MCV 99.7 H, MCH 30.4, MCHC 30.5 L D, RDW Std Deviation 44.2 H, RDW Coeff of Adriana 12.0, Plt Count 259, MPV 8.9, Sodium 132 L, Potassium 4.8, Chloride 100, Carbon Dioxide 22.0, Anion Gap 9, BUN 25 H, Creatinine 1.71 H, Estim Creat Clear Calc 25.32, Est GFR (MDRD) Af Amer 38 L, Est GFR (MDRD) Non-Af 32 L, BUN/Creatinine Ratio 14.6, Glucose 105, Calcium 8.9 04/28/24 16:29: POC Glucose 112 H Micro: Microbiology 04/27/24 14:25 Urine, Clean Catch Urine Culture - Preliminary Mixed Gram Pos & Gram Neg Org 04/27/24 15:10 Mucosa - Nose SARS-CoV-2, Influenza & RSV (PCR) - Final Radiography Diagnostic Testing: Radiology Impression Cervical Spine MRI 04/27/24 16:52 IMPRESSION: 1. Evidence of anterior and interbody fusion involving the C5 through C7 levels. No acute cervical spine fractures or dislocations are identified. 2. At the C4-5 level, central disc osteophyte complex mildly narrows the spinal canal to 9 mm AP. Mild neural foraminal stenosis bilaterally. 3. At the C5-6 level, anterior and interbody fusion, with a central right disc osteophyte complex. Severe neuroforaminal stenosis on the right. 4. At the C6-7 level, anterior and interbody fusion. Mild central disc osteophyte complex narrows the spinal canal to 8.5 mm AP. Yexa-ga-hulocfde neural foraminal stenosis bilaterally. 5. Additional less prominent spondylotic change, as detailed above. Reading Location: [facility] Lumbar Spine X-Ray 04/28/24 17:35 IMPRESSION: A mild degree of gentle thoracolumbar levoscoliosis is seen, with compensatory lower lumbar dextroscoliosis also noted. A lesser degree of compensatory mid thoracic dextroscoliosis is also seen. Lumbar spines: Nerz-td-vgfhniwj degenerative changes are seen throughout the lumbar spine, with moderate disc narrowing at L1-L2 and L2-L3 levels. At least mild disc narrowing is seen at L5-S1. Mid to lower lumbar posterior facet hypertrophy is particularly noted. No evidence of spondylolysis or spondylolisthesis. Thoracic spine: Limited imaging of the cervical spine shows prior cervical spine surgery, as well as buro-eo-adjhbpfp degenerative changes. No subluxation is seen. The thoracic spine demonstrates vxfb-um-qclztdyo degenerative changes throughout. No fracture or subluxation is evident. Reading Location: [address] Thoracic Spine X-Ray 04/28/24 17:35 IMPRESSION: A mild degree of gentle thoracolumbar levoscoliosis is seen, with compensatory lower lumbar dextroscoliosis also noted. A lesser degree of compensatory mid thoracic dextroscoliosis is also seen. Lumbar spines: Qjtv-mu-qywwegfj degenerative changes are seen throughout the lumbar spine, with moderate disc narrowing at L1-L2 and L2-L3 levels. At least mild disc narrowing is seen at L5-S1. Mid to lower lumbar posterior facet hypertrophy is particularly noted. No evidence of spondylolysis or spondylolisthesis. Thoracic spine: Limited imaging of the cervical spine shows prior cervical spine surgery, as well as qlin-zs-eshstyre degenerative changes. No subluxation is seen. The thoracic spine demonstrates sima-nu-cekznuvg degenerative changes throughout. No fracture or subluxation is evident. Reading Location: [address] Physical Exam Const alert, oriented x3 and no apparent distress Constitutional Narrative: Patient appears older than her stated age General Appearance: cooperative, well kempt and well developed Orientation / Consciousness: awake, oriented to person, oriented to place and oriented to time HEENT normocephalic, head/scalp atraumatic and moist oral mucous membranes Eyes PERRL, EOMs intact bilaterally and conjunctivae normal Neck supple, no JVD, thyroid normal and no carotid bruits General: trachea midline Resp normal respiratory effort, no retractions, no use of accessory muscles and clear to auscultation bilaterally Auscultation: Negative for rales, rhonchi or wheezes Cardio regular rate, regular rhythm, S1 normal heart sound, S2 normal heart sound, no murmurs, no rub and no gallops GI normal to inspection, nondistended, normoactive bowel sounds, soft to palpation, non-tender and non-distended Extremity no clubbing, cyanosis or edema Skin no rashes or lesions noted General Skin Exam: no breakdown Neuro oriented x3, CN's II-XII intact bilaterally, no focal motor deficits and no sensory deficits noted Neuro Narrative: Patient has difficulty walking without assistance and getting up from a chair without assistance Sensorium / Orientation: awake and alert Speech: speech normal Psych affect normal Assessment & Plan Assessment/Plan (1) Intractable low back pain: PLAN: Plan 1. Intractable low back pain with right leg radiculopathy-again patient was placed on IV Decadron today, she will continue to receive pain medications and work with PT and OT. 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-again I talked with spinal surgery today and they do not feel that the patient's symptoms are of a cervical etiology, she does have follow-up appointment with spinal surgery to discuss possible surgery of the lumbar spine for spondylolisthesis of L4-L5 #3 essential hypertension-patient will remain on lisinopril #4 chronic obstructive pulmonary disease-complicates care, management, recovery, and prognosis Total clinical time spent by myself addressing the patient's medical issues, reviewing all of the data, and collaborating with patient's care team: 35-minute Charges/Coding Visit Charges Inpatient E&M: 83656 Subs Hosp L2
[2024-04-29] VITALS (10 sets, daily range): BP systolic 132–149; BP diastolic 61–76; PULSE 84–111; RESP 14–20; TEMP 36.5–36.8; O2SAT 93–96
[2024-04-29] MEDS: 0.9% Saline Lock 10 ML Syringe IV ×5 (00:19→23:30)
[2024-04-29] MEDS: MELATONIN 3 MG TABLET PO (00:19)
[2024-04-29] MEDS: dexAMETHasone 4 MG/ML Vial IV ×5 (00:19→23:30)
[2024-04-29 01:14] LABS: Bedside Glucose 152 mg/dL (74-106)
[2024-04-29] MEDS: Baclofen 10 MG Tablet PO ×3 (05:25→21:38)
[2024-04-29] MEDS: Senna/Docusate Sodium 1 Tablet 2 TABLET PO (05:25)
[2024-04-29] MEDS: oxyCODONE 5 MG Tablet PO ×2 (05:25→15:47)
[2024-04-29] MEDS: Acetaminophen 500 MG Tablet 1000 MG PO ×3 (05:25→21:39)
[2024-04-29] MEDS: Ipratropium/Albuterol Sulfate 3 ML AMPUL.NEB INHALATION ×3 (07:05→19:28)
[2024-04-29] MEDS: Budesonide Respules 0.5 MG/2 ML AMPUL.NEB. INHALATION ×2 (07:05→19:28)
[2024-04-29 07:28] LABS: Bedside Glucose 147 mg/dL (74-106)
[2024-04-29] MEDS: Gabapentin 300 MG Capsule PO ×3 (08:03→17:02)
[2024-04-29] MEDS: Lactobacillis Acidophilus 1 CAP PO (09:26)
[2024-04-29] MEDS: Enoxaparin 40 MG/0.4 ML Syringe SC (09:26)
[2024-04-29] MEDS: Lisinopril 10 MG Tablet PO (09:26)
[2024-04-29] MEDS: Cholecalciferol (VIT D3) 25 MCG TABLET (1,000 UNITS) PO (09:26)
--- NOTE | 2024-04-29 09:41 | CASEMGMT ---
Discharge Planning A list of?SNF providers including quality and resource use data and consistent with the patient's preferred geographic region, medical needs, and insurance network was created in [employer] Guide.? This list was provided to the SW. Pebbles Cortez Discharge Planning Asst.
[2024-04-29 11:28] LABS: Bedside Glucose 214 mg/dL (74-106)
[2024-04-29] MEDS: Insulin Lispro 100 UNIT/ML INSULN.PEN SC (12:30)
--- NOTE | 2024-04-29 13:39 | CASEMGMT ---
Addendum entered by Erica Pinon 04/29/24 15:18: Social Work- SW met with pt to follow up on SNF choices. Pt reports daughter made selections online. Pt reports that she has concerns about discharge before speaking with Dr Camarillo or without surgery, as pt states that at last visit to [facility], she discharged to a SNF and her insurance cut her after a few days. Pt reports when she returned home, she was okay for a very short time before her sciatica acted up and she was unable to walk. Pt showed SW a swollen right knee and reports that she has not fallen. SW to share concerns with hospitalist. SCOTTY Fraire Original Note: Social Work- SW met with pt and pt daughter to discuss preferences at discharge. A list of SNF providers including quality and resource use data and consistent with the patient?s preferred geographic region, medical needs, and insurance network were provided from the [employer] Guide. Pt to select 2-3 facilities. SW remains available to follow. SCOTTY Fraire
--- NOTE | 2024-04-29 15:17 | CASEMGMT ---
Addendum entered by Pebbles Cortez 04/29/24 15:36: [facility] accepted and will submit for precert. SW updated. Pebbles Cortez DC Planning Asst. Original Note: Referral sent to [facility]. Pebbles Cortez DC Planning Asst.
[2024-04-29 16:14] LABS: Bedside Glucose 126 mg/dL (74-106)
--- NOTE | 2024-04-29 18:38 | PCM.PN.HOSP ---
Reason for Visit Reason for Visit: Diagnoses Disease of spinal cord, unspecified (04/27/24) Spondylolisthesis, lumbar region (04/27/24) Radiculopathy, lumbar region (04/27/24) Other low back pain (04/27/24) Difficulty in walking, not elsewhere classified (04/27/24) Subjective Subjective Patient was seen and examined today, she states that the IV Decadron that she was placed on yesterday has not helped her back pain. Objective Data Objective Data Vital Signs: Vital Signs Temp Pulse Resp BP Pulse Ox O2 Del Method O2 Flow Rate 98.1 F 111 H 14 149/76 H 93 Room Air 2 04/29/24 14:24 04/29/24 14:26 04/29/24 14:24 04/29/24 14:24 04/29/24 14:26 04/29/24 14:58 04/29/24 06:16 Oxygen Flow Rate (L/min) 2 Oxygen Delivery Method Room Air Weight: 59.08 kg Body Mass Index (BMI) 25.4 Intake & Output: Intake and Output for Last 24 Hours 04/27/24 04/28/24 04/29/24 23:59 23:59 23:59 Intake Total 50 / 250 1500 / 1500 240 / 240 Output Total 2700 / 2700 650 / 650 Balance 50 / 0 -1200 / -1200 -410 / -410 Lab / Micro Data 04/28/24 06:50 04/28/24 06:50 Labs: Laboratory Results - last 24 hr 04/28/24 21:57: POC Glucose 152 H 04/29/24 07:08: POC Glucose 147 H 04/29/24 11:01: POC Glucose 214 H 04/29/24 15:56: POC Glucose 126 H Micro: Microbiology 04/27/24 14:25 Urine, Clean Catch Urine Culture - Final Mixed Gram Pos & Gram Neg Org 04/27/24 15:10 Mucosa - Nose SARS-CoV-2, Influenza & RSV (PCR) - Final Radiography Diagnostic Testing: Radiology Impression Lumbar Spine MRI 04/28/24 16:54 IMPRESSION: Multilevel spondylosis. No significant interval change. Grade 1 anterolisthesis of L4 on L5. Reading Location: [facility] Physical Exam Narrative alert, oriented x3 and no apparent distress Constitutional Narrative: Patient appears older than her stated age General Appearance: cooperative, well kempt and well developed Orientation / Consciousness: awake, oriented to person, oriented to place and oriented to time HEENT normocephalic, head/scalp atraumatic and moist oral mucous membranes Eyes PERRL, EOMs intact bilaterally and conjunctivae normal Neck supple, no JVD, thyroid normal and no carotid bruits General: trachea midline Resp normal respiratory effort, no retractions, no use of accessory muscles and clear to auscultation bilaterally Auscultation: Negative for rales, rhonchi or wheezes Cardio regular rate, regular rhythm, S1 normal heart sound, S2 normal heart sound, no murmurs, no rub and no gallops GI normal to inspection, nondistended, normoactive bowel sounds, soft to palpation, non-tender and non-distended Extremity no clubbing, cyanosis or edema Skin no rashes or lesions noted General Skin Exam: no breakdown Neuro oriented x3, CN's II-XII intact bilaterally, no focal motor deficits and no sensory deficits noted Neuro Narrative: Patient has difficulty walking without assistance and getting up from a chair without assistance Sensorium / Orientation: awake and alert Speech: speech normal Psych affect normal Assessment & Plan Assessment/Plan (1) Radiculopathy of lumbar region: (2) Intractable low back pain: PLAN: Plan 1. Intractable low back pain with right leg radiculopathy-patient will continue to work with PT and OT, she will continue to get IV Decadron, I have increased her gabapentin, I talked with spinal surgery today (Dr. Camarillo) again he said he did not have any thing more to add to her care at this time and he was not considering any surgery emergently. It is likely the patient will need to go to an extended care facility for short-term rehab services. 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-again I talked with spinal surgery today and they do not feel that the patient's symptoms are of a cervical etiology, she does have follow-up appointment with spinal surgery to discuss possible surgery of the lumbar spine for spondylolisthesis of L4-L5 #3 essential hypertension-patient will remain on lisinopril #4 chronic obstructive pulmonary disease-complicates care, management, recovery, and prognosis Total clinical time spent by myself addressing the patient's medical issues, reviewing all of the data, and collaborating with patient's care team: 35-minute Charges/Coding Visit Charges Inpatient E&M: 07639 Subs Hosp L2
[2024-04-29] MEDS: morphine SR 15 MG Tablet PO (21:39)
[2024-04-29 21:49] LABS: Bedside Glucose 153 mg/dL (74-106)
[2024-04-30 03:49] VITALS: BP 121/82; PULSE 92; RESP 16; TEMP 36.7; O2SAT 100
[2024-04-30] MEDS: Acetaminophen 500 MG Tablet 1000 MG PO ×2 (07:07→14:04)
[2024-04-30] MEDS: Baclofen 10 MG Tablet PO ×2 (07:08→15:08)
[2024-04-30] MEDS: dexAMETHasone 4 MG/ML Vial IV ×2 (07:08→11:15)
[2024-04-30 07:31] LABS: Bedside Glucose 141 mg/dL (74-106)
[2024-04-30 07:48] VITALS: PULSE 86; RESP 22; O2SAT 90
[2024-04-30] MEDS: Budesonide Respules 0.5 MG/2 ML AMPUL.NEB. INHALATION ×2 (07:48→19:03)
[2024-04-30] MEDS: Ipratropium/Albuterol Sulfate 3 ML AMPUL.NEB INHALATION ×3 (07:48→19:03)
[2024-04-30 08:06] VITALS: BP 126/71; PULSE 77; RESP 18; TEMP 36.6; O2SAT 93
[2024-04-30] MEDS: 0.9% Saline Lock 10 ML Syringe IV ×2 (08:11→11:17)
[2024-04-30] MEDS: Ondansetron 4 MG/2 ML Vial IV (08:11)
--- NOTE | 2024-04-30 09:39 | CASEMGMT ---
[facility] obtained auth to admit. Physician and SW updated. Pebbles Cortez DC Planning Asst.
--- NOTE | 2024-04-30 09:56 | CASEMGMT ---
Social Work- SW met with pt to advise that precert was started for Lori. SW will continue to follow. Plan: lori; SCOTTY Garcia
[2024-04-30] MEDS: Gabapentin 400 MG Capsule PO ×2 (09:58→14:03)
[2024-04-30] MEDS: Lactobacillis Acidophilus 1 CAP PO (09:58)
[2024-04-30] MEDS: Enoxaparin 40 MG/0.4 ML Syringe SC (09:58)
[2024-04-30] MEDS: Lisinopril 10 MG Tablet PO (10:00)
[2024-04-30] MEDS: Cholecalciferol (VIT D3) 25 MCG TABLET (1,000 UNITS) PO (10:00)
--- NOTE | 2024-04-30 10:59 | TREXTCAR_ITS ---
Diet Diet Order/Speech Therapy: 04/27/24 16:53 Diet: Regular - General Food consistency:: Regular Liquid Consistency:: Regular/Thin Routine Orders/Code Status Code Status: Full Code DC O2, CPAP, BIPAP needs Home O2 Discharge instructions: No Therapies Weight Bearing: Full weight bearing Physical Therapy: Eval and Treat Occupational Therapy: Eval and Treat Problem/Diagnosis (1) Radiculopathy of lumbar region: Status: Acute Code(s): M54.16 - Radiculopathy, lumbar region (2) Intractable low back pain: Status: Acute Code(s): M54.59 - Other low back pain Plan 1. Intractable low back pain with right leg radiculopathy-patient will continue to work with PT and OT, she will continue to get IV Decadron, I have increased her gabapentin, I talked with spinal surgery today (Dr. Camarillo) again he said he did not have any thing more to add to her care at this time and he was not considering any surgery emergently. It is likely the patient will need to go to an extended care facility for short-term rehab services. 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 #3 essential hypertension-patient will remain on lisinopril #4 chronic obstructive pulmonary disease-complicates care, management, recovery, and prognosis Total clinical time spent by myself addressing the patient's medical issues, reviewing all of the data, and collaborating with patient's care team: 35-minute Allergies/Procedures Done in Hospital Allergies codeine Allergy (Verified 04/27/24 12:02) hives Procedures: None Type of Care/Length of Stay Estimated LOS: Convalescent Care Less Than 30 days Type of Care Needed: Skilled Rehab Potential: Good Prognosis: Good Additional Orders/Day of Discharge H&P will serve as current which was dated: 04/27/24 Day of Discharge: 04/30/24 Discharge Plan Admission Admit Date/Time: 04/27/24 14:47 Primary Reason for Your Visit: Intractable back pain, right radicular pain Attending Provider: William Khan Primary Care Provider: Dilip Matute [employer] Providers: Mango Talavera; Mark France Discharge Orders/Prescriptions Prescriptions: New gabapentin 400 mg Capsule 400 mg PO TIDCM Qty: 0 0RF lisinopril 10 mg Tablet 10 mg PO DAILY Qty: 0 0RF morphine 15 mg Tablet Extended Release 15 mg PO BID 5 Days Qty: 10 0RF oxycodone 5 mg Tablet 5 mg PO Q4H PRN PRN (Reason: Pain Score 4-10) 2 Days Qty: 12 0RF ondansetron HCl 4 mg tablet 4 mg PO Q8H PRN (Reason: nausea and vomiting) Qty: 1 0RF prednisone 20 mg tablet 40 mg PO DAILY Qty: 1 0RF Rx Instructions: 20 mg twice a day x 7 days, then 20 mg daily for 7 days then stop the medication Continued cholecalciferol (vitamin D3) 25 mcg (1,000 unit) capsule 25 mcg PO DAILY baclofen 10 mg tablet 10 mg PO QDAY acetaminophen 325 mg Tablet 650 mg PO Q4H PRN PRN (Reason: Fever, pain 1-10/10) Qty: 0 0RF melatonin 3 mg Tablet 3 mg PO QHS PRN PRN (Reason: Insomnia) Qty: 0 0RF lidocaine 5 % Adhesive Patch,Medicated 2 patch topical DAILY Qty: 0 0RF Protocol: *Topical Application Instructions APPLICATION INSTRUCTIONS: Lumbar spine nicotine 21 mg/24 hr Patch 24 Hour 21 mg transdermal DAILY Qty: 0 0RF alum-mag hydroxide-simeth [Mag-Al Plus Extra Strength] 400-400-40 mg/5 mL Suspension 30 ml PO Q6H PRN PRN (Reason: Gastric Burning) Qty: 0 0RF sennosides-docusate sodium [Stimulant Laxative Plus] 8.6-50 mg Tablet 2 tab PO BID PRN PRN (Reason: Constipation) Qty: 0 0RF albuterol sulfate 2.5 mg /3 mL (0.083 %) solution for nebulization 2.5 mg inhalation Q4H MDD 6 PRN (Reason: shortness of breath or wheezing) Qty: 360 11RF Trelegy Ellipta 200-62.5-25 mcg blister with device 1 inh inhalation DAILY MDD 1 daily Qty: 90 11RF Discontinued lisinopril 20 mg tablet 20 mg PO DAILY (DME) Nebulizer machine See Rx Instructions .Route .MEDSUPPLY Qty: 1 0RF Rx Instructions: Use every 4-6 hours as needed (DME) Supplies for nebulizer machine See Rx Instructions .Route .MEDSUPPLY Qty: 3 3RF Rx Instructions: Tubing, plastic nebulizer cups, renewable every 90 days per insurance. Use every 4-6 hours with liquid respiratory medication as directed. vitamin B complex Tablet 1 tab PO DAILY albuterol sulfate [Ventolin HFA] 90 mcg/actuation HFA aerosol inhaler 2 inh inhalation Q6H PRN (Reason: shortness of breath or wheezing) oxycodone 5 mg Tablet 5 mg PO Q4H PRN PRN (Reason: Pain Score 4-10) 3 Days Qty: 10 0RF gabapentin 100 mg Capsule 300 mg PO TIDCM Referrals / Follow Up: Jorge Camarillo MD [[facility] Staff - Active Staff] - See Referral Note (Follow-up when discharged from the senior care facility with Dr. Camarillo) Dilip Matute Chi, MD [Primary Care Provider] - Disposition Disposition (needs filled in before D/C Order can be placed): Senior Living Facility
--- NOTE | 2024-04-30 11:16 | DS.PCM_ITS ---
Providers Date of Admission: 04/27/24 Date of Discharge: 04/30/24 Primary Care Physician: Dr. Dilip Matute MD Consultations 04/28/24 14:10 Consult: Pain Management Routine Consulting Provider: Mark France Reason for Consult: back pain, radicular pain EMERGENT Consult: No MD Notified: Yes Date Notified: 04/28/24 Time Notified: 14:10 Method of Notification: Verbal Reason For Visit: INTRACTABLE BACK PAIN, DIFFICULTY W/ AMBULATION Diagnosis Discharge Diagnosis (1) Radiculopathy of lumbar region: Status: Acute Code(s): M54.16 - Radiculopathy, lumbar region (2) Intractable low back pain: Status: Acute Code(s): M54.59 - Other low back pain Plan 1. Intractable low back pain with right leg radiculopathy-patient will continue to work with PT and OT, she will continue to get IV Decadron, I have increased her gabapentin, I talked with spinal surgery today (Dr. Camarillo) again he said he did not have any thing more to add to her care at this time and he was not considering any surgery emergently. It is likely the patient will need to go to an extended care facility for short-term rehab services. 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 #3 essential hypertension-patient will remain on lisinopril #4 chronic obstructive pulmonary disease-complicates care, management, recovery, and prognosis Total clinical time spent by myself addressing the patient's medical issues, reviewing all of the data, and collaborating with patient's care team: 35-minute Medications at Discharge Home Medications albuterol sulfate 2.5 mg/3 mL (0.083 %) solution for nebulization 2.5 mg (3 mL) inhalation Q4H PRN shortness of breath or wheezing #360 mL 07/30/23 fluticasone fur. 200 mcg-umeclid 62.5 mcg-vilant 25 mcg inhalat.powder (Trelegy Ellipta) 1 inh inhalation DAILY COPD, severe #90 ea 10/01/23 baclofen 10 mg tablet 10 mg PO QDAY 10/16/23 cholecalciferol (vitamin D3) 25 mcg (1,000 unit) capsule 25 mcg PO DAILY 10/16/23 acetaminophen 325 mg tablet 650 mg (2 x 325 mg) PO Q4H PRN PRN Fever, pain - 01/07 #0 tabs 04/07/24 aluminum-mag hydroxide-simethicone 400 mg-400 mg-40 mg/5 mL oral susp (Mag-Al Plus Extra Strength) 30 ml PO Q6H PRN PRN Gastric Burning #0 mL 04/07/24 lidocaine 5 % topical patch 2 patch topical DAILY #0 ea 04/07/24 melatonin 3 mg tablet 3 mg PO QHS PRN PRN Insomnia #0 tabs 04/07/24 nicotine 21 mg/24 hr daily transdermal patch 21 mg transdermal DAILY #0 ea 04/07/24 sennosides 8.6 mg-docusate sodium 50 mg tablet (Stimulant Laxative Plus) 2 tab PO BID PRN PRN Constipation #0 tabs 04/07/24 gabapentin 400 mg capsule 400 mg PO TIDCM #0 caps 04/30/24 lisinopril 10 mg tablet 10 mg PO DAILY #0 tabs 04/30/24 morphine 15 mg tablet,extended release 15 mg PO BID 5 days #10 tabs 04/30/24 ondansetron HCl 4 mg tablet 4 mg PO Q8H PRN nausea and vomiting #1 TAB 04/30/24 oxycodone 5 mg tablet 5 mg PO Q4H PRN PRN Pain Score 4-10 2 days #12 tabs 04/30/24 prednisone 20 mg tablet 40 mg (2 x 20 mg) PO DAILY #1 TAB 04/30/24 Hospital Course Operations None Procedures None Summary of Care Provided Minutes Spent on Discharge: 32 Hospital Course: This 69-year-old white female was seen in the emergency room at [facility] with complaints of generalized weakness and inability to perform ADLs due to severe lower back pain and pain radiating into her right leg. Patient has had this low back discomfort with right leg pain for several weeks and had seen a spinal surgeon as an outpatient. Patient had a CT of her lumbar spine performed which did not show any acute process, patient also had a thoracic spine x-ray which did not reveal any severe abnormality. Patient was placed on narcotics for pain and given IV Decadron, she was seen in consultation by pain management who recommended repeating her lumbar MRI, this was repeated and did not show any change from the MRI that she had previously on 03/29/2024. Patient was seen by PT and OT, she did not feel she was able to go home and perform her ADLs and so it was recommended that she go to an extended care facility for short-term inpatient rehab services. Patient agreed to this. On 04/30/2024, patient was seen and examined: On examination she does not appear to be in any distress. Vital signs as documented. Skin warm and dry and without overt rashes. Neck without JVD, thyroid appears normal, trachea is midline, neck is supple. Lungs clear, normal air movement was noted. Heart exam notable for regular rhythm, normal sounds and absence of murmurs, rubs or gallops. Abdomen unremarkable and without evidence of organomegaly, masses, or abdominal aortic enlargement, bowel sounds are present in all 4 quadrants, no abdominal tenderness was noted. Extremities nonedematous, no cyanosis was noted, no clubbing was noted. Neuro: Cranial nerves II through XII are grossly intact, no focal motor deficits were noted, sensation to light touch and pinprick is intact, motor exam 5/5 throughout. Psych: Patient is alert and oriented x3, she does not appear anxious or depressed, she does not appear agitated. Patient appears stable for transfer to an extended care facility on 04/30/2024. Weight / BMI Weight Weight: 59.08 kg Body Mass Index (BMI) 25.4 ABG / Lab / Microbiology Data 04/28/24 06:50 04/28/24 06:50 Laboratory: Laboratory Results - last 24 hr 04/29/24 11:01: POC Glucose 214 H 04/29/24 15:56: POC Glucose 126 H 04/29/24 21:32: POC Glucose 153 H 04/30/24 07:04: POC Glucose 141 H Microbiology: Microbiology 04/27/24 14:25 Urine, Clean Catch Urine Culture - Final Mixed Gram Pos & Gram Neg Org 04/27/24 15:10 Mucosa - Nose SARS-CoV-2, Influenza & RSV (PCR) - Final D/C Instructions DC O2, CPAP, BIPAP Needs Home O2 Discharge instructions: No Meaningful Use Info Meaningful Use Meaningful Use Diagnoses (Choose all that apply): None applicable Ischemic Stroke Statin Dosing Therapy Reference: STATIN DOSE THERAPY REFERENCE: * Patients > 75 years receive moderate or high dose statin therapy. * Patients 75 years or YOUNGER should receive HIGH intensity statin dose unless contraindicated. You will be required to document reason for non-treatment if statin daily dose does not meet guidelines. HIGH DOSE STATIN THERAPY DAILY Atorvastatin > than or = to 40 mg Rosuvastatin > than or = to 20 mg Amlodipine + Atorvastatin > than or = to 2.5/40 mg Ezetimibe + Simvastatin 10/80 mg Simvastatin 80mg Discharge Plan Admission Admit Date/Time: 04/27/24 14:47 Primary Reason for Your Visit: Intractable back pain, right radicular pain Attending Provider: William Khan Primary Care Provider: Dilip Matute Chi Consulting Providers: Mango Talavera; Mark France Discharge Orders/Prescriptions Prescriptions: New gabapentin 400 mg Capsule 400 mg PO TIDCM Qty: 0 0RF lisinopril 10 mg Tablet 10 mg PO DAILY Qty: 0 0RF morphine 15 mg Tablet Extended Release 15 mg PO BID 5 Days Qty: 10 0RF oxycodone 5 mg Tablet 5 mg PO Q4H PRN PRN (Reason: Pain Score 4-10) 2 Days Qty: 12 0RF ondansetron HCl 4 mg tablet 4 mg PO Q8H PRN (Reason: nausea and vomiting) Qty: 1 0RF prednisone 20 mg tablet 40 mg PO DAILY Qty: 1 0RF Rx Instructions: 20 mg twice a day x 7 days, then 20 mg daily for 7 days then stop the medication Continued cholecalciferol (vitamin D3) 25 mcg (1,000 unit) capsule 25 mcg PO DAILY baclofen 10 mg tablet 10 mg PO QDAY acetaminophen 325 mg Tablet 650 mg PO Q4H PRN PRN (Reason: Fever, pain 1-10/10) Qty: 0 0RF melatonin 3 mg Tablet 3 mg PO QHS PRN PRN (Reason: Insomnia) Qty: 0 0RF lidocaine 5 % Adhesive Patch,Medicated 2 patch topical DAILY Qty: 0 0RF Protocol: *Topical Application Instructions APPLICATION INSTRUCTIONS: Lumbar spine nicotine 21 mg/24 hr Patch 24 Hour 21 mg transdermal DAILY Qty: 0 0RF alum-mag hydroxide-simeth [Mag-Al Plus Extra Strength] 400-400-40 mg/5 mL Suspension 30 ml PO Q6H PRN PRN (Reason: Gastric Burning) Qty: 0 0RF sennosides-docusate sodium [Stimulant Laxative Plus] 8.6-50 mg Tablet 2 tab PO BID PRN PRN (Reason: Constipation) Qty: 0 0RF albuterol sulfate 2.5 mg /3 mL (0.083 %) solution for nebulization 2.5 mg inhalation Q4H MDD 6 PRN (Reason: shortness of breath or wheezing) Qty: 360 11RF Trelegy Ellipta 200-62.5-25 mcg blister with device 1 inh inhalation DAILY MDD 1 daily Qty: 90 11RF Discontinued lisinopril 20 mg tablet 20 mg PO DAILY (DME) Nebulizer machine See Rx Instructions .Route .MEDSUPPLY Qty: 1 0RF Rx Instructions: Use every 4-6 hours as needed (DME) Supplies for nebulizer machine See Rx Instructions .Route .MEDSUPPLY Qty: 3 3RF Rx Instructions: Tubing, plastic nebulizer cups, renewable every 90 days per insurance. Use every 4-6 hours with liquid respiratory medication as directed. vitamin B complex Tablet 1 tab PO DAILY albuterol sulfate [Ventolin HFA] 90 mcg/actuation HFA aerosol inhaler 2 inh inhalation Q6H PRN (Reason: shortness of breath or wheezing) oxycodone 5 mg Tablet 5 mg PO Q4H PRN PRN (Reason: Pain Score 4-10) 3 Days Qty: 10 0RF gabapentin 100 mg Capsule 300 mg PO TIDCM Referrals / Follow Up: Jorge Camarillo MD [Med Staff - Active Staff] - See Referral Note ([facility] with Dr. Camarillo) Dilip Matute Chi, MD [Primary Care Provider] - Disposition Disposition (needs filled in before D/C Order can be placed): Custodial Facility Charges/Coding Visit Charges Inpatient E&M: 85187 Disch Hosp >30min
[2024-04-30 12:26] LABS: Bedside Glucose 129 mg/dL (74-106)
--- NOTE | 2024-04-30 12:40 | CASEMGMT ---
Discharge orders, signed med list, and transport time sent to [facility]. Physicians will transport patient by wheelchair at 5p. Nursing, SW, and pt updated. Pt will notify her daughters. Pebbles Cortez DC Planning Asst.
--- NOTE | 2024-04-30 12:48 | CASEMGMT ---
Social Work Precert has been obtained.? Physician updated and pt is ready for discharge today.? 7000 convalescent form completed in [facility]. [facility] notified of discharge. Final discharge arrangements and notification to patient/family as per discharge manager planning.? Disposition:[facility], skilled level of care under convalescent stay. SCOTTY Fraire
[2024-04-30 14:07] VITALS: BP 135/69; PULSE 93; RESP 16; TEMP 36.7; O2SAT 93
[2024-04-30 14:16] VITALS: PULSE 99; RESP 20
--- NOTE | 2024-04-30 15:53 | NURSING ---
REPORT CALLED TO MIGEL AT [facility]- THEY ARE AWARE TRANSPORT IS EXPECTED AT 1700
[2024-04-30 16:43] LABS: Bedside Glucose 140 mg/dL (74-106)
[2024-04-30 19:04] VITALS: PULSE 114; RESP 18; O2SAT 91
== END 2024-04-30 19:16 | disposition skilled nursing facility (03) ==
LOC: ED 13:06 → MS3 16:19
PROVIDERS: Admitting Provider Hospitalist; Emergency Provider Surgery; PCP Family Medicine Geriatric Medicine; Visit Provider Internal Medicine
DX: M43.16 Spondylolisthesis, lumbar region (principal); J44.89 Other specified chronic obstructive pulmonary disease; E11.9 Type 2 diabetes mellitus without complications; Z79.4 Long term (current) use of insulin; F17.210 Nicotine dependence, cigarettes, uncomplicated; M47.26 Other spondylosis with radiculopathy, lumbar region; G89.4 Chronic pain syndrome; E78.2 Mixed hyperlipidemia; I10 Essential (primary) hypertension; Z79.51 Long term (current) use of inhaled steroids; Z79.899 Other long term (current) drug therapy
CPT/HCPCS: 36415; 72072; 72100; 72141; 72148; 80048; 81001; 82962; 85027; 87086; 87088; 87631; 94640; 94668; 96361; 96365; 96366; 96372; 96375; 96376; 97162; 97166; 97530; 97535; 99221; 99285; 99406; A4216; G0378; J2405

== ENCOUNTER → 2024-05-09 | Outpatient (CLI) | payer MEDICARE, MEDICAID, SELFPAY ==
--- NOTE | 2024-05-09 10:17 | MRI_ITS ---
PROCEDURE: SPINE CERVICAL (ROUTINE) REASON FOR EXAM: Neck pain with radiculopathy. TECHNIQUE: Multiplanar multisequence imaging of the cervical spine performed without IV contrast enhancement, utilizing a standard protocol. COMPARISON: 04/27/2024 FINDINGS: Again seen is straightening of the cervical spine, which could be positional versus muscle spasm. Susceptibility artifact from anterior fusion hardware involves the C5 through C7 levels. Marrow signal of the C1 through C4 levels are within normal limits. Trace grade 1 anterolisthesis of C7 on T1. No acute cervical spine fractures or dislocations are identified. Congenital short pedicles. Dehydration of the disc seen at the C2-3, C3-4 and C4-5 levels as well as the C7-T1 level. Cervicomedullary junction is preserved. Cervical cord morphology and signal intensities within normal limits. Disc levels as follows: C2-3: Minimal paracentral disc bulge on the left. No significant central spinal or neural foraminal stenosis bilaterally C3-4: Central disc bulge without significant central spinal or right neural foraminal stenosis. [id number] neural foraminal stenosis on the left secondary to uncovertebral joint hypertrophy, unchanged. C4-5: Central disc osteophyte complex mildly contacts the ventral cord. Spinal canal measures 8 mm AP. Moderate right and mild left neural foraminal stenosis secondary to uncovertebral joint hypertrophy C5-6: Interbody fusion. Mild central right disc osteophyte complex mildly effaces the ventral subarachnoid space without central spinal stenosis. Severe right neural foraminal stenosis secondary to uncovertebral joint hypertrophy. No significant neural foraminal stenosis on the left C6-7: Interbody fusion. Central right disc osteophyte complex mildly effaces the ventral subarachnoid space and narrows the spinal canal to 8.5 mm AP.. [id number] neural foraminal stenosis bilaterally slightly worse on the right secondary to uncovertebral joint hypertrophy. C7-T1: No disc herniation, central or right neural foraminal stenosis. Moderate neural foraminal stenosis of the left secondary to uncovertebral joint hypertrophy. T1-2, T2-3, T3-4, T4-5: Evaluated on sagittal imaging only. No significant disc herniation, central spinal or neural foraminal stenosis bilaterally MRI/Spine Cervical (Routine) IMPRESSION: 1. Straightening of the cervical spine, which could be positional versus muscle spasm. 2. Stable anterior and interbody fusion involving the C5 through C7 levels, wit h susceptibility artifact. No acute cervical spine fractures or dislocations are identified. 3. At the C3-4 level, central disc bulge without central spinal stenosis. Mild -to-moderate neural foraminal stenosis on the left, relatively unchanged. 4. At the C4-5 level, central disc osteophyte complex mildly narrows the spinal canal to 8 mm AP. Moderate right and mild left neural foraminal stenosis, more conspicuous on current examination. 5. At the C5-6 level, interbody fusion with a central right disc osteophyte com plex without central spinal stenosis. Severe neuroforaminal stenosis on the right, unchanged. 6. At the C6-7 level, interbody fusion with a central right disc osteophyte com plex mildly narrows the spinal canal to 8.5 mm AP. [id number] neural foraminal stenosis bilaterally, unchanged. 7. At the C7-T1 level moderate neural foraminal stenosis on the left secondary to uncovertebral joint hypertrophy, more conspicuous on current examination. No central spinal stenosis. Reading [facility]
== END | disposition home or self-care (01) ==
LOC: MRI 05-10 10:13
PROVIDERS: PCP Family Medicine Geriatric Medicine; Referring Provider Orthopaedic Surgery Orthopaedic Surgery of the Spine; Visit Provider Orthopaedic Surgery Orthopaedic Surgery of the Spine
DX: G95.9 Disease of spinal cord, unspecified (principal)
CPT/HCPCS: 72141

== ENCOUNTER → 2024-05-13 | Outpatient (CLI) | payer MEDICARE, MEDICAID, SELFPAY ==
[2024-05-13 17:52] LABS: Anion Gap 4 (5-15); BUN 18 mg/dL (7-18); BUN/Creat Ratio 22.8 RATIO (10-20); Calcium,Total 9.2 mg/dL (8.5-10.1); Chloride 110 mmol/L (98-107); Creatinine, Serum 0.79 mg/dL (0.55-1.02); EST Glomerular Filtration Rate 77 mL/min (>60); Est Glom Filt Rate - Afr Amer 93 mL/min (>60); Glucose 82 mg/dL (74-106); Potassium 4.6 mmol/L (3.5-5.1); Sodium Level 140 mmol/L (136-145)
== END | disposition home or self-care (01) ==
LOC: LAB 16:21
PROVIDERS: PCP Family Medicine Geriatric Medicine; Referring Provider Family Medicine Geriatric Medicine; Visit Provider Family Medicine Geriatric Medicine
DX: N18.32 Chronic kidney disease, stage 3b (principal)
CPT/HCPCS: 36415; 80048

== ENCOUNTER 2024-06-28 17:41 | Emergency (ER) | payer MEDICARE, MEDICAID, SELFPAY ==
[2024-06-28 17:42] VITALS: BP 161/73; PULSE 78; RESP 19; TEMP 36.7; O2SAT 98; BMI 28.6
[2024-06-28 18:45] VITALS: BP 152/72; PULSE 78; RESP 19; TEMP 36.8; O2SAT 98
--- NOTE | 2024-06-28 19:07 | EX.ED.DYSGE1 ---
HPI <TONYA Luque - Last Filed: 06/28/24 20:42> History of Present Illness Chief Complaint: General Illness Narrative Narrative: Patient presenting today due to concerns for lower extremity edema that she noticed this evening. She reports that she had her feet planted on the ground while sitting for an extended period of time, she noticed swelling to her bilateral feet and ankles. She then propped her feet up and the swelling resolved. She denies paresthesias. She has no history of CHF, she denies shortness of breath. Additionally she reports an intermittent left-sided headache since yesterday. She reports that she has had headaches similar to this in the past, she denies sudden onset presentation of the headache. She has had no visual changes, fevers, chills. PFSH <TONYA Luque - Last Filed: 06/28/24 20:42> [facility] Medical History Cervical myelopathy Osteoporosis Chronic pain Kidney disease Smoker Sleep apnea On home oxygen therapy Irregular heart beat Tobacco use Chronic pain syndrome HTN (hypertension) Stage 3 severe COPD by GOLD classification Hypertension Mixed hyperlipidemia Iron deficiency anemia Home Medications ?Medication ?Instructions ?Recorded ?Last Taken ?Type albuterol sulfate 2.5 mg/3 mL 2.5 mg (3 mL) inhalation Q4H PRN 07/30/23 04/27/24 Rx (0.083 %) solution for nebulization shortness of breath or wheezing #360 mL fluticasone fur. 200 mcg-umeclid 1 inh inhalation DAILY COPD, 10/01/23 04/27/24 Rx 62.5 mcg-vilant 25 mcg severe #90 ea inhalat.powder (Trelegy Ellipta) baclofen 10 mg tablet 10 mg PO QDAY 10/16/23 04/26/24 17:05 History cholecalciferol (vitamin D3) 25 25 mcg PO DAILY 10/16/23 04/27/24 History mcg (1,000 unit) capsule acetaminophen 325 mg tablet 650 mg (2 x 325 mg) PO Q4H PRN PRN 04/07/24 Unknown Rx Fever, pain 1-10 #0 tabs lisinopril 10 mg tablet 10 mg PO DAILY #0 tabs 04/30/24 Unknown Rx gabapentin 400 mg capsule 600 mg PO TID 05/20/24 Unknown History Allergy/AdvReac Type Severity Reaction Status Date / Time codeine Allergy hives Verified 04/27/24 12:02 Family History Mother Arthritis Skin cancer Father Brain cancer Surgical History Hx of tonsillectomy H/O cervical discectomy Social History household members: none Smoking Status: Current every day smoker tobacco type: cigarettes alcohol intake: current alcohol intake frequency: holidays/special occasions only substance use type: does not use ROS <TONYA Luque - Last Filed: 06/28/24 20:42> ROS ED Constitutional Constitutional ED: Denies chills or fever(s) Cardiovascular Cardiovascular: Denies chest pain Respiratory/Chest Respiratory/Chest: Denies dyspnea Gastrointestinal Gastrointestinal: Reports nausea; Denies abdominal pain or vomiting Musculoskeletal Musculoskeletal: Denies arthralgias or myalgias Integumentary Denies rash Neurologic Neurologic: Denies paresthesias EXAM <TONYA Luque - Last Filed: 06/28/24 20:42> Physical Exam Const Vital Signs: 06/28/24 17:42 06/28/24 18:45 06/28/24 19:41 Temperature 98.1 F 98.3 F Temperature Source Oral Oral Pulse Rate 78 78 Respiratory Rate 19 H 19 H Blood Pressure 161/73 H 152/72 H 143/76 H Blood Pressure Mean 102 98 98 Pulse Ox 98 98 Oxygen Delivery Method Room Air Room Air Positive well nourished, well developed and no apparent distress General Appearance ED: well developed HEENT Reports normocephalic and head/scalp atraumatic Mouth ED: Yes moist mucous membranes normal Eyes PERRL and EOMs intact bilaterally Neck full ROM and supple Chest Wall inspection of chest normal Resp normal respiratory effort and clear to auscultation bilaterally Cardio regular rate and regular rhythm GI soft to palpation, non-tender, non-distended and no masses Back/Spine normal ROM and normal to inspection Extremity normal to inspection and full ROM Extremity Narrative: No lower extremity edema bilaterally, bilateral DP pulse 2+, good cap refill, sensation intact. Neuro oriented x3, CN's II-XII intact bilaterally, moves all extremities, no focal motor deficits and no sensory deficits noted Sensorium / Orientation: awake and alert Psych mental status grossly normal and thought process normal Skin no rashes or lesions noted and no wounds <Dr. Humble Burt, - Last Filed: 06/28/24 20:31> Physical Exam Const Vital Signs: 06/28/24 17:42 06/28/24 18:45 06/28/24 19:41 Temperature 98.1 F 98.3 F Temperature Source Oral Oral Pulse Rate 78 78 Respiratory Rate 19 H 19 H Blood Pressure 161/73 H 152/72 H 143/76 H Blood Pressure Mean 102 98 98 Pulse Ox 98 98 Oxygen Delivery Method Room Air Room Air MDM <TONYA Luque - Last Filed: 06/28/24 20:42> [facility] MDM Narrative Medical decision making narrative: Patient presenting today with lower extremity edema that started this evening after she had her feet placed on the ground for extended period of time, she noticed the swelling to her feet and ankles that then resolved when she props her feet up. She has no lower extremity edema on my exam. She is neurovascularly intact bilaterally. She has no history of blood clots or recent surgery/travel/immobilization. Basic labs were obtained, CBC shows a hemoglobin of 10.9 which is consistent with previous labs. BMP shows a slight elevation of her BUN, creatinine is WNL. Suspect that she developed dependent edema that has resolved. Recommended keeping feet elevated when sitting and using compression socks as needed as well as increasing movement throughout the day. She did report having a mild left-sided intermittent headache, her headache is not consistent with SAH. She did not require any pain medication for this. Recommended she follow-up closely with her PCP. Patient discharged home stable condition Lab Data Attestation: I reviewed the patient's lab results. Labs: Laboratory Results - last 24 hr 06/28/24 19:40 WBC 8.7 RBC 3.60 L Hgb 10.9 L Hct 34.0 L MCV 94.4 MCH 30.3 MCHC 32.1 RDW Std Deviation 47.8 H RDW Coeff of Adriana 13.9 Plt Count 308 MPV 9.5 Immature Gran % (Auto) 0.200 Neut % (Auto) 45.4 L Lymph % (Auto) 43.0 H [place] % (Auto) 7.5 Eos % (Auto) 3.1 Baso % (Auto) 0.8 Absolute Neuts (auto) 4.0 Absolute Lymphs (auto) 3.75 Nucleated RBC % 0 Sodium 140 Potassium 4.7 Chloride 106 Carbon Dioxide 23.3 Anion Gap 11 BUN 23 H Creatinine 0.89 Estim Creat Clear Calc 51.48 Est GFR (MDRD) Non-Af 71 BUN/Creatinine Ratio 26.0 H Glucose 93 Calcium 9.5 <Dr. Humble Burt, DO - Last Filed: 06/28/24 20:31> [facility] Lab Data Labs: Laboratory Results - last 24 hr 06/28/24 19:40 WBC 8.7 RBC 3.60 L Hgb 10.9 L Hct 34.0 L MCV 94.4 MCH 30.3 MCHC 32.1 RDW Std Deviation 47.8 H RDW Coeff of Adriana 13.9 Plt Count 308 MPV 9.5 Immature Gran % (Auto) 0.200 Neut % (Auto) 45.4 L Lymph % (Auto) 43.0 H [place] % (Auto) 7.5 Eos % (Auto) 3.1 Baso % (Auto) 0.8 Absolute Neuts (auto) 4.0 Absolute Lymphs (auto) 3.75 Nucleated RBC % 0 Sodium 140 Potassium 4.7 Chloride 106 Carbon Dioxide 23.3 Anion Gap 11 BUN 23 H Creatinine 0.89 Estim Creat Clear Calc 51.48 Est GFR (MDRD) Non-Af 71 BUN/Creatinine Ratio 26.0 H Glucose 93 Calcium 9.5 Treatment and Re-Evaluation :: I have personally performed a face to face assessment of the patient and have reviewed the MERVAT Note. I performed a substantive portion of the visit including all aspects of the following. My warren findings include: History: Patient presents with bilateral lower extremity swelling that became worse today. Patient states it is worse while she was sitting up. Patient states she elevated her legs and her swelling got better. Patient states that they also felt cold. Patient denies any paresthesias or weakness. Patient denies any trauma or injury. Exam: Vital signs are stable except for an elevated blood pressure of 161/73. Patient is afebrile. Patient is in no acute distress. Oral mucosa is pink and moist. Neck is supple. Trachea is midline. There is no JVD. Heart was regular rate and rhythm. Lungs are clear and equal bilaterally. There is good respiratory effort noted. Abdomen is soft. Bowel sounds are normal. There is no tenderness. There is no guarding. Cranial nerves II through XII are intact. There are no focal motor or sensory deficits noted. Extremities are intact. There is trace edema of the lower extremities bilaterally. Pedal pulses are equal bilaterally. There is no calf tenderness noted. Medical Decision Making: Differential diagnosis includes anemia, renal insufficiency, and electrolyte abnormality. CBC will be obtained to assess for leukocytosis and anemia. Basic metabolic profile will be obtained to assess for electrolyte abnormality and renal function. CBC was reviewed and showed a mild anemia with a hemoglobin of 10.9 and hematocrit 34.0. Basic metabolic profile was reviewed and was essentially within normal limits. Patient was advised of her findings. Patient was advised that this is most likely from having her legs in a dependent position. Patient was instructed to keep her legs elevated. Patient was instructed to follow-up with her primary care physician in 5 to 7 days. Patient understood and was agreeable with the plan. All questions were answered. Discharge Plan Triage Chief Complaint: General Illness ED Midlevel Provider: Sandra Lee ED Provider: Humble Burt Dx/Rx/DC Orders Clinical Impression: Dependent edema, Headache Instructions: ED Lymphedema Prescriptions: No Action cholecalciferol (vitamin D3) 25 mcg (1,000 unit) capsule 25 mcg PO DAILY baclofen 10 mg tablet 10 mg PO QDAY gabapentin 400 mg capsule 600 mg PO TID acetaminophen 325 mg Tablet 650 mg PO Q4H PRN PRN (Reason: Fever, pain 1-10/10) Qty: 0 0RF lisinopril 10 mg Tablet 10 mg PO DAILY Qty: 0 0RF albuterol sulfate 2.5 mg /3 mL (0.083 %) solution for nebulization 2.5 mg inhalation Q4H MDD 6 PRN (Reason: shortness of breath or wheezing) Qty: 360 11RF Trelegy Ellipta 200-62.5-25 mcg blister with device 1 inh inhalation DAILY MDD 1 daily Qty: 90 11RF Primary Care Provider: Dilip Matute Chi Referrals: Dilip Matute Chi, MD [Primary Care Provider] - 5-7 Days Activity Restrictions/Additional Instructions: Follow-up with your PCP and return for any worsening symptoms. You can try compression socks to help with your swelling as well as keep your feet elevated when sitting. Print Language: Sami Disposition Disposition: Home, Self Care
[2024-06-28 19:41] VITALS: BP 143/76
[2024-06-28 19:47] LABS: Absolute Lymphocyte Count 3.75 X10^3/uL (0.83-4.51); Basophil# 0.07 X10^3/uL; Basophil% 0.8 % (0-1); Eosinophil# 0.27 X10^3/uL; Eosinophils% 3.1 % (0-5); Hemoglobin 10.9 g/dL (12.0-15.0); Lymphocyte # 3.75 X10^3/ul (0.83-4.51); Mean Corp Hgb Conc 32.1 g/dL (32-36); Mean Corpuscular Hgb 30.3 pg (27.0-32.0); Mean Corpuscular Volume 94.4 fL (81-99); Mean Platelet Vol. 9.5 fl (6.2-12.0); Monocyte# 0.65 X10^3/uL; Monocyte% 7.5 % (0-10); NRBC Flagged by Analyzer 0 % (0-5); Neutrophil # 3.96 X10^3/uL (2.7-7.7); Neutrophil % 45.4 % (47-70); Platelet Count 308 K/mm3 (150-450); RBC Distribution Width CV 13.9 % (11.6-14.6); RBC Distribution Width SD 47.8 fl (35.1-43.9); White Blood Count 8.7 K/mm3 (4.4-11.0)
[2024-06-28 20:04] LABS: Anion Gap 11 (5-15); BUN 23 mg/dL (4-19); Calcium,Total 9.5 mg/dL (7.6-11.0); Carbon Dioxide 23.3 mmol/L (21.0-32.0); Chloride 106 mmol/L (98-108); Creatinine, Serum 0.89 mg/dL (0.70-1.20); EST Glomerular Filtration Rate 71 (>60); Estimated Creatinine Clearance 51.48 ml/min (50-250); Glucose 93 mg/dL (70-99); Potassium 4.7 mmol/L (3.3-5.1); Sodium Level 140 mmol/L (133-145)
[2024-06-28 20:44] VITALS: BP 148/78; PULSE 68; RESP 16; TEMP 36.8; O2SAT 99
== END 2024-06-28 20:45 | disposition home or self-care (01) ==
PROVIDERS: Emergency Provider Emergency Medicine; PCP Family Medicine Geriatric Medicine; Visit Provider Emergency Medicine
DX: R60.0 Localized edema (principal); J44.89 Other specified chronic obstructive pulmonary disease; G89.4 Chronic pain syndrome; R51.9 Headache, unspecified; I10 Essential (primary) hypertension; E78.2 Mixed hyperlipidemia; F17.210 Nicotine dependence, cigarettes, uncomplicated; Z99.81 Dependence on supplemental oxygen; Z79.899 Other long term (current) drug therapy
CPT/HCPCS: 80048; 85025; 99284; A4216

== ENCOUNTER → 2024-06-29 | Outpatient (CLI) | payer MEDICARE, MEDICAID, SELFPAY ==
[2024-06-29 17:24] LABS: Absolute Lymphocyte Count 3.62 X10^3/uL (0.83-4.51); Absolute Neutrophil Count 3.8 X10^3/uL (2.0-7.7); Basophil# 0.07 X10^3/uL; Basophil% 0.8 % (0-1); Eosinophil# 0.34 X10^3/uL; Hematocrit 36.9 % (37-47); Hemoglobin 11.9 g/dL (12.0-15.0); Lymphocyte # 3.62 X10^3/ul (0.83-4.51); Lymphocyte % 42.5 % (19-41); Mean Corp Hgb Conc 32.2 g/dL (32-36); Mean Corpuscular Hgb 30.7 pg (27.0-32.0); Mean Corpuscular Volume 95.3 fL (81-99); Mean Platelet Vol. 9.6 fl (6.2-12.0); Monocyte% 8.2 % (0-10); NRBC Flagged by Analyzer 0 % (0-5); Neutrophil # 3.77 X10^3/uL (2.7-7.7); Neutrophil % 44.3 % (47-70); Platelet Count 311 K/mm3 (150-450); RBC Distribution Width CV 13.9 % (11.6-14.6); Red Blood Count 3.87 M/mm3 (4.2-5.4); White Blood Count 8.5 K/mm3 (4.4-11.0)
[2024-06-29 18:18] LABS: ALB/GLOB Ratio 1.5 RATIO (0.9-2.4); AST(SGOT) 23 U/L (<=31); Alanine Aminotransfer ALT/SGPT 10 U/L (<=34); Albumin, Serum 4.3 g/dL (3.4-4.8); Alkaline Phosphatase 88 U/L (35-104); Anion Gap 13 (5-15); BUN 17 mg/dL (4-19); BUN/Creat Ratio 20.2 RATIO (10-20); Calcium,Total 9.9 mg/dL (7.6-11.0); Chloride 103 mmol/L (98-108); Cholesterol 210 mg/dL (<=200); Creatinine, Serum 0.85 mg/dL (0.70-1.20); EST Glomerular Filtration Rate 75 (>60); Globulin 2.9 g/dL (2.2-4.2); Glucose 90 mg/dL (70-99); High Density Lipoprotein 69 mg/dL; Low Density Lipoprotein Calc. 111 mg/dL; Potassium 4.4 mmol/L (3.3-5.1); Protein, Total 7.2 g/dL (5.9-8.4); Sodium Level 140 mmol/L (133-145); Total Bilirubin 0.31 mg/dL (0.00-1.30); Triglycerides 148 mg/dL; Very Low Density Lipoprotein 30 mg/dL (5-40); Vitamin D,25 Hydroxy 37.6 ng/mL (30-100); cholesterol:hdl ratio screen 3.03
== END | disposition home or self-care (01) ==
LOC: LAB 16:55
PROVIDERS: PCP Family Medicine Geriatric Medicine; Referring Provider Family Medicine Geriatric Medicine; Visit Provider Family Medicine Geriatric Medicine
DX: I10 Essential (primary) hypertension (principal); E78.5 Hyperlipidemia, unspecified; E55.9 Vitamin D deficiency, unspecified
CPT/HCPCS: 36415; 80053; 80061; 82306; 84443; 85025

== ENCOUNTER → 2024-07-15 | Outpatient (CLI) | payer MEDICARE, MEDICAID, SELFPAY ==
--- NOTE | 2024-07-15 13:48 | ART_ITS ---
Reason For Study Reason For Study: PAOD Procedure A bilateral lower extremity continuous wave Doppler with analog waveform analysis and ankle brachial indexes. Left Segmental Pressures Left brachial= 118mmHg. Left posterior tibial artery = 136mmHg. Left dorsalis pedis artery = 128mmHg. Left digit = 101 mmHg. The left posterior tibial artery waveforms are triphasic. The left dorsalis pedis waveforms are triphasic. Right Segmental Pressures Right brachial= 123mmHg. Right posterior tibial artery = 140mmHg. Right dorsalis pedis artery = 129mmHg. Right digit = 108 mmHg. The right posterior tibial artery waveforms are triphasic. The right dorsalis pedis waveforms are triphasic. Indices The right ankle brachial index by the posterior tibial artery is 1.14. The right ankle brachial index by the dorsalis pedis is 1.05. The right digital-brachial index is 0.88. The left ankle brachial index by the posterior tibial artery is 1.11. The left ankle brachial index by the dorsalis pedis is 1.04. The left digital-brachial index is 0.82. VL/Ankle Brachial Index Interpretation Summary Right MIGUEL 1.14, normal. TBI and Doppler/PVR waveforms of the right ankle normal at rest. Left MIGUEL 1.11, normal. TBI and Doppler/PVR waveforms of the left ankle normal a t rest. Ordering Physician: Dilip Matute Chi Referring Physician: DILIP MATUTE CHI, MD Performed By: Raghav Estrada RVT
== END | disposition home or self-care (01) ==
LOC: CVS 13:47
PROVIDERS: PCP Family Medicine Geriatric Medicine; Referring Provider Family Medicine Geriatric Medicine; Visit Provider Family Medicine Geriatric Medicine
DX: I73.9 Peripheral vascular disease, unspecified (principal)
CPT/HCPCS: 93922

== ENCOUNTER → 2024-09-17 | Outpatient (CLI) | payer MEDICARE, MEDICAID, SELFPAY ==
--- NOTE | 2024-09-17 17:46 | CT_ITS ---
PROCEDURE: LOW DOSE CT LUNG SCREENING 09/17/2024 REASON FOR EXAM: SMOKER TECHNIQUE: LOW DOSE CT LUNG SCREENING Coronal and Sagittal reconstruction series were provided. One or more dose reduction techniques were used (e.g., Automated exposure control, adjustment of the mA and/or kV according to patient size, use of iterative reconstruction technique). REFERENCE LINK: [employer] Lung-RADS RADIATION DOSE SUMMARY: CTDlvol: 2.01 mGy DLP: 66.2 mGycm COMPARISON: 09/16/2023. FINDINGS: PULMONARY NODULES: (Only nodules >3mm are reported) Nodules described below are on series 2 unless otherwise specified. Pulmonary Nodules: Left lower lobe pleural-based calcified granuloma measuring 2 to 3 mm is unchanged. Centrilobular emphysema is unchanged. 7 mm right upper lobe subsolid groundglass pulmonary nodule is unchanged. 6 mm right upper lobe subsolid groundglass nodule is unchanged. Moderate coronary artery calcifications are noted. Small sliding hiatal hernia. Diffuse spondylosis. Normal unenhanced main pulmonary artery and right and left pulmonary arteries. Normal bilateral peripheral pulmonary arteries. Normal thoracic aorta and visualized great vessels. There is no demonstrated aortic aneurysm. Normal heart and pericardium. Normal mediastinum. Normal hilar regions. Normal visualized trachea and thickened bronchi. Normal pleura. Normal visualized upper abdomen. CT/Low Dose CT Lung Screening IMPRESSION: Coronary artery calcification (CAC) is is present Lung-RADS Category: 2 BENIGN (BASED ON IMAGING FEATURES OR INDOLENT BEHAVIOR). RECOMMEND 12-MONTH SCREENING LDCT. Left lower lobe pleural-based calcified granuloma measuring 2 to 3 mm is unchan ged. Centrilobular emphysema is unchanged. 7 mm right upper lobe subsolid groundglass pulmonary nodule is unchanged. 6 mm right upper lobe subsolid groundglass nodule is unchanged. Moderate coronary artery calcifications are noted. Small sliding hiatal hernia. Diffuse spondylosis. Reading Location: [facility]
== END | disposition home or self-care (01) ==
LOC: CT 17:45
PROVIDERS: PCP Family Medicine Geriatric Medicine; Referring Provider Nurse Practitioner Acute Care; Visit Provider Nurse Practitioner Acute Care
DX: F17.210 Nicotine dependence, cigarettes, uncomplicated (principal)
CPT/HCPCS: 71271

== ENCOUNTER → 2024-10-20 | Outpatient (CLI) | payer MEDICARE, MEDICAID, SELFPAY ==
--- NOTE | 2024-10-20 16:05 | RAD_ITS ---
EXAM: XR Abdomen, 1 View CLINICAL INDICATION: FECAL IMPACTION OF COLON TECHNIQUE: Frontal supine view of the abdomen/pelvis. COMPARISON: No relevant prior studies available. FINDINGS: GASTROINTESTINAL TRACT: Fecal retention in the colon consistent with constipation. No dilation. BONES/JOINTS: Unremarkable. No acute fracture. RAD/Abd Decub and/or Erect(Portabl IMPRESSION: Fecal retention in the colon consistent with constipation. Reading Location: [id number]
== END | disposition home or self-care (01) ==
LOC: RAD 15:55
PROVIDERS: PCP Family Medicine Geriatric Medicine; Referring Provider Family Medicine Geriatric Medicine; Visit Provider Family Medicine Geriatric Medicine
DX: K56.41 Fecal impaction (principal); R33.9 Retention of urine, unspecified
CPT/HCPCS: 74019

== ENCOUNTER → 2024-10-20 | Outpatient (CLI) | payer MEDICARE, MEDICAID, SELFPAY ==
[2024-10-20 15:57] LABS: Mucous, Urine 0 SEEN /hpf (<or=2+)
[2024-10-20 16:58] LABS: Color, Urine Yellow (Yellow); Glucose, Dipstick Normal (Normal); Ketone-Dipstick Negative (Negative); Leukocyte Esterase-Dipstick Negative /ul (Negative); Nitrite-Dipstick Negative (Negative); Occult Blood-Urine Negative /ul (Negative); Protein-Dipstick 15 mg/dl (Negative); Specific Gravity, Urine 1.015 (1.002-1.030); Urine Bilirubin Dipstick Negative (Negative)
[2024-10-20 19:44] LABS: Red Blood Cells-Urine 0-5 SEEN /hpf (0-5); Squamous Epithelial Cells - UA 0-5 SEEN /hpf (5-10)
== END | disposition home or self-care (01) ==
PROVIDERS: PCP Family Medicine Geriatric Medicine; Visit Provider Family Medicine Geriatric Medicine
DX: R33.9 Retention of urine, unspecified (principal)
CPT/HCPCS: 81001; 87086; 87088

== ENCOUNTER → 2024-11-02 | Outpatient (CLI) | payer MEDICARE, MEDICAID, SELFPAY ==
--- NOTE | 2024-11-02 12:45 | US_ITS ---
PROCEDURE: KIDNEY AND BLADDER 11/02/2024 REASON FOR EXAM: URINARY RETENTION TECHNIQUE: KIDNEY AND BLADDER COMPARISON: None FINDINGS: Kidneys: Atrophy of the right kidney. [place]: No evidence of hydronephrosis. Cysts or Masses: 3 cm x 3.1 cm 3.1 cm cyst in the lower pole of the left kidney. Other: No postvoid residual. RIGHT Kidney Size: 7.7 cm x 4.4 cm x 4.3 cm Volume: 75.62 mL Cortical Thickness (if discernible): 10 mm (>6mm is normal) LEFT Kidney Size: 8.7 cm x 4.2 cm x 4.3 cm Volume: 81.43 mL Cortical Thickness (if discernible): 10 mm (>6mm is normal) US/Kidney and Bladder IMPRESSION: Left renal cyst. Mild atrophy of the right kidney. No postvoid residual. Reading Location: [id number]
== END | disposition home or self-care (01) ==
LOC: US 12:45
PROVIDERS: PCP Family Medicine Geriatric Medicine; Referring Provider Family Medicine Geriatric Medicine; Visit Provider Family Medicine Geriatric Medicine
DX: R33.9 Retention of urine, unspecified (principal); K56.41 Fecal impaction
CPT/HCPCS: 76770

== ENCOUNTER → 2024-12-20 | Outpatient (CLI) | payer MEDICARE, MEDICAID, SELFPAY ==
[2024-12-20 16:13] LABS: Hematocrit 38.6 % (37-47); Hemoglobin 12.6 g/dL (12.0-15.0); Immature Granulocytes Count 0.030 X10^3/uL (0.0-0.0); Mean Corp Hgb Conc 32.6 g/dL (32-36); Mean Corpuscular Volume 96.0 fL (81-99); Mean Platelet Vol. 10.2 fl (6.2-12.0); NRBC Flagged by Analyzer 0 % (0-5); Platelet Count 306 K/mm3 (150-450); RBC Distribution Width CV 13.2 % (11.6-14.6); RBC Distribution Width SD 46.7 fl (35.1-43.9); Red Blood Count 4.02 M/mm3 (4.2-5.4); White Blood Count 7.6 K/mm3 (4.4-11.0)
[2024-12-20 17:13] LABS: AST(SGOT) 21 U/L (<=31); Alanine Aminotransfer ALT/SGPT 8 U/L (<=34); Albumin, Serum 4.3 g/dL (3.4-4.8); Alkaline Phosphatase 80 U/L (35-104); Anion Gap 13 (5-15); BUN 16 mg/dL (4-19); BUN/Creat Ratio 15.1 RATIO (10-20); Calcium,Total 9.6 mg/dL (7.6-11.0); Carbon Dioxide 23.1 mmol/L (21.0-32.0); Chloride 101 mmol/L (98-108); Cholesterol 182 mg/dL (<=200); Globulin 2.7 g/dL (2.2-4.2); Glucose 127 mg/dL (70-99); Low Density Lipoprotein Calc. 80 mg/dL; Potassium 4.2 mmol/L (3.3-5.1); Triglycerides 190 mg/dL; Very Low Density Lipoprotein 38 mg/dL (5-40); Vitamin D,25 Hydroxy 41.3 ng/mL (30-100); cholesterol:hdl ratio screen 2.84
== END | disposition home or self-care (01) ==
LOC: LAB 14:17
PROVIDERS: PCP Family Medicine Geriatric Medicine; Referring Provider Family Medicine Geriatric Medicine; Visit Provider Family Medicine Geriatric Medicine
DX: I10 Essential (primary) hypertension (principal); E78.5 Hyperlipidemia, unspecified; E55.9 Vitamin D deficiency, unspecified; R73.09 Other abnormal glucose
CPT/HCPCS: 36415; 80053; 80061; 82306; 83036; 84443; 85025

== ENCOUNTER → 2024-12-31 | Outpatient (CLI) | payer MEDICARE, MEDICAID, SELFPAY ==
--- NOTE | 2024-12-31 15:11 | BI_ITS ---
EXAM: SCRN MAMM (CAD)W/KIMI BILAT DATE: 12/31/2024 CLINICAL HISTORY: F, Age 69 y/o , SCREENING No family history. TECHNIQUE: Procedure Code: [id number] Modality: MG Procedure: SCRN MAMM (CAD)W/KIMI BILAT COMPARISON: Prior exam(s) dated October 14, 2022.. FINDINGS: TISSUE DENSITY: The breasts are heterogeneously dense, which may obscure small masses. Bilateral Breast Mammographic Findings: There is a stable 9 mm well-defined nodule in the central aspect of the left breast. Correlation with ultrasound recommended. Stable benign-appearing bilateral axillary lymph nodes. BI/SCRN MAMM (CAD)W/KIMI BILAT IMPRESSION: Stable 9 mm well-defined nodule in the central deep portion of the left breast as described. Correlation with ultrasound recommended. OVERALL FINAL ASSESSMENT BI-RADS 0: INCOMPLETE - NEED ADDITIONAL IMAGING EVALUATION. RECOMMENDATION: Ultrasound Recommended Additional Recommendation none A letter with findings and recommendations will be mailed to the patient. Reading Location: [place]
--- NOTE | 2024-12-31 15:11 | BI_ITS ---
EXAM: SCRN MAMM (CAD)W/KIMI BILAT DATE: 12/31/2024 CLINICAL HISTORY: F, Age 69 y/o , SCREENING No family history. TECHNIQUE: Procedure Code: [id number] Modality: MG Procedure: SCRN MAMM (CAD)W/KIMI BILAT COMPARISON: Prior exam(s) dated October 14, 2022.. FINDINGS: TISSUE DENSITY: The breasts are heterogeneously dense, which may obscure small masses. Bilateral Breast Mammographic Findings: There is a stable 9 mm well-defined nodule in the central aspect of the left breast. Correlation with ultrasound recommended. Stable benign-appearing bilateral axillary lymph nodes. BI/SCRN MAMM (CAD)W/KIMI BILAT IMPRESSION: Stable 9 mm well-defined nodule in the central deep portion of the left breast as described. Correlation with ultrasound recommended. OVERALL FINAL ASSESSMENT BI-RADS 0: INCOMPLETE - NEED ADDITIONAL IMAGING EVALUATION. RECOMMENDATION: Ultrasound Recommended Additional Recommendation none A letter with findings and recommendations will be mailed to the patient. Reading Location: [place]
== END | disposition home or self-care (01) ==
LOC: OPBI 15:10
PROVIDERS: PCP Family Medicine Geriatric Medicine; Referring Provider Family Medicine Geriatric Medicine; Visit Provider Family Medicine Geriatric Medicine
DX: Z12.31 Encounter for screening mammogram for malignant neoplasm of breast (principal)
CPT/HCPCS: 77063; 77067

== ENCOUNTER → 2025-01-05 | Outpatient (CLI) | payer MEDICARE, MEDICAID, SELFPAY | END | disposition home or self-care (01) | LOC: OPUS 09:19 | PROVIDERS: PCP Family Medicine Geriatric Medicine; Referring Provider Family Medicine Geriatric Medicine; Visit Provider Family Medicine Geriatric Medicine | DX: N63.42 Unspecified lump in left breast, subareolar (principal) | CPT/HCPCS: 76642 ==

== ENCOUNTER 2025-03-29 12:13 | Emergency (ER) | payer MEDICARE, MEDICAID, SELFPAY ==
[2025-03-29 12:14] VITALS: BP 106/61; PULSE 97; RESP 20; TEMP 36.8; O2SAT 100; BMI 25.6
[2025-03-29 13:19] VITALS: BP 111/86; PULSE 90; RESP 23; TEMP 36.9; O2SAT 96
[2025-03-29 13:40] VITALS: O2SAT 100
[2025-03-29 14:00] VITALS: BP 148/95; PULSE 73; RESP 22; TEMP 36.9; O2SAT 98
[2025-03-29 15:08] VITALS: PULSE 95; RESP 20
--- NOTE | 2025-03-29 15:17 | ED.VIS.DYS ---
HPI History of Present Illness Chief Complaint: Shortness of Breath Informant: patient and EMS Narrative Narrative: Patient is a 70-year-old female with a history of COPD presenting with dyspnea and flu-like symptoms. - Symptoms began on Friday night (<48 hrs ago), including emesis, fatigue, and dyspnea. - Tested positive for influenza A by her daughter, a food products sales representative at an urgent care. - Reports dyspnea primarily on exertion, which improves with rest. Albuterol also helping some. - Uses supplemental O2 at home, typically 2 LPM at night, but has been wearing it continuously since Friday due to decreased SpO2 levels without it. With oxygen her levels have been good. - Denies angina-type chest pain but reports chest tightness and soreness when coughing. - Received influenza vaccine this year. [facility] Medical History Cervical myelopathy Osteoporosis Chronic pain Kidney disease Smoker Sleep apnea On home oxygen therapy Irregular heart beat Tobacco use Chronic pain syndrome HTN (hypertension) Stage 3 severe COPD by GOLD classification Hypertension Mixed hyperlipidemia Iron deficiency anemia Home Medications ?Medication ?Instructions ?Recorded ?Last Taken ?Type baclofen 10 mg tablet 10 mg PO QHS 10/16/23 03/28/25 History cholecalciferol (vitamin D3) 25 25 mcg PO DAILY 10/16/23 03/28/25 History mcg (1,000 unit) capsule acetaminophen 325 mg tablet 650 mg (2 x 325 mg) PO Q4H PRN PRN 04/07/24 03/29/25 Rx Fever, pain 1-01/07 #0 tabs albuterol sulfate 2.5 mg/3 mL 2.5 mg (3 mL) inhalation Q4H PRN 08/20/24 03/29/25 Rx (0.083 %) solution for nebulization shortness of breath or wheezing #180 mL biotin 5,000 mcg chewable tablet 5,000 mcg PO DAILY 09/21/24 03/28/25 History cyanocobalamin (vitamin B-12) 2,500 mcg PO QDAY 09/21/24 03/28/25 History 2,500 mcg tablet fluticasone fur. 200 mcg-umeclid 1 inh inhalation DAILY COPD, 09/21/24 03/29/25 Rx 62.5 mcg-vilant 25 mcg severe #90 ea inhalat.powder (Trelegy Ellipta) gabapentin 600 mg tablet 600 mg PO TID 09/21/24 03/29/25 History lisinopril 20 mg tablet 20 mg PO QDAY 09/21/24 03/29/25 History albuterol sulfate 90 mcg/actuation 2 puff inhalation Q6 PRN shortness 09/22/24 03/28/25 Rx aerosol inhaler of breath or wheezing #8.5 grams oseltamivir 75 mg capsule (Tamiflu) 75 mg PO Q12H 5 days #10 caps 03/29/25 Unknown Rx prednisone 10 mg tablet See Rx Instructions .Route 03/29/25 Unknown Rx .COMPLEX #38 tabs Allergy/AdvReac Type Severity Reaction Status Date / Time codeine Allergy hives Verified 03/29/25 12:18 Family History (Reviewed 01/24/25 @ 14:52 by Nena Freedman INBOUND SALES REPRESENTATIVE, INBOUND SALES REPRESENTATIVE-C) Mother Arthritis Skin cancer Father Brain cancer Surgical History Hx of tonsillectomy H/O cervical discectomy Social History household members: none Smoking Status: Current every day smoker tobacco type: cigarettes alcohol intake: current alcohol intake frequency: holidays/special occasions only substance use type: does not use ROS ROS ED Constitutional Constitutional ED: Reports fever(s) and malaise; Denies chills Eyes Eyes: Denies change in vision or diplopia ENT ENT ED: Reports nasal congestion and rhinorrhea; Denies sore throat Cardiovascular Cardiovascular: Reports chest pain; Denies orthopnea, palpitations or radiating jaw, neck or arm pain Respiratory/Chest Respiratory/Chest: Reports cough, dyspnea and dyspnea on exertion; Denies orthopnea Gastrointestinal Gastrointestinal: Denies abdominal pain, diarrhea, nausea or vomiting Genitourinary Genitourinary ED: Denies dysuria or hematuria Musculoskeletal Musculoskeletal: Denies back pain or neck pain Integumentary Denies abscess or rash Neurologic Neurologic: Denies headache(s), paresthesias or weakness Psychiatric Psychiatric: Denies anxiety or suicidal thoughts EXAM Physical Exam Const Vital Signs: 03/29/25 12:14 03/29/25 13:19 03/29/25 13:40 Temperature 98.3 F 98.4 F Temperature Source Oral Oral Pulse Rate 97 90 Respiratory Rate 20 H 23 H Respiratory Effort Short of Breath Respiratory Depth Shallow Respiratory Pattern Tachypnea Blood Pressure 106/61 111/86 H Blood Pressure Mean 76 94 Pulse Ox 100 96 Oxygen Delivery Method Nasal Cannula Nasal Cannula Nasal Cannula Oxygen Flow Rate (L/min) 2 2 03/29/25 14:00 03/29/25 15:08 Temperature 98.4 F Temperature Source Oral Pulse Rate 73 95 Respiratory Rate 22 H 20 H Respiratory Effort Respiratory Depth Respiratory Pattern Normal Blood Pressure 148/95 H Blood Pressure Mean 112 Pulse Ox 98 Oxygen Delivery Method Room Air Oxygen Flow Rate (L/min) Positive well nourished and well developed General Appearance ED: well developed and NAD HEENT Reports moist mucous membranes normocephalic and atraumatic Eyes PERRL and EOMs intact bilaterally Neck full ROM, no lymphadenopathy, supple, no meningeal signs and no JVD Resp normal respiratory effort Resp Narrative: Diffuse expiratory wheezes and mildly prolonged expiratory phase. No accessory muscle use or respiratory distress. Converses in full sentences. Equal breath sounds bilaterally, trachea midline. Cardio regular rate, regular rhythm and no murmurs GI non-tender and non-distended Auscultation: normoactive bowel sounds Palpation: soft Back/Spine no CVA tenderness General Back: other FROM Extremity normal to inspection General Extremety ED: Negative for edema, pulses abnormal or tenderness General Extremity: Negative for edema or pulses abnormal Neuro oriented x3, CN's II-XII intact bilaterally and no sensory deficits noted Sensorium / Orientation: awake and alert Motor Exam: strength 5/5 throughout Skin no rashes or lesions noted and no wounds MDM MDM MDM Narrative Medical decision making narrative: Assessment: The patient is a 70-year-old female with PMH of COPD presenting for shortness of breath and cough after testing positive for influenza A 2 days ago. Chest tightness is pleuritic and worsens with cough, she has some mild tenderness, consistent with musculoskeletal etiology. Chest x-ray shows hyperexpansion consistent with COPD but no consolidation. Radiology mentions diffuse reticular opacities, I do not think clinically this represents bacterial superinfection or need for antibiotics. She remains normoxic on her home 2 L O2, wheezing improves with nebulizer, and vitals are stable without sepsis. Presentation most consistent with influenza-associated COPD exacerbation; pneumonia and hypoxic respiratory failure are ruled out by imaging and stable saturations. Plan: - Nebulized bronchodilator treatment given in ED - Started oral prednisone; prescription provided - Started oseltamivir (Tamiflu); prescription provided - Discharged home; stable O2 and improved symptoms allow outpatient management - Return precautions and medication use reviewed Diagnostics: - Chest x-ray one view: hyperexpansion consistent with COPD; no infiltrate or pneumonia. Independently interpreted by me, Jamal Corea. Reevaluations: - Post-nebulizer: symptom relief, maintains normoxia on home O2, comfortable for discharge Portions of this note were generated using voice recognition software ([id number]). I have reviewed the contents and every effort has been made to ensure accuracy; however, inadvertent errors in grammar, spelling, punctuation, or word choice may occur, that were not noted before signing the document and should not alter the intended clinical meaning. Radiography Diagnostic Testing: Clinical Impression(s) from Imaging Studies Chest X-Ray 03/29/25 15:25 IMPRESSION: Diffuse reticular opacities may reflect pulmonary interstitial edema versus atypical pneumonia. Reading Location: [facility] Discharge Plan Triage Chief Complaint: Shortness of Breath ED Provider: Jamal Corea Dx/Rx/DC Orders Clinical Impression: Influenza A, Acute exacerbation of chronic obstructive pulmonary disease (COPD), Strain of chest wall Instructions: ED COPD Flare, ED Influenza (Adult) Prescriptions: New prednisone 10 mg tablet See Rx Instructions .ROUTE .COMPLEX Qty: 38 0RF Rx Instructions: Take 4 tablets daily for 5 days, then 3 daily for 3 days, then 2 daily for 3 days, then 1 a day for 3 days oseltamivir [Tamiflu] 75 mg capsule 75 mg PO Q12H 5 Days Qty: 10 0RF No Action cholecalciferol (vitamin D3) 25 mcg (1,000 unit) capsule 25 mcg PO DAILY baclofen 10 mg tablet 10 mg PO QHS lisinopril 20 mg tablet 20 mg PO QDAY gabapentin 600 mg tablet 600 mg PO TID cyanocobalamin (vitamin B-12) 2,500 mcg tablet 2,500 mcg PO QDAY biotin 5,000 mcg tablet,chewable 5,000 mcg PO DAILY Trelegy Ellipta 200-62.5-25 mcg blister with device 1 inh inhalation DAILY MDD 1 daily Qty: 90 11RF acetaminophen 325 mg Tablet 650 mg PO Q4H PRN PRN (Reason: Fever, pain 1-01/07) Qty: 0 0RF albuterol sulfate 2.5 mg /3 mL (0.083 %) solution for nebulization 2.5 mg inhalation Q4H MDD 6 PRN (Reason: shortness of breath or wheezing) Qty: 180 0RF albuterol sulfate 90 mcg/actuation HFA aerosol inhaler 2 puff inhalation Q6 PRN (Reason: shortness of breath or wheezing) Qty: 8.5 11RF Primary Care Provider: Dilip Matute Chi Referrals: Dilip Matute Chi, MD [Primary Care Provider, Geriatrics] - 3-5 Days if not improving Print Language: Serbian Disposition Disposition: Home, Self Care
--- NOTE | 2025-03-29 15:25 | RAD_ITS ---
PROCEDURE: CHEST 1 VIEW (PORTABLE) 03/29/2025 REASON FOR EXAM: COUGH, FLU, COPD, SOB TECHNIQUE: Frontal view of the chest. FINDINGS: Diffuse reticular opacities may reflect pulmonary interstitial edema versus atypical pneumonia. No focal consolidation. No pleural effusion or pneumothorax. Cardiac silhouette is within normal limits. No acute fractures. Cervical ACDF RAD/Chest 1 View (Portable) IMPRESSION: Diffuse reticular opacities may reflect pulmonary interstitial edema versus aty pical pneumonia. Reading Location: [facility]
[2025-03-29 15:53] VITALS: BP 122/75; PULSE 85; RESP 20; TEMP 36.6; O2SAT 97
== END 2025-03-29 16:03 | disposition home or self-care (01) ==
PROVIDERS: Emergency Provider Emergency Medicine; PCP Family Medicine Geriatric Medicine; Visit Provider Emergency Medicine
DX: J09.X2 Influenza due to identified novel influenza A virus with other respiratory manifestations (principal); J44.0 Chronic obstructive pulmonary disease with (acute) lower respiratory infection; J44.1 Chronic obstructive pulmonary disease with (acute) exacerbation; S29.011A Strain of muscle and tendon of front wall of thorax, initial encounter; F17.210 Nicotine dependence, cigarettes, uncomplicated; Z99.81 Dependence on supplemental oxygen
CPT/HCPCS: 71045; 94640; 99284